=== PATIENT | female | born 2005 | race Caucasian/White ===

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

== ENCOUNTER 2023-07-14 15:33 | Outpatient (OUT) | payer OTHER, BC, SELFPAY ==
--- NOTE | 2023-07-14 15:35 | US_ITS ---
The [address] [address] Patient Name: BRADLEY MASSEY MRN: [id number] date: 2005 Sex: F Assigned Patient Location: US Current Patient Location: Accession/Order Number: [id number] Exam Date: 07/14/2023 16:00 Report Date: 07/15/2023 07:39 At the request of: RADHA YAN Procedure: US pelvis w/ transvaginal EXAMINATION: US pelvis w/ transvaginal HISTORY: pelvic pain in female R10.2 COMPARISON: Ultrasound pelvis 11/17/2022 TECHNIQUE: Transabdominal and/or transvaginal sonographic examination was performed as indicated by examination type. FINDINGS: UTERUS: Normal size and appearance. Uterus size: 8.1 x 3.5 x 4.7 cm ENDOMETRIUM: Normal homogeneous appearance. IUD within fundal endometrial cavity. Endometrial thickness: 2 mm RIGHT OVARY: Normal size and appearance. Duplex Doppler demonstrates normal waveform and flow; resistive index 0.7. Ovary size: 2.6 x 1.6 x 1.7 cm LEFT OVARY: Normal size and appearance. Duplex Doppler demonstrates normal waveform and flow; resistive index 0.6. Ovary size: 2.6 x 1.3 x 2.1 cm CUL-DE-SAC: Unremarkable. No significant free fluid. BLADDER: Unremarkable. OTHER: None. US/US pelvis w/ transvaginal IMPRESSION: 1. No abnormal or suspicious findings to account for patient's symptoms. Electronically authenticated by: ROBERT ZAVALA Date: 07/15/2023 07:39
== END 2023-07-14 15:34 | disposition home or self-care (01) ==
LOC: US 15:33
PROVIDERS: PCP Family Medicine; Visit Provider Obstetrics & Gynecology
DX: R10.2 Pelvic and perineal pain (principal)
CPT/HCPCS: 76830; 76856

== ENCOUNTER 2023-10-03 14:10 | Outpatient (OUT) | payer OTHER, BC, SELFPAY ==
--- OUTSIDE RECORDS SUMMARY | 2023-10-03 14:21 | XMS_ITS | CCD ---
Author Organization [facility] Care Team Providers Care [employer] Name Role Phone Stella Brar Unavailable Unavailable Juan CLe Unavailable Unavailable Yokasta Wiggins Unavailable Unavailable MD Fernando Wilson Primary Care Provider [phone] EMMANUELLE Ramos Emergency Provider [phone] Lisa Fernandez Unavailable Fernando Wilson Unavailable FARRAH ., DR GARCIA Admitting Unavailable FARRAH ., DR GARCIA Attending Unavailable WILSON, DR FERNANDO Emanuel Primary Care Unavailable FARRAH ., DR GARCIA Consulting Unavailable WILSON, DR FERNANDO Emanuel Admitting Unavailable WILSON, DR FERNANDO Emanuel Attending Unavailable WILSON, DR FERNANDO Emanuel Consulting Unavailable STEVE, DR FERNANDO Emanuel Primary Care Unavailable WILSON, DR FERNANDO Emanuel Primary Care Unavailable WILSON, DR FERNANDO Emanuel Admitting Unavailable WILSON, DR FERNANDO Emanuel Attending Unavailable WILSON, DR FERNANDO Emanuel Consulting Unavailable FARRAH ., DR GARCIA Admitting Unavailable FARRAH ., DR GARCIA Attending Unavailable WILSON, DR FERNANDO Emanuel Primary Care Unavailable FARRAH ., DR GARCIA Admitting Unavailable FARRAH ., DR GARCIA Attending Unavailable FARRAH ., DR GARCIA Consulting Unavailable STEVE, DR FERNANDO Emanuel Primary Care Unavailable STEVE, DR FERNANDO Emanuel Admitting Unavailable WILSON, DR FERNANDO Emanuel Attending Unavailable STEVE, DR FERNANDO Emanuel Consulting Unavailable STEVE, DR FERNANDO Emanuel Primary Care Unavailable MD Fernando Wilson Primary Care Provider MD Lisa Fernandez Attending Provider [phone] MD Fernando Wilson Primary Care Provider DO Cody Akhtar Attending Provider [phone] Fernando Wilson MD Primary Care Provider Bubba Cota DO R Unavailable ALBERT ZAPATA Attending Fernando Garza MD Primary Care Provider Fernando Wilson MD Primary Care Provider BUBBA COTA Attending Unavailable Asaad, Imad Admitting Unavailable Fernando Wilson Primary Care Unavailable Lisa Fernandez Attending Unavailable Cody Wise Attending Unavailable Cody Wise Admitting Unavailable Fernando Wilson Primary Care Unavailable Medications Current Medications Medication Drug Class(es) Dates Sig (Normalized) Sig (Original) ALPRAZolam 0.25 mg oral tablet (8 sources) Benzodiazepine Start: 09-02-2022 take 1 tablet by mouth twice daily as needed ALPRAZolam 0.25 MG 1 tablet Orally Twice a day prn for 30 days PRN Aug, Active dicyclomine hydrochloride 20 mg oral tablet (13 sources) Anticholinergic Start: 05-08-2022 take 20 mg by mouth twice daily Dicyclomine Active 20 MG PO 2 times daily May 08, 2022 1:00am Start: 05-08-2022 Dicyclomine Ac tive MG TABLET May 08, 2022 12:00am Start: 04-26-2022 take 1 tablet by fernandez th every six hours as needed dicyclomine (BENTYL) 20 mg tablet Take 20 mg by mouth every 6 hours as needed. 0 04/26/2022 Active Start: 05-28-2018 dicyclomine (B entyl) 10 mg capsule Take by mouth. 0 05/28/2018 Active Comment on above: Take 20 mg by mouth every 6 hours as needed. Drospirenone-Ethinyl Estradiol (3 sources) Progestin, Estrogen Start: 05-08-2022 Drospirenone-Ethinyl Estradiol Active 1 TAB PO As Directed May 08, 2022 1:00am Start: 05-08-2022 Drospirenone-E thinyl Estradiol Active TAB TABLET May 08, 2022 12:00am hyoscyamine sulfate 0.125 mg sublingual tablet (3 sources) Start: 12-01-2022 take 1 tablet under the tongue three times daily as needed Hyoscyamine Sulfate SL 0.125 MG 1 tablet under the tongue and allow to dissolve as needed Sublingual Three times a day as needed for 30 days Nov, Active 1 ml medroxyPROGESTERone acetate 150 mg/ml injection (14 sources) Progestin Start: 12-20-2022 End: 09-16-2023 medroxyPROGESTERone (DEPO-PROVERA) 150 mg/mL injection Inject 150 mg intramuscularly. 0 12/20/2022 09/16/2023 Active Start: 05-08-2022 Medroxyprogest erone Active 150 MG IM As Directed May 08, 2022 1:00am Start: 05-08-2022 Medroxyprogest erone Active MG IM May 08, 2022 12:00am Depo-Provera 150 MG/ML 1 mL Intramuscular Active Comment on above: Inject 150 mg intram uscularly. metoclopramide 10 mg oral tablet (1 source) Dopamine-2 Receptor Antagonist Start: take 1 tablet by mouth every six hours Metoclopramide Hcl (Reglan) 10 mg tablet Active 10 MG PO Q6H 28 7 May 08, 2022 12:00am ondansetron 4 mg disintegrating oral tablet (16 sources) Serotonin-3 Receptor Antagonist Start: End: take 1 tablet by mouth every eight hours for nausea ondansetron ODT (Zofran-ODT) 4 mg disintegrating tablet Indications: Irritable bowel syndrome with diarrhea , Bilious vomiting with nausea Take 1 tablet (4 mg) by mouth every 8 hours if needed for nausea or vomiting. 90 tablet 3 04/05/2023 03/30/2024 Active Start: 05-08-2022 take 4 mg by mouth once daily Ondansetron Active 4 MG PO Daily May 08, 2022 1:00am Start: 05-08-2022 Ondansetron Ac tive MG May 08, 2022 12:00am take 1 tablet by fernandez th once daily as needed Ondansetron HCl 4 MG 1 tablet Orally Once a day as needed for 30 days Active Comment on above: TAKE 1 TABLET (4 MG) BY MOUTH EVERY 8 HOURS IF NEEDED FOR NAUSEA OR VOMITING. polyethylene glycol 3350 [id number] mg / potassium chloride 2970 mg / sodium bicarbonate 6740 mg / sodium chloride 5860 mg / sodium sulfate 71476 mg powder for oral solution (1 source) Osmotic Laxative PEG-3350/Electr olyt es 236 GM as directed Orally ONCE DAILY for 1 days Active rifAXIMin 550 mg oral tablet (1 source) Rifamycin Antibacterial Start: 3 End: 3 take 1 tablet by mouth three times daily rifAXIMin (Xifaxan) 550 mg tablet Indications: diarrhea predominant irritable bowel syndrome Take 1 tablet (550 mg) by mouth 3 times a day for 14 days. 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 Take 2ml with every meal and snack up to 6 times daily 300 mL 11 04/21/2023 Active Completed/Discontinued Medications Medication Drug Class(es) Dates Sig (Normalized) Sig (Original) calcium chloride 0.0014 meq/ml / potassium chloride 0.004 meq/ml / sodium chloride 0.103 meq/ml / sodium lactate 0.028 meq/ml injectable solution (2 sources) Start: 05-26-2023 End: 05-27-2023 lactated Ringer's infusion cefdinir (7 sources) Cephalosporin Antibacterial take 1 [tsp_us] by mouth once daily Omnicef 250/5 1 tsp Orally qd for 10 day(s) Not-Taking ergocalciferol 1.25 mg oral capsule (6 sources) Provitamin D2 Compound Start: 05-22-2018 End: 05-26-2023 ergocalciferol (Vitamin D-2) 1.25 MG (92101 UT) capsule Take by mouth. 0 05/22/2018 05/26/2023 Discontinued (Therapy completed) Start: 05-22-2018 take 1 capsule by [facility] every week Vitamin D (Ergocalciferol) 1.25 MG (53014 UT) Oral Capsule TAKE 1 CAPSULE WEEKLY for 8 weeks Quantity: 8 Refills: 0 Stella Olivares Start : 22-May-2018 Active Multivitamin preparation (7 sources) take 1 tablet by fernandez once daily Multivitamin - 1 tablet Orally Once a day Not-Taking take 1 tablet by mouth once tor y Multivitamin - 1 tablet Orally Once a day Active sertraline 25 mg oral tablet (5 sources) Serotonin Reuptake Inhibitor Start: 10-19-2019 End: 05-26-2023 sertraline (Zoloft) 25 mg tablet Take by mouth once daily. 0 10/19/2019 05/26/2023 Discontinued (Therapy completed) Problems Active Problems Problem Classification Problem Date Documented Da te Episodic/Chronic Anxiety disorders (20 sources) Anxiety; Translations: [Generalized anxiety disorder] Onset: 07-31-2019 Chronic Headache; including migraine (6 sources) Headache; Translations: [Headache] Onset: 03-04-2023 03-04-2023 Episodic Menstrual disorders (1 source) Menorrhagia; Translations: [Excessive and frequent menstruation with regular cycle] 04-22-2023 Chronic Mood disorders (4 sources) Depressive disorder; Translations: [Depression] Onset: 07-31-2019 03-04-2023 Chronic Nausea and vomiting (14 sources) Nausea; Translations: [Nausea] Episodic Nutritional deficiencies (6 sources) Vitamin D deficiency; Translations: [Vitamin D deficiency, unspecified] Onset: 03-04-2023 03-04-2023 Chronic Other gastrointestinal disorders (19 sources) Irritable bowel syndrome; Translations: [Irritable bowel syndrome without diarrhea] Onset: 06-01-2016 03-04-2023 Chronic Other gastrointestinal disorders (5 sources) Mixed irritable bowel syndrome; Translations: [MIXED IRRITABLE BOWEL SYNDROME] Onset: 09-04-2022 Chronic Other gastrointestinal disorders (2 sources) Irritable bowel syndrome with diarrhea; Translations: [Irritable bowel syndrome with diarrhea] 04-05-2023 Chronic Other gastrointestinal disorders (2 sources) Diarrhea; Translations: [Diarrhea in pediatric patient] Episodic Other gastrointestinal disorders (1 source) Diarrhea, unspecified Episodic Other nervous system disorders (4 sources) Chiari malformation type I; Translations: [Compression of brain] Onset: 03-04-2023 03-04-2023 Chronic Other nutritional; endocrine; and metabolic disorders (4 sources) Methylene THF reductase deficiency AND homocystinuria; Translations: [Methylenetetrahydro folate reductase deficiency] Onset: 03-04-2023 03-04-2023 Chronic Other nutritional; endocrine; and metabolic disorders (6 sources) Sucrase-isomaltase deficiency; 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] Onset: 04-30-2023 04-30-2023 Chronic Other nutritional; endocrine; and metabolic disorders (12 sources) Weight loss; Translations: [Abnormal weight loss] 04-05-2023 Episodic Other nutritional; endocrine; and metabolic disorders (6 sources) Abnormal weight loss; Translations: [ABNORMAL WEIGHT LOSS] Onset: 03-23-2022 Episodic Residual codes; unclassified (2 sources) Insomnia; Translations: [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] Episodic Residual codes; unclassified (8 sources) Genetic susceptibility to other disease; 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] Episodic Residual codes; unclassified (4 sources) Insomnia disorder related to known organic factor; Translations: [Insomnia, unspecified] Onset: 03-04-2023 03-04-2023 Episodic Unclassified (1 source) Encounter for immunization; Translations: [Encounter for immunization] Onset: 02-21-2023 Past or Other Problems Problem Classification Problem Date Documented Date Episodic/Chronic Abdominal pain (20 sources) Generalized abdominal pain; Translations: [Abdominal pain] Onset: 05-01-2022 05-08-2022 Episodic Immunizations and screening for infectious disease (1 source) Encounter for screening for infections with a predominantly sexual mode of transmission; Translations: [ENC SCREEN INFECTIONS SEXL TRANSMS] Onset: 12-08-2021 Episodic Other endocrine disorders (4 sources) Endocrine disorder, unspecified; Translations: [ENDOCRINE DISORDER UNSPECIFIED] Onset: 04-28-2022 Episodic Other female genital disorders (4 sources) Other specified noninflammatory disorders of vagina; Translations: [OTH SPEC NONINFLAMMATORY D/O VAGINA] Onset: 12-07-2021 Episodic Unclassified (2 sources) History finding; Translations: [No pertinent past medical history] NEGATED: Highlighted row has not occurred!Residual codes; unclassified (6 sources) Disease Episodic Results Test Name Value Interpretation Reference Range Facility EGD Study observation Narrat lali 05-26-2023 Table formatting fro m the original result was not included. Impression The esophagus appeared normal. The stomach appeared normal. The duodenal bulb and 2nd part of the duodenum appeared normal. Performed 6 random biopsies. Findings The esophagus appeared normal. Regular Z-line 38 cm from the incisors The stomach appeared normal. The duodenal bulb and 2nd part of the duodenum appeared normal. Performed 6 random biopsies using biopsy forceps. Biopsies collected from 2nd part of the duodenum to evaluate for sucrase deficiency. Recommendation Await pathology results Indication Congenital sucrase-isomaltase deficiency Staff Staff Role Charlie Paredes MD Proceduralist Medications See Anesthesia Record. Preprocedure A history and physical has been performed, and patient medication allergies have been reviewed. The patient's tolerance of previous anesthesia has been reviewed. The risks and benefits of the procedure and the sedation options and risks were discussed with the patient. All questions were answered and informed consent obtained. Details of the Procedure The patient underwent monitored anesthesia care, which was administered by an anesthesia professional. The patient's blood pressure, ECG, ETCO2, heart rate, level of consciousness, oxygen and respirations were monitored throughout the procedure. The scope was introduced through the mouth and advanced to the second part of the duodenum. Retroflexion was performed in the cardia, fundus and incisura. The patient experienced no blood loss. The procedure was not difficult. The patient tolerated the procedure well. There were no apparent adverse events. Events Procedure Events Event Event Time ENDO SCOPE IN TIME 05/26/2023 3:32 PM ENDO SCOPE OUT TIME 05/26/2023 3:38 PM Specimens ID Type Source Tests Collected by Time 1 : Tissue Small Intestine, Duodenum DISACCHARIDASE ANALYSIS, TISSUE Lico Zeng MD 05/26/2023 1533 Procedure Location [facility] [address] [facility] [id number] Referring Provider Charlie Paredes Md [address] [address] Procedure Provider Charlie Paerdes MD [facility] Work Phone: [facility] Work Phone: Radiology Study observation (narrative) [facility] Work Phone: HCG ( test) Ql (U)O rdered By: Maria T Farley on 05-26-2023 Interpretation and review of laboratory results Normal [facility] Preg Test, Ur Negative Negative [facility] CNOVon 04-22-2023 CNOV Office Visit (ENDOLN ) MANPREET FRAIRE ([id number]) 1 F Date Time Provider Department 04/22/23 1:00 PM ALBERT ZAAPTA ENDOLN During your visit today, we recorded the following information about you: Pulse Blood pressure Weight Height 68/minute 118/72 61.7 kg 1.651 m Albert Zapata MD 04/25/2023 10:37 AM Addendum ENDOCRINOLOGY REASON FOR CONSULTATION: Menorrhagia HISTORY The patient is referred by Dr. Bubba Cota from [facility]. . My recommendations will be sent to the referring physician/provider either by letter or shared electronic medical record. HPI: Manpreet Fraire is a 18 year old female who comes in here for evaluation of menorrhagia. Menarche: 12-13 Cycles every 28 days x 6, changing pads about hourly for all those days. Pt was started on BCP and the bleeding became constant. On Provera since about 03/2022, and bleeding decreased in intensity, cramps and clots ceased but was still daily. In last 2 months Pt has used Provera + a pill with estrogens. With this, there were days w/o bleeding but endometrium became thicker (based on expelled vaginal tissue, w/o an US). No h/o anemia. Hematology tests have not revealed an explanation. No family h/o menorrhagia. MGM with stroke at age 54, attributed to carotid plaque detachment. REVIEW OF SYSTEMS: CONSTITUTIONAL: No fevers, chills. No unintended weight loss. HEENT: No frequent or severe headaches, nor current nasal congestion/sinus symptoms. EYES: No diplopia. No blurry vision. CARDIOVASCULAR: No chest pain, dyspnea, palpitations nor ankle edema. PULMONARY: No dyspnea nor unexplained cough. GASTROINTESTINAL: Loose and mucous bowel movements. . GENITOURINARY: Nocturia average: 0. No new urinary complaints. No incontinence. NEUROLOGIC: No tremor. No numbness of concern. MUSCULOSKELETAL: No significant joint or muscle pain. No swelling. MENTAL HEALTH: Anxiety. INTEGUMENTARY: No new skin changes (rash, new or changing mole, new growth). 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 Current Outpatient Medications Medication Sig dicyclomine (BENTYL) 20 mg tablet Take 20 mg by mouth every 6 hours as needed. medroxyPROGESTERone (DEPO-PROVERA) 150 mg/mL injection Inject 150 mg intramuscularly. ondansetron orally disintegrating (ZOFRAN ODT) 4 mg disintegrating tablet TAKE 1 TABLET (4 MG) BY MOUTH EVERY 8 HOURS IF NEEDED FOR NAUSEA OR VOMITING. No current facility-administered medications for this visit. ALLERGIES Not on File PHYSICAL EXAM: BP 118/72 (BP Site: Right Arm, BP Position: Sitting, BP Cuff Size: Large Adult) Pulse 68 Ht 165.1 cm (5' 5 ) Wt 61.7 kg (136 lb) BMI 22.63 kg/m? Body mass index is 22.63 kg/m?. Appearance: Well appearing, in no acute distress. HEENT: Anicteric sclerae. Non-injected conjunctivae. EOMI. Neck: No visible goiter. No thyromegaly. No lymphadenopathy Heart: RRR. No detectable murmur, gallop, or rub. Lungs: Clear to auscultation. No wheezing, rhonchi or rales. Abdomen: Soft. Tenderness about cm above umbilicus No tenderness to palpation. No apparent hepatomegaly. Extremities: No deformities, edema, or skin discoloration. Neuro: Alert, speaking coherently. No involuntary motions. Skin: Normal temperature. Normal moisture. No rash. LABS RESULTS: IMAGING: Transvaginal sonographic examination (08/21/18). FINDINGS: UTERUS: Normal size and appearance. Uterus: 7.4 x 1.9 x 3.8 cm (27.5 cc) ENDOMETRIUM: Normal homogeneous appearance. Endometrial thickness: 3 mm RIGHT OVARY: Normal size and appearance. Blood flow present within ovary on color Doppler. Right ovary: 3.6 x 1.2 x 1.6 cm (3.4 cc) LEFT OVARY: Normal size and appearance. Blood flow is present within ovary on Color Doppler. Left ovary: 3.7 x 2.3 x 1.8 cm (4.3 cc) CONCLUSION: Normal examination. There was another unremarkable US form 11/17/22. ASSESSMENT AND PLAN: Manpreet Fraire is a 18 year old female here for evaluation of menorrhagia. (N92.0) Menorrhagia with regular cycle (primary encounter diagnosis) Comment: No anatomical nor hematological cause identified, despite multiple studies. TSH was mildly low in last test on 2021. Will check it again along with prolactin. Plan: TSH BLD, PROLACTIN BLD I spent a total of 50 minutes on the date of the service which included preparing to see the patient, [id number] patient care, completing clinical documentation, obtaining and/or reviewing separately obtained history, performing a medically appropriate examination, counseling and educ (more content not included)... Normal [facility] HCG ( test) IA.rapi d Ql (U)Ordered By: Lisa Fernandez on 10-19-2022 HCG ( test) Ql (U) Negative [facility] HCG,Urineon 10-19-2022 Beta HCG ( test) Ql (U) Negative Normal [facility] Comment on above: Result Comment: PERF ORMED BY: [place] [address] PATHOLOGIST [employer] ALEXIA KENNEDY M.D. Performed By: #### U HCG #### [address] 10-19-2022 L - -------- Specimen: [id number] Received: 10/19/22 Status: CARLOS Rahman Num: [id number] Spec Type: Surgical Subm Dr: Lisa Fernandez MD Tissues: A Duodenum - Biopsy (DUODENUM BX) Procedures: HE/2, Gross/Micro L4 -------- Age/ Patient Sex Location Account Attending Physician -------- Manpreet Fraire / [id number] Lisa Fernandez MD -------- SPEC NUM: [id number] RECD: 10/19/22 STATUS: CARLOS RAHMAN NUM: [id number] JASON: 10/19/22 [facility] DR: iLsa Fernandez MD ENTERED: 10/19/[address] [facility] [address]: SPEC TYPE: Surgical DEPT: S ORDERED: HE/2, Gross/Micro L4 ORDERED: HE/2, Gross/Micro L4 Pathological Diagnosis Small bowel, duodenum, biopsy: - Small intestinal mucosa negative for significant histopathologic changes. - Negative for celiac disease. Clinical Information Blood in stool, weight loss, abdomen pain, nausea, rule out celiac Gross Description Received in formalin labeled with the patient's name, number and duodenum biopsy rule out celiac are two fragments of soft oliva tissue averaging 0.3 x 0.2 x 0.1 cm. Entirely submitted in one cassette labeled A1. Microscopic Description Two H E slides reviewed. The microscopic examination confirms the diagnosis. CPT Codes 39112 -------- -------- Specimen: [id number] Received: 10/19/22 Status: CARLOS Rahman Num: [id number] Spec Type: Surgical Subm Dr: Lisa Fernandez MD Tissues: A Duodenum - Biopsy (DUODENUM BX) Procedures: LUIS/Barby, Gross/Micro L4 -------- Patient: Manpreet Fraire [id number] (Continued) -------- Signed (signature on file) Isi Hsieh MD 10/20/22 0958 Normal [facility] AMYLASEon 09-04-2022 Amylase [Catalytic activity/Vol] 41 U/L Normal 25-115 [facility] Comment on above: Performed By: #### L IPA, DEVIKA #### [facility] [address] [place] [address] Dr. Nai Garcia LIPASEon 09-04-2022 Lipase [Catalytic activity/Vol] 83.0 U/L Normal 73.0-393.0 [facility] Comment on above: Performed By: #### L IPA, DEVIKA #### [facility] [address] [place] [address] Dr. Nai Garcia Automated erythrocytes count in urine sediment (number/area)Ordered By: Colby Ramos on 05-08-2022 RBC Auto (Urine sed) [#/Area] 0-1 [HPF] 0-4 [facility] Automated leukocytes count i n urine sediment (number/area)Ordered By: Colby Ramos on 05-08-2022 WBC Auto (Urine sed) [#/Area] 5-9 [HPF] 0-4 [facility] Automated urine hyaline cast s count (number/volume)Ordered By: Colby Ramos on 05-08-2022 Hyaline casts Auto (U) [#/Vol] None seen [LPF] 0-1 [facility] Basophils Auto (Bld) [#/Vol] Ordered By: Colby Ramos on 05-08-2022 Basophils (Bld) [#/Vol] 0.0 10*3/uL 0.0-0.2 [facility] Basophils/100 WBC Auto (Bld) Ordered By: Colby Ramos on 05-08-2022 Basophils/100 WBC (Bld) 0.9 % . [facility] Bilirubin Test strip Ql (U)O rdered By: Colby Ramos on 05-08-2022 Bilirubin Ql (U) Negative Negative [facility] Body fluid albumin measureme nt (mass/volume)Ordered By: Colby Ramos on 05-08-2022 Albumin (Body fld) [Mass/Vol] 4.1 g/dL 3.2-5.5 [facility] Casts typing in urine sedime nt by light microscopyOrdered By: Colby Ramos on 05-08-2022 Casts LM Nom (Urine sed) None seen [LPF] None S een [facility] Color Auto (U)Ordered By: Louis Ramos on 05-08-2022 Color (U) Yellow Yellow [facility] Creatinine and Glomerular fi ltration rate.predicted panel (S/P/Bld)Ordered By: Colby Ramos on 05-08-2022 Creatinine [Mass/Vol] 0.87 mg/dL 0.44-1.03 [facility] Direct bilirubin measurement Ordered By: Colby Ramos on 05-08-2022 Bilirubin.direct [Mass/Vol] mg/dL 0.0-0.4 [facility] Eosinophils Auto (Bld) [#/Vo l]Ordered By: Colby Ramos on 05-08-2022 Eosinophils (Bld) [#/Vol] 0.1 10*3/uL 0.0-0.45 [facility] Eosinophils/100 WBC Auto (Bl d)Ordered By: Colby Ramos on 05-08-2022 Eosinophils/100 WBC (Bld) 1.8 % . [facility] Erythrocyte distribution wid th Auto (RBC) [Ratio]Ordered By: Colby Ramos on 05-08-2022 Erythrocyte distribution width (RBC) [Ratio] 12.7 % 11.9-15.3 [facility] Estimated glomerular filtrat ion rate (GFR) non- AmericanOrdered By: Colby Ramos on 05-08-2022 GFR/1.73 sq M.predicted among non-blacks MDRD (S/P/Bld) [Vol rate/Area] > 60 mL/Min [facility] Globulin Calc (S) [Mass/Vol] Ordered By: Colby Ramos on 05-08-2022 Globulin (S) [Mass/Vol] 3.4 g/dL [facility] HCG ( test) IA.rapi d Ql (U)Ordered By: Colby Ramos on 05-08-2022 HCG ( test) Ql (U) Negative [facility] Hematocrit Auto (Bld) [Volum e fraction]Ordered By: Colby Raoms on 05-08-2022 Hematocrit (Bld) [Volume fraction] 39.7 % 34.0-46.4 [facility] Hemoglobin [Mass/volume] in BloodOrdered By: Colby Ramos on 05-08-2022 Hemoglobin (Bld) [Mass/Vol] 13.4 g/dL 11.8-15.4 [facility] Ketones Auto test strip (U) [Mass/Vol]Ordered By: Colby Ramos on 05-08-2022 Ketones (U) [Mass/Vol] 1+ Negative [facility] - Chemistry and C hemistry - challengeOrdered By: Colby Ramos on 05-08-2022 Lipase [Catalytic activity/Vol] 35.0 U/L 22-51 [facility] Leukocytes [#/volume] correc jean claude for nucleated erythrocytes in Blood by Automated counOrdered By: Colby Ramos on 05-08-2022 WBC corrected for nucl RBC Auto (Bld) [#/Vol] 5.5 10*3/uL 3.8-11.6 [facility] Lymphocytes Auto (Bld) [#/Vo l]Ordered By: Colby Ramos on 05-08-2022 Lymphocytes (Bld) [#/Vol] 1.4 10*3/uL 1.00-4.8 [facility] Lymphocytes/100 WBC Auto (Bl d)Ordered By: Colby Ramos on 05-08-2022 Lymphocytes/100 WBC (Bld) 26.3 % . [facility] MCH Auto (RBC) [Entitic mass ]Ordered By: Colby Ramos on 05-08-2022 MCH (RBC) [Entitic mass] 29.7 pg 24.7-34.3 [facility] MCHC Auto (RBC) [Mass/Vol]Or dered By: Colby Ramos on 05-08-2022 MCHC (RBC) [Mass/Vol] 33.7 g/dL 32.0-35.0 [facility] MCV Auto (RBC) [Entitic vol] Ordered By: Colby Ramos on 05-08-2022 MCV (RBC) [Entitic vol] 88.2 fL 80-100 [facility] Monocytes Auto (Bld) [#/Vol] Ordered By: Colby Ramos on 05-08-2022 Monocytes (Bld) [#/Vol] 0.3 10*3/uL 0.0-0.8 [facility] Monocytes/100 WBC Auto (Bld) Ordered By: Colby Ramos on 05-08-2022 Monocytes/100 WBC (Bld) 6.2 % . [facility] Mucus LM Ql (Urine sed)Order ed By: Colby Ramos on 05-08-2022 Mucus Ql (Urine sed) 2+ [LPF] [facility] Neutrophils Auto (Bld) [#/Vo l]Ordered By: Colby Ramos on 05-08-2022 Neutrophils (Bld) [#/Vol] 3.6 10*3/uL 1.8-7.7 [facility] Neutrophils/100 WBC Auto (Bl d)Ordered By: Colby Ramos on 05-08-2022 Neutrophils/100 WBC (Bld) 64.8 % . [facility] Nitrite Test strip Ql (U)Ord ered By: Colby Ramos on 05-08-2022 Nitrite Ql (U) Negative Negative [facility] No Panel InformationOrdered By: Colby Ramos on 05-08-2022 Estimated GFR () > 60 mL/Min [facility] Comment on above: GFR estimated refere nce range: According to KDOQI guidelines, <60 ml/min/1.73m2 is sufficient to diagnose a patient with chronic kidney disease. Pharmacy Creatinine Clearance (Chem 93.59 [facility] Nucleated erythrocytes [Pres ence] in Blood by Automated countOrdered By: Colby Ramos on 05-08-2022 Nucleated RBC Auto Ql (Bld) 0.4 /100{WBC} 0-0.5 [facility] Platelet mean volume Auto (B ld) [Entitic vol]Ordered By: Colby Ramos on 05-08-2022 Platelet mean volume (Bld) [Entitic vol] 10.9 fL 6.3-10.7 [facility] Platelets Auto (Bld) [#/Vol] Ordered By: Colby Ramos on 05-08-2022 Platelets (Bld) [#/Vol] 194 10*3/uL 150-450 [facility] Protein Auto test strip (U) [Mass/Vol]Ordered By: Colby Ramos on 05-08-2022 Protein (U) [Mass/Vol] 30 mg/dL Negative [facility] Protein [Mass/volume] in Ser um or PlasmaOrdered By: Colby Ramos on 05-08-2022 Protein [Mass/Vol] 7.5 g/dL 6.1-7.9 [facility] RBC Auto (Bld) [#/Vol]Ordere d By: Colby Ramos on 05-08-2022 RBC (Bld) [#/Vol] 4.50 10*6/uL 3.60-5.00 [facility] Serum or plasma alanine pope otransferase measurement without P-5'-P (enzymatic activiOrdered By: Colby Ramos on 05-08-2022 ALT No additional P-5'-P [Catalytic activity/Vol] 16 U/L 10-60 [facility] Serum or plasma albumin/glob ulin mass ratioOrdered By: Colby Ramos on 05-08-2022 Albumin/Globulin [Mass ratio] 1.2 {ratio} [facility] Serum or plasma alkaline chau sphatase measurement (enzymatic activity/volume)Ordered By: Colby Ramos on 05-08-2022 ALP [Catalytic activity/Vol] 47 U/L 32-92 [facility] Serum or plasma anion gap de terminationOrdered By: Colby Ramos on 05-08-2022 Anion gap [Moles/Vol] 15.9 mmol/L 6.0-15.0 [facility] Serum or plasma aspartate am inotransferase measurement (enzymatic activity/volume)Ordered By: Colby Ramos on 05-08-2022 AST [Catalytic activity/Vol] 17 U/L 10-42 [facility] Serum or plasma calcium linda urement (mass/volume)Ordered By: Colby Ramos on 05-08-2022 Calcium [Mass/Vol] 9.4 mg/dL 8.2-10.2 [facility] Serum or plasma chloride mamta surement (moles/volume)Ordered By: Colby Ramos on 05-08-2022 Chloride [Moles/Vol] 103 mmol/L 95-[address] [facility] Serum or plasma glucose linda urement (mass/volume)Ordered By: Colby Ramos on 05-08-2022 Glucose [Mass/Vol] 93 mg/dL 70-100 [facility] Comment on above: ADA recommended refe rence rangeRandom Glucose Reference Range is dependent on time and content of last meal. Glucose of more than 200 mg/dL in a nonstressed, ambulatory subject supports the diagnosis of Diabetes Mellitus. Serum or plasma non-glucuron idated bilirubin measurement (mass/volume)Ordered By: Colby Ramos on 05-08-2022 Bilirubin.indirect [Mass/Vol] TNP [facility] Comment on above: Test not performed Serum or plasma potassium me asurement (moles/volume)Ordered By: Colby Ramos on 05-08-2022 Potassium [Moles/Vol] 3.6 mmol/L 3.5-5.1 [facility] Serum or plasma sodium measu rement (moles/volume)Ordered By: Colby Ramos on 05-08-2022 Sodium [Moles/Vol] 136 mmol/L 136-146 [facility] Serum or plasma total biliru bin measurement (mass/volume)Ordered By: Colby Ramos on 05-08-2022 Bilirubin [Mass/Vol] 0.5 mg/dL 0.3-1.[address] [facility] Serum or plasma total carbon dioxide measurement (moles/volume)Ordered By: Colby Ramos on 05-08-2022 CO2 [Moles/Vol] 20.7 mmol/L 22.0-30.0 [facility] Serum or plasma urea nitroge n measurement (mass/volume)Ordered By: Colby Ramos on 05-08-2022 Urea nitrogen [Mass/Vol] 7 mg/dL 9-23 [facility] Specific gravity Auto test s trip (U) [Rel density]Ordered By: Colby Ramos on 05-08-2022 Specific gravity (U) [Rel density] 1.037 1.001-1.030 [facility] Squamous epithelial cells de tection in urine sediment by light microscopyOrdered By: Colby Ramos on 05-08-2022 Epithelial cells.squamous LM Ql (Urine sed) 5-9 [HPF] 0-2 [facility] Urine bacteria detection by automated methodOrdered By: Colby Ramos on 05-08-2022 Bacteria Auto Ql (U) None seen None Seen [facility] Urine clarity by refractomet ry automatedOrdered By: Colby Ramos on 05-08-2022 Clarity Refractometry automated (U) Cloudy Clear [facility] Urine glucose measurement by automated test strip (mass/volume)Ordered By: Colby Ramos on 05-08-2022 Glucose Auto test strip (U) [Mass/Vol] Normal mg/dL Normal [facility] Urine hemoglobin detection b y automated test stripOrdered By: Colby Ramos on 05-08-2022 Hemoglobin Auto test strip Ql (U) Negative Negative [facility] Urine leukocyte esterase det ection by automated test stripOrdered By: Colby Ramos on 05-08-2022 Leukocyte esterase Auto test strip Ql (U) Negative Negative [facility] Urobilinogen Auto test strip (U) [Mass/Vol]Ordered By: Colby Ramos on 05-08-2022 Urobilinogen (U) [Mass/Vol] Normal mg/dL Normal [facility] WBC Auto (Bld) [#/Vol]Ordere d By: Colby Ramos on 05-08-2022 WBC (Bld) [#/Vol] 5.5 10*3/uL 3.8-11.6 [facility] pH Auto test strip (U)Ordere d By: Colby Ramos on 05-08-2022 pH (U) 5.5 [pH] 5.0-9.0 [facility] CELIAC ANTIBODIES PROFILEon 04-29-2022 Deamidated Gliadin Abs, IgA 3 units Normal 0-19 [facility] Comment on above: Result Comment: Nega tive 0 - 19 Weak Positive 20 - 30 Moderate to Strong Positive >30 Performed By: #### L IPA, DEVIKA #### [facility] [address] [address] [address] Nai Garcia Deamidated Gliadin Abs, IgG 2 units Normal 0-19 [facility] Comment on above: Result Comment: Nega tive 0 - 19 Weak Positive 20 - 30 Moderate to Strong Positive >30 Performed By: #### L IPA, DEVIKA #### [facility] [address] [address] [address] Nai Garcia Endomysial Antibody IgA Negative Normal Negative [facility] Comment on above: Performed By: #### L IPA, DEVIKA #### [facility] [address] [place] [address] Dr. Nai Garcia Immunoglobulin A, Qn, Serum 123 mg/dL Normal 87-352 [facility] Comment on above: Performed By: #### L IPA, DEVIKA #### [facility] [address] [place] [address] Dr. Nai Garcia t-Transglutaminase (tTG) IgA <2 Normal 0-3 [facility] Comment on above: Result Comment: Nega tive 0 - 3 Weak Positive 4 - 10 Positive >10 . Tissue Transglutaminase (tTG) has been identified as the endomysial antigen. Studies have demonstr- ated that endomysial IgA antibodies have over 99% specificity for gluten sensitive enteropathy. Performed By: #### L IPA, DEVIKA #### [facility] [address] [place] [address] Dr. Nai Garcia H PYLORI ANTIBODY IGGon 120 H. PYLORI IGG ABS 0.33 Index Value Normal 0.00-0.79 [facility] Comment on above: Result Comment: Nega tive <0.80 Equivocal 0.80 - 0.89 Positive >0.89 Performed By: #### H PYLLC #### [facility] [address] [place] [address] Dr. Nai Garcia IMMUNOGLOBULIN IGA QUANTITIA VEon 04-29-2022 Immunoglobulin A, Qn, Serum 124 mg/dL Normal 87-352 [facility] Comment on above: Performed By: #### L IPA, DEVIKA #### [facility] [address] [place] [address] Dr. Nai Garcia TISSUE TRANSGLUTAMINASE IGGo n 04-29-2022 t-Transglutaminase (tTG) IgG <2 Normal 0-5 [facility] Comment on above: Result Comment: Nega tive 0 - 5 Weak Positive 6 - 9 Positive >9 Performed By: #### T RNSIGG #### [facility] [address] [place] [address] Dr. Nai Garcia Performed By: #### L IPA, DEVIKA #### [facility] [address] [place] [address] Dr. Nai Garcia FREE T4on 04-28-2022 Free T4 [Mass/Vol] 1.17 ng/dL Normal 0.78-1.34 [facility] Comment on above: Performed By: #### F T4 #### [facility] [address] [place] [address] Dr. Nai Garcia GLYCOHEMOGLOBIN A1Con 2021 ADA RECOMMENDATION SEE BELOW Normal [facility] Comment on above: Result Comment: ADA RECOMMENDED LIMIT 4.0 - 6.0 ADA THERAPEUTIC TARGET < 7.0 ACTION SUGGESTED > 7.0 Performed By: #### A 1C #### [facility] [address] [place] [address] Dr. Nai Garcia Glucose [Mass/Vol] 105 mg/dL Normal [facility] Comment on above: Performed By: #### A 1C #### [facility] [address] [place] [address] Dr. Nai Garcia HbA1c (Bld) [Mass fraction] 5.3 % Normal 4.5-6.2 [facility] Comment on above: Performed By: #### A 1C #### [facility] [address] [place] [address] Dr. Nai Garcia TSHon 04-28-2022 TSH 0.496 uIU/mL Critically low 0.516-4.130 [facility] Comment on above: Performed By: #### T SH #### [facility] [address] [place] [address] Dr. Nai Garcia CBC AUTO DIFFon 03-23-2022 BASO # 0.1 103/ul Normal 0.0-0.1 [facility] Comment on above: Performed By: #### C BC #### [facility] [address] [place] [address] Dr. Nai Garcia Basophils/100 WBC (Bld) 0.8 % Normal 0.2-2.0 [facility] Comment on above: Performed By: #### C BC #### [facility] [address] [place] [address] Dr. Nai Garcia EO # 0.1 103/ul Normal 0.0-0.7 [facility] Comment on above: Performed By: #### C BC #### [facility] [address] [place] [address] Dr. Nai Garcia Eosinophils/100 WBC (Bld) 1.3 % Normal 0.9-7.0 [facility] Comment on above: Performed By: #### C BC #### [facility] [address] [place] [address] Dr. Nai Garcia Erythrocyte distribution width (RBC) [Ratio] 12.9 % Normal 11.0-15.0 [facility] Comment on above: Performed By: #### C BC #### [facility] [address] [place] [address] Dr. Nai Garcia Hematocrit (Bld) [Volume fraction] 37.0 % Normal 36.0-48.0 [facility] Comment on above: Performed By: #### C BC #### [facility] [address] [place] [address] Dr. Nai Garcia Hemoglobin (Bld) [Mass/Vol] 12.5 g/dL Normal 12.0-16.0 [facility] Comment on above: Performed By: #### C BC #### [facility] [address] [place] [address] Dr. Nai Garcia IG # 0.01 10e3/ul Normal 0.00-0.03 [facility] Comment on above: Performed By: #### C BC #### [facility] [address] [place] [address] Dr. Nai Garcia IG % 0.2 % Normal 0.0-0.5 [facility] Comment on above: Performed By: #### C BC #### [facility] [address] [place] [address] Dr. Nai Garcia LYMPH # 1.6 103/ul Normal 1.2-3.8 [facility] Comment on above: Performed By: #### C BC #### [facility] [address] [place] [address] Dr. Nai Garcia Lymphocytes/100 WBC (Bld) 26.5 % Normal 20.5-60.0 [facility] Comment on above: Performed By: #### C BC #### [facility] [address] [place] [address] Dr. Nai Garcia MANUAL DIFF REQ NO Normal [facility] Comment on above: Performed By: #### C BC #### [facility] [address] [place] [address] Dr. aNi Garcia MCH (RBC) [Entitic mass] 29.8 pg Normal 26.7-34.0 [facility] Comment on above: Performed By: #### C BC #### [facility] [address] [place] [address] Dr. Nai Garcia MCHC (RBC) [Mass/Vol] 33.8 g/dL Normal 29.9-35.2 [facility] Comment on above: Performed By: #### C BC #### [facility] [address] [place] [address] Dr. Nai Garcia MCV (RBC) [Entitic vol] 88.3 fL Normal 81.0-99.0 [facility] Comment on above: Performed By: #### C BC #### [facility] [address] [place] [address] Dr. Nai Garcia MONO # 0.4 103/ul Normal 0.3-0.8 [facility] Comment on above: Performed By: #### C BC #### [facility] [address] [place] [address] Dr. Nai Garcia Monocytes/100 WBC (Bld) 7.1 % Normal 1.7-12.0 [facility] Comment on above: Performed By: #### C BC #### [facility] [address] [place] [address] Dr. Nai Garcia NEUT # 4.0 103/ul Normal 1.4-6.5 [facility] Comment on above: Performed By: #### C BC #### [facility] [address] [place] [address] Dr. Nai Garcia Neutrophils/100 WBC (Bld) 64.1 % Normal 43.0-75.0 [facility] Comment on above: Performed By: #### C BC #### [facility] [address] [place] [address] Dr. Nai Garcia Platelet mean volume (Bld) [Entitic vol] 11.3 fL Normal 9.5-13.5 [facility] Comment on above: Performed By: #### C BC #### [facility] [address] [place] [address] Dr. Nai Garcia PLT 213 103/ul Normal 150-450 [facility] Comment on above: Performed By: #### C BC #### [facility] [address] [place] [address] Dr. Nai Garcia RBC 4.19 106/ul Critically low 4.20-5.40 [facility] Comment on above: Performed By: #### C BC #### [facility] [address] [place] [address] Dr. Nai Garcia WBC 6.2 103/ul Normal 4.0-11.0 [facility] Comment on above: Performed By: #### C BC #### [facility] [address] [place] [address] Dr. Nai Garcia PROF CHEM 8 (BAS METB)on Anion gap [Moles/Vol] 12.1 mmol/L Normal [facility] Comment on above: Performed By: #### L IPA, DEVIKA #### [facility] [address] [place] [address] Dr. Nai Garcia Calcium [Mass/Vol] 9.2 mg/dL Normal 8.5-10.1 [facility] Comment on above: Performed By: #### L IPA DEVIKA #### [facility] [address] [place] [address] Dr. Nai Garcia Chloride [Moles/Vol] 105 mmol/L Normal 98-107 [facility] Comment on above: Performed By: #### L IPA, DEVIKA #### [facility] [address] [place] [address] Dr. Nai Garcia CO2 [Moles/Vol] 26.3 mmol/L Normal 21.0-32.0 [facility] Comment on above: Performed By: #### L IPA, DEVIKA #### [facility] [address] [place] [address] Dr. Nai Garcia Creatinine [Mass/Vol] 0.95 mg/dL Normal 0.55-1.02 [facility] Comment on above: Performed By: #### L IPA, DEVIKA #### [facility] [address] [place] [address] Dr. Nai Garcia EGFR-AF TURKMEN >60 Normal >=60 [facility] Comment on above: Performed By: #### L IPA, DEVIKA #### [facility] [address] [place] [address] Dr. Nai Garcia EGFR-NON AF TURKMEN >60 Normal >=60 [facility] Comment on above: Performed By: #### L IPA, DEVIKA #### [facility] [address] [address] [address] Nai Garcia Glucose [Mass/Vol] 98 mg/dL Normal 74-106 [facility] Comment on above: Performed By: #### L IPA, DEVIKA #### [facility] [address] [place] [address] Dr. Nai Garcia Potassium [Moles/Vol] 3.4 mmol/L Critically low 3.5-5.1 [facility] Comment on above: Performed By: #### L IPA, DEVIKA #### [facility] [address] [address] [address] Nai Garcia Sodium [Moles/Vol] 140 mmol/L Normal 136-145 [facility] Comment on above: Performed By: #### L IPA, DEVIKA #### [facility] [address] [place] [address] Dr. Nai Garcia Urea nitrogen [Mass/Vol] 11.0 mg/dL Normal 6.4-19.3 [facility] Comment on above: Performed By: #### L IPA, DEVIKA #### [facility] [address] [place] [address] Dr. Nai Garcia Urea nitrogen/Creatinine [Mass ratio] 11.6 mg/mg Normal [facility] Comment on above: Performed By: #### L IPA DEVIKA #### [facility] [address] [place] [address] Dr. Nai Garcia TSHon 03-23-2022 TSH 1.051 uIU/mL Normal 0.516-4.[address] [facility] Comment on above: Performed By: #### L IPA DEVIKA #### [facility] [address] [place] [address] Dr. Nai Garcia CHLAMYDIA/GONOCOCCUS LYDIA ( AB/URINE/PAPon 12-10-2021 Chlamydia trachomatis, LYDIA Negative Normal Negative [facility] Comment on above: Performed By: #### C T/NGNA #### [facility] [address] [place] [address] Dr. Nai Garcia Neisseria gonorrhoeae, LYDIA Negative Normal Negative [facility] Comment on above: Performed By: #### C T/NGNA #### [facility] [address] [place] [address] Dr. Nai Garcia VAGINITIS/VAGINOSIS DNA PROB Mikie 12-10-2021 Angelita species Negative Normal Negative [facility] Comment on above: Performed By: #### V AGINT #### [facility] [address] [place] [address] Dr. Nai Garcia Gardnerella vaginalis Positive Abnormal Negative [facility] Comment on above: Performed By: #### V AGINT #### [facility] [address] [place] [address] Dr. Nai Garcia Trichomonas vaginalis Negative Normal Negative [facility] Comment on above: Performed By: #### V AGINT #### [facility] [address] [place] [address] Dr. Nai Garcia Initial Visit (Pediatric Ari rosurgery)on 11-21-2019 Initial Visit (Pediatric Neurosurgery) *Chief Complaint NPV for headaches. History of Present Illness Manpreet is a 14 year old referred by Elvira Irizarry for a Chiari malformation and headaches. She started having headaches about 5 months ago but have been improving lately. She states that when they come, they are over her entire head and accompanied by nausea. She was previously having them daily, now only weekly. They do not last as long as they used to, now only a few hours. They get to a 4/10 in severity, improve with tylenol. She denies aggravating factors, she occasionally gets relief from an ice pack on her forehead. The only thing that changed when the headaches improved was being started on anxiety medications. Mom states that when she gets back headaches, she will get large bumps behind her ears. She denies emesis, only nausea. She gets vertigo with the headaches, but mom notes she will occasionally have vertigo without headaches. No dysphagia, no balance issues. She has occasional lightheadedness when she stands quickly. She notes good hydration. She notes tingling in the back of her neck with headaches, tingling of her forehead all the time. She notes arm weakness once when she was laying in her bed and had trouble picking up her arm. MANPREET is here today for routine health maintenance with her mother. Falls Screening: Patient as High Risk for Falls. Falls risk guidance reviewed. Review of Systems As per the HPI, scanned intake form, and below, otherwise negative. Constitutional: feeling tired Eyes: change in vision Gastrointestinal: vomiting and nausea Genitourinary: menses irregular Musculoskeletal: muscle weakness Neurological: headache ROS reported by the parent or guardian All other systems have been reviewed and are negative for complaint. 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 Chiari I malformation (348.4) (G93.5) 2. No pertinent past medical history Surgical History 1. History of Ear pressure equalization tube insertion Family History 1. Family history of Anxiety 2. Family history of depression (V17.0) (Z81.8) 3. Family history of gastroesophageal reflux disease (V18.59) (Z83.79) 4. Family history of kidney stones (V18.69) (Z84.1) 5. Family history of migraine headaches (V17.2) (Z82.0) 6. Family history of Anxiety 7. Family history of cerebrovascular accident (CVA) (V17.1) (Z82.3) 8. Family history of kidney stones (V18.69) (Z84.1) 9. Family history of migraine headaches (V17.2) (Z82.0) 10. Family history of Gallstones 11. Family history of antiphospholipid syndrome (V18.3) (Z83.2) 12. Family history of depression (V17.0) (Z81.8) 13. Family history of hypertension (V17.49) (Z82.49) 14. Family history of Graves' disease (V18.19) (Z83.49) Social History Never a smoker *Allergies 1. No Known Drug Allergies *Current Meds 1. Dicyclomine HCl - 10 MG Oral Capsule; Take 1-2 capsules up to 4 times a day as needed for abdominal pain; Therapy: 28May2018 to (Last Rx:30May2018) Requested for: 30May2018 Ordered 2. Sertraline HCl - 25 MG Oral Tablet; TAKE 1.5 TABLET Daily; Therapy: [id number] to (Evaluate:10Feb2020) Requested for: 12Nov2019 Recorded 3. Vitamin D (Ergocalciferol) 1.25 MG (68698 UT) Oral Capsule; TAKE 1 CAPSULE WEEKLY for 8 weeks; Therapy: [id number] to (Last Rx:[id number]) Requested for: 23May2018 Ordered *Vitals Vital Signs Recorded: 21Nov2019 11:11AM Temperature: 98.1 F Heart Rate: 66 Respiration: 18 Systolic: 114, LUE, Sitting Diastolic: 69, LUE, Sitting Height: 5 ft 4 in 2-20 Stature Percentile: 48 % Weight: 152 lb 8.96 oz 2-20 Weight Percentile: 88 % BMI Calculated: 26.19 BMI Percentile: 89 % BSA Calculated: 1.74 Physical Exam General: awake, alert HEENT: normocephalic, neck supple, sclera non-icteric, mucous membranes moist, tender to palpation over bilateral occipital protuberances, tightness of bilateral trapezius muscles Chest: symmetric rise Abdomen: soft, non-tender Neuro: Pupils equally round and reactive to light, extra-ocular movements are intact, facial sensation intact bilaterally, face is symmetric, hearing is intact to finger rub bilaterally, palate elevates symmetrically, tongue is midline Extremities are full strength in bilateral upper and lower extremities in all muscle groups with normal bulk and tone throughout. Gait is steady. Toe and heel walking are intact. Tandem gait is steady. Sensation is grossly intact and symmetric throughout. Reflexes are 2+ throughout. Coordination is intact. *Results/Data Her MRI was personally reviewed which demonstrates 3mm of cerebellar tonsillar ectopia without beaking of her tonsils. *Diagnoses/Problems 1. Chiari I malformation (348.4) (G93.5) *Orders 1. MRI Cervical without Contrast; Status:Hold For - Scheduling; Requested for:[id number]; Radiologist to Determine Optimal Study : Y What are the patient's signs and symptoms? : headaches, tonsillar ectopia and arm weakness, evaluate for syrinx or tethered cord, please do CINE flow study of C_spine 2. MRI L Spine without Contrast; Status:Hold For - Scheduling; Requested for:[id number]; Radiologist to Determine Optimal Study : Y What are the patient's signs and symptoms? : headaches, tonsillar ectopia and arm weakness, evaluate for syrinx or tethered cord, please do CINE flow study of C_spine 3. MRI T Spine without Contrast; Status:Hold For - Scheduling; Requested for:[id number]; Radiologist to Determine Optimal Study : Y What are the patient's signs and symptoms? : headaches, tonsillar ectopia and arm weakness, evaluate for syrinx or tethered cord, please do CINE flow study of C_spine Provider Impressions Manpreet has cerebellar tonsillar ectopia versus a Chiari I malformation and headaches that seem to be improving. She has also noted past history of arm weakness. I would like to obtain an MRI cervical, thoracic, and lumbar spine to evaluate for any evidence of syrinx or tethered cord. I will also get a CINE flow study of the C-spine to evaluate her flow given her mild ectopia. I will call with results and will plan to set up a virtual visit to review the scans when they are done. *Patient Discussion/Summary Manpreet's cerebellar tonsils sit a bit lower than average. This may be a Chiari malformation, or just cerebellar tonsillar ectopia. I ordered an MRI of her spine and a flow study of her cervical spine to evaluate this further. I will call you with those results and we can set up a virtual visit to review the scans. Signatures Electronically signed by : Daxa Zaman MD MPH; Nov 21 2019 2:56PM EST (Author) Reviewed by : Le Irizarry, MACHINE SET UP OPERATOR PAPER GOODS-RIG OPERATOR MACHINE SET UP OPERATOR PAPER GOODS-OCEAN EXPORT ACCOUNT MANAGER; Nov 21 2019 4:54PM EST Normal [facility] Telephone Note_on 10-05-19 Telephone Note_ Message Recorded as Task Date: 10/04/2019 10:41 AM, Created By: Jodi Goldstein Task Name: Callback Medical Advice Assigned To: Inge Briseno Regarding Patient: MANPREET FRAIRE, Status: Active Comment: Jodi Goldstein - 04 Oct 2019 10:41 AM TASK CREATED Caller: Devika, Mother; General Medical Question; (Mobile Phone) Mom stated Manpreet just had a virtual appointment with Le Irizarry. Mom stated Elvira was going to obtain Manpreet records and MRI results. Mom stated some other things are now going on with Manpreet Inge Briseno - 04 Oct 2019 11:14 AM TASK EDITED Left GIANLUCA Inge Briseno - 05 Oct 2019 12:22 PM TASK REPLIED TO: Previously Assigned To Le Irizarry Just spoke with mom, yesterday Manpreet woke up and called mom at work, had a heavy feeling in her upper body and torso was short lived according to mom, not lasting long, had a dull headache and dizziness, happened again about 45 minutes later and went to the ER and was evaluated Neuro evaluation, per mom was normal. I asked mom to please retrieve the disc from [facility], I know that you sent an email to Dr. Zaman. Anything that you would want to do? She is doing fine today. Le Irizarry - 05 Oct 2019 12:29 PM TASK REPLIED TO: Previously Assigned To Le Irizarry No I sent a task and an email. Am waiting to hear back from Dr. Zaman Signatures Electronically signed by : Inge Briseno R.N.; Oct 05 2019 1:00PM EST (Author) Normal [facility] ABDIFATAH - Automatic [employer] ABDIFATAH - Automatic [place] XP-Chrlnojuqm-Iaj hamlet g-Admin [address] [place], [place] MANPREET FRAIRE 2005 Date of Female Sex [id number] [place] [address] AddressEnglish (preferred) Language White Race Not or Ethnicity Summary of Care Clinical Content Allergies and Adverse Reactions <#[id number]> Encounters <#FR0ESKJI> Family History <#HB5TGZUM> Functional Status <#[id number]> Immunization <#LQ7SSYVL> Instructions <#[id number]> Interventions Provided <#FJ0WNANG> Medications <#ZL8LVHEL> Past Medical History <#FH1F8TVQ> Plan of Care <#[id number]> Problems <#GW8JQNRJ> Procedures <#MF2CVXOD> Results <#VI8GDGFP> Social History <#PE3WG3YG> Vital Signs <#OV1OFIKI> Other Document Details Health Care Providers Functional Statustop <#top> Functional Status Health Issues NameDatesDetails Functional status health issues are not documented Cognitive Status Health Issues NameDatesDetails Cognitive status health issues are not documented Problemstop <#top> NameDatesDetails Diarrhea in pediatric patient (787.91, R19.7) Vitamin D deficiency (268.9, E55.9) Abdominal pain, generalized (789.07, R10.84) Headache (784.0, R51) Anxiety (300.00, F41.9) 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, 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) Medicationstop <#top> NameDatesDetails Vitamin D (Ergocalciferol) 1.25 MG (17376 UT) Oral Capsule TAKE 1 CAPSULE WEEKLY for 8 weeks Quantity: 8 Refills: 0 Stella Olivares Start : 22-May-2018 Dicyclomine HCl - 10 MG Oral Capsule Take 1-2 capsules up to 4 times a day as needed for abdominal pain Quantity: 90 Refills: 3 Stella Olivares Start : 28-May-2018 Allergies and Adverse Reactionstop <#top> NameDatesDetails No Known Drug Allergies (Allergy) Past Medical Historytop <#top> NameDatesDetails No pertinent past medical history (V49.89, Z78.9) Status: Resolved Procedurestop <#top> ProcedureDatesDetails History of Ear pressure equalization tube insertionCompleted Immunizationtop <#top> NameDatesDetails Immunizations not documented Family Historytop <#top> Grandmother NameDMaria Del Carmens Family history of Gallstones (574.20, K80.20) Family history of kidney stones (V18.69, Z84.1) Family history of cerebrovascular accident (CVA) (V17.1, Z82.3) Family history of migraine headaches (V17.2, Z82.0) Family history of Anxiety (300.00, F41.9) aunt NameDatesDefrancess Family history of Graves' disease (V18.19, Z83.49) great grandmother NameDatesNidias Family history of antiphospholipid syndrome (V18.3, Z83.2) Mother NameDatesDefrancess Family history of gastroesophageal reflux disease (V18.59, Z83.79) Family history of kidney stones (V18.69, Z84.1) Family history of depression (V17.0, Z81.8) Family history of migraine headaches (V17.2, Z82.0) Family history of Anxiety (300.00, F41.9) Grandfather NameDatesDefrancess Family history of hypertension (V17.49, Z82.49) Family history of depression (V17.0, Z81.8) Social Historytop <#top> NameDatesDetails - Smoking Status NameDearnestDeheriberto Never smoked tobacco (finding) Vital Signstop <#top> DateTestResultDetails No Known Vitals to report Resultstop <#top> DateDescriptionValueD etails Results not documented Plan of Caretop <#top> NameDatesDetails Planned Observations Planned Goals not documented Interventions Providedtop <#top> Discussion/Summary Manpreet is a 14-year-old gentlewoman with a long-standing history of headaches associated with enlarged lymph nodes. More recently, she has had complaints on a frequent basis which have also included sensory changes. 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 I have talked with them about the followin. I would like to obtain a copy of her MRI films. 2. I will reach out to neurosurgery for evaluation and concerns for a Chiari malformation. 3. If the episodes of lymph node tenderness persist, it may be worth having her seen by immunology. 4. Anxiety and headache frequency will continue to be monitored. 5. Please call with an update on her progress. My nurse is Marimar Briseno at [phone]. 6. Follow up will be after her films are reviewed. 7. Eye exam should be completed. Instructionstop <#top> NameDatesDetails Instructions not documented Encounterstop <#top> Appointment; Stella Brar APRN-CNP Encounter Diagnosis: Problem not documentedOn: 08-May-2018 9:00 Appointment; [facility] Referral-Consult Letteron Referral-Consult Letter History of Prese nt Illness This visit was completed via phone or [email or web address] due to the restrictions of the COVID-19 pandemic. All issues as below were discussed and addressed but no physical exam was performed. If it was felt that the patient should be evaluated in clinic then they were directed there. The patient/guardian verbally consented to the visit. Manpreet is a 14-year-old young woman who is being seen today for increased headache complaints. By report, she has had episodes for the last few years which consist of painful posterior auricular lymph nodes and an associated headache. These episodes last for a few weeks and may happen 3?4 times per year. More recently, starting 2 months ago, she was having daily headache complaints. She described these as being all over her head. She had associated light intolerance and some nausea. She would complain of dizziness which she equated to a spinning sensation. This increased with position changes. She also complained of blurry vision and ringing in her ears. These headaches were there all day long and treatment with [id number] Tylenol or Motrin did not help. She also had a pins and needles feeling with these episodes either in her frontal location or the back of her neck. A head MRI was obtained. It noted a 4 mm tonsillar ectopia. With any of the above episodes, she did not have any other signs or symptoms of illness such as fever. She did have an increase in panic attacks again starting 2 months ago however, those are currently much improved. Her last headache was about 1 week ago. Manpreet was the 7 lbs. 3 oz. product of a 37 week gestation, complicated by labor, treated with Brethine. She went home from the hospital with her mother. Past medical history is positive for the placement of bilateral PE tubes at 12 months of age. She is positive for MTHFR. Developmentally, she started to walk and talk on time. Mom did not have any concerns about early development. Academically, she is a sophomore in high school. She is in both regular and accelerated classes. She has some elements of anxiety secondary to her academic performance. She sets the bar high for herself. She has had some difficulty since the change to social distancing as she is usually involved in both work and extracurricular activities. Manpreet has had some difficulty with sleep initiation secondary to her anxiety however, once she falls asleep she generally stays asleep. She generally looks well rested during the day. Her last eye exam was a few years ago. Review of Systems A review of systems finds no other pertinent positives. Active Problems Abdominal pain, generalized (789.07) (R10.84) Diarrhea in pediatric patient (787.91) (R19.7) Vitamin D deficiency (268.9) (E55.9) Past Medical History 1. No pertinent past medical history Surgical History 1. History of Ear pressure equalization tube insertion Allergies No Known Drug Allergies Current Meds Dicyclomine HCl - 10 MG Oral Capsule; Take 1-2 capsules up to 4 times a day as needed for abdominal pain; Therapy: 28May2018 to (Last Rx:30May2018) Requested for: 30May2018 Ordered Vitamin D (Ergocalciferol) 1.25 MG (83991 UT) Oral Capsule; TAKE 1 CAPSULE WEEKLY for 8 weeks; Therapy: [id number] to (Last Rx:[id number]) Requested for: 23May2018 Ordered Physical Exam Today's exam finds a cooperative young woman in no acute distress. Facial movements are full and equal. Speech is fluent without any grammatical errors. She is able to squat and balance on 1 foot without any difficulty. She demonstrates a rapid alternating finger tap. Strength is adequate. 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 More recently, she has had complaints on a frequent basis which have also included sensory changes. 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 I have talked with them about the followin. I would like to obtain a copy of her MRI films. 2. I will reach out to neurosurgery for evaluation and concerns for a Chiari malformation. 3. If the episodes of lymph node tenderness persist, it may be worth having her seen by immunology. 4. Anxiety and headache frequency will continue to be monitored. 5. Please call with an update on her progress. My nurse is Marimar Briseno at [phone]. 6. Follow up will be after her films are reviewed. 7. Eye exam should be completed. Thank you again for your re Normal [email or web address] Telephone Note_UHon 09-27-19 Telephone Note_ Message Recorded as Task Date: 09/26/2019 01:36 PM, Created By: Jodi Goldstein Task Name: Referral Order Follow Up Assigned To: Inge Briseno Regarding Patient: MANPREET FRAIRE, Status: Active Comment: Jodi Goldstein - 26 Sep 2019 1:36 PM TASK CREATED Caller: Kimberly, Primary Care Provider; Referral Request; Kimberly is calling from Dr. Kenya Garcia office. Dr. Garcia would like Manpreet to see a neurologist in regards of headaches. She prefer the [place] office if its face to face. Inge Briseno - 27 Sep 2019 11:23 AM TASK EDITED Mom confirmed a virtual appointment with Elvira on Saturday 09/30 at 3pm. Information sent to the secretaries to schedule this. Signatures Electronically signed by : Inge Briseno R.N.; Sep 27 2019 11:23AM EST (Author) Normal [email or web address] Clinic Note - [facility] - New Visiton 10-24-2018 Clinic Note - [facility] - New Visit Patient Visit Information: Onco-Fertility: Visit TypeHematology - New Visit History of Present Illness: Chief Complaint: history of platelet disorder Interval History: HPI: Manpreet is a 13 yo F with PMH of menorrhagia who presents for a second opinion for possible platelet dysfunction. She had menarche at 9 years of age and has had heavy periods with large clots ever since. Her periods generally last 7 days and she uses 5-6 tampons during the day and 1-2 pads at night with several accidents if she forgets to change her pad. She has seen a poultry grader and trialed several OCPs with no decrease in amount or length of bleeding. She notes an increase in bleeding on her periods with OCPs. She has not tried any other forms such as IUD or nexplanon. Her poultry grader bartolo basic labs and noted lower platelets and referred her to a tray drier operator Dr. Mcdowell. She was tested for vWF, anticardiolipin Ab which were both normal. Testing was positive for heterozygous MTHFR mutation. She also had platelet studies for electron microscopy which was low (2.79) but did not have platelet aggregation studies done as far as mother is aware. Manpreet does not complain of other symptoms besides menorrhagia. She does not have any easy bleeding with cuts, has had tooth extraction with no prolonged bleeding, no bleeding occurs during dental examinations. 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 Mother has concerns of Hardik Danlos due to possible platelet dysfunction and Manpreet's flexibility. Manpreet has no family history of Hardik Danlos or any other concerns. PMH: none PSH: teeth pulled with no excessive bleeding FH: has a brother and sister who never had any heavy cycles, older sister did have ITP when younger but has since resolved. mother no heavy bleeding, no heavy bleeding post childbirth maternal aunt has graves and has history of mennorhagia maternal grandmothers had stroke in 50s, was found to be MTHFR heterozygous Meds: none All: none Social History: Lives withmother father Number of Siblings2 Development History: Pediatric Development Historynormal demonstrates age appropriate learning demonstrates age appropriate communication demonstrates age appropriate activities school performance Social Substance History: Social History: denies smoking, alcohol and drug use Smoking Status: unknown if ever smoked Tobacco Use: unknown Alcohol Use: unknown Drug Use: unknown Problem List: Additional Dx: Platelet dysfunction: Menorrhagia: Family History: No Family History items are recorded in the problem list. Allergies and Intolerances: Allergies: No Known Allergies: Active Outpatient Medication Profile: * Incomplete Medication History as of 06-Jun-2018 08:32 documented in Structured Notes Bentyl 10 mg oral capsule: 1 cap(s) orally once a day Patient takes Oral Chemo & Onc Related TherapyNo Review of Systems: System ReviewAll other systems have been reviewed and are negative for complaint. ConstitutionalNEGATIV E: Fever, Chills EyesNEGATIVE: Drainage, Redness ENMTNEGATIVE: Nasal Discharge, Nasal Congestion, Ear Pain, Mouth Pain, Throat Pain RespiratoryNEGATIVE: Dry Cough, Productive Cough, Hemoptysis, Wheezing, Shortness of Breath CardiologyNEGATIVE: Chest Pain, Palpitations GastrointestinalNEGAT APRIL: Abdominal Pain, Nausea, Vomiting GenitourinaryNEGATIVE : Hematuria MusculoskeletalNEGATI VE: Decreased ROM, Pain, Swelling, Stiffness, Weakness NeurologicalNEGATIVE: Headache SkinNEGATIVE: Pain, Pruritus, Rash Hematologic/LymphPOSI TIVE: Bruising NEGATIVE: Anemia, Easy Bleeding, Night Sweats, Petechiae Allergic/ImmunologicN EGATIVE: Anaphylaxis, Itchy/ Teary Eyes, Itching, Sneezing, Swelling Performance Status: Vitals and Measurements: Vitals: Temp: 36.4 HR: 64 RR: 24 BP: 109/70 SPO2%: NA Measurements: HT(cm): 164.1 WT(kg): 67.7 BSA: 1.75 BMI: 25.1 Physical Exam: Constitutional: awake and alert, participatory on exam Eyes: no injected conjunctiva, EOMI, no drainage noted on exam ENMT: MMM, no lesions noted on oropharynx Head/Neck: NCAT, normal range of motion of neck Respiratory/Thorax: CTAB, no wheezes crackles or rhonchi heard on exam, no increased work of breathing present Cardiovascular: RRR, no murmurs,clickls or wheezes on exam, S1/S2 normal Gastrointestinal: soft, nontender, nondistended, regular BS Musculoskeletal: no erythema or joint swelling present, no hypermobile joints on exam Extremities: warm and well perfused, cap refill <2 sec Neurological: CN 2-10 grossly intact, strength normal in upper and lower extremities Psychological: normal affect and appropriate response to questions Skin: no rashes, erythema or bruises on exam Assessment, Plan, and Orders: Assessment: Manpreet is 13 yo F with PMH of menorrhagia who present for a second opinion on possible platelet dysfuction. Manpreet has tried several OCPs with no improvement in menorrhagia. We presented options such as lysteda, neplanon and mirena IUD which they will consider and discuss with their OBGYN. We also discussed with mother that menorrahagia could improve over time without any intervention as Manpreet grows but while she has symptoms we have several options. Labs performed at outside institution are as follows: WBC 6.7 h/h 12.9/38.5 mcv 87 plt 196 PT 10.7 INR 1.04 Fe 82 ferritin 13 TIBC 514 platelet microscopy 2.79 TSH normal vWF negative In terms of possible platelet dysfunction we recommend further testing be done including a platelet aggregation test in order to classify the extent of her platelet dysfunction. Platelet aggregation testing requires Manpreet to avoid chocolate, garlic and coffee for 24 hours before the test and testing must be done before 11am in a specialized lab which we will provide information to mother. Based on outside labs, no further testing is needed aside from platelet aggregation test. For the concern of Hardik-Danlos, no significant physical exam findings were noted today but will continue to monitor at this time and do further evaluation after platelet aggregation test is completed if necessary. Plan: 1. Menorrhagia -attempted several OCPs in the past without significant improvement -would suggest Neplanon, mirena IUD or Lysteda as options to help control menorrhagia. -would follow up with OBGYN to discuss which option is best for Manpreet 2. Platelet dysfunction -would recommend further testing with platelet aggregation test in order to characterize platelet dysfunction -will provide mother with further information on scheduling testing RTC: will see Manpreet again after platelet dysfunction test is completed or if any other concerns arise Patient seen and discussed with Dr. Felipe Puentes, DO PGY-1 Pediatrics Note Recipients: Yokasta Wiggins MD Select Yes when ready to send to Provider(s) Listed Above: Note sent to providers named above Attestation: Note Completion: I personally evaluated the patient [id number] Attending AttestationI saw and evaluated the patient. I personally obtained the roe and critical portions of the history and physical exam or was physically present for roe and critical portions performed by the resident/fellow. I reviewed the resident/fellows documentation and discussed the patient with the resident/fellow. I agree with the resident/fellows medical decision making as documented in the residents note Electronic Signatures: Santo Wang) (Signed 27-Oct-2018 13:30) Authored: Social History, Problem List and Immunizations, Review of Systems, To Send Document via Auto Fax, Attestation Co-Signer: Patient Visit Information, History of Present Illness, Social History, Problem List and Immunizations, Allergies and Outpatient Medication Profile, Oral Chemo/Oncology Related Therapy, Review of Systems, Performance Status, Physical Exam, Assessment, Plan, and Orders, To Send Document via Auto Fax, Attestation Clare Puentes (DO (Resident)) (Signed 24-Oct-2018 17:08) Authored: Patient Visit Information, History of Present Illness, Social History, Problem List and Immunizations, Allergies and Outpatient Medication Profile, Oral Chemo/Oncology Related Therapy, Review of Systems, Performance Status, Physical Exam, Assessment, Plan, and Orders, To Send Document via Auto Fax, Attestation Last Updated: 27-Oct-2018 13:30 by Santo Wang) Normal [facility] Measurementson 10-24-2018 Measurements Growth Chart: Growth Chart Measurements: Growth Chart Length/Height (cm)164.1 Growth Chart Weight (kg)67.7 Growth Chart BMI (kg/m2)25.14 Electronic Signatures: Regina Pedrue I) (Signed 24-Oct-2018 14:25) Authored: Growth Chart Last Updated: 24-Oct-2018 14:25 by Regina Perdue I) Normal [facility] Vital Signs Date Time Vital Sign Value Performing Clinician Facility 05-26-2023 16:15-0500 Diastolic blood pressure 75 mm[Hg] Charlie Paredes MD Work Phone: [facility] 05-26-2023 16:15-0500 Heart rate 54 /min Charlie Paredes MD Work Phone: [facility] 05-26-2023 16:15-0500 Respiratory rate 18 /min Charlie Paredes MD Work Phone: [facility] 05-26-2023 16:15-0500 SaO2% (BldA) [Mass fraction] 100 % Charlie Paredes MD Work Phone: [facility] 05-26-2023 16:15-0500 Systolic blood pressure 119 mm[Hg] Charlie Paredes MD Work Phone: [facility] 05-26-2023 15:41-0500 Body temperature 97.7 [degF] Charlie Paredes MD Work Phone: [facility] 05-26-2023 13:27-0500 Body mass index (BMI) [Ratio] 20.8 kg/m2 Charlie Paredes MD Work Phone: [facility] 05-26-2023 13:27-0500 Body weight 56.7 kg Charlie Paredes MD Work Phone: [facility] 04-22-2023 12:59-0500 Body height 165.1 cm Albert Zapata MD Work Phone: [facility] 04-22-2023 12:59-0500 Body weight 61.69 kg Albert Zapata MD Work Phone: [facility] 04-22-2023 12:59-0500 Diastolic blood pressure 72 mm[Hg] Albert Zapata MD Work Phone: [facility] 04-22-2023 12:59-0500 Heart rate 68 /min Albert Zapata MD Work Phone: [facility] 04-22-2023 12:59-0500 Systolic blood pressure 118 mm[Hg] Albert Zapata MD Work Phone: [facility] 02-25-2023 13:30-0400 Body weight 60.78 kg Fernando Wilson Other [employer] Other 02-25-2023 13:30-0400 Diastolic blood pressure 77 mm[Hg] Fernando Wilson Other [employer] Other 02-25-2023 13:30-0400 Systolic blood pressure 117 mm[Hg] Fernando Wilson Other [employer] Other 12-01-2022 13:00-0400 Body height 165.1 cm Imad Asaad Other [employer] Other 12-01-2022 13:00-0400 Body mass index (BMI) [Ratio] 20.13 kg/m2 Imad Asaad Other [employer] Other 12-01-2022 13:00-0400 Body weight 54.89 kg Imad Asaad Other [employer] Other 12-01-2022 13:00-0400 Diastolic blood pressure 93 mm[Hg] Imad Asaad Other [employer] Other 12-01-2022 13:00-0400 Systolic blood pressure 144 mm[Hg] Imad Asaad Other [employer] Other 10-19-2022 10:18-0400 Diastolic blood pressure 63 mm[Hg] MD Fernando Wilson Work Phone: [facility] 10-19-2022 10:18-0400 Heart rate 66 /min MD Fernando Wilson Work Phone: [facility] 10-19-2022 10:18-0400 Respiratory rate 16 /min MD Fernando Wilson Work Phone: [facility] 10-19-2022 10:18-0400 SaO2% (BldA) [Mass fraction] 99 % MD Fernando Wilson Work Phone: [facility] 10-19-2022 10:18-0400 Systolic blood pressure 108 mm[Hg] MD Fernando Wilson Work Phone: [facility] 10-19-2022 08:40-0400 Body height 165.1 cm MD Fernando Wilson Work Phone: [facility] 10-19-2022 08:40-0400 Body temperature 98.4 [degF] MD Fernando Wilson Work Phone: [facility] 10-19-2022 08:40-0400 Body weight 56.69 kg MD Fernando Wilson Work Phone: [facility] 09-02-2022 16:00-0400 Body height 162.56 cm Fernando Wilson Other [facility] [employer] Other 09-02-2022 16:00-0400 Body mass index (BMI) [Ratio] 21.11 kg/m2 Fernando Wilson Other [facility] [employer] Other 09-02-2022 16:00-0400 Body weight 55.79 kg Fernando Wilson Other [employer] [facility] [employer] Other 09-02-2022 16:00-0400 Diastolic blood pressure 64 mm[Hg] Fernando Wilson Other [employer] Other 09-02-2022 16:00-0400 SaO2% (BldA) [Mass fraction] 99 % Fernando Wilson Other [employer] Other 09-02-2022 16:00-0400 Systolic blood pressure 100 mm[Hg] Fernando Wilson Other [employer] Other 06-02-2022 15:30-0500 Body weight 57.15 kg Imad Asaad Other [employer] Other 06-02-2022 15:30-0500 Diastolic blood pressure 68 mm[Hg] Imad Asaad Other [employer] Other 06-02-2022 15:30-0500 Systolic blood pressure 116 mm[Hg] Imad Asaad Other [facility] [employer] Other 05-08-2022 17:18-0500 Body temperature 99 [degF] MD Fernando Wilson Work Phone: [facility] 05-08-2022 17:18-0500 Diastolic blood pressure 57 mm[Hg] MD Fernando Wilson Work Phone: [facility] 05-08-2022 17:18-0500 Heart rate 62 /min MD Fernando Wilson Work Phone: [facility] 05-08-2022 17:18-0500 Respiratory rate 16 /min MD Fernando Wislon Work Phone: [facility] 05-08-2022 17:18-0500 SaO2% (BldA) [Mass fraction] 100 % MD Fernando Wilson Work Phone: [facility] 05-08-2022 17:18-0500 Systolic blood pressure 99 mm[Hg] MD Fernando Wilson Work Phone: [facility] 05-08-2022 15:01-0500 Body height 165.1 cm MD Fernando Wilson Work Phone: [facility] 05-08-2022 15:01-0500 Body weight 58.45 kg MD Fernando Wilson Work Phone: [facility] Encounters Encounter Date Encounter Type Care Provider Facility Start: 06-13-2023 End: 06-13-2023 ambulatory BUBBA BROWNO Not Available Start: 05-26-2023 End: 05-26-2023 Subsequent hospital visit by physician Charlie Paredes MD Work Phone: [facility] Comment on above: Congenital sucrase-i somaltase deficiency Start: 04-26-2023 End: 04-26-2023 Office outpatient visit 15 minutes Charlie Paredes MD Work Phone: [facility] Comment on above: Congenital sucrase-i somaltase deficiency (Primary Dx); Irritable bowel syndrome with diarrhea; Generalized abdominal pain; Weight loss; Bilious vomiting with nausea Start: 04-22-2023 End: 04-22-2023 ambulatory ALBERT ZAPATA Facility:[facility] Start: 04-22-2023 End: 04-22-2023 Office consultation new/estab patient 60 min Albert Zapata MD Work Phone: Endocrinology Comment on above: Menorrhagia with reg ular cycle (Primary Dx) Start: 04-05-2023 End: 04-05-2023 Office outpatient visit 15 minutes Charlie Paredes MD Work Phone: [facility] [employer] [facility] 2 Comment on above: Irritable bowel synd vu with diarrhea (Primary Dx); Generalized abdominal pain; Weight loss; Bilious vomiting with nausea Start: 03-07-2023 End: 03-07-2023 ambulatory Fernando Wilson Other [employer] Other Start: 03-07-2023 Telephone encounter Fernando Wilson [facility] Start: 02-25-2023 End: 02-25-2023 ambulatory Fernando Wilson Other [employer] Other Start: 02-25-2023 Office outpatient vi sit 15 minutes Fernando Wilson [facility] Start: 02-21-2023 End: 02-21-2023 ambulatory Cody Akhtar - [facility] Facility:[facility] Start: 02-21-2023 End: 02-21-2023 ambulatory MD Fernando Wilson Work Phone: [facility] Work Phone: Start: 02-21-2023 End: 02-21-2023 Patient encounter procedure MD Fernando Wilson Work Phone: [facility]-Flu Vaccine Start: 12-01-2022 End: 12-01-2022 ambulatory Imad Asaad Other [employer] Other Start: 12-01-2022 Office outpatient vi sit 25 minutes Imad Asaad [facility] Start: 10-19-2022 End: 10-19-2022 ambulatory Imad Asaad Facility:[facility] Start: 10-19-2022 End: 10-19-2022 Admission to same day surgery center MD Fernando Wilson Work Phone: [facility]-Digestive [facility] Work Phone: Start: 10-19-2022 End: 10-19-2022 ambulatory MD Fernando Wilson Work Phone: [facility] Work Phone: Start: 09-09-2022 End: 09-09-2022 ambulatory Imad Asaad Other [employer] Other Start: 09-09-2022 Telephone encounter Imad Asaad [facility] Start: 09-06-2022 End: 09-06-2022 ambulatory Fernando Wilson Other [employer] Other Start: 09-06-2022 Telephone encounter Fernando Wilson [facility] Start: 09-04-2022 End: 09-05-[address] FERNANDO WILSON Facility: Start: 09-03-2022 End: 09-03-2022 ambulatory Fernando Wilson Other [employer] Other Start: 09-03-2022 Telephone encounter Fernando Wilson [facility] Start: 09-02-2022 End: 09-02-2022 ambulatory Fernando Wilson Other [employer] Other Start: 09-02-2022 Office outpatient vi sit 15 minutes Fernando Wilson [facility] Start: 09-02-2022 Telephone encounter Fernando Wilson [facility] Start: 07-21-2022 End: 07-21-2022 ambulatory Imad Asaad Other [employer] Other Start: 07-21-2022 Telephone encounter Imad Asaad [facility] Start: 06-02-2022 End: 06-02-2022 ambulatory Imad Asaad Other [facility] [employer] Other Start: 06-02-2022 Office consultation new/estab patient 40 min Imad Asaad [facility] Start: 05-08-2022 End: 05-08-2022 Emergency department patient visit MD Fernando Wilson Work Phone: [facility] Start: 04-28-2022 End: 04-29-[address] FERNANDO WILSON Facility:[facility] Start: 04-07-[address] BUBBA COTA . Facili ty:[facility] Start: 03-23-2022 End: 03-24-[address] FERNANDO WILSON Facility:[facility] Start: 12-07-2021 End: 12-07-[address] BUBBA COTA . Facility:[facility] Start: 10-01-2019 Patient encounter procedure Stella Maykel YH-Jzipxzdvdh-Qkxdyzsz-Adm in [facility] Work Phone: Start: 05-29-2018 Patient encounter procedure Stella Maykel JO-Bfickqcuff-Zmvboyay-Adm in [facility] Work Phone: Start: 05-08-2018 Patient encounter procedure Stella Maykel YF-Ceeaoezxnw-Cvtdonts-Adm in [facility] 585 Work Phone: Procedures Date Procedure Procedure Detail Performing Clinician Start: 05-26-2023 Egd transoral biopsy single/multiple Charlie Paredes MD Work Phone: Start: 05-26-2023 Urine test visual color cmprsn meths Charlie Paredes MD Work Phone: Start: 05-26-2023 PULSE OXIMETRY, SPOT Charlie Paredes MD Work Phone: Start: 10-19-2022 Esophagogastroduodenoscopy MD Fernando cleaning Work Phone: Start: 05-08-2022 Computed tomography of abdomen and pelvis with contrast MD Fernando Wilson Work Phone: Start: 10-01-2019 Follow-up visit Myringotomy and insertion of T tube Stella Brar Plan of Treatment Date Care Activity Detail Author Start: 2053 Zoster Vaccines (1 of 2) Zoste r Vaccines (1 of 2) [facility] Start: 01-05-2026 DTaP/Tdap/Td Vaccine s (7 - Td or Tdap) DTaP/Tdap/Td Vaccines (7 - Td or Tdap) [facility] Start: 01-05-2026 Urine microalbumin profile DTaP,Tdap,Td Vaccine (7 - Td or Tdap) [facility] Start: 05-24-2023 End: 05-24-2023 Telemedicine consultation with patient 05/24/2023 8:00 AM EST Telemedicine [facility] [address] [id number] Charlie Paredes MD [address] [facility] [address] [place], [place] [id number] [facility] 2 Start: 04-22-2023 End: 07-22-2023 Prolactin [Mass/volume] in Serum or Plasma PROLACTIN BLD Lab Routine Menorrhagia with regular cycle Expected: 04/22/2023, Expires: 07/22/2023 [facility] Work Phone: Comment on above: Expected: 04/22/2023 , Expires: 07/22/2023 Start: 04-22-2023 End: 07-22-2023 Thyrotropin [Units/volume] in Serum or Plasma TSH BLD Lab Routine Menorrhagia with regular cycle Expected: 04/22/2023, Expires: 07/22/2023 [facility] Work Phone: Comment on above: Expected: 04/22/2023 , Expires: 07/22/2023 Start: 01-21-2023 Covid-19 Vaccine ( season) Covid-19 Vaccine ( season) [facility] Start: 10-19-2022 [facility] Start: 05-23-2022 Depression Assessment Depression Ass essment [facility] Start: 07-12-2021 Hepatitis A Vaccines (2 of 2 - 2-dose series) Hepatitis A Vaccines (2 of 2 - 2-dose series) [facility] Start: 07-12-2021 HPV Vaccine (3 - 3-d ose series) HPV Vaccine (3 - 3-dose series) [facility] Start: 07-12-2021 HPV Vaccines (3 - 3- dose series) HPV Vaccines (3 - 3-dose series) [facility] Start: 2021 Chlamydia Screening (18-24) Chlamydia Screening (18-24) [facility] Start: 2021 GC (Gonorrhea) Scree lemuel (18-24) GC (Gonorrhea) Screening (18-24) [facility] Start: 2021 Hepatitis C screening Hepatitis C [facility] Start: 2021 Hepatitis C Screening Hepatitis C [facility] Start: 2021 HIV Screening HIV Screening [facility] Start: 08-20-2020 COVID-19 Vaccine (3 - Pfizer series) COVID-19 Vaccine (3 - Pfizer series) [facility] Start: 2017 Peds To Adult Transi tion Annual Assessment Peds To Adult Transition Annual Assessment [facility] Start: 2015 Peds To Adult Transi tion Initial Discussion Peds To Adult Transition Initial Discussion [facility] Start: 2006 Well Child Visit (WC V) - Annual Well Child Visit (WCV) - Annual [facility] Start: 2003 Hearing Screening (#1) Hearing Scree lemuel (#1) [facility] Start: 2003 HIV screening HIV Screening [facility] Start: 2003 Lipid panel Lipid Panel [facility] Disaccharidases pane l - Small intestine Tissue [facility] Work Phone: Comment on above: Release Upon Ludyin g for 1 Occurrences starting 05/26/2023 End: 05-26-2023 Moderate Sedation Moderate Sedation Procedures Routine Once for 1 Occurrences starting 05/26/2023 until 05/26/2023 [facility] Service Area Work Phone: Comment on above: Once for 1 Occurrenc es starting 05/26/2023 until 05/26/2023 Patient Education [facility] Work Phone: Patient referral [facility] Work Phone: Immunizations Immunization Date Immunization Notes Care Provider Fa cility 02-21-2023 influenza, injectabl e, quadrivalent, preservative free Charlie Paredes MD Work Phone: [facility] Work Phone: 03-11-2021 Human Papillomavirus 9-valent vaccine Charlie Paredes MD Work Phone: [facility] Work Phone: 03-11-2021 meningococcal B vacc ine, recombinant, OMV, adjuvanted Charlie Paredes MD Work Phone: [facility] Work Phone: 03-11-2021 HPV, unspecified formulation Charlie Paredes MD Work Phone: [facility] Work Phone: 01-09-2021 hepatitis A vaccine, pediatric/adolescent dosage, 2 dose schedule Charlie Paredes MD Work Phone: [facility] Work Phone: 01-09-2021 Human Papillomavirus 9-valent vaccine Charlie Paredes MD Work Phone: [facility] Work Phone: 01-09-2021 meningococcal B vacc ine, recombinant, OMV, adjuvanted Charlie Paredes MD Work Phone: [facility] Work Phone: 01-09-2021 meningococcal oligosaccharide (groups A, C, Y and W-135) diphtheria toxoid conjugate vaccine (MCV4O) Charlie Paredes MD Work Phone: [facility] Work Phone: 01-09-2021 hepatitis A and hepa titis B vaccine Charlie Paredes MD Work Phone: [facility] Work Phone: 06-25-2020 Pfizer Purple Cap SARS-CoV-2 Charlie Paredes MD Work Phone: [facility] 06-04-2020 Pfizer Purple Cap SARS-CoV-2 Charlie Paredes MD Work Phone: [facility] Work Phone: 01-06-2016 meningococcal polysaccharide (groups A, C, Y and W-135) diphtheria toxoid conjugate vaccine (MCV4P) Charlie Paredes MD Work Phone: [facility] Work Phone: 01-06-2016 tetanus toxoid, redu abdifatah diphtheria toxoid, and acellular pertussis vaccine, adsorbed Charlie Paredes MD Work Phone: [facility] Work Phone: 08-08-2008 diphtheria, tetanus toxoids and acellular pertussis vaccine, unspecified formulation Charlie Paredes MD Work Phone: [facility] Work Phone: 08-08-2008 measles, mumps and rubella virus vaccine Charlie Paredes MD Work Phone: [facility] Work Phone: 08-08-2008 poliovirus vaccine, inactivated Charlie Paredes MD Work Phone: [facility] Work Phone: 08-08-2008 varicella virus vaccine Charlie Paredes MD Work Phone: [facility] Work Phone: 04-30-2005 diphtheria, tetanus toxoids and acellular pertussis vaccine, unspecified formulation Charlie Paredes MD Work Phone: [facility] Work Phone: 04-30-2005 hepatitis B vaccine, pediatric or pediatric/adolescent dosage Charlie Paredes MD Work Phone: [facility] Work Phone: 04-30-2005 pneumococcal conjuga te vaccine, 7 valent Charlie Paredes MD Work Phone: [facility] Work Phone: 04-30-2005 poliovirus vaccine, inactivated Charlie Paredes MD Work Phone: [facility] Work Phone: 07-03-2004 haemophilus influenz ae type b vaccine, conjugate unspecified formulation Charlie Paredes MD Work Phone: [facility] Work Phone: 07-03-2004 measles, mumps and rubella virus vaccine Charlie Paredes MD Work Phone: [facility] Work Phone: 07-03-2004 pneumococcal conjuga te vaccine, 7 valent Charlie Paredes MD Work Phone: [facility] Work Phone: 07-03-2004 varicella virus vaccine Charlie Paredes MD Work Phone: [facility] Work Phone: 03-12-2004 pneumococcal conjuga te vaccine, 7 valent Charlie Paredes MD Work Phone: [facility] Work Phone: 2003 diphtheria, tetanus toxoids and acellular pertussis vaccine Charlie Paredes MD Work Phone: [facility] Work Phone: 2003 haemophilus influenz ae type b vaccine, PRP-T conjugate Charlie Paredes MD Work Phone: [facility] Work Phone: 2003 poliovirus vaccine, inactivated Charlie Paredes MD Work Phone: [facility] Work Phone: 2003 diphtheria, tetanus toxoids and acellular pertussis vaccine Charlie Paredes MD Work Phone: [facility] Work Phone: 2003 haemophilus influenz ae type b conjugate and Hepatitis B vaccine Charlie Paredes MD Work Phone: [facility] Work Phone: 2003 poliovirus vaccine, inactivated Charlie Paredes MD Work Phone: [facility] Work Phone: 2003 diphtheria, tetanus toxoids and acellular pertussis vaccine, unspecified formulation Charlie Paredes MD Work Phone: [facility] Work Phone: 2003 haemophilus influenz ae type b vaccine, conjugate unspecified formulation Charlie Paredes MD Work Phone: [facility] Work Phone: 2003 hepatitis B vaccine, pediatric or pediatric/adolescent dosage Charlie Paredes MD Work Phone: [facility] Work Phone: 2003 pneumococcal conjuga te vaccine, 7 valent Charlie Paredes MD Work Phone: [facility] Work Phone: 2003 poliovirus vaccine, unspecified formulation Charlie Paredes MD Work Phone: [facility] Work Phone: 2003 hepatitis B vaccine, pediatric or pediatric/adolescent dosage Charlie Paredes MD Work Phone: [facility] Work Phone: Payers Date Payer Category Payer Unknown [id number] 2003 Unknown [id number] 2003 Unknown [id number] [id number] 2003 Unknown [id number] 2.16.84 [id number] 2003 Unknown [id number] 2.16.84 [id number] 2003 Unknown [id number] 2.16.84 [id number] 2003 Unknown [id number] 2.16.84 [id number] 2003 Unknown [id number] 2.16.84 [id number] 1959 Self-pay [id number] 1959 Unknown [id number] 1959 Unknown [id number]. [id number] Unknown [facility] [id number] Unknown [id number] 2.1 [id number] Unknown [id number] [id number] Unknown [id number] Social History Date Type Detail Facility Start: 05-08-2022 End: 04-22-2023 Tobacco smoking status NHIS Never smoked tobacco (finding) [facility] Start: 2003 Sex Assigned At Female F [facility] Start: 04-22-2023 Sex Assigned At N [facility] [employer] Other Start: 03-04-2023 Tobacco smoking status NHIS Tobacco smoking consumption unknown [facility] Work Phone: Start: 04-05-2023 Gender identity Identifies as female gender (finding) [facility] Work Phone: Start: 04-05-2023 Sexual orientation Heterosexual (edward freitas) [facility] Work Phone: Start: 02-25-2023 End: 05-26-2023 Exposure to SARS-CoV-2 (event) Not sure [facility] Start: 04-22-2023 Tobacco use and exposure Smokeless tobacco non-user [facility] Start: 04-22-2023 Alcohol intake Lifetime non-d sukhdev (finding) [facility] Start: 04-22-2023 History of Social function [facility] National Score (1-100), lower number is lower risk 78 [facility] Start: 2003 Sex Assigned At Not on file [facility] NEGATED: Highlighted row - - EB-Pqeowsdkig-Esycac o g-Admin [facility] Work Phone: Goals Date Patient Goal Desired Activity /State Functional Status Date Assessment Result Facility NEGATED: Highlighted row Functional performance Functional status health issues are not documented Disease YJ-Dztzixsjkd-Ekxua log-Admin [facility] Work Phone: Mental Status Date Assessment Result Facility NEGATED: Highlighted row Cognitive function [Interpretation] Cognitive status health issues are not documented Disease MV-Dajxccwcwd-Zfixw log-Admin [facility] Work Phone: Clinical Notes 06-02-2022 to 05-26-2023 Perioperative Nursing Note - Le Dias RN - 05/26/2023 4:00 PM ESTPerioperative Nursing Note - Le Dias RN - 05/26/2023 4:00 PM ESTDischarge Instructions Note Date & Type Note Facility 05-26-2023 Miscellaneous Notes Home going instructions reviewed and discussed, pt and family verbalize understanding. Educated on anesthesia safety. Tolerated fluids well documented in this encounter [facility] Work Phone: 05-26-2023 Note Formatting of this n ote might be different from the original. Home going instructions reviewed and discussed, pt and family verbalize understanding. Educated on anesthesia safety. Tolerated fluids well [facility] 05-26-2023 Note Formatting of this n ote might be different from the original. Home going instructions reviewed and discussed, pt and family verbalize understanding. Educated on anesthesia safety. Tolerated fluids well [facility] 05-26-2023 Hospital Discharg e instructions Charlie Paredes MD - 05/26/2023 3:42 PM EST Patient Instructions after an Endoscopy Post-procedure recommendations: - The patient will be observed post-procedure, until all discharge criteria are met. - Discharge the patient to home with family member/escort. - Resume previous diet. - Continue present medications. - Observe patient's clinical course following today's procedure with therapeutic intervention. - Watch for bleeding, perforation, and infection. - Follow-up with referring physician. - Return to primary care physician. - The patient has a contact number available for emergencies. The signs and symptoms of potential delayed complications were discussed with the patient. Return to normal activities tomorrow. Written discharge instructions were provided to the patient. The anesthetics, sedatives or narcotics which were given to you today will be acting in your body for the next 24 hours, so you might feel a little sleepy or groggy. This feeling should slowly wear off. Carefully read and follow the instructions. You received sedation today: - Do not drive or operate any machinery or power tools of any kind. - No alcoholic beverages today, not even beer or wine. - Do not make any important decisions or sign any legal documents. - No over the counter medications that contain alcohol or that may cause drowsiness. - Do not make any important decisions or sign any legal documents. While it is common to experience mild to moderate abdominal distention, gas, or belching after your procedure, if any of these symptoms occur following discharge from the GI Lab or within one week of having your procedure, call the [facility] to be advised whether a visit to your nearest Urgent Care or Emergency Department is indicated. Take this paper with you if you go: - If you develop an allergic reaction to the medications that were given during your procedure such as difficulty breathing, rash, hives, severe nausea, vomiting or lightheadedness. - If you experience chest pain, shortness of breath, severe abdominal pain, fevers and chills. - If you develop signs and symptoms of bleeding such as blood in your spit, if your stools turn black, tarry, or bloody. - If you have not urinated within 8 hours following your procedure. - If your IV site becomes painful, red, inflamed, or looks infected. If you experience any problems or have any questions following discharge from the GI Lab, please call: [phone] documented in this encounter [facility] Work Phone: 05-26-2023 History and physical note Procedure H&P Patient Profile-Procedures Name Manpreet Fraire Date of 2005 [address] [place], [place] [id number] [place] [address] Primary Secondary Phone Number Fernando Hensley Procedure(s): Procedures: EGD Primary contact name and number Extended Emergency Contact Information Primary Emergency Contact: Devika Fraire Relation: Parent Secondary Emergency Contact: Jovan Alvarez Address: [address] [place] [address] of [employer] Relation: [facility] Weight Vitals: 05/26/23 1327 Weight: 56.7 kg (125 lb) BMI Body mass index is 20.8 kg/m . Allergies No Known Allergies Past Medical History Past Medical History: Diagnosis Date Compression of brain (CMS/HCC) 11/21/2019 Chiari I malformation Other specified health status No pertinent past medical history Provider assessment Diagnosis: CSID evaluation Medication Reviewed - yes Prior to Admission medications Medication Sig Start Date End Date Taking? Authorizing Provider ondansetron ODT (Zofran-ODT) 4 mg disintegrating tablet Take 1 tablet (4 mg) by mouth every 8 hours if needed for nausea or vomiting. 04/05/23 03/30/24 Yes Charlie Paredes MD dicyclomine (Bentyl) 10 mg capsule Take by mouth. 05/28/18 Historical Provider, sacrosidase 8,500 unit/mL solution Take 2ml with every meal and snack up to 6 times daily Patient not taking: Reported on 05/26/2023 04/21/23 Charlie Paredes MD ergocalciferol (Vitamin D-2) 1.25 MG (97115 UT) capsule Take by mouth. 05/22/18 05/26/23 Historical Provider, sertraline (Zoloft) 25 mg tablet Take by mouth once daily. 10/19/19 05/26/23 Historical Provider, Physical Exam Vitals: 05/26/23 1327 BP: 132/83 Pulse: 65 Resp: 18 Temp: 36.9 C (98.4 F) SpO2: 100% General: A&Ox3, NAD. HEENT: AT/NC. CV: RRR. No murmur. Resp: CTA bilaterally. No wheezing, rhonchi or rales. GI: Soft, NT/ND. BSx4. Extrem: No edema. Pulses intact. Skin: No Jaundice. Neuro: No focal deficits. Psych: Normal mood and affect. Procedure Plan - pre-procedural (re)assesment completed by physician: discharge/transfer patient when discharge criteria met Charlie Paredes MD 05/26/2023 2:25 PM [facility] Work Phone: 05-26-2023 History and physical note Procedure H&P Patient Profile-Procedures Name Manpreet Fraire Date of 2005 Address [address] [facility] [id number] [facility] [address] Primary Secondary Phone Number Fernando Hensley Procedure(s): Procedures: EGD Primary contact name and number Extended Emergency Contact Information Primary Emergency Contact: Devika Fraire Relation: Parent Secondary Emergency Contact: Jovan Alvarez Address: [address] [place] [address] of [employer] Relation: [facility] Weight Vitals: 05/26/23 1327 Weight: 56.7 kg (125 lb) BMI Body mass index is 20.8 kg/m . Allergies No Known Allergies Past Medical History Past Medical History: Diagnosis Date Compression of brain (CMS/HCC) 11/21/2019 Chiari I malformation Other specified health status No pertinent past medical history Provider assessment Diagnosis: CSID evaluation Medication Reviewed - yes Prior to Admission medications Medication Sig Start Date End Date Taking? Authorizing Provider ondansetron ODT (Zofran-ODT) 4 mg disintegrating tablet Take 1 tablet (4 mg) by mouth every 8 hours if needed for nausea or vomiting. 04/05/23 03/30/24 Yes Charlie Paredes MD dicyclomine (Bentyl) 10 mg capsule Take by mouth. 05/28/18 Historical Provider, sacrosidase 8,500 unit/mL solution Take 2ml with every meal and snack up to 6 times daily Patient not taking: Reported on 05/26/2023 04/21/23 Charlie Paredes MD ergocalciferol (Vitamin D-2) 1.25 MG (95090 UT) capsule Take by mouth. 05/22/18 05/26/23 Historical Provider, sertraline (Zoloft) 25 mg tablet Take by mouth once daily. 10/19/19 05/26/23 Historical Provider, Physical Exam Vitals: 05/26/23 1327 BP: 132/83 Pulse: 65 Resp: 18 Temp: 36.9 C (98.4 F) SpO2: 100% General: A&Ox3, NAD. HEENT: AT/NC. CV: RRR. No murmur. Resp: CTA bilaterally. No wheezing, rhonchi or rales. GI: Soft, NT/ND. BSx4. Extrem: No edema. Pulses intact. Skin: No Jaundice. Neuro: No focal deficits. Psych: Normal mood and affect. Procedure Plan - pre-procedural (re)assesment completed by physician: discharge/transfer patient when discharge criteria met Charlie Paredes MD 05/26/2023 2:25 PM documented in this encounter [facility] Work Phone: 04-26-2023 History of Presen t illness Narrative Subjective History of Present Illness: Manpreet Fraire is a 18 y.o. female who presents to GI clinic via virtual visit for follow-up after lab testing. Of note she was found to have symptoms concerning for simple malabsorptive disease considering her longstanding symptoms since childhood. She underwent testing for CSID which demonstrated a positive sucrose breath test. Small bowel biopsies were not performed. During the sucrose breath test she had significant onset of symptoms with consumption of the sucrose sugars, and was prescribed Sucraid. She is currently awaiting delivery of Sucraid and coordinating with the pharmacy. She continues to have ongoing symptoms, and struggles to adhere to a stringent CSID diet. Xifaxan did not significantly improve her symptoms. Past Medical History has a past medical history of Compression of brain (CMS/HCC) (11/21/2019) and Other specified health status. Social History Family History family history includes Anxiety disorder in her maternal grandmother and mother; Cholelithiasis in her maternal grandmother; Depression in her maternal grandfather and mother; ERICA disease in her mother; Graves' disease in her mother's sister; Hypertension in her maternal grandfather; Migraines in her maternal grandmother and mother; Nephrolithiasis in her maternal grandmother and mother; Stroke in her maternal grandmother; antiphospholipid syndrome in her maternal great-grandmother. Allergies No Known Allergies Medications Current Outpatient Medications Medication Instructions dicyclomine (Bentyl) 10 mg capsule oral ergocalciferol (Vitamin D-2) 1.25 MG (74347 UT) capsule oral ondansetron ODT (ZOFRAN-ODT) 4 mg, oral, Every 8 hours PRN sacrosidase 8,500 unit/mL solution Take 2ml with every meal and snack up to 6 times daily sertraline (Zoloft) 25 mg tablet oral, Daily RT Objective There were no vitals taken for this visit. Physical Exam Vitals reviewed. Constitutional: General: She is awake. Pulmonary: Effort: Pulmonary effort is normal. Breath sounds: Normal breath sounds. Neurological: Mental Status: She is alert and oriented to person, place, and time. Psychiatric: Attention and Perception: Attention and perception normal. Behavior: Behavior normal. Assessment/Plan Manpreet Fraire is a 18 y.o. female who presents to GI clinic for follow-up to discuss her recent lab work. She has findings consistent with CS ID and Sucraid has been prescribed. She is awaiting delivery of the drug. We had extensive conversations about the underlying etiology of the disease, the possibility that there was loss of enzyme activity which led to his onset of symptoms around age 11. We also discussed that as a child she may not been aware of the symptoms that she was experiencing. Overall she is in good spirits with this diagnosis, and is excited to try a medication that may work. A csid diet is very difficult to maintain, and patient acknowledges that. She will likely need to use Sucraid to maintain a healthy diet, which does not significantly affect her social life without having to experience significant symptoms. 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 Sucraid has been prescribed, awaiting delivery. Charlie Paredes MD documented in this encounter [facility] Work Phone: 04-22-2023 Note HNO ID: [id number] Author: Albert Zapata MD Service: ? Author Type: Physician Type: Progress Notes Filed: 04/25/2023 10:37 AM Note Text: ENDOCRINOLOGY REASON FOR CONSULTATION: Menorrhagia HISTORY The patient is referred by Dr. Bubba Cota from [facility]. . My recommendations will be sent to the referring physician/provider either by letter or shared electronic medical record. HPI: Manpreet Fraire is a 18 year old female who comes in here for evaluation of menorrhagia. Menarche: 12-11 Cycles every 28 days x 6, changing pads about hourly for all those days. Pt was started on BCP and the bleeding became constant. On Provera since about 03/2022, and bleeding decreased in intensity, cramps and clots ceased but was still daily. In last 2 months Pt has used Provera + a pill with estrogens. With this, there were days w/o bleeding but endometrium became thicker (based on expelled vaginal tissue, w/o an US). No h/o anemia. Hematology tests have not revealed an explanation. No family h/o menorrhagia. MGM with stroke at age 54, attributed to carotid plaque detachment. REVIEW OF SYSTEMS: CONSTITUTIONAL: No fevers, chills. No unintended weight loss. HEENT: No frequent or severe headaches, nor current nasal congestion/sinus symptoms. EYES: No diplopia. No blurry vision. CARDIOVASCULAR: No chest pain, dyspnea, palpitations nor ankle edema. PULMONARY: No dyspnea nor unexplained cough. GASTROINTESTINAL: Loose and mucous bowel movements. . GENITOURINARY: Nocturia average: 0. No new urinary complaints. No incontinence. NEUROLOGIC: No tremor. No numbness of concern. MUSCULOSKELETAL: No significant joint or muscle pain. No swelling. MENTAL HEALTH: Anxiety. INTEGUMENTARY: No new skin changes (rash, new or changing mole, new growth). 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 Current Outpatient Medications Medication Sig dicyclomine (BENTYL) 20 mg tablet Take 20 mg by mouth every 6 hours as needed. medroxyPROGESTERone (DEPO-PROVERA) 150 mg/mL injection Inject 150 mg intramuscularly. ondansetron orally disintegrating (ZOFRAN ODT) 4 mg disintegrating tablet TAKE 1 TABLET (4 MG) BY MOUTH EVERY 8 HOURS IF NEEDED FOR NAUSEA OR VOMITING. No current facility-administered medications for this visit. ALLERGIES Not on File PHYSICAL EXAM: BP 118/72 (BP Site: Right Arm, BP Position: Sitting, BP Cuff Size: Large Adult) Pulse 68 Ht 165.1 cm (5' 5 ) Wt 61.7 kg (136 lb) BMI 22.63 kg/m? Body mass index is 22.63 kg/m?. Appearance: Well appearing, in no acute distress. HEENT: Anicteric sclerae. Non-injected conjunctivae. EOMI. Neck: No visible goiter. No thyromegaly. No lymphadenopathy Heart: RRR. No detectable murmur, gallop, or rub. Lungs: Clear to auscultation. No wheezing, rhonchi or rales. Abdomen: Soft. Tenderness about cm above umbilicus No tenderness to palpation. No apparent hepatomegaly. Extremities: No deformities, edema, or skin discoloration. Neuro: Alert, speaking coherently. No involuntary motions. Skin: Normal temperature. Normal moisture. No rash. LABS RESULTS: IMAGING: Transvaginal sonographic examination (08/21/18). FINDINGS: UTERUS: Normal size and appearance. Uterus: 7.4 x 1.9 x 3.8 cm (27.5 cc) ENDOMETRIUM: Normal homogeneous appearance. Endometrial thickness: 3 mm RIGHT OVARY: Normal size and appearance. Blood flow present within ovary on color Doppler. Right ovary: 3.6 x 1.2 x 1.6 cm (3.4 cc) LEFT OVARY: Normal size and appearance. Blood flow is present within ovary on Color Doppler. Left ovary: 3.7 x 2.3 x 1.8 cm (4.3 cc) CONCLUSION: Normal examination. There was another unremarkable US form 11/17/22. ASSESSMENT AND PLAN: Manpreet Fraire is a 18 year old female here for evaluation of menorrhagia. (N92.0) Menorrhagia with regular cycle (primary encounter diagnosis) Comment: No anatomical nor hematological cause identified, despite multiple studies. TSH was mildly low in last test on 2021. Will check it again along with prolactin. Plan: TSH BLD, PROLACTIN BLD I spent a total of 50 minutes on the date of the service which included preparing to see the patient, [id number] patient care, completing clinical documentation, obtaining and/or reviewing separately obtained history, performing a medically appropriate examination, counseling and educating the patient/family/caregiver, and ordering medications, tests, or procedures. Return to office: GOLDIE Zapata MD c.c. Dr. Bubba Cota [facility] 04-22-2023 History of Presen t illness Narrative ENDOCRINOLOGY REASON FOR CONSULTATION: Menorrhagia HISTORY The patient is referred by Dr. Bubba Cota from [facility]. . My recommendations will be sent to the referring physician/provider either by letter or shared electronic medical record. HPI: Manpreet Fraire is a 18 year old female who comes in here for evaluation of menorrhagia. Menarche: 12-13 Cycles every 28 days x 6, changing pads about hourly for all those days. Pt was started on BCP and the bleeding became constant. On Provera since about 03/2022, and bleeding decreased in intensity, cramps and clots ceased but was still daily. In last 2 months Pt has used Provera + a pill with estrogens. With this, there were days w/o bleeding but endometrium became thicker (based on expelled vaginal tissue, w/o an US). No h/o anemia. Hematology tests have not revealed an explanation. No family h/o menorrhagia. MGM with stroke at age 54, attributed to carotid plaque detachment. REVIEW OF SYSTEMS: CONSTITUTIONAL: No fevers, chills. No unintended weight loss. HEENT: No frequent or severe headaches, nor current nasal congestion/sinus symptoms. EYES: No diplopia. No blurry vision. CARDIOVASCULAR: No chest pain, dyspnea, palpitations nor ankle edema. PULMONARY: No dyspnea nor unexplained cough. GASTROINTESTINAL: Loose and mucous bowel movements. . GENITOURINARY: Nocturia average: 0. No new urinary complaints. No incontinence. NEUROLOGIC: No tremor. No numbness of concern. MUSCULOSKELETAL: No significant joint or muscle pain. No swelling. MENTAL HEALTH: Anxiety. INTEGUMENTARY: No new skin changes (rash, new or changing mole, new growth). 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 Current Outpatient Medications Medication Sig dicyclomine (BENTYL) 20 mg tablet Take 20 mg by mouth every 6 hours as needed. medroxyPROGESTERone (DEPO-PROVERA) 150 mg/mL injection Inject 150 mg intramuscularly. ondansetron orally disintegrating (ZOFRAN ODT) 4 mg disintegrating tablet TAKE 1 TABLET (4 MG) BY MOUTH EVERY 8 HOURS IF NEEDED FOR NAUSEA OR VOMITING. No current facility-administered medications for this visit. ALLERGIES Not on File PHYSICAL EXAM: BP 118/72 (BP Site: Right Arm, BP Position: Sitting, BP Cuff Size: Large Adult) Pulse 68 Ht 165.1 cm (5' 5 ) Wt 61.7 kg (136 lb) BMI 22.63 kg/m Body mass index is 22.63 kg/m . Appearance: Well appearing, in no acute distress. HEENT: Anicteric sclerae. Non-injected conjunctivae. EOMI. Neck: No visible goiter. No thyromegaly. No lymphadenopathy Heart: RRR. No detectable murmur, gallop, or rub. Lungs: Clear to auscultation. No wheezing, rhonchi or rales. Abdomen: Soft. Tenderness about cm above umbilicus No tenderness to palpation. No apparent hepatomegaly. Extremities: No deformities, edema, or skin discoloration. Neuro: Alert, speaking coherently. No involuntary motions. Skin: Normal temperature. Normal moisture. No rash. LABS RESULTS: IMAGING: Transvaginal sonographic examination (08/21/18). FINDINGS: UTERUS: Normal size and appearance. Uterus: 7.4 x 1.9 x 3.8 cm (27.5 cc) ENDOMETRIUM: Normal homogeneous appearance. Endometrial thickness: 3 mm RIGHT OVARY: Normal size and appearance. Blood flow present within ovary on color Doppler. Right ovary: 3.6 x 1.2 x 1.6 cm (3.4 cc) LEFT OVARY: Normal size and appearance. Blood flow is present within ovary on Color Doppler. Left ovary: 3.7 x 2.3 x 1.8 cm (4.3 cc) CONCLUSION: Normal examination. There was another unremarkable US form 11/17/22. ASSESSMENT & PLAN: Manpreet Fraire is a 18 year old female here for evaluation of menorrhagia. (N92.0) Menorrhagia with regular cycle (primary encounter diagnosis) Comment: No anatomical nor hematological cause identified, despite multiple studies. TSH was mildly low I last test on 2021. Will check it again along with prolactin. Plan: TSH BLD, PROLACTIN BLD I spent a total of 50 minutes on the date of the service which included preparing to see the patient, [id number] patient care, completing clinical documentation, obtaining and/or reviewing separately obtained history, performing a medically appropriate examination, counseling and educating the patient/family/caregiver, and ordering medications, tests, or procedures. Return to office: GOLDIE Zapata MD c.c. Dr. Bubba Cota documented in this encounter [facility] 04-05-2023 History of Presen t illness Narrative Subjective History of Present Illness: Manpreet Fraire is a 18 y.o. female who presents to GI clinic for second opinion of a diagnosis of IBS-D. Patient has been having symptoms since roughly age of 13, however as a child she frequently had issues with diarrhea and had trouble tolerating traditional formula requiring alimentary formula. She is following up with her GI team in [place], and has undergone extensive GI work-up including EGD and colonoscopy which have not been fruitful in determining etiology of her symptoms. Since her last clinic evaluation, patient was given a sample of Zenpep to attempt, which was not beneficial in her symptoms. 1 week later she was in the ER secondary to severe abdominal pain and cramping which was different from her baseline symptoms. She states she has never had similar symptoms since or before. She continues to have on and off symptoms, but overall states that her symptom control is at baseline. She has obtained Xifaxan but has not started therapy yet. She recently completed her sucrose breath test as well. Results are pending. Past Medical History has a past medical history of Compression of brain (CMS/HCC) (11/21/2019) and Other specified health status. Social History Family History family history includes Anxiety disorder in her maternal grandmother and mother; Cholelithiasis in her maternal grandmother; Depression in her maternal grandfather and mother; ERICA disease in her mother; Graves' disease in her mother's sister; Hypertension in her maternal grandfather; Migraines in her maternal grandmother and mother; Nephrolithiasis in her maternal grandmother and mother; Stroke in her maternal grandmother; antiphospholipid syndrome in her maternal great-grandmother. Allergies No Known Allergies Medications Current Outpatient Medications Medication Instructions dicyclomine (Bentyl) 10 mg capsule oral ergocalciferol (Vitamin D-2) 1.25 MG (60223 UT) capsule oral ondansetron ODT (ZOFRAN-ODT) 4 mg, oral, Every 8 hours PRN rifAXIMin (XIFAXAN) 550 mg, oral, 3 times daily sertraline (Zoloft) 25 mg tablet oral, Daily RT Objective There were no vitals taken for this visit. Physical Exam Vitals reviewed. Constitutional: General: She is awake. Pulmonary: Effort: Pulmonary effort is normal. Breath sounds: Normal breath sounds. Neurological: Mental Status: She is alert and oriented to person, place, and time. Psychiatric: Attention and Perception: Attention and perception normal. Behavior: Behavior normal. Assessment/Plan Manpreet Fraire is a 18 y.o. female who is currently undergoing work-up for her nonspecific symptoms abdominal pain diarrhea, bloating. She is going to begin Xifaxan therapy today or tomorrow and currently her sucrose breath test is pending. She has failed Zenpep therapy, as well as traditional therapy such as Bentyl and IBS-D management. She continues to have ongoing symptoms, however I believe that she should attempt some therapy which may be beneficial to treat her symptoms. Failing that we can attempt treatment with Sucraid as well. Will refill zofran for ongoing symptoms of n/v which have been at baseline. Charlie Paredes MD documented in this encounter [facility] Work Phone: 03-07-2023 Evaluation note Encounter Date Diagnosis Assessment Notes Feb, RUQ abdominal pain (ICD-10 - R10.11) [facility] Other 10-06-2023 Evaluation note* Encounter Date Diagnosis Assessment Notes Treatment Notes Treatment Clinical Notes Feb, RUQ pain (ICD-10 - R10.11) Manpreet has had multiple labs, imaging and now GI tests. States she is seeing GI at for second opinion on 03/07. Offered GBUS, but she doesn't exactly fit the profile for gall stones. Will obtain HIDA at [facility] - discussed w pt and her mother. [facility] Other 07-12-2023 Evaluation note* Encounter Date Diagnosis Assessment Notes Treatment Notes Treatment Clinical Notes Nov, Nausea (ICD-10 - R11.0) Nov, Weight loss (ICD-10 - R63.4) Nov, Abdominal pain (ICD-10 - R10.9) 12 Nov, 2022 Diarrhea (ICD-10 - R19.7) Patient may use imodium as needed [facility] Encounter Date Diagnosis Assessment Notes Treatment Notes Treatment Clinical Notes Aug, Situational anxiety (ICD-10 - F41.8) [facility] Other 04-13-2023 Evaluation note* Encounter Date Diagnosis Assessment Notes Treatment Notes Treatment Clinical Notes Aug, Situational anxiety (ICD-10 - F41.8) Request insurance to refill and make medication that she uses very sparingly. Reviewed [facility] report. Aug, Irritable bowel syndrome with both constipation and diarrhea (ICD-10 - K58.2) I did spend the time looking up appropriate labs for this problem. We will start with amylase lipase and fecal elastase. Advised patient and mother that this is rather scope of care and he should keep follow-up appointment with Dr. Fernandez. [facility] Other 01-11-2023 Evaluation note* Encounter Date Diagnosis Assessment Notes Treatment Notes Treatment Clinical Notes May, Nausea (ICD-10 - R11.0) May, Abdominal pain (ICD-10 - R10.9) PATIENT TO CONTINUE ON BENTYL 20MG NEEDED May, Weight loss (ICD-10 - R63.4) PATIENT TO CALL IF SYMPTOMS WORSEN. [facility] Other Evaluation noteNo assessment information available [facility] Work Phone: Evaluation noteNo InformationNort food.de Other Evaluation note* Diagnosis Irritable bowel syndrome with diarrhea- Primary Irritable bowel syndrome Generalized abdominal pain Abdominal pain, generalized Weight loss Loss of weight Bilious vomiting with nausea documented in this encounter [facility] Work Phone: Evaluation note* Diagnosis Menorrhagia with regular cycle- Primary Excessive or frequent menstruation 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 Irritable bowel syndrome Generalized abdominal pain Abdominal pain, generalized Weight loss Loss of weight Bilious vomiting with nausea documented in this encounter [facility] [facility] Work Phone: Evaluation note* Diagnosis Congenital sucrase-isomaltase deficiency documented in this encounter [facility] Work Phone: Evaluation note* Diagnosis Congenital sucrase-isomaltase deficiency documented in this encounter [facility] Work Phone: History and physical note Author Lisa Fernandez [facility] October 19, 2022 9:28am Note Date/Time October 19, 2022 9:28a m [facility] [address] [place] [address] Gastroenterology H&P Signed Patient: Manpreet Fraire MR#: [id number] : 2005 Acct:[id number] Age/Sex: 17 / F Adm Date: 3 Loc: Room: Type: [facility] Attending Dr: Lisa Fernandez MD Copies to: MD Fernando Rosario MD~ Date of Service: 10/19/2022 HISTORY & PHYSICAL: Patient's history with special attention to the cardiovascular, pulmonary systems and the current problem was reviewed with the patient immediately prior to the procedure. Present medications and doses reviewed in the EMR. Allergies and pertinent laboratory tests were also reviewedat this time in the EMR. The physical examination, as below, was then performed. Indication, assessment and HPI: 17-year-old female who reports today for evaluation of abdominal pain nausea and weight loss and colonoscopy for evaluation of hematochezia Family history of GI malignancy? No PHYSICAL EXAMINATION Mouth and Pharynx : Moist mucus membranes, normal dentition Cardiac: Regular rate, regular rhythm Pulmonary: Clear to auscultation bilaterally, no wheezing Neurological: Alert and oriented x3, no focal deficits noted Abdomen: Abdomen soft, non-tender REVIEW OF SYSTEMS Constitutional: Denies malaise, fevers Cardiovascular: Denies chest pain, palpitations Respiratory: Denies shortness of breath, wheezing Gastrointestinal: Per HPI Genitourinary: Denies dysuria, polyuria Musculoskeletal: Denies joint swelling, joint stiffness Neurological: Denies numbness, tingling Integumentary: Denies rashes, skin lesions Endocrine: Denies fatigue, weight loss Written informed consent obtained from the patient. Risks (including but not limited to perforation, infection, bloating, bleeding, need for emergent surgeryand loss of life), benefits and alternatives explained and questions answered. The patient verbalized understanding. Based on history patient is an appropriate candidate for the procedure. Lisa Fernandez M.D. Documented By: Lisa Fernandez MD 10/19/22926 Signed By: <Electronically signed by Lisa Fernandez MD> 10/19/22927 [facility] Work Phone: History general Narrative - Reported* Type Description Date Medical History persistent coughing Medical History wheezing 2004 Surgical History tubes in ears Tencent Other History general Narrative - Reported* Type Description Date Medical History persistent coughing Medical History wheezing 2004 Medical History IBS (irritable bowel syndrome) Medical History MTHFR gene mutation Medical History ROZ (generalized anxiety disorde r) Surgical History tubes in ears Surgical History MYRINGOTOMY WITH TUBE PLACEMENT Hospitalization History SEE SURGICAL HX [employer] [facility] Other [facility] Discharge instructions Additional Instructions DISCHARGE INSTRUCTIONS FOR UPPER ENDOSCOPY WHAT TO EXPECT: - You may feel full, gassy or cramping after your procedure. In some cases, this may be from a few hours to a day. Walking may help relieve the discomfort. - Your throat may feel sore today from the scope that the doctor passed through your throat to visualize your stomach. Take a throat lozenge or suck on ice to ease the discomfort. - You may notice some streaks of blood in your sputum if the doctor has taken a biopsy. - You should begin to recover from anesthesia within 1 hour of the procedure, however may feel groggy for the next 24 hours. DO's AND DON'Ts: - Call your doctor right away if you have a hard abdomen, severe pain, vomiting or if you cough up large amounts of blood. - Call your doctor if you develop any rashes, hives or difficulty breathing. - If you take 81 mg aspirin for your heart it is safe to resume this medication. - If you take other blood thinner medications your doctor will instruct you when these can safely be resumed. - Do NOT drive for 24 hours. - Do NOT operate machinery such as power tools, lawn mowers, snow blowers, sewing machines, etc. for 24 hours. - Avoid alcoholic beverages and drugs for allergies, nerves, or sleep. - Do NOT stay alone. Do NOT leave your child unattended. - Do NOT make important personal or business decisions or sign any legal documents. - Eat solid foods and drink liquids in smaller amounts than usual until normal appetite returns. If you should experience an upset stomach, liquids high in sugar content (soda, Ilia-Aid, non-acid juices) are recommended. - Do NOT smoke. - Do take it easy today. You need not stay in bed, but avoid strenuous activities such as jogging or working out. DISCHARGE INSTRUCTIONS FOR COLONOSCOPY WHAT TO EXPECT: - You may feel full, gassy or cramping after your procedure. In some cases, this may be from a few hours to a day. Walking may help relieve the discomfort. - If you have polyp(s) removed you may note some minor bloody discharge after your first bowel movements. - You should begin to recover from anesthesia within 1 hour of the procedure, however may feel groggy for the next 24 hours. DO's AND DON'Ts: - Call your doctor right away if you have a hard abdomen, sever pain, are passing lots of bright red blood or clots. - Call your doctor if you develop any rashes, hives or difficulty breathing. - Let your doctor know if you have not had a bowel movement by 3 days after your procedure. - If you take 81 mg aspirin for your heart it is safe to resume this medication. - If you take other blood thinner medications your doctor will instruct you when these can safely be resumed. - Do NOT drive for 24 hours. - Do NOT operate machinery such as power tools, lawn mowers, snow blowers, sewing machines, etc. for 24 hours. - Avoid alcoholic beverages and drugs for allergies, nerves, or sleep. - Do NOT stay alone. Do NOT leave your child unattended. - Do NOT make important personal or business decisions or sign any legal documents. - Eat solid foods and drink liquids in smaller amounts than usual until normal appetite returns. If you should experience an upset stomach, liquids high in sugar content (soda, Ilia-Aid, non-acid juices) are recommended. - You can resume normal activities tomorrow. FOLLOW UP & RECOMMENDATIONS: -Notify the doctor if you have any problems. -Repeat colonoscopy at the age of 43 for colon cancer screening -Follow up with PCP. - Office number [phone]. [facility] Work Phone: Family History No Family History Records Found Grandmother Name Dates Details Family history of Gallstones (574.20, K80.20) Status:Active Family history of kidney sto irais(V18.69, Z84.1) Status:Active Family history of cerebrovas cular accident (CVA)(V17.1, Z82.3) Status:Active Family history of migraine h eadaches(V17.2, Z82.0) Status:Active Family history of Anxiety(30 0.00, F41.9) Status:Active aunt Name Dates Details Family history of Graves' di sease(V18.19, Z83.49) Status:Active great grandmother Name Dates Details Family history of antiphosph olipid syndrome(V18.3, Z83.2) Status:Active Mother Name Dates Details Family history of gastroesop hageal reflux disease(V18.59, Z83.79) Status:Active Family history of kidney sto irais(V18.69, Z84.1) Status:Active Family history of depression (V17.0, Z81.8) Status:Active Family history of migraine h eadaches(V17.2, Z82.0) Status:Active Family history of Anxiety(30 0.00, F41.9) Status:Active Grandfather Name Dates Details Family history of hypertensi on(V17.49, Z82.49) Status:Active Family history of depression (V17.0, Z81.8) Status:Active Grandmother Name Dates Details Family history of Gallstones (574.20, K80.20) Status:Active Family history of kidney sto irais(V18.69, Z84.1) Status:Active Family history of cerebrovas cular accident (CVA)(V17.1, Z82.3) Status:Active Family history of migraine h eadaches(V17.2, Z82.0) Status:Active Family history of Anxiety(30 0.00, F41.9) Status:Active aunt Name Dates Details Family history of Graves' di sease(V18.19, Z83.49) Status:Active great grandmother Name Dates Details Family history of antiphosph olipid syndrome(V18.3, Z83.2) Status:Active Mother Name Dates Details Family history of gastroesop hageal reflux disease(V18.59, Z83.79) Status:Active Family history of kidney sto irais(V18.69, Z84.1) Status:Active Family history of depression (V17.0, Z81.8) Status:Active Family history of migraine h eadaches(V17.2, Z82.0) Status:Active Family history of Anxiety(30 0.00, F41.9) Status:Active Grandfather Name Dates Details Family history of hypertensi on(V17.49, Z82.49) Status:Active Family history of depression (V17.0, Z81.8) Status:Active Summary Purpose Advance Directives No Advanced Directives Records Found Advance Directive Response Recorded Date/ Time Advance Directives No March 31, 2020 9:23am Advance Directive Response Recorded Date/ Time Advance Directives No March 31, 2020 10:23am Chief Complaint and Reason for Visit Chief Complaint abd pain Chief Complaint blood in stool, wt l oss, abd pain, nausea Chief Complaint flu vaccine Reason for Referral Specialty Diagnoses / Procedures Referred By Contact Referred To Contact 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 Procedures EGD NE ESOPHAGOGASTRODUODENOSCOPY TRANSORAL DIAGNOSTIC NE EGD TRANSORAL BIOPSY SINGLE/MULTIPLE Charlie Paredes MD [address] [address] Referral ID Status Reason Start Date Expiration Date V isits Requested Visits Authorized [id number] Authorized 05/02/2023 05/01/2024 1 1 Additional Source Comments INFORMATION SOURCE (unrecogn ized section and content) DATE CREATED AUTHOR 10/06/2019 [facility] DATE CREATED AUTHOR AUTHOR'S ORGANIZ ATION 12/13/2019 [email or web address] DATE CREATED AUTHOR AUTHOR'S ORGANIZ ATION 09/09/2022 [facility] DATE CREATED AUTHOR AUTHOR'S ORGANIZ ATION 04/25/2023 [facility] DATE CREATED AUTHOR AUTHOR'S ORGANIZ ATION 06/14/2023 [facility] Specialists [facility] DATE CREATED AUTHOR AUTHOR'S ORGANIZ ATION 09/08/2023 [facility] Care Teams (unrecognized sec tion and content) Team Status: Inactive Member Role Status Dates Fernando Wilson MD Primary Care Provider Active Colby Ramos PA-C Emergency Provider Active Team Status: Active Member Role Status Dates Fernando Wilson MD Primary Care Provider Active Team Status: Inactive Member Role Status Dates Fernando Wilson MD Primary Care Provider Active Lisa Fernandez MD Attending Provider Active Team Status: Inactive Member Role Status Dates Fernando Wilson MD Primary Care Provider Active Cody Akhtar DO [facility] Attending Provider Active [employer] Racker Relationship Specialty Start Date End Date Fernando Wilson MD [address] [place] [address] [place] [address] PCP - General 06/25/19 [employer] Relationship Specialty Start Date End Date Bubba Cota DO [address] [place] [address] [place] [address] Referring LINK ASSEMBLER 02/04/23 [employer] Relationship Specialty Start Date End Date Fernando Wilson MD PCP - General 06/25/19 [employer] Relationship Specialty Start Date End Date Fernando Wilson MD [address] [place] [address] PCP - General /08/09 [employer] Relationship Specialty Start Date End Date Fernando Wilson MD [address] [place] [address] PCP - General 06/25/19 Goals (unrecognized section and content) Goals may be documented in a n alternate sectionNo InformationNo InformationNo InformationNo InformationNo InformationNo InformationNo InformationNo InformationNo InformationNo InformationGoals may be documented in an alternate section REASON FOR VISIT (unrecogniz ed section and content) Reason Comments Consult Specialty Diagnoses / Procedures Referred By Contact Referred To Contact 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 Procedures EGD NE ESOPHAGOGASTRODUODENOSCOPY TRANSORAL DIAGNOSTIC NE EGD TRANSORAL BIOPSY SINGLE/MULTIPLE Charlie Paredes MD [address] [address] Referral ID Status Reason Start Date Expiration Date V isits Requested Visits Authorized [id number] Authorized 05/02/2023 05/01/2024 1 1 Source Comments (unrecognize d section and content) In the event this informatio n is protected by the Federal Confidentiality of Alcohol and Drug Abuse Patient Records regulations: The Federal rules restrict any use of the information to criminally investigate or prosecute any alcohol or drug abuse patient.[facility] FOR RECORDS PERTAINING TO PATIENTS WHO ARE OR HAVE BEEN ENROLLED IN A CHEMICAL DEPENDENCY/SUBSTANCEABUSE PROGRAM, SOME INFORMATION MAY BE OMITTED. This clinical summary was aggregated from multiple sources. Caution should be exercised in using it in the provision of clinical care. This summary normalizes information from multiple sources, and as a consequence, information in this document may materially change the coding, format and clinical context of patient data. In addition, data may be omitted in some cases. CLINICAL DECISIONS SHOULD BE BASED ON THE PRIMARY CLINICAL RECORDS. [employer] provides no warranty or guarantee of the accuracy or completeness of information in this document.
[2023-10-03 15:04] LABS: Basophils Absolute Auto 0.1 10^3/uL (0.0-0.1); Basophils Percent Auto 0.9 % (0.2-2.0); Eosinophils Absolute Auto 0.3 10^3/uL (0.0-0.7); Eosinophils Percent Auto 4.2 % (0.9-7.0); Hematocrit 38.8 % (36.0-48.0); Immature Granulocytes Abs Auto 0.02 10^3/uL (0.00-0.03); Immature Granulocytes Pct Auto 0.3 % (0.0-0.5); Lymphocytes Absolute Auto 1.3 10^3/uL (1.2-3.8); Lymphocytes Percent Auto 20.9 % (20.5-60.0); Mean Corpuscular HGB Conc 33.5 g/dL (29.9-35.2); Mean Corpuscular Hemoglobin 29.5 pg (26.7-34.0); Mean Corpuscular Volume 88.2 fL (81.0-99.0); Mean Platelet Volume 11.5 fL (9.5-13.5); Monocytes Absolute Auto 0.3 10^3/uL (0.3-0.8); Monocytes Percent Auto 5.2 % (1.7-12.0); Neutrophils Absolute Auto 4.4 10^3/uL (1.4-6.5); Neutrophils Percent Auto 68.5 % (43.0-75.0); Platelet Count 196 10^3/uL (150-450); Red Cell Distribution Width 12.4 % (11.0-15.0); White Blood Count 6.4 10^3/uL (4.0-11.0)
[2023-10-03 15:49] LABS: Estimated Average Glucose 100 mg/dL; Glycohemoglobin A1C 5.1 % (4.5-6.2)
[2023-10-03 16:17] LABS: Free T4 1.05 ng/dL (0.76-1.46)
[2023-10-03 16:22] LABS: HCG Quantitative <1 mIU/mL; Thyroid Stimulating Hormone 0.628 uIU/mL (0.358-3.740)
[2023-10-04 04:17] LABS: FSH 7.3 mIU/mL (.); Luteinizing Hormone(LH) 8.4 mIU/mL (.)
== END 2023-10-03 14:11 | disposition home or self-care (01) ==
LOC: LAB 14:11
PROVIDERS: PCP Family Medicine; Visit Provider Obstetrics & Gynecology
DX: E28.2 Polycystic ovarian syndrome (principal)
CPT/HCPCS: 36415; 82397; 82626; 82627; 83001; 83002; 83036; 84439; 84443; 84702; 85025

== ENCOUNTER 2024-11-30 11:44 | Outpatient (RCR) | payer OTHER, BC, SELFPAY ==
--- OUTSIDE RECORDS SUMMARY | 2024-11-30 11:50 | XMS_ITS | Encounter Summary ---
Author Organization [facility] Address [address] [place] [address] Care Team Providers Care Hybrid Powertrain Development Engineer Name Role Phone Madelyn Meraz MD Primary Care Provider [phone] Encounter Details Date Type Department Care Team (Late Contact Info) Description 01/26/2023 Abstract [facility] [address] [place] [address] Christina [place] LPN Social History Tobacco Use Types Packs/Day Years Used Date Smoking Tobacco: Never Alcohol Use Standard Drinks/Week Comments Never 0 (1 standard drink = 0.6 oz pur e alcohol) Comments Unknown Sex and Gender Information Value Date Recorded Sex Assigned at Not on file Legal Sex Female 7:17 PM EDT Gender Identity Not on file Sexual Orientation Not on file documented as of this encounter Plan of Treatment Upcoming Encounters Date Type Department Care Team (Late Contact Info) Description 12/28/2024 8:00 AM EDT Ancillary Procedure [place] [address] 12/28/2024 9:00 AM EDT Initial [facility] [address] [place] [address] documented as of this encounter Visit Diagnoses Not on filedocumented in this encounter Care Teams Hybrid Powertrain Development Engineer Relationship Specialty Start Date End Date Madelyn Meraz MD [address] [facility] [place] [address] PCP - General Family Medicine 11/04/22 documented as of this encounter
--- OUTSIDE RECORDS SUMMARY | 2024-11-30 11:50 | XMS_ITS | Encounter Summary ---
Author Organization [facility] Address [address] [place] [address] Care Team Providers Care Manager Strategic Name Role Phone Madelyn Meraz MD Primary Care Provider [phone] Encounter Details Date Type Department Care Team (Late st Contact Info) Description 11/30/2024 Telephone [facility] [address] [id number] Bubba Cota DO [address] [place] [place] [address] Social History Tobacco Use Types Packs/Day Years [...] on file documented as of this encounter Miscellaneous Notes * Telephone Encounter - Christina HatfieldBRUCE - 11/30/2024 9:19 AM EDT Verbal orders given from Dr. Bubba Cota DO to send order for HCG to be drawn and repeated in 2 days. Patient is to be notified that labs were sent to [facility]. 0921 Notified patient that lab was sent to [facility] to have drawn. PVU and will inquire at the hospital if she is able to come on Tuesday to have follow up lab drawn and if lab does not allow her too, thenpatient will go on Tuesday. Christina Iraheta LPN documented in this encounter Plan of Treatment Upcoming Encounters Date Type Department Care Team (Late st Contact Info) Description 12/28/2024 8:00 AM EDT Ancillary Procedure [facility] [address] [facility] [place] [address] 12/28/2024 9:00 AM EDT Initial [facility] [address] [facility] [place] [place] [id number] Scheduled Orders Name Type Priority Associated Diagnoses Orde r Schedule hCG, quantitative Lab Routine Positive urine test ([facility]) Expected: 11/30/2024 (Approximate), Expires: 11/30/2025 documented as of this encounter Visit Diagnoses Diagnosis Positive urine test ([facility]) documented in this encounter Care Teams Manager Strategic Relationship Specialty [place] [address] [place] [address] [place] [address] PCP - General Family Medicine 11/04/22 documented as of this encounter
--- OUTSIDE RECORDS SUMMARY | 2024-11-30 11:50 | XMS_ITS | Encounter Summary ---
Author Organization [employer] Address [id number] [address] [place] [address] Care Team Providers Care Solar Designer/Installer Name Role Phone Pcp, Not In System Primary Care Provider Unavail able Encounter Details Date Type Department Care Team (Late st Contact Info) Description 04/29/2022 Orders Only [facility] [address] [address] External, Scanning Provider Social History Tobacco Use Types Packs/Day Years Used Date Smoking Tobacco: Never Smokeless Tobacco: Never Alcohol Use Standard Drinks/Week Comments Never 0 (1 standard drink = 0.6 oz pur e alcohol) AUDIT-C Answer Date Recorded Frequency of Alcohol Consumption Never 09/19/2018 Average Number of Drinks Not on file 019 Frequency of Binge Drinking Not on file 08/23 Childcare Answer Date Recorded Childcare Unknown 10/27/2018 Employment Answer Date Recorded Employment Unknown 10/27/2018 Purpose - Life Answer Date Recorded Purpose and direction in life Unknown Education Answer Date Recorded What is the highest level of school you have completed or the highest degree you have received? High school graduate 10/28/2021 Comments No Sex and Gender Information Value Date Recorded Sex Assigned at Not on file Legal Sex Female 7:31 AM EDT Gender Identity Not on file Sexual Orientation Not on file Occupation Industry Job Start Date Job End Date student Not on file Not on file Not on file COVID-19 Exposure Response Date Recorded In the last month, have you been in contact with someone who was confirmed or suspected to have Coronavirus / COVID-19? No / Unsure 04/26/2022 6:56 AM EST documented as of this encounter Plan of Treatment Not on file documented as of this encounter Visit Diagnoses Not on filedocumented in this encounter Care Teams Solar Designer/Installer Relationship Specialty Start Date End Date Pcp, [place] [address] PCP - General Family Medicine 04/26/22 documented as of this encounter
--- OUTSIDE RECORDS SUMMARY | 2024-11-30 11:50 | XMS_ITS | Encounter Summary ---
Author Organization [facility] Address [address] [place] [address] Care Team Providers Care Nailhead Puncher Name Role Phone Madelyn Meraz MD Primary Care Provider [phone] Encounter Details Date Type Department Care Team (Late Contact Info) Description 01/26/2023 Abstract [facility] [address] [place] [address] Christina [place] LPN Social History Tobacco [...] Ancillary Procedure [place] [address] 12/28/2024 9:00 AM EDT Initial [facility] [address] [place] [address] documented as of this encounter Visit Diagnoses Not on filedocumented in this encounter Care Teams Nailhead Puncher Relationship Specialty Start Date End Date Madelyn Meraz MD [address] [place] [facility] [place] [address] PCP - General Family Medicine 11/04/22 documented as of this encounter
--- OUTSIDE RECORDS SUMMARY | 2024-11-30 11:50 | XMS_ITS | Encounter Summary ---
Author Organization [facility] Address [address] [place] [address] Care Team Providers Care Cleaner Industrial Name Role Phone Madelyn Meraz MD Primary Care Provider [phone] Encounter Details Date Type Department Care Team (Late Contact Info) Description 07/15/2023 Clinisync Result Encounter [facility] External Department Unsolicited Radha Cota, DO [address] [place], [place] [id number] Social History Tobacco Use Types Packs/Day Years [...] 12/28/2024 8:00 AM EDT Ancillary Procedure [facility] [address] [place] [address] 12/28/2024 9:00 AM EDT Initial [facility] [address] [place] [address] documented as of this encounter Procedures Procedure Name Priority Date/Time Associated Diagnosis Comments US PELVIS W/ TRANSVAGINAL 07/15/2023 7:39 AM EST documented in this encounter Results * US PELVIS W/ TRANSVAGINAL (07/15/2023 7:39 AM EST) Anatomical Region Laterality Modality Other 07/15/2023 7:39 AM EST Narrative 07/15/2023 7:41 [place] [address] Ultrasound Report Signed Patient: MANPREET MASSEY MR#: [id number] : 2005 Acct:[id number] Age/Sex: 18 / F ADM Date: 07/14/23 Loc: US Attending Dr: Radha Cota D.O. Ordering Physician: Radha Cota D.O. Date of Service: 07/14/23 Procedure(s): US pelvis w/ transvaginal Accession Number(s): [id number] cc: Madelyn Meraz M.D.; Radha Cota D.O. [place] [address] Patient Name: MANPREET MASSEY MRN: [id number] date: 2005 Sex: F Assigned Patient Location: US Current Patient Location: Accession/Order Number: [id number] Exam Date: 07/14/2023 16:00 Report Date: 07/15/2023 07:39 At the request of: RADHA COTA Procedure: US pelvis w/ transvaginal EXAMINATION: US pelvis w/ transvaginal HISTORY: pelvic pain in female R10.2 COMPARISON: Ultrasound pelvis 11/17/2022 TECHNIQUE: Transabdominal and/or transvaginal sonographic examination was performed as indicated by examination type. FINDINGS: UTERUS: Normal size and appearance. Uterus size: 8.1 x 3.5 x 4.7 cm ENDOMETRIUM: Normal homogeneous appearance. IUD within fundal endometrial cavity. Endometrial thickness: 2 mm RIGHT OVARY: Normal size and appearance. Duplex Doppler demonstrates normal waveform and flow; resistive index 0.7. Ovary size: 2.6 x 1.6 x 1.7 cm LEFT OVARY: Normal size and appearance. Duplex Doppler demonstrates normal waveform and flow; resistive index 0.6. Ovary size: 2.6 x 1.3 x 2.1 cm CUL-DE-SAC: Unremarkable. No significant free fluid. BLADDER: Unremarkable. OTHER: None. US/US pelvis w/ transvaginal IMPRESSION: 1. No abnormal or suspicious findings to account for patient's symptoms. Electronically authenticated by: COLIN MOSS Date: 07/15/2023 07:39 Dictated By: Colin Moss M.D. Signed By: 07/15/23 0741 DD/ 0739 TD/TT: Time Study Technician: Procedure Note Radiology, Radiologist, MD - 07/15/2023 [place] [address] Ultrasound Report Signed Patient: MANPREET MASSEY JMR#: [id number] : 2005Acct:[id number] Age/Sex: 18 / FADM Date: 07/14/23 Loc: US Attending Dr: Radha Cota D.O. Ordering Physician: Radha Cota D.O. Date of Service: 07/14/23 Procedure(s): US pelvis w/ transvaginal Accession Number(s): [id number] cc: Madelyn Meraz M.D.; Radha Cota D.O. The [place] [id number] Patient Name: MANPREET MASSEY MRN: [id number] date: 2005 Sex: F Assigned Patient Location: US Current Patient Location: Accession/Order Number: [id number] Exam Date: 07/14/2023 16:00 Report Date: 07/15/2023 07:39 At the request of: RADHA COTA Procedure: US pelvis w/ transvaginal EXAMINATION: US pelvis w/ transvaginal HISTORY: pelvic pain in female R10.2 COMPARISON: Ultrasound pelvis 11/17/2022 TECHNIQUE: Transabdominal and/or transvaginal sonographic examination was performed as indicated by examination type. FINDINGS: UTERUS: Normal size and appearance. Uterus size: 8.1 x 3.5 x 4.7 cm ENDOMETRIUM: Normal homogeneous appearance. IUD within fundal endometrial cavity. Endometrial thickness: 2 mm RIGHT OVARY: Normal size and appearance. Duplex Doppler demonstratesnormal waveform and flow; resistive index 0.7. Ovary size: 2.6 x 1.6 x 1.7 cm LEFT OVARY: Normal size and appearance. Duplex Doppler demonstrates normal waveform and flow; resistive index 0.6. Ovary size: 2.6 x 1.3 x 2.1 cm CUL-DE-SAC: Unremarkable. No significant free fluid. BLADDER: Unremarkable. OTHER: None. US/US pelvis w/ transvaginal IMPRESSION: 1. No abnormal or suspicious findings to account for patient's symptoms. Electronically authenticated by: COLIN MOSS Date: 07/15/2023 07:39 Dictated By: Colin Moss M.D. Signed By:07/15/23 0741 DD/ 0739 TD/TT: Time Study Technician: us Rdaha Cipriano DO [facility] Final Result documented in this encounter Visit Diagnoses Not on filedocumented in this encounter Care Teams Cleaner Industrial Relationship Specialty Start Date End Date Madelyn Meraz MD [address] [place] [id number] PCP - General Family Medicine 11/04/22 documented as of this encounter
--- OUTSIDE RECORDS SUMMARY | 2024-11-30 11:50 | XMS_ITS | Encounter Summary ---
Author Organization [facility] Address [address] [place] [address] Phone Care Team Providers Care Senior Safety Support Manager Name Role Phone Madelyn Meraz MD Primary Care Provider Encounter Details Date Type Department Care Team (Late st Contact Info) Description 06/03/2018 Orders Only [facility] [address] [place] [address] Conversion, Onbase Social History Tobacco Use Types Packs/Day Years Used Date Smoking Tobacco: Never Assessed Comments Unknown Sex and Gender Information Value Date Recorded Sex Assigned at Female 04/05/2023 9:59 AM EST Legal Sex Female 12:00 PM EST Gender Identity Female 04/05/2023 9:59 AM EST Sexual Orientation Straight 04/05/2023 10 :00 AM EST documented as of this encounter Plan of Treatment Scheduled Orders Name Type Priority Associated Diagnoses Orde r Schedule OUTSIDE LAB SCAN Lab Ordered: 06/03/2018 OUTSIDE LAB SCAN Lab Ordered: 06/03/2018 documented as of this encounter Visit Diagnoses Not on filedocumented in this encounter Care Teams Senior Safety Support Manager Relationship Specialty Start Date End Date Madelyn Meraz MD [address] [place] [address] PCP - General 06/25/19 documented as of this encounter
--- OUTSIDE RECORDS SUMMARY | 2024-11-30 11:50 | XMS_ITS | Clinical Summary ---
Author Organization [facility] Address [address] [place] [address] Care Team Providers Care Cloth Bleaching Range Back Tender Name Role Phone Bubba Cota DO Unavailable [phone] Medications dicyclomine (BENTYL) 20 mg tablet Take 20 mg by mouth every 6 hours as needed. 2 Active medroxyPROGESTERone (DEPO-PROVERA) 150 mg/mL injection Inject 150 mg intramuscul oleg. 3 Active ondansetron orally disintegrating (ZOFRAN ODT) 4 mg disintegrating tablet TAKE 1 TABLET (4 MG) BY MOUTH EVERY 8 HOURS IF NEEDED FOR NAUSEA OR VOMITING. 3 Active Family History Medical History Relation Comments Graves Disease Maternal Aunt Relation Status Comments Maternal Aunt Alive Social History Tobacco Use Types Packs/Day Years Used Date Smoking Tobacco: Never Smokeless Tobacco: Never Tobacco Cessation:Counseling Given: Not Answered Alcohol Use Standard Drinks/Week Comments Never 0 (1 standard drink = 0.6 oz pur e alcohol) Area Deprivation Index Answer Date Milad rded National Score (1-100), lower number is lower ri sk 78 04/22/2023 State Score (1-10), lower number is lower risk 6 04/22/2023 Data from: https://www.neighborhoodatlas.medicine.[facility].edu/. Last address used for calculation [address] [place] [address] 04/22/2023 Comments Unknown Sex and Gender Information Value Date Recorded Sex Assigned at Not on file Legal Sex Female 7:23 PM EDT Gender Identity Not on file Sexual Orientation Not on file Last Filed Vital Signs Vital Sign Reading Time Taken Comments Blood Pressure 118/72 04/22/2023 12:59 PM EST Pulse 68 04/22/2023 12:59 PM EST Temperature - - Respiratory Rate - - Oxygen Saturation - - Inhaled Oxygen Concentration - - Weight 61.7 kg (136 lb) 04/22/2023 12:59 PM EST Height 165.1 cm (5' 5 ) 04/22/2023 12:59 PM EST Body Mass Index 22.63 04/22/2023 12:59 PM EST Plan of Treatment Health Maintenance Due Date Last Done Comments Peds To Adult Transition Ini tial Discussion 2015 Peds To Adult Transition Jemma ual Assessment 2017 Anxiety Screening 2021 Chlamydia Screening (18-24) 2021 Depression Screening 2021 GC (Gonorrhea) Screening (18-24) 2021 HIV Screening 2021 Hepatitis C Screening 2021 HPV Vaccine (3 - 3-dose series) 07/12/2021 , 01/09/2021 Covid-19 Vaccine (3 - 2023-2 5 season) 2024 06/25/2020, 06/04/2020 Cervical Cancer Screening 2024 Influenza Vaccine (#1) 2025 02/21/2023 DTaP,Tdap,Td Vaccine (7 - Td or Tdap) 01/05/2026 01/06/2016, 08/08/2008, 04/30/2005, Additional history exists Hepatitis B Vaccine Completed 01/09/2021, 04/30/2005, 2003, Additional history exists Meningococcal B Vaccine Completed 03/11/2021, 01/09 Insurance [employer] PPO [facility] PPO Care Teams Cloth Bleaching Range Back Tender Relationship Specialty Start Date End Date Bubba Cota DO [address] [place], [place] [address]la[place] [address] Referring Hedis Registered Nurse Rn 02/04/23
--- OUTSIDE RECORDS SUMMARY | 2024-11-30 11:50 | XMS_ITS | Clinical Summary ---
Author Organization [facility] Address [address] [place] [address] Care Team Providers Care Metal Stud Framer Name Role Phone Madelyn Meraz MD Primary Care Provider [phone] Allergies No known active allergies Medications ondansetron ODT (Zofran-ODT) 4 MG disintegrating tablet Take 4 mg by mouth every 8 (eight) hours if needed. 2 Active Active Problems Problem Noted Date Diagnosed Date Positive urine test ([facility]) 12/01/19 25 Encounters Date Type Department Care Team Description 11/30/2024 Telephone [facility] [address] [facility] [place] [address] Bubba Cota DO 10/24/2024 1:30 PM EDT Procedure Visit [facility] OB [address] [place] [address] [place] [address] Bubba Cota DO Encounter for IUD removal 10/17/2024 Travel from Last 3 Months Family History Medical History Relation Name Comments No Known Problems Father Migraines Mother Melanoma Neg Hx Relation Name Status Comments Brother Alive Father Alive Mother Alive Sister Alive Social History Tobacco Use Types Packs/Day Years Used Date Smoking Tobacco: Never Tobacco Cessation:Counseling Given: Not Answered [...] Sign Reading Time Taken Comments Blood Pressure 118/78 10/24/2024 1:43 PM EDT Pulse - - Temperature - - Respiratory Rate - - Oxygen Saturation - - Inhaled Oxygen Concentration - - Weight 74.3 kg (163 lb 12.8 oz) 10/24/2024 1:43 PM EDT Height 165.1 cm (5' 5 ) 06/13/2023 12:5 7 PM EST Body Mass Index 27.26 06/13/2023 12:57 PM EST Plan of Treatment Upcoming Encounters Date Type Department Care Team (Late st Contact Info) Description 12/28/2024 8:00 AM EDT Ancillary Procedure [facility] [address] [place] [address] 12/28/2024 9:00 AM EDT Initial [facility] [address] [place] [address] Health Maintenance Due Date Last Done Comments Influenza Vaccine (#1) 2025 02/16/2024, 2022 Procedures Procedure Name Priority Date/Time Associated Diagnosis Comments IUD REMOVAL Routine 10/24/2024 2:09 PM EDT Encounter for IUD removal from Last 3 Months Results * IUD Removal (10/24/2024 2:09 PM EDT) Narrative Enid Angelo LPN - 10/24/2024 2:09 PM EDT Enid Angelo LPN 10/24/2024 3:14 PM IUD Removal Date/Time: 10/24/2024 2:09 PM Performed by: Bubba Cota DO Authorized by: Bubba Cota DO Consent: Consent obtained: Written Consent given by: Patient Procedure risks and benefits discussed: yes Patient questions answered: yes Patient agrees, verbalizes understanding, and wants to proceed: yes Educational handouts given: yes Instructions and paperwork completed: yes [place] protocol: Patient states understanding of procedure being performed: yes Relevant documents present and verified: yes Test results available and properly labeled: yes Imaging studies available: yes Required blood products, implants, devices, and special equipment available: yes Site marked: yes Procedure: Removed with no complications: yes Removal due to mechanical complications of IUD: no Removal due to infection and inflammatory reaction: no Comments: IUD Removal: Patient presents today for removal of IUD. Written consent was obtained and patient was placed in dorsal lithotomy position with feet in stirrups. A sterile speculum was inserted into the vagina and the cervix was visualized. The IUD strings were grasped gently with forceps and the IUD was removed in its entirety without difficulty. The IUD was shown to the patient then properly discarded. Follow Up: Patient is to return to the office for annual exam unless needed otherwise Bubba Cipriano DO IN CLINIC/BEDSIDE ORDERABLES Fin al Result from Last 3 Months Insurance [employer] Care Teams Metal Stud Framer Relationship Specialty [place] [address] [place] [phone] PCP - General Family Medicine 11/04/22
--- OUTSIDE RECORDS SUMMARY | 2024-11-30 11:50 | XMS_ITS | Encounter Summary ---
Author Organization [facility] Address [address] [place] [address] Care Team Providers Care Animal Trapper Name Role Phone Madelyn Meraz MD Primary Care Provider [phone] Encounter Details Date Type Department Care Team (Late Contact Info) Description 11/25/2022 Abstract [facility] [address] [facility] [place] [address] Bubba Cota, [address] [place], [facility] Social History Tobacco Use Types Packs/Day Years [...] 12/28/2024 8:00 AM EDT Ancillary Procedure [facility] [place] [address] 12/28/2024 9:00 AM EDT Initial [facility] [place] [address] documented as of this encounter Visit Diagnoses Not on filedocumented in this encounter Care Teams Animal Trapper Relationship Specialty [place] [address] [place] [phone] PCP - General Family Medicine 11/04/22 documented as of this encounter
--- OUTSIDE RECORDS SUMMARY | 2024-11-30 11:50 | XMS_ITS | Encounter Summary ---
Author Organization [facility] Address [id number] [address] [place] [address] Care Team Providers Care Earth Burner Name Role Phone Pcp, Not In System Primary Care Provider Unavail able Encounter Details Date Type Department Care Team (Late st Contact Info) Description 05/04/2022 Orders Only [facility] [address] [address] External, Scanning Provider Social History [...] on file documented as of this encounter Procedures Procedure Name Priority Date/Time Associated Diagnosis Comments MULTIPLE LABS Routine 04/28/2022 documented in this encounter Results * Multiple labs (04/28/2022) us Scanning Provider External [facility] Final Result Performing Organization Address City/State/[facility] Co de Phone Number MANUALLY TRANSCRIBED RESULTS documented in this encounter Visit Diagnoses Not on filedocumented in this encounter Care Teams Earth Burner Relationship Specialty Start Date End Date Pcp, [place] [address] PCP - General Family Medicine 04/26/22 documented as of this encounter
--- OUTSIDE RECORDS SUMMARY | 2024-11-30 11:50 | XMS_ITS | Clinical Summary ---
Author Organization [place] [facility] Address [id number] [address] [place] [address] Care Team Providers Care General Manager Land Department Name Role Phone Pcp, Not In System Primary Care Provider Unavail able Allergies No known active allergies Medications * This document contains information received from the source organization and may not represent a complete record from that organization. medroxyPROGESTERon e (DEPO-PROVERA) 400 mg/mL suspension Inject 1 mL (400 mg total) into the appropriate muscle every 28 days. Active dicyclomine (BENTYL) 20 mg tablet Take 1 tablet (20 mg total) by mouth every 6 (six) hours as needed (Abdominal pain/cramping). 40 tablet 04/26/20 22 Active ondansetron ODT (ZOFRAN ODT) 4 mg disintegrating tablet Dissolve 1 tablet (4 mg total) on tongue every 8 (eight) hours as needed for nausea or vomiting for up to 20 doses. 20 tablet 04/26/20 22 Active spsbet-uzhlfymn-zx ylase (ZENPEP) 10,000-32,000 -42,000 unit capsule,delayed release(DR/EC) Take 4 capsules (40,000 units of lipase total) by mouth in the morning and 4 capsules (40,000 units of lipase total) in the evening. Take with meals. 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 08/24/2018 Family History Medical History Relation Name Comments Anxiety disorder Maternal Grandfather Depression Maternal Grandfather Diabetes Maternal Grandfather Clotting disorder Maternal Grandmother MT HFR Stroke Maternal Grandmother at 50 Anxiety disorder Mother Menorrhagia Mother Other Sister neurocardiogeni c syncope Cancer Neg Hx Heart disease Neg Hx Kidney disease Neg Hx Relation Name Status Comments Maternal Grandfather Maternal Grandmother Mother Sister Social History Tobacco Use Types Packs/Day Years [...] Employment Answer Date Recorded Employment Unknown 10/27/2018 Hunger Screening Answer Date Recorded Within the past 12 months we worried whether our food would run out before we got money to buy more. Never True 03/12/2023 Within the past 12 months th e food we bought just didn't last and we didn't have money to get more. Never True 03/12/2023 Purpose - Life Answer Date Recorded Purpose [...] file Not on file Not on file Last Filed Vital Signs Vital Sign Reading Time Taken Comments Blood Pressure 130/90 03/12/2023 9:38 AM EDT Pulse 104 03/12/2023 9:38 AM EDT Temperature 36.9 C (98.4 F) 03/12/2023 9:38 AM EDT Respiratory Rate 18 03/12/2023 9:38 AM EDT Oxygen Saturation 99% 03/12/2023 9:38 AM EDT Inhaled Oxygen Concentration - - Weight 61.2 kg (135 lb) 03/12/2023 9:38 AM EDT Height 165.1 cm (5' 5 ) 03/12/2023 9:38 AM EDT Body Mass Index 22.47 03/12/2023 9:38 AM EDT Plan of Treatment Health Maintenance Due Date Last Done Comments Depression Screening 2015 COVID-19 Vaccine (3 2023-2 5 season) 2024 06/25/2020, 06/04/2020 Pap Smear 2024 Adult BMI Screening 03/12/2024 03/12/2023 Tobacco Screening 03/12/2024 03/12/2023 Influenza Vaccine 01/21/2025 02/15/2024, 02/21/2023 DTaP,Tdap and Td Vaccines (7 - Td or Tdap) 01/05/2026 01/06/2016, 08/08/2008, 04/30/2005, Additional history exists Medical Devices Not on file Insurance [employer] Care Teams General Manager Land Department Relationship Specialty Start Date End Date Pcp, [place] [address] PCP - General Family Medicine 04/26/22
--- OUTSIDE RECORDS SUMMARY | 2024-11-30 12:10 | XMS_ITS | CCD ---
Author Organization [facility] Care Team Providers Care Order Checker Name Role Phone Stella Brar Unavailable Unavailable Juan CLe Unavailable Unavailable Yokasta Wiggins Unavailable Unavailable MD Fernando Wilson Primary Care Provider EMMANUELLE Ramos Emergency Provider Lisa Fernandez Unavailable Fernando Wilson Unavailable CIPRIANO ., DR GARCIA Admitting Unavailable CIPRIANO ., DR GARCIA Attending Unavailable WILSON, DR FERNANDO Emanuel Primary Care Unavailable CIPRIANO ., DR GARCIA Consulting Unavailable WILSON, DR FERNANDO Emanuel Admitting Unavailable WILSON, DR FERNANDO Emanuel Attending Unavailable WILSON, DR FERNANDO Emanuel Consulting Unavailable WILSON, DR FERNANDO Emanuel Primary Care Unavailable STEVE, DR FERNANDO Emanuel Primary Care Unavailable STEVE, DR FERNANDO Emanuel Admitting Unavailable WILSON, DR FERNANDO Emanuel Attending Unavailable WILSON, DR FERNANDO Emanuel Consulting Unavailable CIPRIANO ., DR GARCIA Admitting Unavailable CIPRIANO ., DR GARCIA Attending Unavailable WILSON, DR FERNANDO Emanuel Primary Care Unavailable CIPRIANO ., DR GARCIA Admitting Unavailable CIPRIANO ., DR GARCIA Attending Unavailable CIPRIANO ., DR GARCIA Consulting Unavailable WILSON, DR FERNANDO Emanuel Primary Care Unavailable STEVE, DR FERNANDO Emanuel Admitting Unavailable WILSON, DR FERNANDO Emanuel Attending Unavailable STEVE, DR FERNANDO Emanuel Consulting Unavailable STEVE, DR FERNANDO Emanuel Primary Care Unavailable MD Fernando Wilson Primary Care Provider MD Lisa Fernandez Attending Provider [phone] MD Fernando Wilson Primary Care Provider [phone] DO Cody Akhtar Attending Provider Fernando Wislon MD Primary Care Provider Bubba Cota DO R Unavailable ALBERT ZAPATA Attending Fernando Garza MD Primary Care Provider Fernando Wilson MD Primary Care Provider Asaad, Imad Admitting Unavailable Fernando Wilson Primary Care Unavailable Asaad, Imad Attending Unavailable Giovana Cody LAUGHLIN Attending Unavailable Giovana Cody LAUGHLIN Admitting Unavailable Fernando Wilson Primary Care Unavailable Fernando Wilson MD Primary Care Provider BUBBA COTA Attending Unavailable Fernando Wilson MD Primary Care Provider [phone] Medications Current Medications Medication Drug Class(es) Dates Sig (Normalized) Sig (Original) ALPRAZolam 0.25 mg oral tablet (8 sources) Benzodiazepine Start: 09-02-2022 take 1 tablet by mouth twice daily as needed ALPRAZolam 0.25 MG 1 tablet Orally Twice a day prn for 30 days PRN Aug, Active amoxicillin 500 mg oral capsule (1 source) Penicillin-class Antibacterial Start: 03-08-2024 take 500 mg by mouth twice daily Amoxicillin Active 500 MG PO Twice daily March 08, 2024 12:00am dicyclomine hydrochloride 10 mg oral capsule (15 sources) Anticholinergic Start: 05-17-2024 take 1 capsule by mouth four times daily dicyclomine (Bentyl) 10 mg capsule Indications: Generalized abdominal pain Take 1 capsule (10 mg) by mouth 4 times a day. 360 capsule 4 05/17/2024 Active Start: 05-08-2022 take 20 mg by mouth twice tor y Dicyclomine Active 20 MG PO 2 times [...] by mouth every 6 hours as needed. hyoscyamine sulfate 0.125 mg sublingual tablet (3 sources) Start: 12-02-19 take 1 tablet under the tongue three times daily as needed Hyoscyamine Sulfate SL 0.125 MG 1 tablet under the tongue and allow to dissolve as needed Sublingual Three times a day as needed for 30 days Nov, Active levonorgestrel 0.371346 mg/hr intrauterine system (2 sources) Progestin, Progestin-containing Intrauterine Device Start: 03-08-20 Levonorgestrel (Mirena) 21 mcg/24hr (up to 8 yrs) 52 mg intrauterine device Active INTRAUTERI March 08, 2024 12:00am Start: 06-13-2023 End: 10-24-2024 Levonorgestrel intrauterine device 52 mg 1 ml medroxyPROGESTERone acetate 150 mg/ml injection (15 sources) Progestin Start: 12-20-2022 End: 09-16-2023 medroxyPROGESTERone (DEPO-PROVERA) 150 mg/mL injection Inject 150 mg intramuscularly. 0 12/20/2022 09/16/2023 Active Start: 05-08-2022 End: 03-08-2024 Medroxyprogesterone Disconti nued 150 MG IM As Directed May 08, 2022 1:00am March 08, 2024 10:30am Start: 05-08-2022 Medroxyprogest erone Active MG IM May 08, 2022 12:00am Depo-Provera 150 MG/ML 1 mL Intramuscular Active Comment on above: Inject 150 mg intram uscularly. metoclopramide 10 mg oral tablet (1 source) Dopamine-2 Receptor Antagonist Start: take 1 tablet by mouth every six hours Metoclopramide Hcl (Reglan) 10 mg tablet Active 10 MG PO Q6H 28 May 08, 2022 12:00am ondansetron 4 mg disintegrating oral tablet (19 sources) Serotonin-3 Receptor Antagonist Start: End: 025 take 1 tablet by mouth every eight hours for nausea ondansetron ODT (Zofran-ODT) 4 mg disintegrating tablet Indications: Irritable bowel syndrome with diarrhea , Bilious vomiting with nausea TAKE 1 TABLET (4 MG) BY MOUTH EVERY 8 HOURS IF NEEDED FOR NAUSEA OR VOMITING. 9 tablet 39 05/17/2024 05/12/2025 Active Start: 05-08-2022 take 4 mg by mouth once daily Ondansetron Active 4 MG PO Daily May 08, 2022 1:00am Start: 05-08-2022 Ondansetron Ac tive MG May 08, 2022 12:00am Start: 04-26-2022 End: 03-30-2024 take 1 tablet by mouth every eight hours for nausea ondansetron ODT (Zofran-ODT) 4 mg disintegrating tablet Indications: Irritable bowel syndrome with diarrhea , Bilious vomiting with nausea Take 1 tablet (4 mg) by mouth every 8 hours if needed for nausea or vomiting. 90 tablet 3 04/05/2023 03/30/2024 Active take 1 tablet by fernandez once daily as needed Ondansetron HCl 4 MG 1 tablet Orally Once a day as needed for 30 days Active Comment on above: TAKE 1 TABLET (4 MG) BY MOUTH EVERY 8 HOURS IF NEEDED FOR NAUSEA OR VOMITING. polyethylene glycol 3350 [id number] mg / potassium chloride 2970 mg / sodium bicarbonate 6740 mg / sodium chloride 5860 mg / sodium sulfate 61421 mg powder for oral solution (1 source) [...] tsp Orally qd for 10 day(s) Not-Taking Drospirenone-Ethi nyl Estradiol (4 sources) Progestin, Estrogen Start: 05-08-2022 End: 03-08-2024 Drospirenone-Ethin yl Estradiol Discontinued 1 TAB PO As Directed May 08, 2022 1:00am March 08, 2024 10:30am Start: 05-08-2022 Drospirenone-E thinyl Estradiol Active 1 TAB PO As Directed May 08, 2022 1:00am Start: 05-08-2022 Drospirenone-E thinyl Estradiol Active TAB TABLET May 08, 2022 12:00am ergocalciferol 1.25 mg oral capsule (6 sources) Provitamin D2 Compound Start: 05-22-2018 End: 05-26-2023 ergocalciferol (Vitamin D-2) 1.25 MG (51524 UT) capsule Take by mouth. 0 05/22/2018 05/26/2023 Discontinued (Therapy completed) Start: 05-22-2018 take 1 capsule by mo [facility] every week Vitamin D (Ergocalciferol) 1.25 MG (54250 UT) Oral Capsule TAKE 1 CAPSULE WEEKLY for 8 weeks Quantity: 8 Refills: 0 Stella Olivares Start : 22-May-2018 Active Multivitamin preparation (7 sources) take 1 tablet by fernandez th once daily Multivitamin - 1 tablet Orally [...] Classification Problem Date Documented Da te Episodic/Chronic Abdominal pain (20 sources) Generalized abdominal pain; Translations: [Abdominal pain] Onset: 2 05-08-2022 Episodic Anxiety disorders (20 sources) Anxiety; Translations: [Generalized anxiety disorder] Onset: 0 Chronic Contraceptive and procreative management (1 source) Patient encounter status; Translations: [Encounter for removal of intrauterine contraceptive device] 10-24-2024 Episodic Intestinal infection (1 source) Viral gastroenteritis due to Mulberry-like agent; Translations: [Acute gastroenteropathy due to Mulberry agent] 07-12-2024 Episodic Menstrual disorders (1 source) Menorrhagia; Translations: [Excessive and frequent menstruation with regular cycle] 04-22-2023 Chronic Mood disorders (5 sources) Depressive disorder; Translations: [Depression] Onset: 0 03-04-2023 Chronic Nausea and vomiting (14 sources) Nausea; Translations: [Nausea] Episodic Nutritional deficiencies (7 sources) Vitamin D deficiency; Translations: [Vitamin D deficiency, unspecified] Onset: 3 03-04-2023 Chronic Other gastrointestinal disorders (20 sources) Irritable bowel syndrome; Translations: [Irritable bowel syndrome without diarrhea] Onset: 7 03-04-2023 Chronic Other gastrointestinal disorders (5 sources) Mixed irritable bowel syndrome; Translations: [MIXED IRRITABLE BOWEL SYNDROME] Onset: 3 Chronic Other gastrointestinal disorders (3 sources) Irritable bowel syndrome with diarrhea; Translations: [Irritable bowel syndrome with diarrhea] 04-05-2023 Chronic Other gastrointestinal disorders (2 sources) Diarrhea; Translations: [Diarrhea in pediatric patient] Episodic Other gastrointestinal disorders (1 source) Diarrhea, unspecified Episodic Other nervous system disorders (5 sources) Chiari malformation type I; Translations: [Compression of brain] Onset: 3 03-04-2023 Chronic Other nutritional; endocrine; and metabolic disorders (12 sources) Weight loss; Translations: [Abnormal weight loss] 04-05-2023 Episodic Other nutritional; endocrine; and metabolic disorders (6 sources) Abnormal weight loss; Translations: [ABNORMAL WEIGHT LOSS] Onset: 2 Episodic Residual codes; unclassified (2 sources) Insomnia; Translations: [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] Episodic Residual codes; unclassified (8 sources) Genetic susceptibility to other disease; 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] Episodic Unclassified (1 source) Encounter for immunization; Translations: [Encounter for immunization] Onset: Past or Other Problems Problem Classification Problem Date Documented Date Episodic/Chronic Headache; including migraine (7 sources) Headache; Translations: [Headache] Onset: 03-04-2023 03-04-2023 Episodic Immunizations and screening for infectious disease [...] SPEC NONINFLAMMATORY D/O VAGINA] Onset: 12-07-2021 Episodic Other nutritional; endocrine; and metabolic disorders (5 sources) Methylene THF reductase deficiency AND homocystinuria; Translations: [Methylenetetrahydrof olate reductase deficiency] Onset: 03-04-2023 Resolved: 06-03-2023 03-04-2023 Chronic Other nutritional; endocrine; and metabolic disorders (7 sources) Sucrase-isomaltase deficiency; 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] Onset: 04-30-2023 Resolved: 06-03-2023 04-30-2023 Chronic Residual codes; unclassified (5 sources) Insomnia disorder related to known organic factor; Translations: [Insomnia, unspecified] Onset: 03-04-2023 03-04-2023 Episodic Unclassified (2 sources) History finding; Translations: [No pertinent past medical history] NEGATED: Highlighted row has not occurred!Residual codes; unclassified (6 sources) Disease Episodic Results Test Name Value Interpretation Reference Range Facility IUD Removalon 10-24-2024 Enid Angelo LPN 10/24/2024 3:14 PM IUD Removal Date/Time: 10/24/2024 2:09 PM Performed by: Bubba Cota DO Authorized by: Bubba Cota DO Consent: Consent obtained: Written Consent given by: Patient Procedure risks and benefits discussed: yes Patient questions answered: yes Patient agrees, verbalizes understanding, and wants to proceed: yes Educational handouts given: yes Instructions and paperwork completed: yes [place] protocol: Patient states understanding of procedure being [...] office for annual exam unless needed otherwise [facility] No Panel InformationOrdered By: Cristina Lara on 03-08-2024 Quick Strep (POC) [facility] EGD Study observation Narrat aprilon 05-26-2023 Table formatting fro m the original [...] Lico Zeng MD 05/26/2023 1533 Procedure Location [facility] [address] [facility] [address] Referring Provider Charlie Paredes Md [address] [facility] [address] [place] [address] Procedure Provider Charlie Paredes MD [facility] Work Phone: [facility] Work Phone: Radiology Study observation (narrative) [facility] Work Phone: HCG ( test) Ql (U)O rdered By: Maria T Farley on 05-26-2023 Interpretation and review of laboratory results Normal [facility] Preg Test, Ur Negative Negative [facility] CNOVon 04-22-2023 CNOV Office Visit (ENDOLN ) MANPREET FRAIRE ([id number]) 1 F Date Time Provider Department 04/22/23 1:00 PM ALBERT ZAPATA ENDOLN During your visit today, we recorded the following information about you: Pulse Blood pressure Weight Height 68/minute 118/72 61.7 kg 1.651 m Albert Zapata MD 04/25/2023 10:37 AM Addendum ENDOCRINOLOGY REASON FOR CONSULTATION: Menorrhagia HISTORY The patient is referred by Dr. Bubba Cota from [facility]. . My recommendations will be sent to [...] which included preparing to see the patient, [id number] patient care, completing clinical documentation, obtaining and/or reviewing separately obtained history, performing a medically appropriate examination, counseling and educ (more content not included)... Normal [facility] HCG ( test) Kev tavera Ql (U)Ordered By: Lisa Fernandez on 10-19-2022 HCG ( test) Ql (U) Negative [facility] HCG,Urineon 10-19-2022 Beta HCG ( test) Ql (U) Negative Normal [facility] Comment on above: Result Comment: PERF ORMED BY: [place] [address] PATHOLOGIST DRYING ROOM OPERATOR ALEXIA KENNEDY M.D. Performed By: #### U HCG #### [address] Min 10-19-2022 L - -------- Specimen: [id number] Received: 10/19/22 Status: CARLOS Josiah Num: [id number] Spec Type: Surgical Subm Dr: Lisa Fernandez MD Tissues: A Duodenum - Biopsy (DUODENUM BX) Procedures: HE/2, Gross/Micro L4 -------- Age/ Patient Sex Location Account Attending Physician -------- Manpreet Fraire /F [id number] Lisa Fernandez MD -------- SPEC NUM: [id number] RECD: 10/19/22 STATUS: CARLOS RAHMAN NUM: [id number] JASON: 10/19/[address] [facility] [address]: Lisa Fernandez MD ENTERED: 10/19/[address] [facility] [address]: JAMES TYPE: Surgical DEPT: S ORDERED: HE/2, Gross/Micro [...] microscopic examination confirms the diagnosis. CPT Codes 30478 -------- -------- Specimen: [id number] Received: 10/19/22 Status: CARLOS Rahman Num: [id number] Spec Type: Surgical Subm Dr: Lisa Fernandez MD Tissues: A Duodenum - Biopsy (DUODENUM BX) Procedures: HE/2, Gross/Micro L4 -------- Patient: Manpreet Fraire [id number] (Continued) -------- Signed (signature on file) Isi Hsieh MD 10/20/22 0958 Normal [facility] AMYLASEon 09-04-2022 Amylase [Catalytic activity/Vol] 41 U/L Normal 25-115 [facility] Comment on above: Performed By: #### L DEVIKA RICKETTS #### [facility] [address] [place] [address] Dr. Nai Garcia LIPASEon 09-04-2022 Lipase [Catalytic activity/Vol] 83.0 U/L Normal 73.0-393.0 [facility] Comment on above: Performed By: #### L DEVIKA RICKETTS #### [facility] [address] [place] [address] Dr. Nai Garcia Automated erythrocytes count in urine sediment (number/area)Ordered By: Colby Ramos on 05-08-2022 RBC Auto (Urine sed) [#/Area] 0-1 [HPF] 0-4 [facility] Automated leukocytes count i n urine sediment (number/area)Ordered By: Colby Ramos on 05-08-2022 WBC Auto (Urine sed) [#/Area] 5-9 [HPF] 0-4 [facility] Automated urine hyaline cast s count (number/volume)Ordered By: Colby Ramos on 05-08-2022 Hyaline casts Auto (U) [#/Vol] None seen [LPF] 0-1 [facility] Basophils Auto (Bld) [#/Vol] Ordered By: Colby Ramos on 05-08-2022 Basophils (Bld) [#/Vol] 0.0 10*3/uL 0.0-0.2 [facility] Basophils/100 WBC Auto (Bld) Ordered By: Colby Ramos on 05-08-2022 Basophils/100 WBC (Bld) 0.9 % . [facility] Bilirubin Test strip Ql (U)O rdered By: Colby Ramos on 05-08-2022 Bilirubin Ql (U) Negative Negative [facility] Body fluid albumin measureme nt (mass/volume)Ordered By: Colby Ramos on 05-08-2022 Albumin (Body fld) [Mass/Vol] 4.1 g/dL 3.2-5.5 [facility] Casts typing in urine sedime nt by light microscopyOrdered By: Colby Ramos on 05-08-2022 Casts LM Nom (Urine sed) None seen [LPF] None S een [facility] Color Auto (U)Ordered By: Louis Ramos on 05-08-2022 Color (U) Yellow Yellow [facility] Creatinine and Glomerular fi ltration rate.predicted panel (S/P/Bld)Ordered By: Colby Ramos on 05-08-2022 Creatinine [Mass/Vol] 0.87 mg/dL 0.44-1.03 [facility] Direct bilirubin measurement Ordered By: Colby Ramos on 05-08-2022 Bilirubin.direct [Mass/Vol] mg/dL 0.0-0.4 [facility] Eosinophils Auto (Bld) [#/Vo l]Ordered By: Colby Ramos on 05-08-2022 Eosinophils (Bld) [#/Vol] 0.1 10*3/uL 0.0-0.45 [facility] Eosinophils/100 WBC Auto (Bl d)Ordered By: Colby Ramos on 05-08-2022 Eosinophils/100 WBC (Bld) 1.8 % . [facility] Erythrocyte distribution wid th Auto (RBC) [Ratio]Ordered By: Colby Ramos on 05-08-2022 Erythrocyte distribution width (RBC) [Ratio] 12.7 % 11.9-15.3 [facility] Estimated glomerular filtrat ion rate (GFR) non- AmericanOrdered By: Colby Ramos on 05-08-2022 GFR/1.73 sq M.predicted among non-blacks MDRD (S/P/Bld) [Vol rate/Area] > 60 mL/Min [facility] Globulin Calc (S) [Mass/Vol] Ordered By: Colby Ramos on 05-08-2022 Globulin (S) [Mass/Vol] 3.4 g/dL [facility] HCG ( test) IA.rapi d Ql (U)Ordered By: Colby Ramos on 05-08-2022 HCG ( test) Ql (U) Negative [facility] Hematocrit Auto (Bld) [Volum e fraction]Ordered By: Colby Ramos on 05-08-2022 Hematocrit (Bld) [Volume fraction] 39.7 % 34.0-46.4 [facility] Hemoglobin [Mass/volume] in BloodOrdered By: Colby Ramos on 05-08-2022 Hemoglobin (Bld) [Mass/Vol] 13.4 g/dL 11.8-15.4 [facility] Ketones Auto test strip (U) [Mass/Vol]Ordered By: Colby Ramos on 05-08-2022 Ketones (U) [Mass/Vol] 1+ [facility] and C hemistry - challengeOrdered By: Colby Ramos on 05-08-2022 Lipase [Catalytic activity/Vol] 35.0 U/L 22-51 [facility] Leukocytes [#/volume] correc jean claude for nucleated erythrocytes in Blood by Automated counOrdered By: Colby Ramos on 05-08-2022 WBC corrected for nucl RBC Auto (Bld) [#/Vol] 5.5 10*3/uL 3.8-11.6 [facility] Lymphocytes Auto (Bld) [#/Vo l]Ordered By: Colby Ramos on 05-08-2022 Lymphocytes (Bld) [#/Vol] 1.4 10*3/uL 1.00-4.8 [facility] Lymphocytes/100 WBC Auto (Bl d)Ordered By: Colby Ramos on 05-08-2022 Lymphocytes/100 WBC (Bld) 26.3 % . [facility] MCH Auto (RBC) [Entitic mass ]Ordered By: Colby Ramos on 05-08-2022 MCH (RBC) [Entitic mass] 29.7 pg 24.7-34.3 [facility] MCHC Auto (RBC) [Mass/Vol]Or dered By: Colby Ramos on 05-08-2022 MCHC (RBC) [Mass/Vol] 33.7 g/dL 32.0-35.0 [facility] MCV Auto (RBC) [Entitic vol] Ordered By: Colby Ramos on 05-08-2022 MCV (RBC) [Entitic vol] 88.2 fL 80-100 [facility] Monocytes Auto (Bld) [#/Vol] Ordered By: Colby Ramos on 05-08-2022 Monocytes (Bld) [#/Vol] 0.3 10*3/uL 0.0-0.8 [facility] Monocytes/100 WBC Auto (Bld) Ordered By: Colby Ramos on 05-08-2022 Monocytes/100 WBC (Bld) 6.2 % . [facility] Mucus LM Ql (Urine sed)Order ed By: Colby Ramos on 05-08-2022 Mucus Ql (Urine sed) 2+ [LPF] [facility] Neutrophils Auto (Bld) [#/Vo l]Ordered By: Colby Ramos on 05-08-2022 Neutrophils (Bld) [#/Vol] 3.6 10*3/uL 1.8-7.7 [facility] Neutrophils/100 WBC Auto (Bl d)Ordered By: Colby Ramos on 05-08-2022 Neutrophils/100 WBC (Bld) 64.8 % . [facility] Nitrite Test strip Ql (U)Ord ered By: Colby Ramos on 05-08-2022 Nitrite Ql (U) Negative Negative [facility] No Panel InformationOrdered By: Colby Ramos on 05-08-2022 Estimated GFR () > 60 mL/Min [facility] Comment on above: GFR estimated refere nce range: According to KDOQI guidelines, <60 ml/min/1.73m2 is sufficient to diagnose a patient with chronic kidney disease. Pharmacy Creatinine Clearance (Chem 93.59 [facility] Nucleated erythrocytes [Pres ence] in Blood by Automated countOrdered By: Colby Ramos on 05-08-2022 Nucleated RBC Auto Ql (Bld) 0.4 /100{WBC} 0-0.5 [facility] Platelet mean volume Auto (B ld) [Entitic vol]Ordered By: Colby Ramos on 05-08-2022 Platelet mean volume (Bld) [Entitic vol] 10.9 fL 6.3-10.7 [facility] Platelets Auto (Bld) [#/Vol] Ordered By: Colby Ramos on 05-08-2022 Platelets (Bld) [#/Vol] 194 10*3/uL 150-450 [facility] Protein Auto test strip (U) [Mass/Vol]Ordered By: Colby Ramos on 05-08-2022 Protein (U) [Mass/Vol] 30 mg/dL Negative [facility] Protein [Mass/volume] in Ser um or PlasmaOrdered By: Colby Ramos on 05-08-2022 Protein [Mass/Vol] 7.5 g/dL 6.1-7.9 [facility] RBC Auto (Bld) [#/Vol]Ordere d By: Colby Ramos on 05-08-2022 RBC (Bld) [#/Vol] 4.50 10*6/uL 3.60-5.00 [facility] Serum or plasma alanine pope otransferase measurement without P-5'-P (enzymatic activiOrdered By: Colby Ramos on 05-08-2022 ALT No additional P-5'-P [Catalytic activity/Vol] 16 U/L 10-60 [facility] Serum or plasma albumin/glob ulin mass ratioOrdered By: Colby Ramos on 05-08-2022 Albumin/Globulin [Mass ratio] 1.2 {ratio} [facility] Serum or plasma alkaline chau sphatase measurement (enzymatic activity/volume)Ordered By: Colby Ramos on 05-08-2022 ALP [Catalytic activity/Vol] 47 U/L 32-92 [facility] Serum or plasma anion gap de terminationOrdered By: Colby Ramos on 05-08-2022 Anion gap [Moles/Vol] 15.9 mmol/L 6.0-15.0 [facility] Serum or plasma aspartate am inotransferase measurement (enzymatic activity/volume)Ordered By: Colby Ramos on 05-08-2022 AST [Catalytic activity/Vol] 17 U/L 10-42 [facility] Serum or plasma calcium linda urement (mass/volume)Ordered By: Colby Ramos on 05-08-2022 Calcium [Mass/Vol] 9.4 mg/dL 8.2-10.2 [facility] Serum or plasma chloride mamta surement (moles/volume)Ordered By: Colby Ramos on 05-08-2022 Chloride [Moles/Vol] 103 mmol/L 95-114 [facility] Serum or plasma glucose linda urement (mass/volume)Ordered By: Colby Ramos on 05-08-2022 Glucose [Mass/Vol] 93 mg/dL 70-100 [facility] Comment on above: ADA recommended refe rence rangeRandom Glucose Reference Range is dependent on time and content of last meal. Glucose of more than 200 mg/dL in a nonstressed, ambulatory subject supports the diagnosis of Diabetes Mellitus. Serum or plasma non-glucuron idated bilirubin measurement (mass/volume)Ordered By: Colby Ramos on 05-08-2022 Bilirubin.indirect [Mass/Vol] TNP [facility] Comment on above: Test not performed Serum or plasma potassium me asurement (moles/volume)Ordered By: Colby Ramos on 05-08-2022 Potassium [Moles/Vol] 3.6 mmol/L 3.5-5.1 [facility] Serum or plasma sodium measu rement (moles/volume)Ordered By: Colby Ramos on 05-08-2022 Sodium [Moles/Vol] 136 mmol/L 136-146 [facility] Serum or plasma total biliru bin measurement (mass/volume)Ordered By: Colby Ramos on 05-08-2022 Bilirubin [Mass/Vol] 0.5 mg/dL 0.3-1.2 [facility] Serum or plasma total carbon dioxide measurement (moles/volume)Ordered By: Colby Ramos on 05-08-2022 CO2 [Moles/Vol] 20.7 mmol/L 22.0-30.0 [facility] Serum or plasma urea nitroge n measurement (mass/volume)Ordered By: Colby Ramos on 05-08-2022 Urea nitrogen [Mass/Vol] 7 mg/dL 9-23 [facility] Specific gravity Auto test s trip (U) [Rel density]Ordered By: Colby Ramos on 05-08-2022 Specific gravity (U) [Rel density] 1.037 1.001-1.030 [facility] Squamous epithelial cells de tection in urine sediment by light microscopyOrdered By: Colby Ramos on 05-08-2022 Epithelial cells.squamous LM Ql (Urine sed) 5-9 [HPF] 0-2 [facility] Urine bacteria detection by automated methodOrdered By: Colby Ramos on 05-08-2022 Bacteria Auto Ql (U) None seen None Seen [facility] Urine clarity by refractomet ry automatedOrdered By: Colby Ramos on 05-08-2022 Clarity Refractometry automated (U) Cloudy Clear [facility] Urine glucose measurement by automated test strip (mass/volume)Ordered By: Colby Ramos on 05-08-2022 Glucose Auto test strip (U) [Mass/Vol] Normal mg/dL Normal [facility] Urine hemoglobin detection b y automated test stripOrdered By: Colby Ramos on 05-08-2022 Hemoglobin Auto test strip Ql (U) Negative Negative [facility] Urine leukocyte esterase det ection by automated test stripOrdered By: Colby Ramos on 05-08-2022 Leukocyte esterase Auto test strip Ql (U) Negative Negative [facility] Urobilinogen Auto test strip (U) [Mass/Vol]Ordered By: Colby Ramos on 05-08-2022 Urobilinogen (U) [Mass/Vol] Normal mg/dL Normal [facility] WBC Auto (Bld) [#/Vol]Ordere d By: Colby Ramos on 05-08-2022 WBC (Bld) [#/Vol] 5.5 10*3/uL 3.8-11.6 [facility] pH Auto test strip (U)Ordere d By: Colby Ramos on 05-08-2022 pH (U) 5.5 [pH] 5.0-9.0 [facility] CELIAC ANTIBODIES PROFILEon 04-29-2022 Deamidated Gliadin Abs, IgA 3 units Normal 0-19 [facility] Comment on above: Result Comment: Nega tive 0 - 19 Weak Positive 20 - 30 Moderate to Strong Positive >30 Performed By: #### L IPA DEVIKA #### [facility] [address] [place] [address] Dr. Nai Garcia Deamidated Gliadin Abs, IgG 2 units Normal 0-19 [facility] Comment on above: Result Comment: Nega tive 0 - 19 Weak Positive 20 - 30 Moderate to Strong Positive >30 Performed By: #### L IPA, DEVIKA #### [facility] [address] [place] [address] Dr. Nai Garcia Endomysial Antibody IgA Negative Normal Negative [facility] Comment on above: Performed By: #### L IPA, DEVIKA #### [facility] [address] [place] [address] Dr. Nai Garcia Immunoglobulin A, Qn, Serum 123 mg/dL Normal 87-352 [facility] Comment on above: Performed By: #### L IPA, DEVIKA #### [facility] [address] [place] [address] Dr. Nai Garcia t-Transglutaminase (tTG) IgA <2 Normal 0-3 [facility] Comment on above: Result Comment: Nega tive 0 - 3 Weak Positive 4 - 10 Positive >10 . Tissue Transglutaminase (tTG) has been identified as the endomysial antigen. Studies have demonstr- ated that endomysial IgA antibodies have over 99% specificity for gluten sensitive enteropathy. Performed By: #### L IPA, DEVIKA #### [facility] [address] [place] [address] Dr. Nai Garcia H PYLORI ANTIBODY IGGon H. PYLORI IGG ABS 0.33 Index Value Normal 0.00-0.79 [facility] Comment on above: Result Comment: Nega tive <0.80 Equivocal 0.80 - 0.89 Positive >0.89 Performed By: #### H PYLLC #### [facility] [address] [place] [address] Dr. Nai Garcia IMMUNOGLOBULIN IGA QUANTITIA VEon 04-29-2022 Immunoglobulin A, Qn, Serum 124 mg/dL Normal 87-352 [facility] Comment on above: Performed By: #### L IPA, DEVIKA #### [facility] [address] [place] [address] Dr. Nai Garcia TISSUE TRANSGLUTAMINASE IGGo n 04-29-2022 t-Transglutaminase (tTG) IgG <2 Normal 0-5 [facility] Comment on above: Result Comment: Nega tive 0 - 5 Weak Positive 6 - 9 Positive >9 Performed By: #### T RNSIGG #### [facility] [address] [place] [address] Dr. Nai Garcia Performed By: #### L IPA, DEVIKA #### [facility] [address] [place] [address] Dr. Nai Garcia FREE T4on 04-28-2022 Free T4 [Mass/Vol] 1.17 ng/dL Normal 0.78-1.34 [facility] Comment on above: Performed By: #### F T4 #### [facility] [address] [place] [address] Dr. Nai Garcia GLYCOHEMOGLOBIN A1Con 2021 ADA RECOMMENDATION SEE BELOW Normal [facility] Comment on above: Result Comment: ADA RECOMMENDED LIMIT 4.0 - 6.0 ADA THERAPEUTIC TARGET < 7.0 ACTION SUGGESTED > 7.0 Performed By: #### A 1C #### [facility] [address] [place] [address] Dr. Nai Garcia Glucose [Mass/Vol] 105 mg/dL Normal [facility] Comment on above: Performed By: #### A 1C #### [facility] [address] [place] [address] Dr. Nai Garcia HbA1c (Bld) [Mass fraction] 5.3 % Normal 4.5-6.2 [facility] Comment on above: Performed By: #### A 1C #### [facility] [address] [place] [address] Dr. Nai Garcia TSHon 04-28-2022 TSH 0.496 uIU/mL Critically low 0.516-4.130 [facility] Comment on above: Performed By: #### T SH #### [facility] [address] [place] [address] Dr. Nai Garcia CBC AUTO DIFFon 03-23-2022 BASO # 0.1 103/ul Normal 0.0-0.1 [facility] Comment on above: Performed By: #### C BC #### [facility] [address] [place] [address] Dr. Nai Garcia Basophils/100 WBC (Bld) 0.8 % Normal 0.2-2.0 [facility] Comment on above: Performed By: #### C BC #### [facility] [address] [place] [address] Dr. Nai Garcia EO # 0.1 103/ul Normal 0.0-0.7 [facility] Comment on above: Performed By: #### C BC #### [facility] [address] [place] [address] Dr. Nai Garcia Eosinophils/100 WBC (Bld) 1.3 % Normal 0.9-7.0 [facility] Comment on above: Performed By: #### C BC #### [facility] [address] [place] [address] Dr. Nai Garcai Erythrocyte distribution width (RBC) [Ratio] 12.9 % Normal 11.0-15.0 [facility] Comment on above: Performed By: #### C BC #### [facility] [address] [place] [address] Dr. Nai Garcia Hematocrit (Bld) [Volume fraction] 37.0 % Normal 36.0-48.0 [facility] Comment on above: Performed By: #### C BC #### [facility] [address] [place] [address] Dr. Nai Garcia Hemoglobin (Bld) [Mass/Vol] 12.5 g/dL Normal 12.0-16.0 [facility] Comment on above: Performed By: #### C BC #### [facility] [address] [place] [address] Dr. Nai Garcia IG # 0.01 10e3/ul Normal 0.00-0.03 [facility] Comment on above: Performed By: #### C BC #### [facility] [address] [place] [address] Dr. Nai Garcia IG % 0.2 % Normal 0.0-0.5 [facility] Comment on above: Performed By: #### C BC #### [facility] [address] [place] [address] Dr. Nai Garcia LYMPH # 1.6 103/ul Normal 1.2-3.8 [facility] Comment on above: Performed By: #### C BC #### [facility] [address] [place] [address] Dr. Nai Garcia Lymphocytes/100 WBC (Bld) 26.5 % Normal 20.5-60.0 [facility] Comment on above: Performed By: #### C BC #### [facility] [address] [place] [address] Dr. Nai Garcia MANUAL DIFF REQ NO Normal [facility] Comment on above: Performed By: #### C BC #### [facility] [address] [place] [address] Dr. Nai Garcia MCH (RBC) [Entitic mass] 29.8 pg Normal 26.7-34.0 [facility] Comment on above: Performed By: #### C BC #### [facility] [address] [place] [address] Dr. Nai Garcia MCHC (RBC) [Mass/Vol] 33.8 g/dL Normal 29.9-35.2 [facility] Comment on above: Performed By: #### C BC #### [facility] [address] [place] [address] Dr. Nai Garcia MCV (RBC) [Entitic vol] 88.3 fL Normal 81.0-99.0 [facility] Comment on above: Performed By: #### C BC #### [facility] [address] [place] [address] Dr. Nai Garcia MONO # 0.4 103/ul Normal 0.3-0.8 [facility] Comment on above: Performed By: #### C BC #### [facility] [address] [place] [address] Dr. Nai Garcia Monocytes/100 WBC (Bld) 7.1 % Normal 1.7-12.0 [facility] Comment on above: Performed By: #### C BC #### [facility] [address] [place] [address] Dr. Nai Garcia NEUT # 4.0 103/ul Normal 1.4-6.5 [facility] Comment on above: Performed By: #### C BC #### [facility] [address] [place] [address] Dr. Nai Garcia Neutrophils/100 WBC (Bld) 64.1 % Normal 43.0-75.0 [facility] Comment on above: Performed By: #### C BC #### [facility] [address] [place] [address] Dr. Nai Garcia Platelet mean volume (Bld) [Entitic vol] 11.3 fL Normal 9.5-13.5 [facility] Comment on above: Performed By: #### C BC #### [facility] [address] [place] [address] Dr. Nai Garcia PLT 213 103/ul Normal 150-450 [facility] Comment on above: Performed By: #### C BC #### [facility] [address] [place] [address] Dr. Nai Garcia RBC 4.19 106/ul Critically low 4.20-5.40 [facility] Comment on above: Performed By: #### C BC #### [facility] [address] [place] [address] Dr. Nai Garcia WBC 6.2 103/ul Normal 4.0-11.0 [facility] Comment on above: Performed By: #### C BC #### [facility] [address] [place] [address] Dr. Nai Garcia PROF CHEM 8 (BAS METB)on Anion gap [Moles/Vol] 12.1 mmol/L Normal [facility] Comment on above: Performed By: #### L IPA, DEVIKA #### [facility] [address] [place] [address] Dr. Nai Garcia Calcium [Mass/Vol] 9.2 mg/dL Normal 8.5-10.1 [facility] Comment on above: Performed By: #### L IPA, DEVIKA #### [facility] [address] [place] [address] Dr. Nai Garcia Chloride [Moles/Vol] 105 mmol/L Normal 98-107 [facility] Comment on above: Performed By: #### L IPA, DEVIKA #### [facility] [address] [place] [address] Dr. Nai Garcia CO2 [Moles/Vol] 26.3 mmol/L Normal 21.0-32.0 [facility] Comment on above: Performed By: #### L IPA, DEVIKA #### [facility] [address] [place] [address] Dr. Nai Garcia Creatinine [Mass/Vol] 0.95 mg/dL Normal 0.55-1.02 [facility] Comment on above: Performed By: #### L IPA, DEVIKA #### [facility] [address] [place] [address] Dr. Nai Garcia EGFR-AF CHINESE >60 Normal >=60 [facility] Comment on above: Performed By: #### L IPA, DEVIKA #### [facility] [address] [place] [address] Dr. Nai Garcia EGFR-NON AF CHINESE >60 Normal >=60 [facility] Comment on above: Performed By: #### L IPA, DEVIKA #### [facility] [address] [address] [address] Nai Garcia Glucose [Mass/Vol] 98 mg/dL Normal 74-106 [facility] Comment on above: Performed By: #### L IPA, DEVIKA #### [facility] [address] [place] [address] Dr. Nai Garcia Potassium [Moles/Vol] 3.4 mmol/L Critically low 3.5-5.1 [facility] Comment on above: Performed By: #### L IPA, DEVIKA #### [facility] [address] [address] [address] Nai Garcia Sodium [Moles/Vol] 140 mmol/L Normal 136-145 [facility] Comment on above: Performed By: #### L IPA, DEVIKA #### [facility] [address] [place] [address] Dr. Nai Garcia Urea nitrogen [Mass/Vol] 11.0 mg/dL Normal 6.4-19.3 [facility] Comment on above: Performed By: #### L IPA, DEVIKA #### [facility] [address] [place] [address] Dr. Nai Garcia Urea nitrogen/Creatinine [Mass ratio] 11.6 mg/mg Normal [facility] Comment on above: Performed By: #### L IPA, DEVIKA #### [facility] [address] [place] [address] Dr. Nai Garcia TSHon 03-23-2022 TSH 1.051 uIU/mL Normal 0.516-4.130 [facility] Comment on above: Performed By: #### L IPA, DEVIKA #### [facility] [address] [place] [address] Dr. Nai Garcia CHLAMYDIA/GONOCOCCUS LYDIA (SW AB/URINE/PAPon 12-10-2021 Chlamydia trachomatis, LYDIA Negative Normal Negative [facility] Comment on above: Performed By: #### C T/NGNA #### [facility] [address] [address] [address] Nai Garcia Neisseria gonorrhoeae, LYDIA Negative Normal Negative [facility] Comment on above: Performed By: #### C T/NGNA #### [facility] [address] [address] [address] Nai Garcia VAGINITIS/VAGINOSIS DNA PROB Mikie 12-10-2021 Angelita species Negative Normal Negative [facility] Comment on above: Performed By: #### V AGINT #### [facility] [address] [address] [address] Nai Garcia Gardnerella vaginalis Positive Abnormal Negative [facility] Comment on above: Performed By: #### V AGINT #### [facility] [address] [address] [address] Nai Garcia Trichomonas vaginalis Negative Normal Negative [facility] Comment on above: Performed By: #### V AGINT #### [facility] [address] [address] [address] Nai Garcia Initial Visit (Pediatric Ari [...] Oral Tablet; TAKE 1.5 TABLET Daily; Therapy: [id number] to (Evaluate:[id number]) Requested for: 12Nov2019 Recorded 3. Vitamin D (Ergocalciferol) 1.25 MG (74053 UT) Oral Capsule; TAKE 1 CAPSULE WEEKLY for 8 weeks; Therapy: [id number] to (Last Rx:[id number]) Requested for: 23May2018 Ordered *Vitals Vital Signs Recorded: 21Nov2019 11:11AM Temperature: 98.1 F Heart Rate: 66 Respiration: 18 Systolic: 114, LUE, Sitting Diastolic: 69, LUE, Sitting Height: 5 ft 4 in 2-20 Stature Percentile: 48 % Weight: 152 lb 8.96 oz 2- Weight Percentile: 88 % BMI Calculated: 26.19 [...] without Contrast; Status:Hold For - Scheduling; Requested for:21Nov2019; Radiologist to Determine Optimal Study : Y What are the patient's signs and symptoms? : headaches, tonsillar ectopia and arm weakness, evaluate for syrinx or tethered cord, please do CINE flow study of C_spine 2. MRI L Spine without Contrast; Status:Hold For - Scheduling; Requested for:[id number]; Radiologist to Determine Optimal Study : Y What are the patient's signs and symptoms? : headaches, tonsillar ectopia and arm weakness, evaluate for syrinx or tethered cord, please do CINE flow study of C_spine 3. MRI T Spine without Contrast; Status:Hold For - Scheduling; Requested for:[id number]; Radiologist to Determine Optimal Study : Y [...] EST (Author) Reviewed by : Le Irizarry, BRIGITTE-CARPET LAYER HELPER HEEL WASHER STRINGING MACHINE OPERATOR-VICE PRESIDENT OF CUSTOMER SERVICE; Nov 21 2019 4:54PM EST Normal [facility] Telephone Note_UHon 10-05-19 Telephone Note_ Message Recorded as Task [...] PM TASK REPLIED TO: Previously Assigned To eL Irizarry Just spoke with mom, yesterday [place] woke up and called mom at work, had a heavy feeling in her upper body and torso was short lived according to mom, not lasting long, had a dull headache and dizziness, happened again about 45 minutes later and went to the ER and was evaluated Neuro evaluation, per mom was normal. I asked mom to please retrieve the disc from [place], I know that you sent an email [...] Oct 05 2019 1:00PM EST (Author) Normal [employer] ABDIFATAH - Automatic [employer] ABDIFATAH - Automatic [place] [facility] [place] g-Admin RBC [address] [place], [place] MANPREET FRAIRE 2005 Date of Female Sex [id number] Patient Id [id number] [facility] [address] AddressEnglish (preferred) Language White Race Not or Ethnicity Summary of Care Clinical Content Allergies and Adverse Reactions <#[id number]> Encounters <#BT1DHHLF> Family History <#[id number]> Functional Status <#JT3XKREY> Immunization <#EZ2HMXFA> Instructions <#TZ1ZMORY> Interventions Provided <#YF2TPFSS> Medications <#[id number]> Past Medical History <#FX3N5ZGH> Plan of Care <#CL5W0AZL> Problems <#JR3KXPAE> Procedures <#IB5GARAV> Results <#UE2VAYDW> Social History <#IE0RD7KG> Vital Signs <#NP8DYKAA> Other Document Details Health Care Providers Functional Statustop <#top> Functional Status Health Issues NameDatesDetails Functional status health issues are not documented Cognitive Status Health Issues NameDatesDetails Cognitive status health issues are not documented Problemstop <#top> NameDMaria Del Carmens Diarrhea in pediatric patient (787.91, R19.7) Vitamin D deficiency (268.9, E55.9) Abdominal pain, generalized (789.07, R10.84) Headache (784.0, R51) Anxiety (300.00, F41.9) 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, 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) Medicationstop <#top> Jessica Vitamin D (Ergocalciferol) 1.25 MG (30013 UT) Oral Capsule TAKE 1 CAPSULE WEEKLY for 8 weeks Quantity: 8 Refills: 0 Stella Olivares Start : 22-May-2018 Dicyclomine HCl - 10 MG Oral Capsule Take 1-2 capsules up to 4 times a day as needed for abdominal pain Quantity: 90 Refills: 3 Stella Olivares Start : 28-May-2018 Allergies and Adverse Reactionstop <#top> Jessica No Known Drug Allergies (Allergy) Past Medical Historytop <#top> Jessica No pertinent past medical history (V49.89, Z78.9) Status: Resolved Procedurestop <#top> ProcedureDatesDetails History of Ear pressure equalization tube insertionCompleted Immunizationtop <#top> Jessica Immunizations not documented Family Historytop <#top> Grandmother NameDatesMark Family history of Gallstones (574.20, K80.20) Family history of kidney stones (V18.69, Z84.1) Family history of cerebrovascular accident (CVA) (V17.1, Z82.3) Family history of migraine headaches (V17.2, Z82.0) Family history of Anxiety (300.00, F41.9) aunt NameDatesMark Family history of Graves' disease (V18.19, Z83.49) great grandmother NameDEleni Family history of antiphospholipid syndrome (V18.3, Z83.2) Mother NameDEleni Family history of gastroesophageal reflux disease (V18.59, Z83.79) Family history of kidney stones (V18.69, Z84.1) Family history of depression (V17.0, Z81.8) Family history of migraine headaches (V17.2, Z82.0) Family history of Anxiety (300.00, F41.9) Grandfather NameDEleni Family history of hypertension (V17.49, Z82.49) Family history of depression (V17.0, Z81.8) Social Historytop <#top> NameDatesDetails - Smoking Status NameDMaria Del Carmens Never smoked tobacco (finding) Vital Signstop <#top> [...] progress. My nurse is Marimar Briseno at [phone]. 6. Follow up will be after her films are reviewed. 7. Eye exam should be completed. Instructionstop <#top> Jessica Instructions not documented Encounterstop <#top> Appointment; Stella Brar APRN-CNP Encounter Diagnosis: Problem not documentedOn: 08-May-2018 9:00 Appointment; Normal [facility] Referral-Consult Letteron Referral-Consult Letter History of Prese [...] there all day long and treatment with iuci-jak-evhzwmh Tylenol or Motrin did not help. She [...] 30May2018 Ordered Vitamin D (Ergocalciferol) 1.25 MG (09361 UT) Oral Capsule; TAKE 1 CAPSULE WEEKLY for 8 weeks; Therapy: 22May2018 to (Last Rx:[id number]) Requested for: 23May2018 Ordered Physical Exam Today's [...] progress. My nurse is Marimar Briseno at [phone]. 6. Follow up will be after her films are reviewed. 7. Eye exam should be completed. Thank you again for your re Normal [facility] Telephone Note_on 09-27-19 Telephone Note_ Message Recorded as Task [...] in regards of headaches. She prefer the [facility] office if its face to face. Inge Briseno - 27 Sep 2019 11:23 AM TASK EDITED Mom confirmed a virtual appointment with Elvira on Saturday 09/30 at 3pm. Information sent to the secretaries to schedule this. Signatures Electronically signed by : Inge Briseno R.N.; Sep 27 2019 11:23AM EST (Author) Normal [facility] Note - [facility]-Hematology - New Visiton [...] change her pad. She has seen a industrial methods consultant and trialed several OCPs with no decrease in amount or length of bleeding. She notes an increase in bleeding on her periods with OCPs. She has not tried any other forms such as IUD or nexplanon. Her industrial methods consultant bartolo basic labs and noted lower platelets and referred her to a bobbin doffer Dr. Mcdowell. She was tested for vWF, [...] seen and discussed with Dr. Felipe Puentes, PGY-1 Pediatrics Note Recipients: Yokasta Wiggins MD Select Yes when ready to send to Provider(s) Listed Above: Note sent to providers named above Attestation: Note Completion: I personally evaluated the patient [id number] Attending AttestationI saw and evaluated the patient. [...] Document via Auto Fax, Attestation Clare Puentes (Resident)) (Signed 24-Oct-2018 17:08) Authored: Patient Visit Information, History of Present Illness, Social History, Problem List and Immunizations, Allergies and Outpatient Medication Profile, Oral Chemo/Oncology Related Therapy, Review of Systems, Performance Status, Physical Exam, Assessment, Plan, and Orders, To Send Document via Auto Fax, Attestation Last Updated: 27-Oct-2018 13:30 by Santo Wang) Normal [facility] Measurementson 10-24-2018 Measurements Growth Chart: Growth Chart Measurements: Growth Chart Length/Height (cm)164.1 Growth Chart Weight (kg)67.7 Growth Chart BMI (kg/m2)25.14 Electronic Signatures: Regina Perdue (LISETTE Aden) (Signed 24-Oct-2018 14:25) Authored: Growth Chart Last Updated: 24-Oct-2018 14:25 by Regina Predue (LISETTE Aden) Normal [facility] Vital Signs Date Time Vital Sign Value Performing Clinician Facility 10-24-2024 13:43-0400 Body mass index (BMI) [Ratio] 27.26 kg/m2 Bubba Cipriano DO Work Phone: [facility] 10-24-2024 13:43-0400 Body weight 74.3 kg Bubba Cipriano DO Work Phone: [facility] 10-24-2024 13:43-0400 Diastolic blood pressure 78 mm[Hg] Bubba Cipriano DO Work Phone: [facility] 10-24-2024 13:43-0400 Systolic blood pressure 118 mm[Hg] Bubba Cipriano DO Work Phone: [facility] 03-08-2024 10:27-0400 Body temperature 98.7 [degF] [facility] 03-08-2024 10:27-0400 Body weight 68.49 kg [facility] 03-08-2024 10:27-0400 Diastolic blood pressure 88 mm[Hg] [facility] 03-08-2024 10:27-0400 Heart rate 88 /min [facility] 03-08-2024 10:27-0400 SaO2% (BldA) [Mass fraction] 98 % [facility] 03-08-2024 10:27-0400 Systolic blood pressure 130 mm[Hg] [facility] 05-26-2023 16:15-0500 Diastolic blood pressure 75 mm[Hg] Charlie Paredes MD Work Phone: [facility] 05-26-2023 16:15-0500 Heart rate 54 /min Charlie Paredes MD Work Phone: [facility] 05-26-2023 16:15-0500 Respiratory rate 18 /min Charlie Paredes MD Work Phone: [facility] 05-26-2023 16:15-0500 SaO2% (BldA) [Mass fraction] 100 % Charlie Paredes MD Work Phone: [facility] 05-26-2023 16:15-0500 Systolic blood pressure 119 mm[Hg] Charlie Paredes MD Work Phone: [facility] 05-26-2023 15:41-0500 Body temperature 97.7 [degF] Charlie Paredes MD Work Phone: [facility] 05-26-2023 13:27-0500 Body mass index (BMI) [Ratio] 20.8 kg/m2 Charlie Paredes MD Work Phone: [facility] 05-26-2023 13:27-0500 Body weight 56.7 kg Charlie Paredes MD Work Phone: [facility] 04-22-2023 12:59-0500 Body height 165.1 cm Albert Zapata MD Work Phone: [facility] 04-22-2023 12:59-0500 Body weight 61.69 kg Albert Zapata MD Work Phone: [facility] 04-22-2023 12:59-0500 Diastolic blood pressure 72 mm[Hg] Albert Zapata MD Work Phone: [facility] 04-22-2023 12:59-0500 Heart rate 68 /min Albert Zapata MD Work Phone: [facility] 04-22-2023 12:59-0500 Systolic blood pressure 118 mm[Hg] Albert Zapata MD Work Phone: [facility] 02-25-2023 13:30-0400 Body weight 60.78 kg Fernando Wilson Other [employer] Other 02-25-2023 13:30-0400 Diastolic blood pressure 77 mm[Hg] Fernando Wilson Other [employer] Other 02-25-2023 13:30-0400 Systolic blood pressure 117 mm[Hg] Fernando Wilson Other [employer] Other 12-01-2022 13:00-0400 Body height 165.1 cm Imad Asaad Other [employer] Other 12-01-2022 13:00-0400 Body mass index (BMI) [Ratio] 20.13 kg/m2 Imad Asaad Other [employer] Other 12-01-2022 13:00-0400 Body weight 54.89 kg Imad Asaad Other [employer] Other 12-01-2022 13:00-0400 Diastolic blood pressure 93 mm[Hg] Imad Asaad Other [employer] Other 12-01-2022 13:00-0400 Systolic blood pressure 144 mm[Hg] Imad Asaad Other [employer] Other 10-19-2022 10:18-0400 Diastolic blood pressure 63 mm[Hg] MD Fernando Wilson Work Phone: [facility] 10-19-2022 10:18-0400 Heart rate 66 /min MD Fernando Wilson Work Phone: [facility] 10-19-2022 10:18-0400 Respiratory rate 16 /min MD Fernando Wilson Work Phone: [facility] 10-19-2022 10:18-0400 SaO2% (BldA) [Mass fraction] 99 % MD Fernando Wilson Work Phone: [facility] 10-19-2022 10:18-0400 Systolic blood pressure 108 mm[Hg] MD Fernando Wilson Work Phone: [facility] 10-19-2022 08:40-0400 Body height 165.1 cm MD Fernando Wilson Work Phone: [facility] 10-19-2022 08:40-0400 Body temperature 98.4 [degF] MD Fernando Wilson Work Phone: [facility] 10-19-2022 08:40-0400 Body weight 56.69 kg MD Fernando Wilson Work Phone: [facility] 09-02-2022 16:00-0400 Body height 162.56 cm Fernando Wilson Other [facility] [employer] Other 09-02-2022 16:00-0400 Body mass index (BMI) [Ratio] 21.11 kg/m2 Fernando Wilson Other [facility] [employer] Other 09-02-2022 16:00-0400 Body weight 55.79 kg Fernando Wilson Other [employer] Other 09-02-2022 16:00-0400 Diastolic blood pressure 64 mm[Hg] Fernando Wilson Other [employer] Other 09-02-2022 16:00-0400 SaO2% (BldA) [Mass fraction] 99 % Fernando Wilson Other [employer] Other 09-02-2022 16:00-0400 Systolic blood pressure 100 mm[Hg] Fernando Wilson Other [facility] [employer] Other 06-02-2022 15:30-0500 Body weight 57.15 kg Imad Asaad Other [facility] [employer] Other 06-02-2022 15:30-0500 Diastolic blood pressure 68 mm[Hg] Imad Asaad Other [facility] [employer] Other 06-02-2022 15:30-0500 Systolic blood pressure 116 mm[Hg] Imad Asaad Other [facility] [employer] Other 05-08-2022 17:18-0500 Body temperature 99 [degF] MD Fernando Wilson Work Phone: [facility] 05-08-2022 17:18-0500 Diastolic blood pressure 57 mm[Hg] MD Fernando Wilson Work Phone: [facility] 05-08-2022 17:18-0500 Heart rate 62 /min MD Fernando Wilson Work Phone: [facility] 05-08-2022 17:18-0500 Respiratory rate 16 /min MD Fernando Wilson Work Phone: [facility] 05-08-2022 17:18-0500 SaO2% (BldA) [Mass fraction] 100 % MD Fernando Wilson Work Phone: [facility] 05-08-2022 17:18-0500 Systolic blood pressure 99 mm[Hg] MD Fernando Wilson Work Phone: [facility] 05-08-2022 15:01-0500 Body height 165.1 cm MD Fernando Wilson Work Phone: [facility] 05-08-2022 15:01-0500 Body weight 58.45 kg MD Fernando Wilson Work Phone: [facility] Encounters Encounter Date Encounter Type Care Provider Facility Start: 10-24-2024 End: 10-24-2024 Postop follow up visit related to original px Bubba Cota DO Work Phone: [facility] Comment on above: Encounter for IUD re moval Start: 10-24-2024 End: 10-24-2024 ambulatory BUBBA COTA Not Available Start: 07-12-2024 End: 07-12-2024 Office outpatient visit 15 minutes Charlie Paredes MD Work Phone: [facility] 2 Comment on above: Norovirus (Primary D x); Irritable bowel syndrome with diarrhea Start: 03-08-2024 End: 03-08-2024 ambulatory [facility] Work Phone: Start: 03-08-2024 End: 03-08-2024 Patient encounter procedure [facility] Work Phone: Start: 05-26-2023 End: 05-26-2023 Subsequent hospital visit by physician Charlie Paredes MD Work Phone: [facility] Comment on above: Congenital sucrase-i somaltase deficiency Start: 04-26-2023 End: 04-26-2023 Office outpatient visit 15 minutes Charlie Paredes MD Work Phone: [facility] 2 Comment on above: Congenital sucrase-i somaltase deficiency (Primary Dx); Irritable bowel syndrome with diarrhea; Generalized abdominal pain; Weight loss; Bilious vomiting with nausea Start: 04-22-2023 End: 04-22-2023 ambulatory ALBERT ZAPATA Facility:[facility] Start: 04-22-2023 End: 04-22-2023 Office consultation new/estab patient 60 min Albert Zapata MD Work Phone: Endocrinology Comment on above: Menorrhagia with reg ular cycle (Primary Dx) Start: 04-05-2023 End: 04-05-2023 Office outpatient visit 15 minutes Charlie Paredes MD Work Phone: [facility] 2 Comment on above: Irritable bowel synd vu with diarrhea (Primary Dx); Generalized abdominal pain; Weight loss; Bilious vomiting with nausea Start: 03-07-2023 End: 03-07-2023 ambulatory Fernando Wilson Other [employer] Other Start: 03-07-2023 Telephone encounter Fernando Wilson [facility] Start: 02-25-2023 End: 02-25-2023 ambulatory Fernando Wilson Other [employer] Other Start: 02-25-2023 Office outpatient vi sit 15 minutes Fernando Wilson [facility] Start: 02-21-2023 End: 02-21-2023 ambulatory [facility] Facility:[facility] Start: 02-21-2023 End: 02-21-2023 ambulatory MD Fernando Wilson Work Phone: [facility] Work Phone: Start: 02-21-2023 End: 02-21-2023 Patient encounter procedure MD Fernando Wilson Work Phone: [facility]-Flu Vaccine Start: 12-01-2022 End: 12-01-2022 ambulatory Imad Asaad Other [place] [employer] Other Start: 12-01-2022 Office outpatient vi sit 25 minutes Imad Asaad [facility] Start: 10-19-2022 End: 10-19-2022 ambulatory Imad Asaad Facility:[facility] Start: 10-19-2022 End: 10-19-2022 Admission to same day surgery center MD Fernando Wilson Work Phone: [facility] Work Phone: Start: 10-19-2022 End: 10-19-2022 ambulatory MD Fernando Wilson Work Phone: [facility] Work Phone: Start: 09-09-2022 End: 09-09-2022 ambulatory Imad Asaad Other [employer] Other Start: 09-09-2022 Telephone encounter Imad Dharmeshad [facility] Start: 09-06-2022 End: 09-06-2022 ambulatory Fernando Wilson Other [employer] Other Start: 09-06-2022 Telephone encounter Fernando Wilson [facility] Start: 09-04-2022 End: 09-05-[address] FERNANDO WILSON Facility:[facility] Start: 09-03-2022 End: 09-03-2022 ambulatory Fernando Wilson Other [employer] Other Start: 09-03-2022 Telephone encounter Fernando Wilson [facility] Start: 09-02-2022 End: 09-02-2022 ambulatory Fernando Wilson Other [employer] Other Start: 09-02-2022 Office outpatient vi sit 15 minutes Fernando Wilson [facility] Start: 09-02-2022 Telephone encounter Fernando Wilson [facility] Start: 07-21-2022 End: 07-21-2022 ambulatory Imad Asaad Other [employer] Other Start: 07-21-2022 Telephone encounter Imad Asaad [facility] Start: 06-02-2022 End: 06-02-2022 ambulatory Imad Asaad Other [employer] Other Start: 06-02-2022 Office consultation new/estab patient 40 min Imad Asaad [facility] Start: 05-08-2022 End: 05-08-2022 Emergency department patient visit MD Fernando Wilson Work Phone: [facility] Start: 04-28-2022 End: 04-29-[address] FERNANDO WILSON Facility:[facility] Start: 04-07-[address] BUBBA COTA . Facili ty:[facility] Start: 03-23-2022 End: 03-24-[address] FERNANDO WILSON Facility:[facility] Start: 12-07-2021 End: 12-07-[address] BUBBA COTA . Facility:[facility] Start: 10-01-2019 Patient encounter procedure Stella Brar SO-Dhnvotdtik-Cheorcwm-Adm in [facility] Work Phone: Start: 05-29-2018 Patient encounter procedure Stellamitra Brar HN-Ijkybpsrgm-Sqvstdxy-Adm in [facility] Work Phone: Start: 05-08-2018 Patient encounter procedure Stellamitra Brar TN-Qenhwkbqjf-Bmapjrvf-Adm in [facility] Work Phone: Procedures Date Procedure Procedure Detail Performing Clinician Start: 10-24-2024 IUD REMOVAL Bubba Ciprianonina MASCORRO Work Phone: Start: 03-08-2024 Quick Strep (POC) Start: 05-26-2023 Egd transoral biopsy single/multiple Charlie [...] 2) Zoste r Vaccines (1 of 2) [facility] Start: 07-24-2033 DTaP/Tdap/Td Vaccine s (8 - Td or Tdap) DTaP/Tdap/Td Vaccines (8 - Td or Tdap) [facility] Start: 01-05-2026 DTaP/Tdap/Td Vaccine s (7 - Td or Tdap) DTaP/Tdap/Td Vaccines (7 - Td or Tdap) [facility] Start: 01-05-2026 Urine microalbumin profile DTaP,Tdap,Td Vaccine (7 - Td or Tdap) [facility] Start: 2024 Screening for malign ant neoplasm of cervix [facility] Start: 01-22-2024 COVID-19 Vaccine ( season) COVID-19 Vaccine () [facility] Start: 05-24-2023 End: 05-24-2023 Telemedicine consultation with patient 05/24/2023 8:00 AM EST Telemedicine [facility] 2 [address] [facility] [address] [place] [id number] Charlie Paredes MD [address] [facility] [address] [place], [place] [id number] [facility] 2 Start: 04-22-2023 End: 07-22-2023 Prolactin [Mass/volume] in Serum or Plasma PROLACTIN BLD Lab Routine Menorrhagia with regular cycle Expected: 04/22/2023, Expires: 07/22/2023 [facility] Work Phone: Comment on above: Expected: 04/22/2023 , Expires: 07/22/2023 Start: 04-22-2023 End: 07-22-2023 Thyrotropin [Units/volume] in Serum or Plasma TSH BLD Lab Routine Menorrhagia with regular cycle Expected: 04/22/2023, Expires: 07/22/2023 [facility] Work Phone: Comment on above: Expected: 04/22/2023 , Expires: 07/22/2023 Start: 01-21-2023 Covid-19 Vaccine () Covid-19 Vaccine () [facility] Start: 10-19-2022 [facility] Start: 05-23-2022 Depression Assessment Depression Ass essment [facility] Start: 07-12-2021 Hepatitis A Vaccines (2 of 2 - 2-dose series) Hepatitis A Vaccines (2 of 2 - 2-dose series) [facility] Start: 07-12-2021 HPV Vaccine (3 - 3-d ose series) HPV Vaccine (3 - 3-dose series) [facility] Start: 07-12-2021 HPV Vaccines (3 - 3- dose series) HPV Vaccines (3 - 3-dose series) [facility] Start: 2021 Chlamydia Screening (18-24) Chlamydia Screening (18-24) [facility] Start: 2021 GC (Gonorrhea) Scree lemuel (18-24) GC (Gonorrhea) Screening (18-24) [facility] Start: 2021 Hepatitis C screening Hepatitis C [facility] Start: 2021 Hepatitis C Screening Hepatitis C [facility] Start: 2021 HIV Screening HIV Screening [facility] Start: 08-20-2020 COVID-19 Vaccine (3 - Pfizer series) COVID-19 Vaccine (3 - Pfizer series) [facility] Start: 2017 Peds To Adult Transi tion Annual Assessment Peds To Adult Transition Annual Assessment [facility] Start: 2015 Peds To Adult Transi tion Initial Discussion Peds To Adult Transition Initial Discussion [facility] Start: 2007 Hearing Screening (#1) Hearing Michael jamesg (#1) [facility] Start: 2006 Well Child Visit (WC V) - Annual Well Child Visit (WCV) - Annual [facility] Start: 2003 Hearing Screening (#1) Hearing Nirmale lemuel (#1) [facility] Start: 2003 HIV screening HIV Screening [facility] Start: 2003 Lipid panel Lipid Panel [facility] Start: 2003 Yearly Adult Physical Yearly Adult P hysical [facility] Disaccharidases pane l - Small intestine Tissue [facility] Work Phone: Comment on above: Release Upon Orderin g for 1 Occurrences starting 05/26/2023 End: 05-26-2023 Moderate Sedation Moderate Sedation Procedures Routine Once for 1 Occurrences starting 05/26/2023 until 05/26/2023 [facility] Service Area Work Phone: Comment on above: Once for 1 Occurrenc es starting 05/26/2023 until 05/26/2023 Patient Education [facility] Work Phone: Patient referral [facility] Work Phone: Immunizations Immunization Date Immunization Notes Care Provider Fa cility 02-21-2023 influenza, injectabl e, quadrivalent, preservative free Charlie Paredes MD Work Phone: [facility] Work Phone: 03-11-2021 Human Papillomavirus 9-valent vaccine Charlie Paredes MD Work Phone: [facility] Work Phone: 03-11-2021 meningococcal B vacc ine, recombinant, OMV, adjuvanted Charlie Paredes MD Work Phone: [facility] Work Phone: 03-11-2021 HPV, unspecified formulation Charlie Paredes MD Work Phone: [facility] Work Phone: 01-09-2021 hepatitis A vaccine, pediatric/adolescent dosage, 2 dose schedule Charlie Paredes MD Work Phone: [facility] Work Phone: 01-09-2021 Human Papillomavirus 9-valent vaccine Charlie Paredes MD Work Phone: [facility] Work Phone: 01-09-2021 meningococcal B vacc ine, recombinant, OMV, adjuvanted Charlie Paredes MD Work Phone: [facility] Work Phone: 01-09-2021 meningococcal oligosaccharide (groups A, C, Y and W-135) diphtheria toxoid conjugate vaccine (MCV4O) Charlie Paredes MD Work Phone: [facility] Work Phone: 01-09-2021 hepatitis A and hepa titis B vaccine Charlie Paredes MD Work Phone: [facility] Work Phone: 06-25-2020 Pfizer Purple Cap SARS-CoV-2 Charlie Paredes MD Work Phone: [facility] 06-04-2020 Pfizer Purple Cap SARS-CoV-2 Charlie Paredes MD Work Phone: [facility] Work Phone: 01-06-2016 meningococcal polysaccharide (groups A, C, Y and W-135) diphtheria toxoid conjugate vaccine (MCV4P) Charlie Paredes MD Work Phone: [facility] Work Phone: 01-06-2016 tetanus toxoid, redu abdifatah diphtheria toxoid, and acellular pertussis vaccine, adsorbed Charlie Paredes MD Work Phone: [facility] Work Phone: 08-08-2008 diphtheria, tetanus toxoids and acellular pertussis vaccine, unspecified formulation Charlie Paredes MD Work Phone: [facility] Work Phone: 08-08-2008 measles, mumps and rubella virus vaccine Charlie Paredes MD Work Phone: [facility] Work Phone: 08-08-2008 poliovirus vaccine, inactivated Charlie Paredes MD Work Phone: [facility] Work Phone: 08-08-2008 varicella virus vaccine Charlie Paredes MD Work Phone: [facility] Work Phone: 04-30-2005 diphtheria, tetanus toxoids and acellular pertussis vaccine, unspecified formulation Charlie Paredes MD Work Phone: [facility] Work Phone: 04-30-2005 hepatitis B vaccine, pediatric or pediatric/adolescent dosage Charlie Paredes MD Work Phone: [facility] Work Phone: 04-30-2005 pneumococcal conjuga te vaccine, 7 valent Charlie Paredes MD Work Phone: [facility] Work Phone: 04-30-2005 poliovirus vaccine, inactivated Charlie Paredes MD Work Phone: [facility] Work Phone: 07-03-2004 haemophilus influenz ae type b vaccine, conjugate unspecified formulation Charlie Paredes MD Work Phone: [facility] Work Phone: 07-03-2004 measles, mumps and rubella virus vaccine Charlie Paredes MD Work Phone: [facility] Work Phone: 07-03-2004 pneumococcal conjuga te vaccine, 7 valent Charlie Paredes MD Work Phone: [facility] Work Phone: 07-03-2004 varicella virus vaccine Charlie Paredes MD Work Phone: [facility] Work Phone: 03-12-2004 pneumococcal conjuga te vaccine, 7 valent Charlie Paredes MD Work Phone: [facility] Work Phone: 2003 diphtheria, tetanus toxoids and acellular pertussis vaccine Charlie Paredes MD Work Phone: [facility] Work Phone: 2003 haemophilus influenz ae type b vaccine, PRP-T conjugate Charlie Paredes MD Work Phone: [facility] Work Phone: 2003 poliovirus vaccine, inactivated Charlie Paredes MD Work Phone: [facility] Work Phone: 2003 diphtheria, tetanus toxoids and acellular pertussis vaccine Charlie Paredes MD Work Phone: [facility] Work Phone: 2003 haemophilus influenz ae type b conjugate and Hepatitis B vaccine Charlie Paredes MD Work Phone: [facility] Work Phone: 2003 poliovirus vaccine, inactivated Charlie Paredes MD Work Phone: [facility] Work Phone: 2003 diphtheria, tetanus toxoids and acellular pertussis vaccine, unspecified formulation Charlie Paredes MD Work Phone: [facility] Work Phone: 2003 haemophilus influenz ae type b vaccine, conjugate unspecified formulation Charlie Paredes MD Work Phone: [facility] Work Phone: 2003 hepatitis B vaccine, pediatric or pediatric/adolescent dosage Charlie Paredes MD Work Phone: [facility] Work Phone: 2003 pneumococcal conjuga te vaccine, 7 valent Charlie Paredes MD Work Phone: [facility] Work Phone: 2003 poliovirus vaccine, unspecified formulation Charlie Paredes MD Work Phone: [facility] Work Phone: 2003 hepatitis B vaccine, pediatric or pediatric/adolescent dosage Charlie Paredes MD Work Phone: [facility] Work Phone: Payers Date Payer Category Payer Private Health Insurance [employer] [id number] 2021 Managed Care (Private) [facility] [id number] 2020 Blue Cross Blue Shield [facility] er [id number] 2020 Blue Cross Blue [employer] Managed Care [facility] [id number] 2020 Unknown [id number] 2003 Unknown [id number] 2003 Unknown [id number] 2003 Unknown [id number] 2003 Unknown [id number] 2003 Unknown [id number] 2003 Unknown [id number] 593 2003 Unknown [id number] 1959 Self-pay [id number] 1959 Unknown [id number] 1959 Unknown [id number] Unknown [facility] [id number] Unknown [id number] Unknown [id number] Unknown [id number] Social History Date Type Detail Facility Start: 05-08-2022 End: 11-03-2022 Tobacco smoking status NHIS Never smoked tobacco (finding) [facility] Start: 2003 Sex Assigned At Female F [facility] Start: 04-22-2023 End: 10-24-2024 Sex Assigned At [employer] Other Start: 03-04-2023 Tobacco smoking status NHIS Tobacco smoking consumption unknown [facility] Work Phone: Start: 04-05-2023 Gender identity Identifies as female gender (finding) [facility] Work Phone: Start: 04-05-2023 Sexual orientation Heterosexual (fin ding) [facility] Work Phone: Start: 02-25-2023 End: 05-26-2023 Exposure to SARS-CoV-2 (event) Not sure [facility] Start: 04-22-2023 Tobacco use and exposure Smokeless tobacco non-user [facility] Start: 04-22-2023 End: 10-24-2024 Alcohol intake Lifetime non-drinker (finding) [facility] Start: 04-22-2023 End: 10-24-2024 History of Social function [facility] National Score (1-100), lower number is lower risk 78 [facility] Start: 2003 Sex Assigned At Not on file [facility] NEGATED: Highlighted row - - GS-Jaafsqpkpb-Nzgtdi o g-Admin [facility] Work Phone: Goals Date Patient Goal Desired Activity /State Functional Status Date Assessment Result Facility NEGATED: Highlighted row Functional performance Functional status health issues are not documented Disease VC-Tfieekuetn-Wstgq log-Admin [facility] Work Phone: Mental Status Date Assessment Result Facility NEGATED: Highlighted row Cognitive function [Interpretation] Cognitive status health issues are not documented Disease AN-Uixnbvyifw-Fzzmc log-Admin [facility] Work Phone: Clinical Notes 06-02-2022 to 10-24-2024 Enid Angelo LPN - 10/24/2024 1:30 PM Virgil Paredes MD - 07/12/2024 3:00 PM ESTPerioperative Nursing Note - Le Dias RN - 05/26/2023 4:00 PM ESTDischarge Instructions Note Date & Type Note Facility 10-24-2024 History of Present illness Narrative Associated Order(s): IUD Removal Post-Procedure Diagnose(s): Encounter for IUD removal Reason for Appointment: Patient ID: Manpreet Fraire is a 19 y.o. female who presents for mirena removal Patient presents today for a IUD Removal appointment. MEDICATIONS Current Outpatient Medications Medication Instructions ondansetron ODT (ZOFRAN-ODT) 4 mg, Oral, Every 8 hours PRN ALLERGIES No Known Allergies PROBLEMS Active Ambulatory Problems Diagnosis Date Noted No Active Ambulatory Problems Resolved Ambulatory Problems Diagnosis Date Noted No Resolved Ambulatory Problems Past Medical History: Diagnosis Date IBS (irritable bowel syndrome) Menorrhagia MTHFR (methylene THF reductase) deficiency and homocystinuria (CMS/HCC) HISTORY PAST MEDICAL HISTORY SOCIAL HISTORY Past Medical History: Diagnosis Date IBS (irritable bowel syndrome) Menorrhagia MTHFR (methylene THF reductase) deficiency and homocystinuria (CMS/HCC) Social History Tobacco Use Smoking status: Never Smokeless tobacco: Not on file Substance Use Topics Alcohol use: Never Drug use: Never FAMILY HISTORY Family History Problem Relation Name Age of Onset Migraines Mother No Known Problems Father Melanoma Neg Hx SURGICAL HISTORY History reviewed. No pertinent surgical history. REVIEW OF SYSTEMS Review of Systems: Review of Systems Constitutional: Negative. HENT: Negative. Eyes: Negative. Respiratory: Negative. Cardiovascular: Negative. Gastrointestinal: Negative. Genitourinary: Negative. Musculoskeletal: Negative. Skin: Negative. Neurological: Negative. All other systems reviewed and are negative. Hematological: Negative. Endocrine: Negative. Allergic/Immunologic: Negative. OBJECTIVE Objective: Physical Exam Constitutional: Appearance: Normal appearance. She is well-developed. Genitourinary: Vulva normal. Cardiovascular: Rate and Rhythm: Normal rate and regular rhythm. Pulmonary: Effort: Pulmonary effort is normal. Breath sounds: Normal breath sounds. Abdominal: General: Bowel sounds are normal. There is no distension. Palpations: Abdomen is soft. Tenderness: There is no abdominal tenderness. There is no guarding or rebound. Musculoskeletal: General: No swelling. Normal range of motion. Right lower leg: No edema. Left lower leg: No edema. Neurological: Mental Status: She is alert and oriented to person, place, and time. Skin: General: Skin is warm and dry. Psychiatric: Mood and Affect: Mood normal. Behavior: Behavior normal. Vitals and nursing note reviewed. Exam conducted with a cooker pie filling present. Vitals: Estimated body mass index is 27.26 kg/m as calculated from the following: Height as of 06/13/23: 5' 5 . Weight as of this encounter: 163 lb 12.8 oz. BP: 118/78 No LMP recorded. ASSESSMENT & PLAN Assessment/Plan Encounter Diagnosis: ICD-10-CM 1. Encounter for IUD removal Z30.432 IUD Removal Date/Time: 10/24/2024 2:09 PM Performed by: Bubba Cota DO Authorized by: Bubba Cota DO Consent: Consent obtained: Written Consent given by: Patient Procedure risks and benefits discussed: yes Patient questions answered: yes Patient agrees, verbalizes understanding, and wants to proceed: yes Educational handouts given: yes Instructions and paperwork completed: yes [place] protocol: Patient states understanding of procedure being [...] office for annual exam unless needed otherwise Documented by Enid Angelo LPN on behalf of: Bubba Cota DO documented in this encounter [facility] 07-12-2024 History of Present illness Narrative Subjective Virtual or Telephone Consent An interactive audio and video telecommunication system which permits real time communications between the patient (at the originating site) and provider (at the distant site) was utilized to provide this telehealth service. Verbal consent was requested and obtained from Manpreet Fraire on this date, 07/12/24 for a telehealth visit. History of Present Illness: Manpreet Fraire is a 19 y.o. female who presents to GI clinic for follow-up of chronic IBS-D symptoms. 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 Since then she has symptomatically managing her significant ongoing GI symptoms, which are primarily diarrhea and bloating. 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 Since then she has had roughly 10 days of worsening IBS-like symptoms with associated diarrhea. Her symptoms peaked on Tuesday when she became so dehydrated that she was tachycardic. She has been attempting to maintain her hydration status with fluid intake. Today she feels significantly better and believes that she has turned a corner. She suspects that her symptoms are secondary to a viral illness last exposure however was concerned that none of her close contacts also became sick. She has not been tested for norovirus. She is otherwise doing well, and has been doing well today. She is no longer tachycardic or hemodynamically unstable. Past Medical History has a past medical history of Compression of brain (Multi) (11/21/2019) and Other specified health status. Social [...] Medications Current Outpatient Medications Medication Instructions dicyclomine (BENTYL) 10 mg, oral, 4 times daily ondansetron ODT (ZOFRAN-ODT) 4 mg, oral, Every 8 hours PRN Objective There were no vitals taken for this visit. Physical Exam Vitals reviewed. Constitutional: General: She is awake. Pulmonary: Effort: Pulmonary effort is normal. Breath sounds: Normal breath sounds. Neurological: Mental Status: She is alert and oriented to person, place, and time. Psychiatric: Attention and Perception: Attention and perception normal. Behavior: Behavior normal. Assessment/Plan Manpreet Fraire is a 19 y.o. female who presents to GI clinic for acute flareup of her chronic GI symptoms. Considering her exposure to norovirus and symptom flareup for roughly 7 to 10 days, I suspect that she may have associated norovirus or another viral gastroenteritis causing her symptoms. She is doing well at this time, and as such I do not anticipate the need for any further medical intervention. Recommend ongoing supportive care, and to return to clinic if her symptoms do not remain resolved. Discussed the importance of maintaining strong hygiene, and follow-up should her symptoms not improve. Charlie Paredes MD documented in this encounter [facility] Work Phone: 05-26-2023 Miscellaneous Notes Home going instructions reviewed and discussed, pt and family verbalize understanding. Educated on anesthesia safety. Tolerated fluids well documented in this encounter [facility] Work Phone: 05-26-2023 Note Formatting of this n ote might be different from the original. Home going instructions reviewed and discussed, pt and family verbalize understanding. Educated on anesthesia safety. Tolerated fluids well [facility] 05-26-2023 Note Formatting of this n ote might be different from the original. Home going instructions reviewed and discussed, pt and family verbalize understanding. Educated on anesthesia safety. Tolerated fluids well [facility] 05-26-2023 Hospital Discharge instructions Charlie Paredes MD - 05/26/2023 3:42 [...] having your procedure, call the [facility] to be advised whether a visit to [...] discharge from the GI Lab, please call: [phone] documented in this encounter [facility] Work Phone: 05-26-2023 History and physical note Procedure H&P Patient Profile-Procedures Name Manpreet Fraire Date of 2005 [address] [place], [place] [id number] [place] [address] Primary Secondary Phone Number Fernando Hensley Procedure(s): Procedures: EGD Primary contact name and number Extended Emergency Contact Information Primary Emergency Contact: Devika Fraire [place] Relation: Parent Secondary Emergency Contact: Jovan Alvarez Address: [address] [place] [address] of [employer] Relation: [facility] [...] Paredes MD ergocalciferol (Vitamin D-2) 1.25 MG (95271 UT) capsule Take by mouth. 05/22/18 05/26/23 [...] met Charlie Paredes MD 05/26/2023 2:25 PM [facility] Work Phone: 05-26-2023 History and physical note Procedure H&P Patient Profile-Procedures Name Manpreet Fraire Date of 2005 Address [address] [facility] [id number] [facility] [address] Primary Secondary Phone Number Fernando Hensley Procedure(s): Procedures: EGD Primary contact name and number Extended Emergency Contact Information Primary Emergency Contact: Devika Fraire Relation: Parent Secondary Emergency Contact: Jovan Alvarez Address: [address] [place] [address] of [facility] Relation: [facility] Weight Vitals: 05/26/23 1327 Weight: 56.7 kg (125 lb) BMI Body mass index is 20.8 kg/m . Allergies No Known Allergies Past Medical History Past Medical History: Diagnosis Date Compression of brain ([facility]/HCC) 11/21/2019 Chiari I malformation Other specified health [...] Paredes MD ergocalciferol (Vitamin D-2) 1.25 MG (62556 UT) capsule Take by mouth. 05/22/18 05/26/23 [...] 05/26/2023 2:25 PM documented in this encounter [facility] Work Phone: 04-26-2023 History of Present illness Narrative Subjective History of Present Illness: [...] capsule oral ergocalciferol (Vitamin D-2) 1.25 MG (18839 UT) capsule oral ondansetron ODT (ZOFRAN-ODT) 4 [...] Charlie Paredes MD documented in this encounter [facility] Work Phone: 04-22-2023 Note HNO ID: [id number] Author: Albert Zapata MD Service: ? Author Type: Physician Type: Progress Notes Filed: 04/25/2023 10:37 AM Note Text: ENDOCRINOLOGY REASON FOR CONSULTATION: Menorrhagia HISTORY The patient is referred by Dr. Bubba Cota from [facility]. . My recommendations will be sent to [...] which included preparing to see the patient, [id number] patient care, completing clinical documentation, obtaining and/or reviewing separately obtained history, performing a medically appropriate examination, counseling and educating the patient/family/caregiver, and ordering medications, tests, or procedures. Return to office: GOLDIE Zapata MD c.c. Dr. Bubba Cota [facility] 04-22-2023 History of Present illness Narrative ENDOCRINOLOGY REASON FOR CONSULTATION: Menorrhagia HISTORY The patient is referred by Dr. Bubba Cota from [facility]. . My recommendations will be sent to [...] which included preparing to see the patient, [id number] patient care, completing clinical documentation, obtaining and/or reviewing separately obtained history, performing a medically appropriate examination, counseling and educating the patient/family/caregiver, and ordering medications, tests, or procedures. Return to office: GOLDIE Zapata MD c.c. Dr. Bubba Cota documented in this encounter [facility] 04-05-2023 History of Present illness Narrative Subjective History of Present Illness: [...] following up with her GI team in [place], and has undergone extensive GI work-up including [...] past medical history of Compression of brain ([facility]) (11/21/2019) and Other specified health status. Social [...] capsule oral ergocalciferol (Vitamin D-2) 1.25 MG (68268 UT) capsule oral ondansetron ODT (ZOFRAN-ODT) 4 [...] Charlie Paredes MD documented in this encounter [facility] Work Phone: 03-07-2023 Evaluation note Encounter Date Diagnosis Assessment Notes Feb, RUQ abdominal pain (ICD-10 - R10.11) [facility] Other 10-06-2023 Evaluation note* Encounter Date Diagnosis Assessment Notes Treatment Notes Treatment Clinical Notes Feb, RUQ pain (ICD-10 - R10.11) Manpreet has had multiple labs, imaging and now GI tests. States she is seeing GI at for second opinion on 03/07. Offered GBUS, but she doesn't exactly fit the profile for gall stones. Will obtain HIDA at [facility] - discussed w pt and her mother. [facility] Other 07-12-2023 Evaluation note* Encounter Date Diagnosis Assessment Notes Treatment Notes Treatment Clinical Notes Nov, Nausea (ICD-10 - R11.0) Nov, Weight loss (ICD-10 - R63.4) Nov, Abdominal pain (ICD-10 - R10.9) Nov, Diarrhea (ICD-10 - R19.7) Patient may use imodium as needed [facility] Encounter Date Diagnosis Assessment Notes Treatment Notes Treatment Clinical Notes Aug, Situational anxiety (ICD-10 - F41.8) [facility] Other 04-13-2023 Evaluation note* Encounter Date Diagnosis [...] should keep follow-up appointment with Dr. Fernandez. [facility] Other 01-11-2023 Evaluation note* Encounter Date Diagnosis Assessment Notes Treatment Notes Treatment Clinical Notes May, Nausea (ICD-10 - R11.0) May, Abdominal pain (ICD-10 - R10.9) PATIENT TO CONTINUE ON BENTYL 20MG NEEDED May, Weight loss (ICD-10 - R63.4) PATIENT TO CALL IF SYMPTOMS WORSEN. [facility] Other Evaluation noteNo assessment information [facility] Work Phone: Evaluation noteNo InformationNort link bird Other Evaluation note* Diagnosis Irritable bowel syndrome with diarrhea- Primary Irritable bowel syndrome Generalized abdominal pain Abdominal pain, generalized Weight loss Loss of weight Bilious vomiting with nausea documented in this encounter [facility] Work Phone: Evaluation note* Diagnosis Menorrhagia with regular cycle- Primary Excessive or frequent menstruation [facility] 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 Irritable bowel syndrome Generalized abdominal pain Abdominal pain, generalized Weight loss Loss of weight Bilious vomiting with nausea documented in this encounter [facility] Work Phone: Evaluation note* Diagnosis Congenital sucrase-isomaltase deficiency documented in this encounter [facility] Work Phone: Evaluation note* Diagnosis Congenital sucrase-isomaltase deficiency documented in this encounter [facility] Work Phone: Evaluation note* Diagnosis Norovirus- Primary Intestinal infection, enteritis due to Mul[place] virus Irritable bowel syndrome with diarrhea Irritable bowel syndrome documented in this encounter [facility] Work Phone: Evaluation note* Diagnosis Encounter for IUD removal [facility] Author Lisa Fernandez [facility] October 19, 2022 9:28am Note Date/Time October 19, 2022 9:28a m [facility] [address] [place] [address] Gastroenterology H&P Signed Patient: Manpreet Fraire MR#: [id number] : 2005 Acct:[id number] Age/Sex: 17 / F Adm Date: 3 Loc: Room: Type: [facility] Attending Dr: Lisa Fernandez MD Copies to: [...] <Electronically signed by Lisa Fernandez MD> 10/19/22927 [facility] Work Phone: Histtlj general Narrative - Reported* Type Description Date Medical History persistent coughing Medical History wheezing 2004 Surgical History tubes in ears [facility] Other History general Narrative - Reported* Type Description Date Medical History persistent coughing Medical History wheezing 2004 Medical History IBS (irritable bowel syndrome) Medical History MTHFR gene mutation Medical History ROZ (generalized anxiety disorde r) Surgical History tubes in ears Surgical History MYRINGOTOMY WITH TUBE PLACEMENT Hospitalization History SEE SURGICAL HX [facility] Other Hospital Discharge instructions Additional Instructions DISCHARGE [...] NOT operate machinery such as power tools, [employer] mowers, snow blowers, sewing machines, etc. for [...] NOT operate machinery such as power tools, [employer] mowers, snow blowers, sewing machines, etc. for [...] -Follow up with PCP. - Office number [phone]. [facility] Work Phone: Family History Grandmother Name Dates Details Family history of [...] Family history of depression (V17.0, Z81.8) Status:Active Relationship Condition Age at Onset Recorded Date/T nicole sister Allergy Unknown Summary Purpose Advance Directives Advance Directive Response Recorded Date/ Time Advance Directives No March 31, 2020 9:23am Advance Directive Response Recorded Date/ Time Advance Directives No March 31, 2020 10:23am Chief Complaint and Reason for Visit Chief Complaint abd pain Chief Complaint blood in stool, wt l oss, abd pain, nausea Chief Complaint flu vaccine Chief Complaint Sore throat, cough, congestion, laryngitis Reason for Referral Specialty Diagnoses / Procedures Referred By Contact Referred To Contact 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 Procedures EGD AZ ESOPHAGOGASTRODUODENOSCOPY TRANSORAL DIAGNOSTIC [place] EGD TRANSORAL BIOPSY SINGLE/MULTIPLE Charlie Paredes MD [address] [id number] Referral ID Status Reason Start Date Expiration Date V isits Requested Visits Authorized [id number] Authorized 05/02/2023 05/01/2024 1 1 Additional Source Comments INFORMATION SOURCE (unrecogn ized section and content) DATE CREATED AUTHOR 10/06/2019 [facility] DATE CREATED AUTHOR AUTHOR'S ORGANIZ ATION 12/13/2019 [employer] DATE CREATED AUTHOR AUTHOR'S ORGANIZ ATION 09/09/2022 [facility] DATE CREATED AUTHOR AUTHOR'S ORGANIZ ATION 04/25/2023 [facility] DATE CREATED AUTHOR AUTHOR'S ORGANIZ ATION 09/08/2023 [facility] DATE CREATED AUTHOR AUTHOR'S ORGANIZ ATION 10/25/2024 [facility] EPIC Care Teams (unrecognized sec tion and content) [...] Primary Care Provider Active Cody Akhtar DO [facility] Attending Provider Active Order Checker Relationship Specialty Start Date End Date Fernando Wilson MD [address] [place] [address] [place] [address] PCP - General 06/25/19 Order Checker Relationship Specialty Start Date End Date Bubba Cota DO [address] [place] [address] [place] [address] Referring TREE [employer]PER 02/04/23 Order Checker Relationship Specialty Start Date End Date Fernando Wilson MD PCP - General 20 Order Checker Relationship Specialty Start Date End Date Fernando Wilson MD [address] [place] [address] PCP - General 06/25/19 Order Checker Relationship Specialty Start Date End Date Fernando Wilson MD [address] [place] [address] PCP - General 06/25/19 Team Status: Inactive Member Role Status Dates Fernando Wilson MD Primary Care Provider Active Start: March 08, 2024 End: March 08, 2024 Cristina Lara APRN Attending Provider Active Start: March 08, 2024 End: March 08, 2024 Order Checker Relationship Specialty Start Date End Date Fernando Wilson MD [address] [place] [address] PCP - General 06/25/19 Order Checker Relationship Specialty Start Date End Date Fernando Wilson MD [address] [place] [id number] PCP - General Family Medicine 11/04/22 Goals (unrecognized section and content) Goals may be documented in a n alternate sectionNo InformationNo InformationNo InformationNo InformationNo InformationNo InformationNo InformationNo InformationNo InformationNo InformationGoals may be documented in an alternate sectionGoals may be documented in an alternate section REASON FOR VISIT (unrecogniz ed section and content) Reason Comments Consult Specialty Diagnoses / Procedures Referred By Contact Referred To Contact 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 Procedures EGD AZ ESOPHAGOGASTRODUODENOSCOPY TRANSORAL DIAGNOSTIC [place] EGD TRANSORAL BIOPSY SINGLE/MULTIPLE Charlie Paredes MD [address] [address] Referral ID Status Reason Start Date Expiration Date V isits Requested Visits Authorized [id number] Authorized 05/02/2023 05/01/2024 1 1 Reason Comments mirena removal Source Comments (unrecognize d section and content) In the event this informatio n is protected by the Federal Confidentiality of Alcohol and Drug Abuse Patient Records regulations: The Federal rules restrict any use of the information to criminally investigate or prosecute any alcohol or drug abuse patient.[facility] FOR RECORDS PERTAINING TO PATIENTS WHO ARE [...] BE BASED ON THE PRIMARY CLINICAL RECORDS. [facility] provides no warranty or guarantee of the accuracy or completeness of information in this document.
== END 2024-12-20 17:05 | disposition home or self-care (01) ==
LOC: LAB 11:44
PROVIDERS: PCP Family Medicine; Visit Provider Obstetrics & Gynecology
DX: Z51.81 Encounter for therapeutic drug level monitoring (principal); Z32.01 Encounter for pregnancy test, result positive
CPT/HCPCS: 36415; 84702

== ENCOUNTER 2025-01-09 08:29 | Outpatient (OUT) | payer OTHER, BC, SELFPAY ==
--- OUTSIDE RECORDS SUMMARY | 2024-12-28 08:30 | XMS_ITS | Encounter Summary ---
Author Organization [facility] Address [address] [place] [address] Care Team Providers Care Production Gear Cutter Name Role Phone Madelyn Meraz MD Primary Care Provider [phone] Encounter Details Date Type Department Care Team (Latest Contact Info) Description 12/28/2024 8:30 AM EDT Ancillary Procedure [facility] [address] [place] [address] Missed menses; Positive urine test ([facility]) Social History Tobacco Use Types Packs/Day Years Used Date Smoking Tobacco: Never Alcohol Use Standard Drinks/Week Comments Never 0 (1 standard drink = 0.6 oz pur e alcohol) Estimated Date of Delivery Comme nts Yes 08/11/2025 Based on Ultraso und Sex and Gender Information Value Date Recorded Sex Assigned at Not on file Legal Sex Female 7:17 PM EDT Gender Identity Not on file Sexual Orientation Not on file documented as of this encounter Plan of Treatment Upcoming Encounters Date Type Department Care Team (Late st Contact Info) Description 01/28/2025 9:40 AM EDT Routine [facility] [address] [facility] [address] Bubba Cota DO [address] [place] [address] documented as of this encounter Procedures Procedure Name Priority Date/Time Associated Diagnosis Comments US OB TRANSVAGINAL Routine 12/28/2024 8: 43 AM EDT Missed menses Positive urine test ([facility]) documented in this encounter Results * US OB transvaginal (12/28/2024 8:43 AM EDT) Anatomical Region Laterality Modality Body Ultrasound 12/30/2024 3:58 PM EDT Impressions 12/31/2024 7:54 AM EDT Findings consistent with a live intrauterine gestation, current sonographic age of 7 weeks and 5 days resulting in an estimated date of delivery of August 11, 2025. TRANSCRIBED BY: ELECTRONICALLY SIGNED BY: Nikita Rowe MD Narrative 12/31/2024 7:54 AM EDT FINDINGS: A single intrauterine gestational sac is present. No subchorionic hemorrhage. A single pole is present. Normal heart rate at 161 beats per minute. Yolk sac also is seen. Current sonographic age is 7 weeks and 5 days based on the crown-rump length measurement of 1.2cm. Based on this age, current estimated date of delivery is August 11, 2025. No pelvic fluid or adnexal mass present. Cervical length is 3.7cm. Procedure Note Nikita Rowe MD - 12/31/2024 FINDINGS: A single intrauterine gestational sac is present. No subchorionichemorrhage. A single pole is present. Normal heart rate at161 beats per minute. Yolk sac also is seen. Current sonographic age is7 weeks and 5 days based on the crown-rump length measurement of 1.2cm.Based on this age, current estimated date of delivery is August 11, 2025.No pelvic fluid or adnexal mass present. Cervical length is 3.7cm. IMPRESSION: Findings consistent with a live intrauterine gestation, currentsonographic age of 7 weeks and 5 days resulting in an estimated date ofdelivery of August 11, 2025. TRANSCRIBED BY: ELECTRONICALLY SIGNED BY: Nikita Rowe MD us Bubba Cipriano DO IMG OB US PROCEDURES Final Resul t documented in this encounter Visit Diagnoses Diagnosis Missed menses Positive urine test ([facility]) documented in this encounter Care Teams Production Gear Cutter Relationship Specialty Start Date End Date Madelyn Meraz MD [address] [place] [id number] PCP - General Family Medicine 11/04/22 documented as of this encounter
--- OUTSIDE RECORDS SUMMARY | 2024-12-28 09:00 | XMS_ITS | Encounter Summary ---
Author Organization [facility] Address [address] [place] [address] Care Team Providers Care Tip Fixer Name Role Phone Madelyn Meraz MD Primary Care Provider [phone] Reason for Visit * Reason Comments Amenorrhea Encounter Details Date Type Department Care Team (Late Contact Info) Description 12/28/2024 9:00 AM EDT Initial [facility] [address] [place] [address] [place] [address] GA: 7w5d Social History Tobacco Use Types Packs/Day Years [...] on file documented as of this encounter Last Filed Vital Signs Vital Sign Reading Time Taken Comments Blood Pressure 120/72 12/28/2024 9:13 AM EDT Pulse - - Temperature - - Respiratory Rate - - Oxygen Saturation - - Inhaled Oxygen Concentration - - Weight 73.5 kg (162 lb) 12/28/2024 9:13 AM EDT Height - - Body Mass Index 26.96 06/13/2023 12:57 PM EST documented in this encounter Progress Notes * Chantell Pillai MA - 12/28/2024 9:00 AM EDT Reason for Appointment: Patient ID: Manpreet Fraire is a 19 y.o. female who presents for Amenorrhea Patient presents today for a Nurse OB Intake appointment. Patient is 7w5d with a Estimated Date of Delivery: 08/11/25 OB History Para Term AB Living 1 SAB IAB Ectopic Multiple Live Births # Outcome Date GA Lbr Kris/2nd Weight Sex Type Anes PTL Lv 1 Current Current Medications: has a current medication list which includes the following prescription(s): dicyclomine, ssjgwdtz-mle-sw-fa, and ondansetron odt. Medical History: Active Ambulatory Problems Diagnosis Date Noted Positive urine test ([facility]) 11/30/2024 MTHFR gene mutation 08/24/2018 IBS (irritable bowel syndrome) 06/01/2016 MTHFR (methylene THF reductase) deficiency and homocystinuria 12/20/2024 Moderate episode of recurrent major depressive disorder (HCC) 08/11/2021 Encounter for supervision of normal first in first trimester ([facility]) 12/28/2024 Resolved Ambulatory Problems Diagnosis Date Noted No Resolved Ambulatory Problems Past Medical History: Diagnosis Date Menorrhagia Family History Problem Relation Name Age of Onset Migraines Mother No Known Problems Father Melanoma Neg Hx Social History Tobacco Use Smoking status: Never Smokeless tobacco: Not on file Substance Use Topics Alcohol use: Never Drug use: Never History reviewed. No pertinent surgical history. No Known Allergies Vitals: Estimated body mass index is 26.96 kg/m?? as calculated from the following: Height as of 06/13/23: 5' 5 . Weight as of this encounter: 162 lb. BP: 120/72 No LMP recorded. Patient is . Assessment/Plan Diagnoses and all orders for this visit: First trimester ([facility]) 7 weeks gestation of ([facility]) Missed menses - US OB transvaginal; Future - Type and screen; Future - ABO/Rh; Future - CBC and differential - Hemoglobin A1c - RPR - Rubella antibody, IgG - Hepatitis B surface antigen - Hepatitis C antibody - HIV-1 and HIV-2 antibodies - Urine culture - POCT , urine manually resulted - POCT urinalysis dipstick manually resulted Positive urine test ([facility]) - US OB transvaginal; Future Amenorrhea , unspecified gestational age ([facility]) - Type and screen; Future - ABO/Rh; Future - CBC and differential - Hemoglobin A1c - RPR - Rubella antibody, IgG - Hepatitis B surface antigen - Hepatitis C antibody - HIV-1 and HIV-2 antibodies - Rapid drug screen, urine; Future Encounter for supervision of normal first in first trimester ([facility]) - Rapid drug screen, urine; Future MTHFR gene mutation Irritable bowel syndrome, unspecified type Nurse Note: Pt unsure about doing [place] [facility] to one. Pt was advised if she desires [place] to make sure labs are done at the same time, and not until 9 weeks gestation. PVU. Pt stated she has MTHFR gene mutation and IBS. Both dx's have been charted and on flowsheet. OB Intake: Patient presents today for first OB visit. Patients history has been reviewed in great detail including any potential risks. Patient signed consent forms and patient desires testing in both trimesters. Patient currently has no complaints and has been advised to drink 6-8 glasses of water a day, eatno raw or undercooked meat, and stay away from [facility]. Patient has also been advised to not change litter boxes and eat 6 small meals a day. Patient has been consulted regarding the do's and don'ts ofpregnancy. Patient was given labs and all questions and concerns were answered. Follow Up: Patient is to return in 4 weeks for routine OB appointment. Follow Up: Patient is to have labs drawn at directed and return to office for initial OB appointment with provider. Patient may call office as needed with any concerns or questions. Nurse Visit Completed by: Chantell Pillai MA documented in this encounter Plan of Treatment Upcoming Encounters Date Type Department Care Team (Late st Contact Info) Description 01/28/2025 9:40 AM EDT Routine [facility] [address] [place] [address] Bubba Cota, [address] [place] [address] Scheduled Orders Name Type Priority Associated Diagnoses Orde r Schedule Type and screen Lab Routine Missed menses , unspecified gestational age ([facility]) Expected: 12/28/2024 (Approximate), Expires: 12/28/2025 ABO/Rh Lab Routine Missed menses , unspecified gestational age ([facility]) Expected: 12/28/2024 (Approximate), Expires: 12/28/2025 CBC and differential Lab Routine Missed menses , unspecified gestational age ([facility]) Ordered: 12/28/2024 Hemoglobin A1c Lab Routine Missed menses , unspecified gestational age ([facility]) Ordered: 12/28/2024 RPR Lab Routine Missed menses , unspecified gestational age ([facility]) Ordered: 12/28/2024 Rubella antibody, IgG Lab Routine Missed menses , unspecified gestational age ([facility]) Ordered: 12/28/2024 Hepatitis B surface antigen Lab Routine Missed menses , unspecified gestational age ([facility]) Ordered: 12/28/2024 Hepatitis C antibody Lab Routine Missed menses , unspecified gestational age ([facility]) Ordered: 12/28/2024 HIV-1 and HIV-2 antibodies Lab Routine Missed menses , unspecified gestational age ([facility]) Ordered: 12/28/2024 Urine culture Microbiology Routine Missed menses Ordered: 12/28/2024 Rapid drug screen, urine Lab Routine , unspecified gestational age ([facility]) Encounter for supervision of normal first in first trimester ([facility]) Expected: 12/28/2024 (Approximate), Expires: 12/28/2025 documented as of this encounter Procedures Procedure Name Priority Date/Time Associated Diagnosis Comments POCT , URINE Routine 12/28/2024 9:02 AM EDT Missed menses POCT URINALYSIS DIPSTICK Routine 12/28/2024 9:01 AM EDT Missed menses documented in this encounter Results * (ABNORMAL) POCT , urine manually resulted (12/28/2024 9:02 AM EDT) Preg Test, Ur Positive Negative Urine 12/28/2024 9:02 AM EDT [facility] POINT OF CARE TEST ENTER/EDIT OR DERABLES Final Result * POCT urinalysis dipstick manually resulted (12/28/2024 9:01 AM EDT) Color, UA Yellow Clarity, UA Clear Glucose, UA Negative Negative - 2000(110) ++++ mg/dL Bilirubin, UA Negative Negative - 4(70) +++ mg/dL Ketones, UA Negative Negative - 160(16) ++++ mg/dL Spec Grav, UA 1.020 1 - 1.03 Blood, UA Negative Negative - 50 Adrián/mcL pH, UA 6.0 5 - 9 Protein, UA Negative Negative - 2000(20) ++++ mg/dL Urobilinogen, UA 1.0 0.2 - 12 mg/dL Leukocytes, UA Negative Negative - 500+++ Ally/mcL Nitrite, UA Negative Negative - Positive Urine 12/28/2024 9:01 AM EDT [facility] POINT OF CARE TEST ENTER/EDIT OR DERABLES Final Result * US OB transvaginal (12/28/2024 8:43 AM [...] SIGNED BY: Nikita Rowe MD us Bubba Cota DO IMG OB US PROCEDURES Final Resul t documented in this encounter Visit Diagnoses Diagnosis Missed menses Positive urine test ([facility]) First trimester ([facility]) state, incidental 7 weeks gestation of ([facility]) Missed menses Positive urine test ([facility]) Amenorrhea Absence of menstruation , unspecified gestational age ([facility]) Encounter for supervision of normal first in first trimester ([facility]) MTHFR gene mutation Irritable bowel syndrome, unspecified type documented in this encounter Care Teams Tip Fixer Relationship Specialty Start Date End Date Madelyn Meraz MD [address] [place] [address] PCP - General Family Medicine 11/04/22 documented as of this encounter
--- OUTSIDE RECORDS SUMMARY | 2025-01-09 08:32 | XMS_ITS | Encounter Summary ---
Author Organization [facility] Address [address] [place] [address] Phone Care Team Providers Care Bee Robber Name Role Phone Madelyn Meraz MD Primary Care Provider [phone] Encounter Details Date Type Department Care Team (Late st Contact Info) Description 06/03/2018 Orders Only [facility] [address] [place] [address] Conversion, Onbase Social History Tobacco Use Types [...] on filedocumented in this encounter Care Teams Bee Robber Relationship Specialty Start Date End Date Madelyn Meraz MD [address] [place] [address] PCP - General 06/25/19 documented as of this encounter
--- OUTSIDE RECORDS SUMMARY | 2025-01-09 08:32 | XMS_ITS | Clinical Summary ---
Author Organization [facility] Address [address] [place] [address] Phone Care Team Providers Care Home Health Rn Name Role Phone Madelyn Meraz MD Primary Care Provider [phone] Allergies No known active allergies Medications ondansetron ODT (Zofran-ODT) 4 mg disintegrating tabletIndications:I rritable bowel syndrome with diarrhea,Bilious vomiting with nausea TAKE 1 TABLET (4 MG) BY MOUTH EVERY 8 HOURS IF NEEDED FOR NAUSEA OR VOMITING. 9 tablet 39 4 05/12/20 25 Active dicyclomine (Bentyl) 10 mg capsuleIndications: Generalized abdominal pain Take 1 capsule (10 mg) by mouth 4 times a day. 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) 03/04/2023 06/03/2023 Immunizations Immunization Administration Dates Next Due DTaP vaccine, pediatric (INFANRIX) 2003, DTaP, Unspecified 08/08/2008,04/30/2005,05/06/20 Flu vaccine (IIV4), preserva tive free *Check age/dose* 02/21/2023 HPV 9-valent vaccine (GARDASIL 9) 03/11/2021, Hepatitis A vaccine, pediatric/adolescent (HAVRIX, VAQTA) 01/09/2021 Hepatitis B vaccine, 19 yrs and under (RECOMBIVAX, ENGERIX) 04/30/2005,2003,2003 HiB PRP-T conjugate vaccine (HIBERIX, ACTHIB) 2003 HiB, unspecified 07/03/2004,2003 Hib / Hep B 2003 MMR vaccine, subcutaneous (MMR II) 08/08/2008, Meningococcal ACWY vaccine (MENVEO) 01/09/2021 Meningococcal ACWY-D (Menact ra) 4-valent conjugate vaccine 01/06/2016 Meningococcal B vaccine (BEXSERO) 03/11/2021, Pfizer Purple Cap SARS-CoV-2 06/25/2020,06/04/19 Pneumococcal Conjugate PCV 7 04/30/2005, 07/03/2004,03/12/2004,05/06 Polio, Unspecified 2003 Poliovirus vaccine, subcutan eous (IPOL) 08/08/2008,04/30/2005,2003,07/28 Tdap vaccine, age 7 year and older (BOOSTRIX, ADACEL) 01/06/2016 Varicella vaccine, subcutane ous (VARIVAX) 08/08/2008,07/03/2004 Family History Medical History Relation Name Comments Depression Maternal Grandfather Hypertension Maternal Grandfather Anxiety disorder Maternal Grandmother Cholelithiasis Maternal Grandmother Migraines Maternal Grandmother Nephrolithiasis Maternal Grandmother Stroke Maternal Grandmother antiphospholipid syndrome Maternal Great-Grandmother Anxiety disorder Mother Depression Mother ERICA disease Mother Migraines Mother Nephrolithiasis Mother Graves' disease Mother's Sister Relation Name Status Comments Maternal Grandfather Maternal Grandmother Maternal Great-Grandmother Mother Mother's Sister Social History Tobacco Use Types Packs/Day Years Used Date Smoking Tobacco: Never Assessed Tobacco Cessation:Counseling Given: Not Answered Comments Unknown Sex and Gender Information Value Date Recorded Sex Assigned at Female 04/05/2023 9:59 AM EST Legal Sex Female 12:00 PM EST Gender Identity Female 04/05/2023 9:59 AM EST Sexual Orientation Straight 04/05/2023 10 :00 AM EST Last Filed Vital Signs Vital Sign Reading Time Taken Comments Blood Pressure 119/75 05/26/2023 4:15 PM EST Pulse 54 05/26/2023 4:15 PM EST Temperature 36.5 C (97.7 F) 05/26/2023 3:41 PM EST Respiratory Rate 18 05/26/2023 4:15 PM EST Oxygen Saturation 100% 05/26/2023 4:15 PM EST Inhaled Oxygen Concentration - - Weight 56.7 kg (125 lb) 05/26/2023 1:27 PM EST Height 165.1 cm (5' 5 ) 03/07/2023 3:00 PM EDT Body Mass Index 20.8 03/07/2023 3:00 PM EDT Plan of Treatment Health Maintenance Due Date Last Done Comments HIV Screening 2003 Lipid Panel 2003 Yearly Adult Physical 2003 Hearing Screening (#1) 2007 Hepatitis C Screening 2021 HPV Vaccines (3 - 3-dose series) 07/12/2021 03/11/2021, 01/09/2021 Hepatitis A Vaccines (2 of 2 - 2-dose series) 07/12/2021 01/09/2021 COVID-19 Vaccine ( season) 2024 06/25/2020, 06/04/2020 Cervical Cancer Screening 2024 HPV/Cotest 2024 Pap Smear 2024 Influenza Vaccine (#1) 2025 , 02/15/2024, 02/21/2023 DTaP/Tdap/Td Vaccines (8 - Td or Tdap) 07/24/2033 07/25/2023, 01/06/2016, 08/08/2008, Additional history exists Zoster Vaccines (1 of 2) 2053 08/08/2008, 06/23 HIB Vaccines Completed 07/03/2004, 08/21, 2003, Additional history exists Hepatitis B Vaccines Completed 04/30/2005, 2003, 2003, Additional history exists Pneumococcal Vaccine: Pediatrics and At-Risk Adult Patients Aged Out 04/30/2005, 07/03/2004, 03/12/2004, Additional history exists No longer eligible based on patient's age to complete this topic IPV Vaccines Completed 08/08/2008, 01/2005, 2003, Additional history exists MMR Vaccines Completed 08/08/2008, 07/03/2004 Meningococcal Vaccine Completed 01/09/2021, 016 Meningococcal B Vaccine Completed 03/11/2021, 01/09 Irritable Bowel Syndrome Discontinued 024, 04/11/2023, 06/06/2018, Additional history exists Rotavirus Vaccines Aged Out No longer eligible based on patient's age to complete this topic Procedures Procedure Name Priority Date/Time Associated Diagnosis Comments EGD Routine 05/26/2023 3:40 PM EST Congenital sucrase-isomaltase deficiency from Last 3 Months or Most Recently Relevant to Health Maintenance Results * EGD (05/26/2023 3:40 PM EST) Anatomical Region Laterality Modality Endoscopy Narrative 05/26/2023 3:42 PM EST Table formatting from the original result was not included. Impression [...] Lico Zeng MD 05/26/2023 1533 Procedure Location [facility] [address] [facility] [address] Referring Provider Charlie Paredes Md [address] [address] Procedure Provider Charlie Paredes MD Charlie Paredes MD ENDOSCOPY PROCEDURE ORDERABLES F inal Result from Last 3 Months or Most Recently Relevant to Health Maintenance Insurance [facility] [employer] Member Subscriber Plan / Payer (Ef fective 2021-Present) Name:Manpreet Massey Relation to Subscriber:Child Name:CARYN ESTRADA Date of :1967 Address: [address] [place], [place] [id number] Payer ID:Not on file Type:Not on file Address: [address] [place] [phone] [facility] MED Member Subscriber Plan / Payer (Ef fective 2021-Present) Name:Manpreet Massey Relation to Subscriber:Child Name:CARYN ESTRADA Date of :1967 Address: [address] [place] [address] Payer ID:Not on file Type:Not on file Address: [address] [place] [phone] Care Teams Home Health Rn Relationship Specialty Start Date End Date Madelyn Meraz MD [address] [place], [place] [address] [address] PCP - General 06/25/19
--- OUTSIDE RECORDS SUMMARY | 2025-01-09 08:32 | XMS_ITS | Clinical Summary ---
Author Organization [facility] Address [address] [place] [address] Care Team Providers Care Safety Equipment Tester Name Role Phone Madelyn Meraz MD Primary Care Provider [phone] Allergies No known active allergies Medications ondansetron ODT (Zofran-ODT) 4 MG disintegrating tablet Take 4 mg by mouth every 8 (eight) hours if needed. 2 Active dicyclomine (Bentyl) 10 MG capsule Take 10 mg by mouth in the morning and 10 mg at noon and 10 mg in the evening and 10 mg before bedtime. 4 Active Nhjhrcbf-Uwo-Bm-FA ( 1 + IRON PO) 5 Active sucralfate (Carafate) 1 g tabletIndications:G astroesophageal reflux disease, unspecified whether esophagitis present Take 1 tablet (1 g) by mouth in the morning and 1 tablet (1 g) at noon and 1 tablet (1 g) in the evening and 1 tablet (1 g) before bedtime. Take before meals. Do all this for 40 doses. 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 12/20/2024 Positive urine test ([facility]) 07/11/20 25 Moderate episode of recurrent major depressive d isorder 08/11/2021 MTHFR gene mutation 08/24/2018 IBS (irritable bowel syndrome) 06/01/2016 Estimated Date of Delivery Comme nts Yes 08/11/2025 Based on Ultraso und Encounters Date Type Department Care Team Description 01/04/2025 [place] [address] Kathleen Arcos LPN 12/28/2024 9:00 AM EDT [place] [phone] GA: 7w5d 12/28/2024 8:30 AM EDT [place] [phone] Missed menses; Positive urine test ([facility]) 12/21/2024 Travel 12/03/2024 Results [place] [address] [phone] Kathleen Arcos LPN [facility] PREG QUANT HCG 12/02/2024 Clinisync Result Encounter NOMS External Department Unsolicited Bubba Cota, 11/30/2024 Clinisync Result Encounter NOMS External Department Unsolicited Bubba Cota, 11/30/2024 [place] [address] Bubba Cota DO 10/24/2024 1:30 PM EDT [place] [address] Bubba Cota DO Encounter for IUD removal [...] (162 lb) 12/28/2024 9:13 AM EDT Height 165.1 cm (5' 5 ) 06/13/2023 12:57 PM EST Body Mass Index 26.96 06/13/2023 12:57 PM EST Plan of Treatment Upcoming Encounters Date Type Department Care Team (Late st Contact Info) Description 01/28/2025 9:40 AM EDT Routine [facility] [address] [facility] [place] [address] uBbba Cota DO [address] [facility] [place] [address] Health Maintenance Due Date Last Done Comments Influenza Vaccine (#1) 2025 02/16/2024, 2022 Procedures Procedure Name Priority Date/Time Associated Diagnosis Comments POCT , URINE Routine 12/28/2024 9:02 AM EDT Missed menses POCT URINALYSIS DIPSTICK Routine 12/28/2024 9:01 AM EDT Missed menses OB TRANSVAGINAL Routine 12/28/2024 8: 43 AM EDT Missed menses Positive urine test ([facility]) [facility] PREG QUANT HCG Routine 12/02/2024 9: 50 AM EDT [facility] PREG QUANT HCG Routine 11/30/2024 12 :05 PM EDT IUD REMOVAL Routine 10/24/2024 2:09 PM EDT Encounter for IUD removal from Last 3 Months Results * (ABNORMAL) POCT , urine manually resulted (12/28/2024 9:02 AM EDT) Preg Test, Ur Positive Negative Urine 12/28/2024 9:02 AM EDT [facility] DO POINT OF CARE TEST ENTER/EDIT OR DERABLES [...] - Positive Urine 12/28/2024 9:01 AM EDT [facility] DO POINT OF CARE TEST ENTER/EDIT OR DERABLES [...] Nikita Rowe MD us Bubba Cipriano DO IM OB US PROCEDURES Final Resul t * [facility] PREG QUANT HCG (12/02/2024 9:50 AM EDT) Only the most recent of2 resultswithin the time period is included. HCG QUANTITATIVE 171 mIU/mL [facility] Comment: 5-50 0.2-1 WEEK 50-500 1-2 WEEKS 100-5,000 2-3 WEEKS 500-10,000 3-4 WEEKS 1,000-50,000 4-5 WEEKS 10,000-100,000 5-6 WEEKS 15,000-200,000 6-8 WEEKS 10,000-100,000 2-3 MONTHS 12/02/2024 9:50 AM EDT 12/02/2024 9:52 AM EDT Narrative [facility] - 12/02/2024 10:15 AM EDT Bubba Cota DO CLINISYNC Final Result [facility] * IUD Removal (10/24/2024 2:09 PM EDT) Enid Brito LPN - 10/24/2024 2:09 PM EDT Enid Angelo BRUCE 10/24/2024 3:14 PM IUD Removal Date/Time: 10/24/2024 2:09 PM Performed by: Bubba Cota DO Authorized by: Bubba Cota DO Consent: Consent obtained: Written Consent given by: Patient Procedure risks and benefits discussed: yes Patient questions answered: yes Patient agrees, verbalizes understanding, and wants to proceed: yes Educational handouts given: yes Instructions and paperwork completed: yes [place] protocol: Patient states understanding of procedure being [...] for annual exam unless needed otherwise Bubba Cota DO IN CLINIC/BEDSIDE ORDERABLES Fin al Result from Last 3 Months Insurance [facility] [employer] Care Teams Safety Equipment Tester Relationship Specialty Start Date End Date Madelyn Meraz MD [address] [place] [phone] PCP - General Family Medicine 11/04/22
--- OUTSIDE RECORDS SUMMARY | 2025-01-09 08:32 | XMS_ITS | Encounter Summary ---
Author Organization [facility] Address [address] [place] [address] Care Team Providers Care Cryptographic Machine Operator Name Role Phone Madelyn Meraz MD Primary Care Provider [phone] Encounter Details Date Type Department Care Team (Late Contact Info) Description 01/04/2025 Telephone [facility] [address] [place] [phone] Kathleen Arcos LPN [address] [place] [address] Social History Tobacco Use Types Packs/Day [...] encounter Miscellaneous Notes * Telephone Encounter - Kathleen Arcos LPN - 01/04/2025 9:[address] Cota, medication was called in documented in this encounter Plan of Treatment Upcoming Encounters Date Type Department Care Team (Late Contact Info) Description 01/28/2025 9:40 AM EDT Routine [facility] [address] [place] [phone] Bubba Cota DO [address] [facility] [address] [place] [place], [place] [id number] documented as of this encounter Visit Diagnoses Diagnosis Gastroesophageal reflux disease, unspecified whether esophagitis present documented in this encounter Care Teams Cryptographic Machine Operator Relationship Specialty Start Date End Date Madelyn Meraz MD [address] [facility] [place] [address] PCP - General Family Medicine 11/04/22 documented as of this encounter
--- OUTSIDE RECORDS SUMMARY | 2025-01-09 08:32 | XMS_ITS | Clinical Summary ---
Author Organization [facility] Address [address] [place] [address] Care Team Providers Care Hadoop Application Developer Name Role Phone Bubba Cota DO Unavailable [phone] Medications dicyclomine (BENTYL) 20 mg tablet [...] is lower risk 6 04/22/2023 Data from: https://www.neighborhoodatlas.medicine.[facility].edu/. Last address used for calculation [address] [place] [address] 04/22/2023 Comments Unknown Sex and Gender Information [...] (3 - 3-dose series) 07/12/2021 , 01/09/2021 Cervical Cancer Screening 2024 Influenza Vaccine (#1) 2025 02/21/2023 DTaP,Tdap,Td Vaccine (7 - Td or Tdap) 01/05/2026 01/06/2016, 08/08/2008, 04/30/2005, Additional history exists Hepatitis B Vaccine Completed 01/09/2021, 04/30/2005, 2003, Additional history exists Meningococcal B Vaccine Completed 03/11/2021, 01/09 Insurance [employer] PPO MMO [employer] PPO Care Teams Hadoop Application Developer Relationship Specialty Start Date End Date Bubba Cota DO [address] [place] [address] Referring Dental Scheduling Coordinator 02/04/23
--- OUTSIDE RECORDS SUMMARY | 2025-01-09 08:33 | XMS_ITS | Encounter Summary ---
Author Organization [facility] Address [address] [place] [address] Care Team Providers Care Property Assistant Name Role Phone Madelyn Meraz MD Primary Care Provider [phone] Encounter Details Date Type Department Care Team (Late Contact Info) Description 01/26/2023 Abstract [facility]ice [facility]ER [address] [place] [phone] Christina Hatfield LPN Social History Tobacco Use [...] 9:40 AM EDT Routine [facility] [address] [facility] [place] [phone] Bubba Cota DO [address], [place] [id number] documented as of this encounter Visit Diagnoses Not on filedocumented in this encounter Care Teams Property Assistant Relationship Specialty Start Date End Date Madelyn Meraz MD [address] [place] [address] PCP - General Family Medicine 11/04/22 documented as of this encounter
--- OUTSIDE RECORDS SUMMARY | 2025-01-09 08:33 | XMS_ITS | Encounter Summary ---
Author Organization [facility] Address [address] [place] [address] Care Team Providers Care Bit Tripoler Name Role Phone Madelyn Meraz MD Primary Care Provider [phone] Encounter Details Date Type Department Care Team (Late Contact Info) Description 11/25/2022 Abstract [facility] [place] [phone] Bubba Cota DO [address], [place] [address] Social History Tobacco Use Types Packs/Day Years [...] Info) Description 01/28/2025 9:40 AM EDT Routine [facility] [place] [phone] Bubba Cota, DO [address], [place] [id number] documented as of this encounter Visit Diagnoses Not on filedocumented in this encounter Care Teams Bit Tripoler Relationship Specialty Start Date End Date Madelyn Meraz MD [address] [place] [phone] PCP - General Family Medicine 11/04/22 documented as of this encounter
--- OUTSIDE RECORDS SUMMARY | 2025-01-09 08:33 | XMS_ITS | Encounter Summary ---
Author Organization [employer] s tem Address [id number] [address] [place] [address] Care Team Providers Care Stock Checkerer Name Role Phone Pcp, Not In System Primary Care Provider Unavail able Encounter Details Date Type Department Care Team (Late st Contact Info) Description 05/04/2022 Orders Only [facility] [address] [address] External, Scanning Provider Social History [...] Multiple labs (04/28/2022) us Scanning Provider External [facility] Final Result Performing Organization Address City/State/[facility] Co de Phone Number MANUALLY TRANSCRIBED RESULTS documented in this encounter Visit Diagnoses Not on filedocumented in this encounter Care Teams Stock Checkerer Relationship Specialty Start Date End Date Pcp, [place] [address] PCP - General Family Medicine 04/26/22 documented as of this encounter
--- OUTSIDE RECORDS SUMMARY | 2025-01-09 08:33 | XMS_ITS | Encounter Summary ---
Author Organization [facility] Address [address] [place] [address] Care Team Providers Care City Weighmaster Name Role Phone Madelyn Meraz MD Primary Care Provider [phone] Encounter Details Date Type Department Care Team (Late Contact Info) Description 07/15/2023 Clinisync Result Encounter [facility] External Department Unsolicited Radha Cota DO [address], [place] [address] Social History Tobacco Use Types Packs/Day Years [...] 01/28/2025 9:40 AM EDT Routine [facility] Shanice [facility] [address] [place] [phone] Radha Cota DO [address] [place] [address] documented as of this encounter Procedures Procedure Name Priority Date/Time Associated Diagnosis Comments US PELVIS W/ TRANSVAGINAL 07/15/2023 7:39 AM EST documented in this encounter Results * US PELVIS W/ TRANSVAGINAL (07/15/2023 7:39 AM EST) Anatomical Region Laterality Modality Other 07/15/2023 7:39 AM EST Narrative 07/15/2023 7:41 [place] [address] Ultrasound Report Signed Patient: MANPREET MASSEY MR#: [id number] : 2005 Acct:[id number] Age/Sex: 18 / F ADM Date: 07/14/23 Loc: US Attending Dr: Radha Cota D.O. Ordering Physician: Radha Cota D.O. Date of Service: 07/14/23 Procedure(s): US pelvis w/ transvaginal Accession Number(s): [id number] cc: Madelyn Meraz M.D.; Radha Cota D.O. [place] [id number] Patient Name: MANPREET MASSEY MRN: [id number] date: 2005 Sex: F Assigned Patient Location: US Current Patient Location: Accession/Order Number: [id number] Exam Date: 07/14/2023 16:00 Report Date: 07/15/2023 [...] Signed By: 07/15/23 0741 DD/ 0739 TD/TT: Mass Spec: Procedure Note Radiology, Radiologist, MD - 07/15/2023 [place] [address] Ultrasound Report Signed Patient: MANPREET MASSEY R#: [id number] : 2005Acct:[id number] Age/Sex: 18 / FADM Date: 07/14/23 Loc: US Attending Dr: Radha Cota D.O. Ordering Physician: Radha Cota D.O. Date of Service: 07/14/23 Procedure(s): US pelvis w/ transvaginal Accession Number(s): [id number] cc: Madelyn Meraz M.D.; Radha Cota D.O. The [place] [id number] Patient Name: MANPREET MASSEY MRN: [facility]:[id number] date: 2005 Sex: F Assigned Patient Location: Current Patient Location: Accession/Order Number: [id number] Exam Date: 07/14/2023 16:00 Report Date: 07/15/2023 [...] M.D. Signed By:07/15/23 0741 DD/ 0739 TD/TT: Mass Spec: us Radha Cipriano DO [facility] Final Result documented in this encounter Visit Diagnoses Not on filedocumented in this encounter Care Teams City Weighmaster Relationship Specialty Start Date End Date Madelyn Meraz MD [address] [place] [address] PCP - General Family Medicine 11/04/22 documented as of this encounter
--- OUTSIDE RECORDS SUMMARY | 2025-01-09 08:33 | XMS_ITS | Clinical Summary ---
Author Organization [employer] Address [id number] [address] [place] [address] Care Team Providers Care Medical Record Consultant Name Role Phone Pcp, Not In System [...] 20 doses. 20 tablet 04/26/20 22 Active bnrmxg-tieunqqu-ef ylase (ZENPEP) 10,000-32,000 -42,000 unit capsule,delayed release(DR/EC) [...] MEDICAL MUTUAL MEDICAL MUTUAL ANTHEM Care Teams Medical Record Consultant Relationship Specialty Start Date End Date Pcp, [place] [address] PCP - General Family Medicine 04/26/22
--- OUTSIDE RECORDS SUMMARY | 2025-01-09 08:33 | XMS_ITS | Encounter Summary ---
Author Organization [employer] s tem Address [id number] [address] [place] [address] Care Team Providers Care Plate Driller Name Role Phone Pcp, Not In System Primary Care Provider Unavail able Encounter Details Date Type Department Care Team (Late st Contact Info) Description 04/29/2022 Orders Only [facility] [address] [address] External, Scanning Provider Social History [...] on filedocumented in this encounter Care Teams Plate Driller Relationship Specialty Start Date End Date Pcp, [place] [address] PCP - General Family Medicine 04/26/22 documented as of this encounter
--- OUTSIDE RECORDS SUMMARY | 2025-01-09 08:33 | XMS_ITS | Encounter Summary ---
Author Organization [facility] Address [address] [place] [address] Care Team Providers Care Academic Tutor Name Role Phone Madelyn Meraz MD Primary Care Provider [phone] Encounter Details Date Type Department Care Team (Late Contact Info) Description 01/26/2023 Abstract [facility] Shanice GREER [address] [place] [phone] Christina Hatfield LPN Social History Tobacco Use [...] Description 01/28/2025 9:40 AM EDT Routine [facility] [address] [facility] [place] [phone] Bubba Cota DO [address], [place] [phone] documented as of this encounter Visit Diagnoses Not on filedocumented in this encounter Care Teams Academic Tutor Relationship Specialty Start Date End Date Madelyn Meraz MD [address] [place] [address] PCP - General Family Medicine 11/04/22 documented as of this encounter
--- OUTSIDE RECORDS SUMMARY | 2025-01-09 08:36 | XMS_ITS | CCD ---
Author Organization [facility] Care Team Providers Care Information Assurance Engineer Name Role Phone Stella Brar Unavailable Unavailable Juan CLe Unavailable Unavailable Yokasta Wiggins Unavailable Unavailable MD Fernando Wilson Primary Care Provider [phone] EMMANUELLE Ramos Emergency Provider Lisa Fernandez Unavailable [...] Unavailable MD Fernando Wilson Primary Care Provider [phone] MD Lisa Fernandez Attending Provider MD Fernando Wilson Primary Care Provider [phone] DO Cody Akhtar Attending Provider Fernando Wilson MD Primary Care Provider Bubba Cota DO Unavailable ALBERT ZAPATA Attending Carlos Wilson MD, Fernando Wheeler Primary Care Provider Fernando Wilson MD Primary Care Provider Asaad, Imad Admitting Unavailable Fernando Wilson Primary Care Unavailable Asaad, Imad Attending Unavailable [facility] Un[facility] Ad[facility] Unavailable Fernando Wilson Primary Care Unavailable Fernando Wilson MD Primary Care Provider [phone] Fernando Wilson MD Primary Care Provider [phone] BUBBA COTA Attending Unavailable Medications Current Medications Medication Drug Class(es) [...] 12:00am dicyclomine hydrochloride 10 mg oral capsule (16 sources) Anticholinergic Start: 05-17-2024 dicyclomine (Bentyl) 10 MG capsule Take 10 mg by mouth in the morning and 10 mg at noon and 10 mg in the evening and 10 mg before bedtime. 05/17/2024 Active Start: 05-08-2022 take 20 mg [...] needed for 30 days Nov, Active levonorgestrel 0.355609 mg/hr intrauterine system (2 sources) Progestin, Progestin-containing Intrauterine Device Start: 03-08-20 24 Levonorgestrel (Mirena) 21 mcg/24hr (up to 8 [...] tablet (1 source) Dopamine-2 Receptor Antagonist Start: 022 take 1 tablet by mouth every six hours Metoclopramide Hcl (Reglan) 10 mg tablet Active 10 MG PO Q6H 28 7 May 08, 2022 12:00am ondansetron 4 mg disintegrating oral tablet (20 sources) Serotonin-3 Receptor Antagonist Start: 022 take 4 mg by mouth once daily Ondansetron Active 4 MG PO Daily May 08, 2022 1:00am Start: 05-08-2022 Ondansetron Ac tive MG May 08, 2022 12:00am Start: 04-26-2022 End: 05-12-2025 take 1 tablet by mouth every eight hours as needed ondansetron ODT (Zofran-ODT) 4 MG disintegrating tablet Take 4 mg by mouth every 8 (eight) hours if needed. 04/26/2022 Active take 1 tablet by fernandez th once daily as needed Ondansetron HCl 4 MG 1 tablet Orally Once a day as needed for 30 days Active Comment on above: TAKE 1 TABLET (4 MG) BY MOUTH EVERY 8 HOURS IF NEEDED FOR NAUSEA OR VOMITING. polyethylene glycol 3350 [id number] mg / potassium chloride 2970 mg / sodium bicarbonate 6740 mg / sodium chloride 5860 mg / sodium sulfate 83915 mg powder for oral solution (1 source) Osmotic Laxative PEG-3350/Electr olyt es 236 GM as directed Orally ONCE DAILY for 1 days Active Lfsujyxr-Edz-Kz-FA ( 1 + IRON PO) (1 source) Start: 5 Mwazsakb-Tpy-Vk-FA ( 1 + IRON PO) 09/20/2024 Active rifAXIMin 550 mg oral tablet (1 [...] injectable solution (2 sources) Start: 05-26-2023 End: 01-05-2024 lactated Ringer's infusion cefdinir (7 sources) Cephalosporin [...] End: 05-26-2023 ergocalciferol (Vitamin D-2) 1.25 MG (29372 UT) capsule Take by mouth. 0 05/22/2018 05/26/2023 Discontinued (Therapy completed) Start: 05-22-2018 take 1 capsule by mo ut every week Vitamin D (Ergocalciferol) 1.25 MG (00618 UT) Oral Capsule TAKE 1 CAPSULE WEEKLY for 8 weeks Quantity: 8 Refills: 0 Maykel ESQUIVEL Stella Start : 22-May-2018 Active Multivitamin preparation (7 [...] infection (1 source) Viral gastroenteritis due to Brandeis-like agent; Translations: [Acute gastroenteropathy due to Brandeis agent] 07-12-2024 Episodic Menstrual disorders (3 sources) Menorrhagia; Translations: [Excessive and frequent menstruation with regular cycle] 04-22-2023 Chronic Mood disorders (6 sources) Depressive disorder; Translations: [Depression] Onset: 0 [...] nutritional; endocrine; and metabolic disorders (6 sources) Methylene THF reductase deficiency AND homocystinuria; 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] Onset: 3 Resolved: 4 03-04-2023 Chronic Other nutritional; endocrine; and metabolic disorders (12 sources) Weight loss; Translations: [Abnormal weight loss] 04-05-2023 Episodic Other nutritional; endocrine; and metabolic disorders (6 sources) Abnormal weight loss; Translations: [ABNORMAL WEIGHT LOSS] Onset: 2 Episodic Other and delivery including normal (8 sources) Urine test positive; Translations: [Encounter for test, result positive] Onset: 5 11-30-2024 Episodic Residual codes; unclassified (2 sources) Insomnia; Translations: [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] Episodic Residual codes; unclassified (8 sources) Genetic susceptibility to other disease; 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] Episodic Residual codes; unclassified (1 source) Gestation period, 7 weeks; Translations: [Less than 8 weeks gestation of ] 12-28-2024 Episodic Residual codes; unclassified (2 sources) Hereditary disorder of endocrine system; Translations: [Genetic susceptibility to other disease] Onset: 9 12-28-2024 Episodic Unclassified (1 source) Encounter for immunization; [...] Episodic Other nutritional; endocrine; and metabolic disorders (7 [...] Test Name Value Interpretation Reference Range Facility HCG ( test) Ql (U)o n 12-28-2024 Interpretation and review of laboratory results Abnormal [facility] Preg Test, Ur Positive Negative [facility] US OB TRANSVAGINALon 025 US OB TRANSVAGINAL FINDINGS: A single intrauterine gestational sac is [...] BY: ELECTRONICALLY SIGNED BY: Nikita Rowe MD Normal Not Available Comment on above: Order Comment: US OB TRANSVAGINAL No LMP recorded. Urinalysis macro (dipstick) panel (U)on 12-28-2024 Bilirubin, UA Negative Negative - 4(70) +++ mg/dL [facility] Blood, UA Negative Negative - 50 Adrián/mcL [facility] Clarity, UA Clear [facility] Color, UA Yellow [facility] Glucose, UA Negative Negative - 1999(110) ++++ mg/dL [facility] Interpretation and review of laboratory results Normal [facility] Ketones, UA Negative Negative - 160(16) ++++ mg/dL [facility] Leukocytes, UA Negative Negative - 500+++ Ally/mcL [facility] Nitrite, UA Negative Negative - Positive [facility] pH, UA 6 5 - 9 [facility] Protein, UA Negative Negative - 1999(20) ++++ mg/dL [facility] Spec Grav, UA 1.02 1 - 1.03 [facility] Urobilinogen, UA 1.0 0.2 - 12 mg/dL [facility] PREG QUANT HCGon 025 HCG QUANTITATIVE 171 mIU/mL [facility] Comment on above: 5-50 0.2-1 WEEK 50-500 1-2 WEEKS 100-5,000 2-3 WEEKS 500-10,000 3-4 WEEKS 1,000-50,000 4-5 WEEKS 10,000-100,000 5-6 WEEKS 15,000-200,000 6-8 WEEKS 10,000-100,000 2-3 MONTHS [facility] PREG QUANT HCGon 025 HCG QUANTITATIVE 73 mIU/mL [facility] Comment on above: 5-50 0.2-1 WEEK 50-500 1-2 WEEKS 100-5,000 2-3 WEEKS 500-10,000 3-4 WEEKS 1,000-50,000 4-5 WEEKS 10,000-100,000 5-6 WEEKS 15,000-200,000 6-8 WEEKS 10,000-100,000 2-3 MONTHS [facility] IUD Removalon 10-24-2024 Enid Angelo LPN 10/24/2024 3:14 PM IUD Removal Date/Time: 10/24/2024 2:09 PM Performed by: Bubba Cota DO Authorized by: Bubba Cota DO Consent: Consent obtained: Written Consent given by: Patient Procedure risks and benefits discussed: yes Patient questions answered: yes Patient agrees, verbalizes understanding, and wants to proceed: yes Educational handouts given: yes Instructions and paperwork completed: yes [place] protocol: Patient states understanding of procedure being [...] office for annual exam unless needed otherwise [facility] No Panel InformationOrdered By: Cristina Lara on 03-08-2024 Quick Strep (POC) [facility] EGD Study observation Narrat iveon 05-26-2023 Table formatting fro m the original [...] Lico Zeng MD 05/26/2023 1533 Procedure Location [facility] [address] [facility] [id number] Referring Provider Charlie Paredes Md [address] [address] Procedure Provider Charlie Paredes MD [facility] Work Phone: [facility] Work Phone: Radiology Study observation (narrative) [facility] Work Phone: HCG ( test) Ql (U)O rdered By: Maria T Farley on 05-26-2023 Interpretation and review of laboratory results Normal [facility] Preg Test, Ur Negative Negative [facility] CNOVon 04-22-2023 CNOV Office Visit (ENDOLN ) MANPREET FRAIRE ([id number]) 1 F Date Time Provider Department 04/22/23 1:00 PM ALBERT ZAPATA ENDOLN During your visit today, we recorded the following information about you: Pulse Blood pressure Weight Height 68/minute 118/72 61.7 kg 1.651 m Albert Zapata MD 04/25/2023 10:37 AM Addendum ENDOCRINOLOGY REASON FOR CONSULTATION: Menorrhagia HISTORY The patient is referred by Dr. Bubba Cota from [facility]. . My recommendations will be sent to [...] which included preparing to see the patient, [id number] patient care, completing clinical documentation, obtaining and/or reviewing separately obtained history, performing a medically appropriate examination, counseling and educ (more content not included)... Normal [facility] HCG ( test) IA.rapi d Ql (U)Ordered By: Lisa Fernandez on 10-19-2022 HCG ( test) Ql (U) Negative [facility] HCG,Urineon 10-19-2022 Beta HCG ( test) Ql (U) Negative Normal [facility] Comment on above: Result Comment: PERF ORMED BY: [place] [address] PATHOLOGIST [employer] ATTORNEY ALEXIA KENNEDY M.D. Performed By: #### U HCG #### [place] [id number] [place] Min 10-19-2022 L - -------- Specimen: [id number] Received: 10/19/22 Status: CARLOS Rahman Num: [id number] Spec Type: Surgical Subm Dr: Lisa Fernandez MD Tissues: A Duodenum - Biopsy (DUODENUM BX) Procedures: HE/2, Gross/Micro L4 -------- Age/ Patient Sex Location Account Attending Physician -------- Manpreet Fraire 17/ [id number] Lisa Fernandez MD -------- SPEC NUM: [id number] RECD: 10/19/22 STATUS: CARLOS RAHMAN NUM: [id number] JASON: 10/19/22 [facility] [place] DR: Lisa Fernandez MD ENTERED: 10/19/22 [facility] DR: SPEC TYPE: Surgical DEPT: S ORDERED: [...] microscopic examination confirms the diagnosis. CPT Codes 09335 -------- -------- Specimen: [id number] Received: 10/19/22 Status: CARLOS Josiah Num: [id number] Spec Type: Surgical Subm Dr: Lisa Fernandez MD Tissues: A Duodenum - Biopsy (DUODENUM BX) Procedures: HE/2, Gross/Micro L4 -------- Patient: Manpreet Fraire [id number] (Continued) -------- Signed (signature on file) Isi Hsieh MD 10/20/22 0958 Normal [facility] AMYLASEon 09-04-2022 Amylase [Catalytic activity/Vol] 41 U/L Normal 25-[address] [facility] Comment on above: Performed By: #### L IPA, DEVIKA #### [facility] [address] [address] [address] Nai Garcia LIPASEon 09-04-2022 Lipase [Catalytic activity/Vol] 83.0 U/L Normal 73.0-393.0 [facility] Comment on above: Performed By: #### L IPA, DEVIKA #### [facility] [address] [address] [address] Nai Garcia Automated erythrocytes count in urine sediment (number/area)Ordered By: Colby Ramos on 05-08-2022 RBC Auto (Urine sed) [#/Area] 0-1 [HPF] 0-4 [facility] Automated leukocytes count i n urine sediment (number/area)Ordered By: Colby Ramos on 05-08-2022 WBC Auto (Urine sed) [#/Area] 5-9 [HPF] 0-4 [facility] Automated urine hyaline cast s count (number/volume)Ordered By: Colby Ramos on 05-08-2022 Hyaline casts Auto (U) [#/Vol] None seen [LPF] 0-1 [facility] Basophils Auto (Bld) [#/Vol] Ordered By: Colby Ramos on 05-08-2022 Basophils (Bld) [#/Vol] 0.0 10*3/uL 0.0-0.2 [facility] Basophils/100 WBC Auto (Bld) Ordered By: Colby Ramos on 05-08-2022 Basophils/100 WBC (Bld) 0.9 % . [facility] Bilirubin Test strip Ql (U)O rdered By: Colby Ramos on 05-08-2022 Bilirubin Ql (U) Negative Negative [facility] Body fluid albumin measureme nt (mass/volume)Ordered By: Colby Ramos on 05-08-2022 Albumin (Body fld) [Mass/Vol] 4.1 g/dL 3.2-5.5 [facility] Casts typing in urine sedime nt by light microscopyOrdered By: Colby Ramos on 05-08-2022 Casts LM Nom (Urine sed) None seen [LPF] None S een [facility] Color Auto (U)Ordered By: Louis Ramos on 05-08-2022 Color (U) Yellow Yellow [facility] Creatinine and Glomerular fi ltration rate.predicted panel (S/P/Bld)Ordered By: Colby Ramos on 05-08-2022 Creatinine [Mass/Vol] 0.87 mg/dL 0.44-1.03 [facility] Direct bilirubin measurement Ordered By: Colby Ramos on 05-08-2022 Bilirubin.direct [Mass/Vol] mg/dL 0.0-0.4 [facility] Eosinophils Auto (Bld) [#/Vo l]Ordered By: Colby Ramos on 05-08-2022 Eosinophils (Bld) [#/Vol] 0.1 10*3/uL 0.0-0.45 [facility] Eosinophils/100 WBC Auto (Bl d)Ordered By: Colby Ramos on 05-08-2022 Eosinophils/100 WBC (Bld) 1.8 % . [facility] Erythrocyte distribution wid th Auto (RBC) [Ratio]Ordered By: Colby Ramos on 05-08-2022 Erythrocyte distribution width (RBC) [Ratio] 12.7 % 11.9-15.3 [facility] Estimated glomerular filtrat ion rate (GFR) non- AmericanOrdered By: Colby Ramos on 05-08-2022 GFR/1.73 sq M.predicted among non-blacks MDRD (S/P/Bld) [Vol rate/Area] > 60 mL/Min [facility] Globulin Calc (S) [Mass/Vol] Ordered By: Colby Ramos on 05-08-2022 Globulin (S) [Mass/Vol] 3.4 g/dL [facility] HCG ( test) IA.rapi d Ql (U)Ordered By: Colby Ramos on 05-08-2022 HCG ( test) Ql (U) Negative [facility] Hematocrit Auto (Bld) [Volum e fraction]Ordered By: Colby Ramos on 05-08-2022 Hematocrit (Bld) [Volume fraction] 39.7 % 34.0-46.4 [facility] Hemoglobin [Mass/volume] in BloodOrdered By: Colby Ramos on 05-08-2022 Hemoglobin (Bld) [Mass/Vol] 13.4 g/dL 11.8-15.4 [facility] Ketones Auto test strip (U) [Mass/Vol]Ordered By: Colby Ramos on 05-08-2022 Ketones (U) [Mass/Vol] 1+ Negative [facility] - Chemistry and C hemistry - challengeOrdered By: Colby Ramos on 05-08-2022 Lipase [Catalytic activity/Vol] 35.0 U/L 22-51 [facility] Leukocytes [#/volume] correc jean claude for nucleated erythrocytes in Blood by Automated counOrdered By: Colby Ramos on 05-08-2022 WBC corrected for nucl RBC Auto (Bld) [#/Vol] 5.5 10*3/uL 3.8-11.6 [facility] Lymphocytes Auto (Bld) [#/Vo l]Ordered By: Colby Ramos on 05-08-2022 Lymphocytes (Bld) [#/Vol] 1.4 10*3/uL 1.00-4.8 [facility] Lymphocytes/100 WBC Auto (Bl d)Ordered By: Colby Ramos on 05-08-2022 Lymphocytes/100 WBC (Bld) 26.3 % . [facility] MCH Auto (RBC) [Entitic mass ]Ordered By: Colby Ramos on 05-08-2022 MCH (RBC) [Entitic mass] 29.7 pg 24.7-34.3 [facility] MCHC Auto (RBC) [Mass/Vol]Or dered By: Colby Ramos on 05-08-2022 MCHC (RBC) [Mass/Vol] 33.7 g/dL 32.0-35.0 [facility] MCV Auto (RBC) [Entitic vol] Ordered By: Colby Ramos on 05-08-2022 MCV (RBC) [Entitic vol] 88.2 fL 80-100 [facility] Monocytes Auto (Bld) [#/Vol] Ordered By: Colby Ramos on 05-08-2022 Monocytes (Bld) [#/Vol] 0.3 10*3/uL 0.0-0.8 [facility] Monocytes/100 WBC Auto (Bld) Ordered By: Colby Ramos on 05-08-2022 Monocytes/100 WBC (Bld) 6.2 % . [facility] Mucus LM Ql (Urine sed)Order ed By: Colby Ramos on 05-08-2022 Mucus Ql (Urine sed) 2+ [LPF] [facility] Neutrophils Auto (Bld) [#/Vo l]Ordered By: Colby Ramos on 05-08-2022 Neutrophils (Bld) [#/Vol] 3.6 10*3/uL 1.8-7.7 [facility] Neutrophils/100 WBC Auto (Bl d)Ordered By: Colby Ramos on 05-08-2022 Neutrophils/100 WBC (Bld) 64.8 % . [facility] Nitrite Test strip Ql (U)Ord ered By: Colby Ramos on 05-08-2022 Nitrite Ql (U) Negative Negative [facility] No Panel InformationOrdered By: Colby Ramos on 05-08-2022 Estimated GFR () > 60 mL/Min [facility] Comment on above: GFR estimated refere nce range: According to KDOQI guidelines, <60 ml/min/1.73m2 is sufficient to diagnose a patient with chronic kidney disease. Pharmacy Creatinine Clearance (Chem 93.59 [facility] Nucleated erythrocytes [Pres ence] in Blood by Automated countOrdered By: Colby Ramos on 05-08-2022 Nucleated RBC Auto Ql (Bld) 0.4 /100{WBC} 0-0.5 [facility] Platelet mean volume Auto (B ld) [Entitic vol]Ordered By: Colby Ramos on 05-08-2022 Platelet mean volume (Bld) [Entitic vol] 10.9 fL 6.3-10.7 [facility] Platelets Auto (Bld) [#/Vol] Ordered By: Colby Ramos on 05-08-2022 Platelets (Bld) [#/Vol] 194 10*3/uL 150-450 [facility] Protein Auto test strip (U) [Mass/Vol]Ordered By: Colby Ramos on 05-08-2022 Protein (U) [Mass/Vol] 30 mg/dL Negative [facility] Protein [Mass/volume] in Ser um or PlasmaOrdered By: Colby Ramos on 05-08-2022 Protein [Mass/Vol] 7.5 g/dL 6.1-7.[address] [facility] RBC Auto (Bld) [#/Vol]Ordere d By: Colby Ramos on 05-08-2022 RBC (Bld) [#/Vol] 4.50 10*6/uL 3.60-5.00 [facility] Serum or plasma alanine pope otransferase measurement without P-5'-P (enzymatic activiOrdered By: Colby Ramos on 05-08-2022 ALT No additional P-5'-P [Catalytic activity/Vol] 16 U/L 10-60 [facility] Serum or plasma albumin/glob ulin mass ratioOrdered By: Colby Ramos on 05-08-2022 Albumin/Globulin [Mass ratio] 1.2 {ratio} [facility] Serum or plasma alkaline chau sphatase measurement (enzymatic activity/volume)Ordered By: Colby Ramos on 05-08-2022 ALP [Catalytic activity/Vol] 47 U/L 32-92 [facility] Serum or plasma anion gap de terminationOrdered By: Colby Ramos on 05-08-2022 Anion gap [Moles/Vol] 15.9 mmol/L 6.0-15.0 [facility] Serum or plasma aspartate am inotransferase measurement (enzymatic activity/volume)Ordered By: Colby Ramos on 05-08-2022 AST [Catalytic activity/Vol] 17 U/L 10-42 [facility] Serum or plasma calcium linda urement (mass/volume)Ordered By: Colby Ramos on 05-08-2022 Calcium [Mass/Vol] 9.4 mg/dL 8.2-10.[address] [facility] Serum or plasma chloride mamta surement (moles/volume)Ordered By: Colby Ramos on 05-08-2022 Chloride [Moles/Vol] 103 mmol/L 95-114 [facility] Serum or plasma glucose linda urement (mass/volume)Ordered By: Colby Ramos on 05-08-2022 Glucose [Mass/Vol] 93 mg/dL 70-[address] [facility] Comment on above: ADA recommended refe rence rangeRandom Glucose Reference Range is dependent on time and content of last meal. Glucose of more than 200 mg/dL in a nonstressed, ambulatory subject supports the diagnosis of Diabetes Mellitus. Serum or plasma non-glucuron idated bilirubin measurement (mass/volume)Ordered By: Colby Ramos on 05-08-2022 Bilirubin.indirect [Mass/Vol] TNP [facility] Comment on above: Test not performed Serum or plasma potassium me asurement (moles/volume)Ordered By: Colby Ramos on 05-08-2022 Potassium [Moles/Vol] 3.6 mmol/L 3.5-5.1 [facility] Serum or plasma sodium measu rement (moles/volume)Ordered By: Colby Ramos on 05-08-2022 Sodium [Moles/Vol] 136 mmol/L 136-[address] [facility] Serum or plasma total biliru bin measurement (mass/volume)Ordered By: Colby Ramos on 05-08-2022 Bilirubin [Mass/Vol] 0.5 mg/dL 0.3-1.2 [facility] Serum or plasma total carbon dioxide measurement (moles/volume)Ordered By: Colby Ramos on 05-08-2022 CO2 [Moles/Vol] 20.7 mmol/L 22.0-30.0 [facility] Serum or plasma urea nitroge n measurement (mass/volume)Ordered By: Colby Ramos on 05-08-2022 Urea nitrogen [Mass/Vol] 7 mg/dL 9-23 [facility] Specific gravity Auto test s trip (U) [Rel density]Ordered By: Colby Ramos on 05-08-2022 Specific gravity (U) [Rel density] 1.037 1.001-1.030 [facility] Squamous epithelial cells de tection in urine sediment by light microscopyOrdered By: Colby Ramos on 05-08-2022 Epithelial cells.squamous LM Ql (Urine sed) 5-9 [HPF] 0-2 [facility] Urine bacteria detection by automated methodOrdered By: Colby Ramos on 05-08-2022 Bacteria Auto Ql (U) None seen None Seen [facility] Urine clarity by refractomet ry automatedOrdered By: Colby Ramos on 05-08-2022 Clarity Refractometry automated (U) Cloudy Clear [facility] Urine glucose measurement by automated test strip (mass/volume)Ordered By: Colby Ramos on 05-08-2022 Glucose Auto test strip (U) [Mass/Vol] Normal mg/dL Normal [facility] Urine hemoglobin detection b y automated test stripOrdered By: Colby Ramos on 05-08-2022 Hemoglobin Auto test strip Ql (U) Negative Negative [facility] Urine leukocyte esterase det ection by automated test stripOrdered By: Colby Ramos on 05-08-2022 Leukocyte esterase Auto test strip Ql (U) Negative Negative [facility] Urobilinogen Auto test strip (U) [Mass/Vol]Ordered By: Colby Ramos on 05-08-2022 Urobilinogen (U) [Mass/Vol] Normal mg/dL Normal [facility] WBC Auto (Bld) [#/Vol]Ordere d By: Colby Ramos on 05-08-2022 WBC (Bld) [#/Vol] 5.5 10*3/uL 3.8-11.[address] [facility] pH Auto test strip (U)Ordere d By: Colby Ramos on 05-08-2022 pH (U) 5.5 [pH] 5.0-9.0 [facility] CELIAC ANTIBODIES PROFILEon 04-29-2022 Deamidated Gliadin Abs, IgA 3 units Normal 0-19 [facility] Comment on above: Result Comment: Nega tive 0 - 19 Weak Positive 20 - 30 Moderate to Strong Positive >30 Performed By: #### L IPA, DEVIKA #### [facility] [address] [place] [address] Dr. Nai Garcia Deamidated Gliadin Abs, IgG 2 units Normal 0-19 [facility] Comment on above: Result Comment: Nega tive 0 - 19 Weak Positive 20 - 30 Moderate to Strong Positive >30 Performed By: #### L IPA, DEVIKA #### [facility] [address] [address] [address] Nai Garcia Endomysial Antibody IgA Negative Normal Negative [facility] Comment on above: Performed By: #### L IPA, DEVIKA #### [facility] [address] [address] [address] Nai Garcia Immunoglobulin A, Qn, Serum 123 mg/dL Normal 87-352 [facility] Comment on above: Performed By: #### L IPA, DEVIKA #### [facility] [address] [address] [address] Nai Garcia t-Transglutaminase (tTG) IgA <2 Normal 0-3 [facility] Comment on above: Result Comment: Nega tive 0 - 3 Weak Positive 4 - 10 Positive >10 . Tissue Transglutaminase (tTG) has been identified as the endomysial antigen. Studies have demonstr- ated that endomysial IgA antibodies have over 99% specificity for gluten sensitive enteropathy. Performed By: #### L IPA DEVIKA #### [facility] [address] [place] [address] Dr. Nai Garcia H PYLORI ANTIBODY IGGon 12-0 H. PYLORI IGG ABS 0.33 Index Value Normal 0.00-0.79 [facility] Comment on above: Result Comment: Nega tive <0.80 Equivocal 0.80 - 0.89 Positive >0.89 Performed By: #### H PYLLC #### [facility] [address] [place] [address] Dr. Nai Garcia IMMUNOGLOBULIN IGA QUANTITIA VEon 04-29-2022 Immunoglobulin A, Qn, Serum 124 mg/dL Normal 87-352 [facility] Comment on above: Performed By: #### L IPA, DEVIKA #### [facility] [address] [place] [address] Dr. Nai Garcia TISSUE TRANSGLUTAMINASE IGGo n 04-29-2022 t-Transglutaminase (tTG) IgG <2 Normal 0-5 [facility] Comment on above: Result Comment: Nega tive 0 - 5 Weak Positive 6 - 9 Positive >9 Performed By: #### T RNSIGG #### [facility] [address] [place] [address] Dr. Nai Garcia Performed By: #### L IPA, DEVIKA #### [facility] [address] [place] [address] Dr. Nai Garcia FREE T4on 04-28-2022 Free T4 [Mass/Vol] 1.17 ng/dL Normal 0.78-1.34 [facility] Comment on above: Performed By: #### F T4 #### [facility] [address] [place] [address] Dr. Nai Garcia GLYCOHEMOGLOBIN A1Con 2021 ADA RECOMMENDATION SEE BELOW Normal [facility] Comment on above: Result Comment: ADA RECOMMENDED LIMIT 4.0 - 6.0 ADA THERAPEUTIC TARGET < 7.0 ACTION SUGGESTED > 7.0 Performed By: #### A 1C #### [facility] [address] [place] [address] Dr. Nai Garcia Glucose [Mass/Vol] 105 mg/dL Normal [facility] Comment on above: Performed By: #### A 1C #### [facility] [address] [place] [address] Dr. Nai Garcia HbA1c (Bld) [Mass fraction] 5.3 % Normal 4.5-6.2 [facility] Comment on above: Performed By: #### A 1C #### [facility] [address] [place] [address] Dr. Nai Garcia TSHon 04-28-2022 TSH 0.496 uIU/mL Critically low 0.516-4.130 [facility] Comment on above: Performed By: #### T SH #### [facility] [address] [place] [address] Dr. Nai Garcia CBC AUTO DIFFon 03-23-2022 BASO # 0.1 103/ul Normal 0.0-0.1 [facility] Comment on above: Performed By: #### C BC #### [facility] [address] [place] [address] Dr. Nai Garcia Basophils/100 WBC (Bld) 0.8 % Normal 0.2-2.0 [facility] Comment on above: Performed By: #### C BC #### [facility] [address] [place] [address] Dr. Nai Garcia EO # 0.1 103/ul Normal 0.0-0.7 [facility] Comment on above: Performed By: #### C BC #### [facility] [address] [place] [address] Dr. Nai Garcia Eosinophils/100 WBC (Bld) 1.3 % Normal 0.9-7.0 [facility] Comment on above: Performed By: #### C BC #### [facility] [address] [place] [address] Dr. Nai Garcia Erythrocyte distribution width (RBC) [Ratio] 12.9 % Normal 11.0-15.0 [facility] Comment on above: Performed By: #### C BC #### [facility] [address] [place] [address] Dr. Nai Garcia Hematocrit (Bld) [Volume fraction] 37.0 % Normal 36.0-48.0 [facility] Comment on above: Performed By: #### C BC #### [facility] [address] [place] [address] Dr. Nai Garcia Hemoglobin (Bld) [Mass/Vol] 12.5 g/dL Normal 12.0-16.0 [facility] Comment on above: Performed By: #### C BC #### [facility] [address] [place] [address] Dr. Nai Garcia IG # 0.01 10e3/ul Normal 0.00-0.[address] [facility] Comment on above: Performed By: #### C BC #### [facility] [address] [place] [address] Dr. Nai Garcia IG % 0.2 % Normal 0.0-0.[address] [facility] Comment on above: Performed By: #### C BC #### [facility] [address] [place] [address] Dr. Nai Garcia LYMPH # 1.6 103/ul Normal 1.2-3.[address] [facility] Comment on above: Performed By: #### C BC #### [facility] [address] [place] [address] Dr. Nai Garcia Lymphocytes/100 WBC (Bld) 26.5 % Normal 20.5-60.0 [facility] Comment on above: Performed By: #### C BC #### [facility] [address] [place] [address] Dr. Nai Garcia MANUAL DIFF REQ NO Normal [facility] Comment on above: Performed By: #### C BC #### [facility] [address] [place] [address] Dr. Nai Garcia MCH (RBC) [Entitic mass] 29.8 pg Normal 26.7-34.0 [facility] Comment on above: Performed By: #### C BC #### [facility] [address] [place] [address] Dr. Nai Garcia MCHC (RBC) [Mass/Vol] 33.8 g/dL Normal 29.9-35.2 [facility] Comment on above: Performed By: #### C BC #### [facility] [address] [place] [address] Dr. Nai Garcia MCV (RBC) [Entitic vol] 88.3 fL Normal 81.0-99.0 [facility] Comment on above: Performed By: #### C BC #### [facility] [address] [place] [address] Dr. Nai Garcia MONO # 0.4 103/ul Normal 0.3-0.8 [facility] Comment on above: Performed By: #### C BC #### [facility] [address] [place] [address] Dr. Nai Garcia Monocytes/100 WBC (Bld) 7.1 % Normal 1.7-12.0 [facility] Comment on above: Performed By: #### C BC #### [facility] [address] [place] [address] Dr. Nai Garcia NEUT # 4.0 103/ul Normal 1.4-6.5 [facility] Comment on above: Performed By: #### C BC #### [facility] [address] [address] [address] Nai Garcia Neutrophils/100 WBC (Bld) 64.1 % Normal 43.0-75.0 [facility] Comment on above: Performed By: #### C BC #### [facility] [address] [address] [address] Nai Garcia Platelet mean volume (Bld) [Entitic vol] 11.3 fL Normal 9.5-13.5 [facility] Comment on above: Performed By: #### C BC #### [facility] [address] [address] [address] Nai Garcia PLT 213 103/ul Normal 150-450 [facility] Comment on above: Performed By: #### C BC #### [facility] [address] [place] [address] Dr. Nai Garcia RBC 4.19 106/ul Critically low 4.20-5.40 [facility] Comment on above: Performed By: #### C BC #### [facility] [address] [address] [address] Nai Garcia WBC 6.2 103/ul Normal 4.0-11.0 [facility] Comment on above: Performed By: #### C BC #### [facility] [address] [place] [address] Dr. Nai Garcia PROF CHEM 8 (BAS METB)on Anion gap [Moles/Vol] 12.1 mmol/L Normal [facility] Comment on above: Performed By: #### L IPA, DEVIKA #### [facility] [address] [place] [address] Dr. Nai Garcia Calcium [Mass/Vol] 9.2 mg/dL Normal 8.5-10.1 [facility] Comment on above: Performed By: #### L IPA, DEVIKA #### [facility] [address] [place] [address] Dr. Nai Garcia Chloride [Moles/Vol] 105 mmol/L Normal 98-107 [facility] Comment on above: Performed By: #### L IPA, DEVIKA #### [facility] [address] [address] [address] Nai Garcia CO2 [Moles/Vol] 26.3 mmol/L Normal 21.0-32.0 [facility] Comment on above: Performed By: #### L IPA, DEVIKA #### [facility] [address] [address] [address] Nai Garcia Creatinine [Mass/Vol] 0.95 mg/dL Normal 0.55-1.[address] [facility] Comment on above: Performed By: #### L IPA, DEVIKA #### [facility] [address] [address] [address] Nai Garcia EGFR-AF SLOVAK >60 Normal >=60 [facility] Comment on above: Performed By: #### L IPA, EDVIKA #### [facility] [address] [place] [address] Dr. Nai Garcia EGFR-NON AF SLOVAK >60 Normal >=[address] [facility] Comment on above: Performed By: #### L IPA, DEVIKA #### [facility] [address] [place] [address] Dr. Nai Garcia Glucose [Mass/Vol] 98 mg/dL Normal 74-106 [facility] Comment on above: Performed By: #### L IPA, DEVIKA #### [facility] [address] [place] [address] Dr. Nai Garcia Potassium [Moles/Vol] 3.4 mmol/L Critically low 3.5-5.[address] [facility] Comment on above: Performed By: #### L IPA, DEVIKA #### [facility] [address] [address] [address] Nai Garcia Sodium [Moles/Vol] 140 mmol/L Normal 136-145 [facility] Comment on above: Performed By: #### L IPA, DEVIKA #### [facility] [address] [address] [address] Nai Garcia Urea nitrogen [Mass/Vol] 11.0 mg/dL Normal 6.4-19.[address] [facility] Comment on above: Performed By: #### L IPA, DEVIKA #### [facility] [address] [place] [address] Dr. Nai Garcia Urea nitrogen/Creatinine [Mass ratio] 11.6 mg/mg Normal [facility] Comment on above: Performed By: #### L IPA, DEVIKA #### [facility] [address] [place] [address] Dr. Nai Garcia TSHon 03-23-2022 TSH 1.051 uIU/mL Normal 0.516-4.130 [facility] Comment on above: Performed By: #### L IPA, DEVIKA #### [facility] [address] [place] [address] Dr. Nai Garcia CHLAMYDIA/GONOCOCCUS LYDIA ( AB/URINE/PAPon 12-10-2021 Chlamydia trachomatis, LYDIA Negative Normal Negative [facility] Comment on above: Performed By: #### C T/NGNA #### [facility] [address] [place] [address] Dr. Nai Garcia Neisseria gonorrhoeae, LYDIA Negative Normal Negative [facility] Comment on above: Performed By: #### C T/NGNA #### [facility] [address] [place] [address] Dr. Nai Garcia VAGINITIS/VAGINOSIS DNA PROB Mikie 12-10-2021 Angelita species Negative Normal Negative [facility] Comment on above: Performed By: #### V AGINT #### [facility] [address] [place] [address] Dr. Nai Garcia Gardnerella vaginalis Positive Abnormal Negative [facility] Comment on above: Performed By: #### V AGINT #### [facility] [address] [place] [address] Dr. Nai Garcia Trichomonas vaginalis Negative Normal Negative [facility] Comment on above: Performed By: #### V AGINT #### [facility] [address] [place] [address] Dr. Nai Garcia Initial Visit (Pediatric Ari [...] Oral Tablet; TAKE 1.5 TABLET Daily; Therapy: [id number] to (Evaluate:10Feb2020) Requested for: 12Nov2019 Recorded 3. Vitamin D (Ergocalciferol) 1.25 MG (63548 UT) Oral Capsule; TAKE 1 CAPSULE WEEKLY for 8 weeks; Therapy: [id number] to (Last Rx:[id number]) Requested for: 23May2018 Ordered *Vitals Vital Signs [...] without Contrast; Status:Hold For - Scheduling; Requested for:[id number]; Radiologist to Determine Optimal Study : Y What are the patient's signs and symptoms? : headaches, tonsillar ectopia and arm weakness, evaluate for syrinx or tethered cord, please do CINE flow study of C_spine 2. MRI L Spine without Contrast; Status:Hold For - Scheduling; Requested for:[id number]; Radiologist to Determine Optimal Study : Y What are the patient's signs and symptoms? : headaches, tonsillar ectopia and arm weakness, evaluate for syrinx or tethered cord, please do CINE flow study of C_spine 3. MRI T Spine without Contrast; Status:Hold For - Scheduling; Requested for:[id number]; Radiologist to Determine Optimal Study : Y [...] EST (Author) Reviewed by : Le Irizarry, COMPLAINT INSPECTOR-CHARGE AIDE COMPLAINT INSPECTOR-SHELL REPRINT OPERATOR; Nov 21 2019 4:54PM EST Normal [facility] Telephone Note_UHon 10-05-19 Telephone Note_ Message Recorded [...] other things are now going on with Nashrocio Inge Briseno - 04 Oct 2019 11:14 [...] mom to please retrieve the disc from [facility], I know that you sent an email [...] ABDIFATAH - Automatic Exporton ABDIFATAH - Automatic Menan OJ-Zbagnceahd-Ioc hamlet g-Admin RBC [address] [place], [place] MANPREET FRAIRE 2005 Date of Female Sex [id number] Patient Id [id number] [place] [address] AddressEnglish (preferred) Language White Race Not or Ethnicity Summary of Care Clinical Content Allergies and Adverse Reactions <#[id number]> Encounters <#[id number]> Family History <#[id number]> Functional Status <#IN0AQJUW> Immunization <#[id number]> Instructions <#[id number]> Interventions Provided <#GV0IKOMY> Medications <#VE3SFQPE> Past Medical History <#[id number]> Plan of Care <#[id number]> Problems <#MJ9ZRKSM> Procedures <#[id number]> Results <#[id number]> Social History <#[id number]> Vital Signs <#CK8WYSBH> Other Document Details Health Care Providers Functional [...] <#top> NameDatesDetails Vitamin D (Ergocalciferol) 1.25 MG (68499 UT) Oral Capsule TAKE 1 CAPSULE WEEKLY [...] Drug Allergies (Allergy) Past Medical Historytop <#top> NameDatesDefranceste No pertinent past medical history (V49.89, Z78.9) Status: Resolved Procedurestop <#top> ProcedureDatesDetails History of Ear pressure equalization tube insertionCompleted Immunizationtop <#top> NameDatesDetails Immunizations not documented Family Historytop <#top> Grandmother NameDEleni Family history of Gallstones (574.20, K80.20) Family history of kidney stones (V18.69, Z84.1) Family history of cerebrovascular accident (CVA) (V17.1, Z82.3) Family history of migraine headaches (V17.2, Z82.0) Family history of Anxiety (300.00, F41.9) aunt NameDEleni Family history of Graves' disease (V18.19, Z83.49) great grandmother NameDDuanefranceste Family history of antiphospholipid syndrome (V18.3, Z83.2) Mother NameDatesNidiate Family history of gastroesophageal reflux disease (V18.59, Z83.79) Family history of kidney stones (V18.69, Z84.1) Family history of depression (V17.0, Z81.8) Family history of migraine headaches (V17.2, Z82.0) Family history of Anxiety (300.00, F41.9) Grandfather NameDEleni Family history of hypertension (V17.49, Z82.49) Family history of depression (V17.0, Z81.8) Social Historytop <#top> KelyDuanefrancess - Smoking Status NameDDuanefranceste Never smoked tobacco (finding) Vital Signstop <#top> DateTestResultDetails No Known Vitals to report Resultstop <#top> DateDescriptionValueD etails Results not documented Plan of Caretop <#top> NameDatesDefrancess Planned Observations Planned Goals not documented Interventions [...] progress. My nurse is Marimar Briseno at [phone]. 6. Follow up will be after her films are reviewed. 7. Eye exam should be completed. Instructionstop <#top> NameDatesDetails Instructions not documented Encounterstop <#top> Appointment; Stella Brar APRN-CNP Encounter Diagnosis: Problem not documentedOn: 08-May-2018 9:00 Appointment; [facility] Referral-Consult Letteron Referral-Consult Letter History of Prese [...] there all day long and treatment with [id number] Tylenol or Motrin did not help. She [...] 30May2018 Ordered Vitamin D (Ergocalciferol) 1.25 MG (56019 UT) Oral Capsule; TAKE 1 CAPSULE WEEKLY for 8 weeks; Therapy: [id number] to (Last Rx:[id number]) Requested for: 23May2018 Ordered Physical Exam Today's [...] progress. My nurse is Marimar Briseno at [phone]. 6. Follow up will be after her films are reviewed. 7. Eye exam should be completed. Thank you again for your re Normal [facility] Telephone Note_UHon 09-27-19 Telephone Note_ Message Recorded [...] in regards of headaches. She prefer the [place] office if its face to face. Inge Briseno - 27 Sep 2019 11:23 AM TASK EDITED Mom confirmed a virtual appointment with Elvira on Saturday 09/30 at 3pm. Information sent to the secretaries to schedule this. Signatures Electronically signed by : Inge Briseno R.N.; Sep 27 2019 11:23AM EST (Author) Normal [facility] Note - [facility]-Hematology - New Visiton [...] change her pad. She has seen a bus boy and trialed several OCPs with no decrease in amount or length of bleeding. She notes an increase in bleeding on her periods with OCPs. She has not tried any other forms such as IUD or nexplanon. Her bus boy bartolo basic labs and noted lower platelets and referred her to a campaign director Dr. Mcdowell. She was tested for vWF, [...] Note Completion: I personally evaluated the patient [id number] Attending AttestationI saw and evaluated the patient. [...] Updated: 27-Oct-2018 13:30 by Santo Wang) Normal [facility] Measurementson 10-24-2018 Measurements Growth Chart: Growth Chart Measurements: Growth Chart Length/Height (cm)164.1 Growth Chart Weight (kg)67.7 Growth Chart BMI (kg/m2)25.14 Electronic Signatures: Regina Perdue I) (Signed 24-Oct-2018 14:25) Authored: Growth Chart Last Updated: 24-Oct-2018 14:25 by Regina Perdue I) Normal [facility] Vital Signs Date Time Vital Sign Value Performing Clinician Facility 12-28-2024 09:130400 Body mass index (BMI) [Ratio] 26.96 kg/m2 [facility] 12-28-2024 09:130400 Body weight 73.48 kg [facility] 12-28-2024 09:13-0400 Diastolic blood pressure 72 mm[Hg] [facility] 12-28-2024 09:130400 Systolic blood pressure 120 mm[Hg] [facility] 10-24-2024 13:43-0400 Body mass index (BMI) [Ratio] 27.26 kg/m2 Bubba Cipriano DO Work Phone: [facility] 10-24-2024 13:43-0400 Body weight 74.3 kg Bubba Cipriano DO Work Phone: [facility] 10-24-2024 13:43-0400 Diastolic blood pressure 78 mm[Hg] Bubba Cipriano DO Work Phone: [facility] 10-24-2024 13:43-0400 Systolic blood pressure 118 mm[Hg] Bubba Cipriano DO Work Phone: [facility] 03-08-2024 10:27-0400 Body temperature 98.7 [degF] [facility] 03-08-2024 10:27-0400 Body weight 68.49 kg [facility] 03-08-2024 10:27-0400 Diastolic blood pressure 88 mm[Hg] [facility] 03-08-2024 10:27-0400 Heart rate 88 /min [facility] 03-08-2024 10:27-0400 SaO2% (BldA) [Mass fraction] 98 % [facility] 03-08-2024 10:27-0400 Systolic blood pressure 130 mm[Hg] [facility] 05-26-2023 16:15-0500 Diastolic blood pressure 75 mm[Hg] Charlie Paredes MD Work Phone: [facility] 05-26-2023 16:15-0500 Heart rate 54 /min Charlie Paredes MD Work Phone: [facility] 05-26-2023 16:15-0500 Respiratory rate 18 /min Charlie Paredes MD Work Phone: [facility] 05-26-2023 16:15-0500 SaO2% (BldA) [Mass fraction] 100 % Charlie Paredes MD Work Phone: [facility] 05-26-2023 16:15-0500 Systolic blood pressure 119 mm[Hg] Charlie Paredes MD Work Phone: [facility] 05-26-2023 15:41-0500 Body temperature 97.7 [degF] Charlie Paredes MD Work Phone: [facility] 05-26-2023 13:27-0500 Body mass index (BMI) [Ratio] 20.8 kg/m2 Charlie Paredes MD Work Phone: [facility] 05-26-2023 13:27-0500 Body weight 56.7 kg Charlie Paredes MD Work Phone: [facility] 04-22-2023 12:59-0500 Body height 165.1 cm Albert Zapata MD Work Phone: [facility] 04-22-2023 12:59-0500 Body weight 61.69 kg Albert Zapata MD Work Phone: [facility] 04-22-2023 12:59-0500 Diastolic blood pressure 72 mm[Hg] Albert Zapata MD Work Phone: [facility] 04-22-2023 12:59-0500 Heart rate 68 /min Albert Zapata MD Work Phone: [facility] 04-22-2023 12:59-0500 Systolic blood pressure 118 mm[Hg] Albert Zapata MD Work Phone: [facility] 02-25-2023 13:30-0400 Body weight 60.78 kg Fernando Wilson Other [facility] Other 02-25-2023 13:30-0400 Diastolic blood pressure 77 mm[Hg] Fernando Wilson Other [facility] Other 02-25-2023 13:30-0400 Systolic blood pressure 117 mm[Hg] Fernando Wilson Other [facility] Other 12-01-2022 13:00-0400 Body height 165.1 cm Imad Asaad Other [facility] Other 12-01-2022 13:00-0400 Body mass index (BMI) [Ratio] 20.13 kg/m2 Imad Asaad Other [facility] Other 12-01-2022 13:00-0400 Body weight 54.89 kg Imad Asaad Other [facility] [employer] Other 12-01-2022 13:00-0400 Diastolic blood pressure 93 mm[Hg] Imad Asaad Other [facility] Other 12-01-2022 13:00-0400 Systolic blood pressure 144 mm[Hg] Imad Asaad Other [facility] Other 10-19-2022 10:18-0400 Diastolic blood pressure 63 mm[Hg] MD Fernando Wilson Work Phone: [facility] 10-19-2022 10:18-0400 Heart rate 66 /min MD Fernando Wilson Work Phone: [facility] 10-19-2022 10:18-0400 Respiratory rate 16 /min MD Fernando Wilson Work Phone: [facility] 10-19-2022 10:18-0400 SaO2% (BldA) [Mass fraction] 99 % MD Fernando Wilson Work Phone: [facility] 10-19-2022 10:18-0400 Systolic blood pressure 108 mm[Hg] MD Fernando Wilson Work Phone: [facility] 10-19-2022 08:40-0400 Body height 165.1 cm MD Fernando Wilson Work Phone: [facility] 10-19-2022 08:40-0400 Body temperature 98.4 [degF] MD Fernando Wilson Work Phone: [facility] 10-19-2022 08:40-0400 Body weight 56.69 kg MD Fernando Wilson Work Phone: [facility] 09-02-2022 16:00-0400 Body height 162.56 cm Fernando Wilson Other [facility] Other 09-02-2022 16:00-0400 Body mass index (BMI) [Ratio] 21.11 kg/m2 Fernando Wilson Other [facility] Other 09-02-2022 16:00-0400 Body weight 55.79 kg Fernando Wilson Other [facility] Other 09-02-2022 16:00-0400 Diastolic blood pressure 64 mm[Hg] Fernando Wilson Other [facility] Other 09-02-2022 16:00-0400 SaO2% (BldA) [Mass fraction] 99 % Fernando Wilson Other [facility] Other 09-02-2022 16:00-0400 Systolic blood pressure 100 mm[Hg] Fernando Wilson Other [facility] Other 06-02-2022 15:30-0500 Body weight 57.15 kg Imad Asaad Other [facility] Other 06-02-2022 15:30-0500 Diastolic blood pressure 68 mm[Hg] Imad Asaad Other [facility] Other 06-02-2022 15:30-0500 Systolic blood pressure 116 mm[Hg] Imad Asaad Other [facility] Other 05-08-2022 17:18-0500 Body temperature 99 [degF] MD Fernando Wilson Work Phone: [facility] 05-08-2022 17:18-0500 Diastolic blood pressure 57 mm[Hg] MD Fernando Wilson Work Phone: [facility] 05-08-2022 17:18-0500 Heart rate 62 /min MD Fernando Wilson Work Phone: [facility] 05-08-2022 17:18-0500 Respiratory rate 16 /min MD Fernando Wilson Work Phone: [facility] 05-08-2022 17:18-0500 SaO2% (BldA) [Mass fraction] 100 % MD Fernando Wilson Work Phone: [facility] 05-08-2022 17:18-0500 Systolic blood pressure 99 mm[Hg] MD Fernando Wilson Work Phone: [facility] 05-08-2022 15:01-0500 Body height 165.1 cm MD Fernando Wilson Work Phone: [facility] 05-08-2022 15:01-0500 Body weight 58.45 kg MD Fernando Wilson Work Phone: [facility] Encounters Encounter Date Encounter Type Care Provider Facility Start: 12-28-2024 End: 12-28-2024 Office outpatient visit 5 minutes Cipriano Nurse [facility] Comment on above: GA: 7w5d Start: 12-28-2024 End: 12-28-2024 ambulatory BUBBA CIPRIANO Not Available Start: 12-02-2024 End: 12-02-2024 [facility] Result Encounter Bubba Cipriano DO Work Phone: [facility] External Department Unsolicited Start: 12-02-2024 End: 12-02-2024 [facility] Result Encounter Bubba Cipriano DO Work Phone: [facility] Unsolicited Start: 11-30-2024 End: 11-30-2024 [facility] Result Encounter Bubba Cipriano DO Work Phone: [facility] Unsolicited Start: 11-30-2024 End: 11-30-2024 [facility] Result Encounter Bubba Browno DO Work Phone: [facility] Unsolicited Start: 10-24-2024 End: 10-24-2024 Postop follow up visit related to original px Bubba Browno DO Work Phone: [facility] Comment on above: Encounter for IUD re moval Start: 10-24-2024 End: 10-24-2024 ambulatory BUBBA BROWNO Not Available Start: 07-12-2024 End: 07-12-2024 Office outpatient visit 15 minutes Charlie Paredes MD Work Phone: [facility] Comment on above: Norovirus (Primary D x); Irritable bowel syndrome with diarrhea Start: 03-08-2024 End: 03-08-2024 ambulatory [facility] Work Phone: Start: 03-08-2024 End: 03-08-2024 Patient encounter procedure [facility] Work Phone: Start: 05-26-2023 End: 05-26-2023 Subsequent hospital visit by physician Charlie Paredes MD Work Phone: [facility] Comment on above: Congenital sucrase-i somaltase deficiency Start: 04-26-2023 End: 04-26-2023 Office outpatient visit 15 minutes Charlie Paredes MD Work Phone: [facility] Comment on above: Congenital sucrase-i somaltase deficiency (Primary Dx); Irritable bowel syndrome with diarrhea; Generalized abdominal pain; Weight loss; Bilious vomiting with nausea Start: 04-22-2023 End: 04-22-2023 ambulatory ALBERT ZAPATA Facility:[facility] Start: 04-22-2023 End: 04-22-2023 Office consultation new/estab patient 60 min Albert Zapata MD Work Phone: Endocrinology Comment on above: Menorrhagia with reg ular cycle (Primary Dx) Start: 04-05-2023 End: 04-05-2023 Office outpatient visit 15 minutes Charlie Paredes MD Work Phone: [facility] [employer] Comment on above: Irritable bowel synd vu with diarrhea (Primary Dx); Generalized abdominal pain; Weight loss; Bilious vomiting with nausea Start: 03-07-2023 End: 03-07-2023 ambulatory Fernando Wilson Other [employer] Other Start: 03-07-2023 Telephone encounter Fernando Wilson [facility] Start: 02-25-2023 End: 02-25-2023 ambulatory Fernando Wilson Other [employer] Other Start: 02-25-2023 Office outpatient vi sit 15 minutes Fernando Wilson [facility] Start: 02-21-2023 End: 02-21-2023 ambulatory Cody Akhtar - [facility] Facility:[facility] Start: 02-21-2023 End: 02-21-2023 ambulatory MD Fernando Wlison Work Phone: [facility] Work Phone: Start: 02-21-2023 End: 02-21-2023 Patient encounter procedure MD Fernando Wilson Work Phone: [facility]Flu Vaccine Start: 12-01-2022 End: 12-01-2022 ambulatory Imad Asaad Other [employer] Other Start: 12-01-2022 Office outpatient vi sit 25 minutes Imad Asaad [facility] Start: 10-19-2022 End: 10-19-2022 ambulatory Imad Asaad Facility:[facility] Start: 10-19-2022 End: 10-19-2022 Admission to same day surgery center MD Fernando Wilson Work Phone: [facility] Work Phone: Start: 10-19-2022 End: 10-19-2022 ambulatory MD Fernando Wilson Work Phone: [facility] Work Phone: Start: 09-09-2022 End: 09-09-2022 ambulatory Imad Asaad Other [employer] Other Start: 09-09-2022 Telephone encounter Imad Asaad [facility] Start: 09-06-2022 End: 09-06-2022 ambulatory Fernando Wilson Other [employer] Other Start: 09-06-2022 Telephone encounter Fernando Wilson [facility] Start: 09-04-2022 End: 09-05-[address] FERNANDO WILSON Facility: Start: 09-03-2022 End: 09-03-2022 ambulatory Fernando Wilson Other [employer] Other Start: 09-03-2022 Telephone encounter Fernando Wilson [facility] Start: 09-02-2022 End: 09-02-2022 ambulatory Fernando Wilson Other [employer] Other Start: 09-02-2022 Office outpatient vi sit 15 minutes Fernando Wilson [facility] Start: 09-02-2022 Telephone encounter Fernando Wilson [facility] Start: 07-21-2022 End: 07-21-2022 ambulatory Imad Asaad Other [employer] Other Start: 07-21-2022 Telephone encounter Imad Asaad [facility] Start: 06-02-2022 End: 06-02-2022 ambulatory Imad Asaad Other [employer] Other Start: 06-02-2022 Office consultation new/estab patient 40 min Imad Asaad [facility] Start: 05-08-2022 End: 05-08-2022 Emergency department patient visit MD Fernando Wilson Work Phone: [facility]Emergency [facility] Start: 04-28-2022 End: 04-29-[address] FERNANDO WILSON Facility:[facility] Start: 04-07-[address] BUBBA COTA . Facili ty:[facility] Start: 03-23-2022 End: 03-24-[address] FERNANDO WILSON Facility:[facility] Start: 12-07-2021 End: 12-07-[address] BUBBA COTA . Facility:[facility] Start: 10-01-2019 Patient encounter procedure Stella Maykel WO-Iqspcuhttz-Vicnvatc-Adm in [facility] 585 Work Phone: Start: 05-29-2018 Patient encounter procedure Stella Maykel TR-Rrjyeohyue-Nxigeabj-Adm in [facility] 585 Work Phone: Start: 05-08-2018 Patient encounter procedure Stella Maykel VI-Hgftispwsl-Wpifjipw-Adm in [facility] 585 Work Phone: Procedures Date Procedure Procedure Detail Performing Clinician Start: 12-28-2024 End: 12-28-2024 Urnls dip stick/tablet rgnt non-auto w/o micrscp Bubba Cipriano DO Work Phone: Start: 12-02-2024 [facility] PREG QUANT HCG Bubba Cipriano DO Work Phone: Start: 11-30-2024 [facility] PREG QUANT HCG Bubba Cipriano DO Work Phone: Start: 10-24-2024 IUD REMOVAL Bubba Cipriano DO Work Phone: Start: 03-08-2024 Quick Strep (POC) [...] 2) Zoste r Vaccines (1 of 2) [facility] Start: 07-24-2033 DTaP/Tdap/Td Vaccine s (8 - Td or Tdap) DTaP/Tdap/Td Vaccines (8 - Td or Tdap) [facility] Start: 01-05-2026 DTaP/Tdap/Td Vaccine s (7 - Td or Tdap) DTaP/Tdap/Td Vaccines (7 - Td or Tdap) [facility] Start: 01-05-2026 Urine microalbumin profile DTaP,Tdap,Td Vaccine (7 - Td or Tdap) [facility] Start: 01-28-2025 End: 01-28-2025 Patient encounter procedure 01/28/2025 9:40 AM EDT Routine [facility] [address] [place] [address] Bubba Cota DO [address] [place], [place] [id number] [facility] Start: 01-21-2025 Influenza vaccination Influenza Vacc ine (#1) [facility] Start: 12-28-2024 End: 12-28-2025 ABO/Rh ABO/Rh Lab Routine Missed menses , unspecified gestational age [facility] Expected: 12/28/2024 (Approximate), Expires: 12/28/2025 [facility] Comment on above: Expected: 12/28/2024 (Approximate), Expires: 12/28/2025 Start: 12-28-2024 End: 12-28-2025 Blood type and Indirect antibody screen panel - Blood Type and screen Lab Routine Missed menses , unspecified gestational age ([facility]) Expected: 12/28/2024 (Approximate), Expires: 12/28/2025 [facility] Comment on above: Expected: 12/28/2024 (Approximate), Expires: 12/28/2025 Start: 12-28-2024 End: 12-28-2025 Drugs of abuse panel - Urine by Screen method Rapid drug screen, urine Lab Routine , unspecified gestational age ([facility]) Encounter for supervision of normal first in first trimester ([facility]) Expected: 12/28/2024 (Approximate), Expires: 12/28/2025 [facility] Comment on above: Expected: 12/28/2024 (Approximate), Expires: 12/28/2025 Start: 12-28-2024 End: 12-28-2024 ambulatory 12/28/2024 9:00 AM EDT Initial [facility] [address] [place] [id number] [facility] Start: 12-28-2024 End: 12-28-2024 Professional / ancillary services management 12/28/2024 8:00 AM EDT Ancillary Procedure [facility] [address] [place] [address] [facility] OB Start: 12-20-2024 End: 03-22-2025 US Pelvis transvaginal US OB transvaginal Imaging Routine Missed menses Positive urine test ([facility]) Expected: 12/20/2024, Expires: 03/22/2025 [facility] Work Phone: Comment on above: Expected: 12/20/2024 , Expires: 03/22/2025 Start: 2024 Screening for malign ant neoplasm of cervix [facility] Start: 01-22-2024 COVID-19 Vaccine () COVID-19 Vaccine () [facility] Start: 05-24-2023 End: 05-24-2023 Telemedicine consultation with patient 05/24/2023 8:00 AM EST Telemedicine [facility] [employer] [facility] [address] [facility] [address] [place] [address] Charlie Paredes MD [address] [address] [facility] 2 Start: 04-22-2023 End: 07-22-2023 Prolactin [Mass/volume] in Serum or Plasma PROLACTIN BLD Lab Routine Menorrhagia with regular cycle Expected: 04/22/2023, Expires: 07/22/2023 [facility] Work Phone: Comment on above: Expected: 04/22/2023 , Expires: 07/22/2023 Start: 04-22-2023 End: 07-22-2023 Thyrotropin [Units/volume] in Serum or Plasma TSH BLD Lab Routine Menorrhagia with regular cycle Expected: 04/22/2023, Expires: 07/22/2023 [facility] Work Phone: Comment on above: Expected: 04/22/2023 , Expires: 07/22/2023 Start: 01-21-2023 Covid-19 Vaccine (2022-24 season) Covid-19 Vaccine (2022-24 season) [facility] Start: 10-19-2022 [facility] Start: 05-23-2022 Depression Assessment Depression Ass essment [facility] Start: 07-12-2021 Hepatitis A Vaccines (2 of 2 - 2-dose series) Hepatitis A Vaccines (2 of 2 - 2-dose series) [facility] Start: 07-12-2021 HPV Vaccine (3 - 3-d ose series) HPV Vaccine (3 - 3-dose series) [facility] Start: 07-12-2021 HPV Vaccines (3 - 3- dose series) HPV Vaccines (3 - 3-dose series) [facility] Start: 2021 Chlamydia Screening (18-24) Chlamydia Screening (18-24) [facility] Start: 2021 GC (Gonorrhea) Scree lemuel (18-24) GC (Gonorrhea) Screening (18-24) [facility] Start: 2021 Hepatitis C screening Hepatitis C [facility] Start: 2021 Hepatitis C Screening Hepatitis C [facility] Start: 2021 HIV Screening HIV Screening [facility] Start: 08-20-2020 COVID-19 Vaccine (3 - Pfizer series) COVID-19 Vaccine (3 - Pfizer series) [facility] Start: 2017 Peds To Adult Transi tion Annual Assessment Peds To Adult Transition Annual Assessment [facility] Start: 2015 Peds To Adult Transi tion Initial Discussion Peds To Adult Transition Initial Discussion [facility] Start: 2007 Hearing Screening (#1) Hearing Scree lemuel (#1) [facility] Start: 2006 Well Child Visit (WC V) - Annual Well Child Visit (WCV) - Annual [facility] Start: 2003 Hearing Screening (#1) Hearing Scree lemuel (#1) [facility] Start: 2003 HIV screening HIV Screening [facility] Start: 2003 Lipid panel Lipid Panel [facility] Start: 2003 Yearly Adult Physical Yearly Adult P hysical [facility] Bacteria identified in Urine by Culture Urine culture Microbiology Routine Missed menses Ordered: 12/28/2024 [facility] Comment on above: Ordered: 12/28/2024 CBC W Auto Different ial panel - Blood CBC and differential Lab Routine Missed menses , unspecified gestational age ([facility]) Ordered: 12/28/2024 [facility] Comment on above: Ordered: 12/28/2024 Disaccharidases pane l - Small intestine Tissue [facility] Work Phone: Comment on above: Release Upon Ludyin g for 1 Occurrences starting 05/26/2023 Hemoglobin A1c/Hemoglobin.total in Blood Hemoglobin A1c Lab Routine Missed menses , unspecified gestational age ([facility]) Ordered: 12/28/2024 [facility] Comment on above: Ordered: 12/28/2024 Hepatitis B virus ramírez rface Ag [Presence] in Serum or Plasma by Immunoassay Hepatitis B surface antigen Lab Routine Missed menses , unspecified gestational age ([facility]) Ordered: 12/28/2024 [facility] Comment on above: Ordered: 12/28/2024 Hepatitis C virus Ab [Presence] in Serum or Plasma by Immunoassay Hepatitis C antibody Lab Routine Missed menses , unspecified gestational age ([facility]) Ordered: 12/28/2024 [facility] Comment on above: Ordered: 12/28/2024 HIV-1/HIV-2 antigen/antibody combination immunoassay HIV-1 and HIV-2 antibodies Lab Routine Missed menses , unspecified gestational age ([facility]) Ordered: 12/28/2024 [facility] Comment on above: Ordered: 12/28/2024 End: 05-26-2023 Moderate Sedation Moderate Sedation Procedures Routine Once for 1 Occurrences starting 05/26/2023 until 05/26/2023 [facility] Service Area Work Phone: Comment on above: Once for 1 Occurrenc es starting 05/26/2023 until 05/26/2023 Patient Education [facility] Work Phone: Patient referral [facility] Work Phone: Reagin Ab [Presence] in Serum by RPR RPR Lab Routine Missed menses , unspecified gestational age ([facility]) Ordered: 12/28/2024 [facility] Comment on above: Ordered: 12/28/2024 Rubella antibody, IgG Rubella an tibody, IgG Lab Routine Missed menses , unspecified gestational age ([facility]) Ordered: 12/28/2024 [facility] Comment on above: Ordered: 12/28/2024 US Pelvis transvaginal US OB tra nsvaginal Imaging Routine Missed menses Positive urine test ([facility]) 12/28/2024 8:43 AM EDT [facility] Immunizations Immunization Date Immunization Notes Care Provider Marce waters 02-16-2024 influenza virus vacc ine, unspecified formulation Bubba Cota DO Work Phone: [facility] 02-21-2023 influenza, injectabl e, quadrivalent, preservative free Charlie Paredes MD Work Phone: [facility] Work Phone: 03-11-2021 Human Papillomavirus 9-valent vaccine Charlie Paredes MD Work Phone: [facility] Work Phone: 03-11-2021 meningococcal B vacc ine, recombinant, OMV, adjuvanted Charlie Paredes MD Work Phone: [facility] Work Phone: 03-11-2021 HPV, unspecified formulation Charlie Paredes MD Work Phone: [facility] Work Phone: 01-09-2021 hepatitis A vaccine, pediatric/adolescent dosage, 2 dose schedule Charlie Paredes MD Work Phone: [facility] Work Phone: 01-09-2021 Human Papillomavirus 9-valent vaccine Charlie Paredes MD Work Phone: [facility] Work Phone: 01-09-2021 meningococcal B vacc ine, recombinant, OMV, adjuvanted Charlie Paredes MD Work Phone: [facility] Work Phone: 01-09-2021 meningococcal oligosaccharide (groups A, C, Y and W-135) diphtheria toxoid conjugate vaccine (MCV4O) Charlie Paredes MD Work Phone: [facility] Work Phone: 01-09-2021 hepatitis A and hepa titis B vaccine Charlie Paredes MD Work Phone: [facility] Work Phone: 06-25-2020 Pfizer Purple Cap SARS-CoV-2 Charlie Paredes MD Work Phone: [facility] 06-04-2020 Pfizer Purple Cap SARS-CoV-2 Charlie Paredes MD Work Phone: [facility] Work Phone: 01-06-2016 meningococcal polysaccharide (groups A, C, Y and W-135) diphtheria toxoid conjugate vaccine (MCV4P) Charlie Paredes MD Work Phone: [facility] Work Phone: 01-06-2016 tetanus toxoid, redu abdifatah diphtheria toxoid, and acellular pertussis vaccine, adsorbed Charlie Paredes MD Work Phone: [facility] Work Phone: 08-08-2008 diphtheria, tetanus toxoids and acellular pertussis vaccine, unspecified formulation Charlie Paredes MD Work Phone: [facility] Work Phone: 08-08-2008 measles, mumps and rubella virus vaccine Charlie Paredes MD Work Phone: [facility] Work Phone: 08-08-2008 poliovirus vaccine, inactivated Charlie Paredes MD Work Phone: [facility] Work Phone: 08-08-2008 varicella virus vaccine Charlie Paredes MD Work Phone: [facility] Work Phone: 04-30-2005 diphtheria, tetanus toxoids and acellular pertussis vaccine, unspecified formulation Charlie Paredes MD Work Phone: [facility] Work Phone: 04-30-2005 hepatitis B vaccine, pediatric or pediatric/adolescent dosage Charlie Paredes MD Work Phone: [facility] Work Phone: 04-30-2005 pneumococcal conjuga te vaccine, 7 valent Charlie Paredes MD Work Phone: [facility] Work Phone: 04-30-2005 poliovirus vaccine, inactivated Charlie Paredes MD Work Phone: [facility] Work Phone: 07-03-2004 haemophilus influenz ae type b vaccine, conjugate unspecified formulation Charlie Paredes MD Work Phone: [facility] Work Phone: 07-03-2004 measles, mumps and rubella virus vaccine Charlie Paredes MD Work Phone: [facility] Work Phone: 07-03-2004 pneumococcal conjuga te vaccine, 7 valent Charlie Paredes MD Work Phone: [facility] Work Phone: 07-03-2004 varicella virus vaccine Charlie Paredes MD Work Phone: [facility] Work Phone: 03-12-2004 pneumococcal conjuga te vaccine, 7 valent Charlie Paredes MD Work Phone: [facility] Work Phone: 2003 diphtheria, tetanus toxoids and acellular pertussis vaccine Charlie Paredes MD Work Phone: [facility] Work Phone: 2003 haemophilus influenz ae type b vaccine, PRP-T conjugate Charlie Paredes MD Work Phone: [facility] Work Phone: 2003 poliovirus vaccine, inactivated Charlie Paredes MD Work Phone: [facility] Work Phone: 2003 diphtheria, tetanus toxoids and acellular pertussis vaccine Charlie Paredes MD Work Phone: [facility] Work Phone: 2003 haemophilus influenz ae type b conjugate and Hepatitis B vaccine Charlie Paredes MD Work Phone: [facility] Work Phone: 2003 poliovirus vaccine, inactivated Charlie Paredes MD Work Phone: [facility] Work Phone: 2003 diphtheria, tetanus toxoids and acellular pertussis vaccine, unspecified formulation Charlie Paredes MD Work Phone: [facility] Work Phone: 2003 haemophilus influenz ae type b vaccine, conjugate unspecified formulation Charlie Paredes MD Work Phone: [facility] Work Phone: 2003 hepatitis B vaccine, pediatric or pediatric/adolescent dosage Charlie Paredes MD Work Phone: [facility] Work Phone: 2003 pneumococcal conjuga te vaccine, 7 valent Charlie Paredes MD Work Phone: [facility] Work Phone: 2003 poliovirus vaccine, unspecified formulation Charlie Paredes MD Work Phone: [facility] Work Phone: 2003 hepatitis B vaccine, pediatric or pediatric/adolescent dosage Charlie Paredes MD Work Phone: [facility] Work Phone: Payers Date Payer Category Payer Private Health Insurance [employer] [id number] 2021 Managed Care (Private) [facility] [id number] 2020 [facility] [id number] 2020 [facility] Managed Care [facility] [id number] 2020 Unknown [id number] 2003 Unknown [id number] [id number] 2003 Unknown [id number] 593 2003 Unknown [id number] 593 2003 Unknown [id number] 593 2003 Unknown [id number] 593 2003 Unknown [id number] 593 2003 Unknown [id number]. 1259 2003 Unknown [id number]. 1259 2003 Unknown [id number] 1259 1959 Self-pay [id number] 1959 Unknown [id number] 1959 Unknown [id number] Unknown [facility] [id number] Unknown [id number] Unknown [id number] Unknown [id number] Social History Date Type Detail Facility Start: 05-08-2022 End: 11-03-2022 Tobacco smoking status NHIS Never smoked tobacco (finding) [facility] Start: 2003 Sex Assigned At Female F [facility] Start: 04-22-2023 End: 10-24-2024 Sex Assigned At [facility] Other Start: 03-04-2023 Tobacco smoking status NHIS Tobacco smoking consumption unknown [facility] Work Phone: Start: 04-05-2023 Gender identity Identifies as female gender (finding) [facility] Work Phone: Start: 04-05-2023 Sexual orientation Heterosexual (fin ding) [facility] Work Phone: Start: 02-25-2023 End: 05-26-2023 Exposure to SARS-CoV-2 (event) Not sure [facility] Start: 04-22-2023 Tobacco use and exposure Smokeless tobacco non-user [facility] Start: 04-22-2023 End: 12-28-2024 Alcohol intake Lifetime non-drinker (finding) [facility] Start: 04-22-2023 End: 10-24-2024 History of Social function [facility] National Score (1-100), lower number is lower risk 78 [facility] Start: 2003 Sex Assigned At Not on file [facility] Start: 11-18-2024 [facility] NEGATED: Highlighted row - - DA-Irdndpknnh-Flyzto o g-Admin [facility] Work Phone: Goals Date Patient Goal Desired Activity /State Functional Status Date Assessment Result Facility NEGATED: Highlighted row Functional performance Functional status health issues are not documented Disease CO-Acohpzgrpi-Izqou log-Admin [facility] Work Phone: Mental Status Date Assessment Result Facility NEGATED: Highlighted row Cognitive function [Interpretation] Cognitive status health issues are not documented Disease XT-Xnzyzmebof-Debnk log-Admin [facility] Work Phone: Clinical Notes 06-02-2022 to 12-28-2024 Chantell Pillai MA - 12/28/2024 9:00 AM Jamir Angelo LPN - 10/24/2024 1:30 PM Virgil Paredes MD - 07/12/2024 3:00 PM ESTPerioperative Nursing Note - Le Dias RN - 05/26/2023 4:00 PM EST Note Date & Type Note Facility 12-28-2024 History of Present illness Narrative Reason for Appointment: Patient ID: Manpreet Fraire [...] list which includes the following prescription(s): dicyclomine, emdtzilh-wfd-fg-fa, and ondansetron odt. Medical History: Active Ambulatory Problems Diagnosis Date Noted Positive urine test ([facility]) 11/30/2024 MTHFR gene mutation 08/24/2018 IBS (irritable bowel syndrome) 06/01/2016 MTHFR (methylene THF reductase) deficiency and homocystinuria 12/20/2024 Moderate episode of recurrent major depressive disorder (HCC) 08/11/2021 Encounter for supervision of normal first in first trimester ([facility]) 12/28/2024 Resolved Ambulatory Problems Diagnosis Date Noted [...] Vitals: Estimated body mass index is 26.96 kg/m as calculated from the following: Height as of 06/13/23: 5' 5 . Weight as of this encounter: 162 lb. BP: 120/72 No LMP recorded. Patient is . Assessment/Plan Diagnoses and all orders for this visit: First trimester ([facility]) 7 weeks gestation of ([facility]) Missed menses - US OB transvaginal; Future - Type and screen; Future - ABO/Rh; Future - CBC and differential - Hemoglobin A1c - RPR - Rubella antibody, IgG - Hepatitis B surface antigen - Hepatitis C antibody - HIV-1 and HIV-2 antibodies - Urine culture - POCT , urine manually resulted - POCT urinalysis dipstick manually resulted Positive urine test ([facility]) - OB transvaginal; Future Amenorrhea , unspecified gestational age ([facility]) - Type and screen; Future - ABO/Rh; Future - CBC and differential - Hemoglobin A1c - RPR - Rubella antibody, IgG - Hepatitis B surface antigen - Hepatitis C antibody - HIV-1 and HIV-2 antibodies - Rapid drug screen, urine; Future Encounter for supervision of normal first in first trimester ([facility]) - Rapid drug screen, urine; Future MTHFR gene mutation Irritable bowel syndrome, unspecified type Nurse Note: Pt unsure about doing [facility] [employer] to one. Pt was advised if she desires [facility] to make sure labs are done at [...] drink 6-8 glasses of water a day, eat no raw or undercooked meat, and stay away from [facility]. Patient has also been advised to not change litter boxes and eat 6 small meals a day. Patient has been consulted regarding the do's and don'ts of . Patient was given labs and all questions [...] Chantell Pillai MA documented in this encounter [facility] 10-24-2024 History of Present illness Narrative Associated [...] nursing note reviewed. Exam conducted with a service center manager present. Vitals: Estimated body mass index is [...] given: yes Instructions and paperwork completed: yes [place] protocol: Patient states understanding of procedure being [...] Bubba Cota DO documented in this encounter [facility] 07-12-2024 History of Present illness Narrative Subjective [...] perception normal. Behavior: Behavior normal. Assessment/Plan Manpreet Frarie is a 19 y.o. female who presents [...] Charlie Paredes MD documented in this encounter [facility] Work Phone: 05-26-2023 Miscellaneous Notes Home going instructions reviewed and discussed, pt and family verbalize understanding. Educated on anesthesia safety. Tolerated fluids well documented in this encounter [facility] Work Phone: 05-26-2023 Note Formatting of this n ote might be different from the original. Home going instructions reviewed and discussed, pt and family verbalize understanding. Educated on anesthesia safety. Tolerated fluids well [facility] 05-26-2023 Note Formatting of this n ote might be different from the original. Home going instructions reviewed and discussed, pt and family verbalize understanding. Educated on anesthesia safety. Tolerated fluids well [facility] 05-26-2023 Hospital Discharge instructions Charlie Paredes [...] having your procedure, call the [facility] to be advised whether a visit to [...] discharge from the GI Lab, please call: [phone] documented in this encounter [facility] Work Phone: 05-26-2023 History and physical note Procedure H&P Patient Profile-Procedures Name Manpreet Fraire Date of 2005 [address] [place], [place] [id number] [facility] [address] Primary Secondary Phone Number Fernando Hensley Procedure(s): Procedures: EGD Primary contact name and number Extended Emergency Contact Information Primary Emergency Contact: Devika Fraire Relation: Parent Secondary Emergency Contact: Jovan Alvarez Address: [address] [place] [address] Mobile Relation: [facility] Weight Vitals: [...] Paredes MD ergocalciferol (Vitamin D-2) 1.25 MG (89311 UT) capsule Take by mouth. 05/22/18 05/26/23 [...] met Charlie Paredes MD 05/26/2023 2:25 PM [facility] Work Phone: 05-26-2023 History and physical note Procedure H&P Patient Profile-Procedures Name Manpreet Fraire Date of 2005 [address] [place] [id number] [place] [id number] Primary Secondary Phone Number Fernando Hensley Procedure(s): Procedures: EGD Primary contact name and number Extended Emergency Contact Information Primary Emergency Contact: Devika Fraire Relation: Parent Secondary Emergency Contact: Jovan Alvarez Address: [address] [place] [address] Mobile Relation: [facility] Weight Vitals: [...] Paredes MD ergocalciferol (Vitamin D-2) 1.25 MG (20262 UT) capsule Take by mouth. 05/22/18 05/26/23 [...] 05/26/2023 2:25 PM documented in this encounter [facility] Work Phone: 04-26-2023 History of Present [...] capsule oral ergocalciferol (Vitamin D-2) 1.25 MG (16371 UT) capsule oral ondansetron ODT (ZOFRAN-ODT) 4 [...] Charlie Paredes MD documented in this encounter [facility] Work Phone: 04-22-2023 Note HNO ID: [id number] Author: Albert Zapata MD Service: ? Author Type: Physician Type: Progress Notes Filed: 04/25/2023 10:37 AM Note Text: ENDOCRINOLOGY REASON FOR CONSULTATION: Menorrhagia HISTORY The patient is referred by Dr. Bubba Cota from [facility]. . My recommendations will be sent to [...] which included preparing to see the patient, seeo-un-btwe patient care, completing clinical documentation, obtaining and/or reviewing separately obtained history, performing a medically appropriate examination, counseling and educating the patient/family/caregiver, and ordering medications, tests, or procedures. Return to office: GOLDIE Zapata MD c.c. Dr. Bubba Cota [facility] 04-22-2023 History of Present illness Narrative ENDOCRINOLOGY REASON FOR CONSULTATION: Menorrhagia HISTORY The patient is referred by Dr. Bubba Cota from [facility]. . My recommendations will be sent to [...] which included preparing to see the patient, ioxc-be-duel patient care, completing clinical documentation, obtaining and/or reviewing separately obtained history, performing a medically appropriate examination, counseling and educating the patient/family/caregiver, and ordering medications, tests, or procedures. Return to office: GOLDIE Zpaata MD c.c. Dr. Bubba Cota documented in this encounter [facility] 04-05-2023 History of Present illness Narrative Subjective [...] following up with her GI team in [place], and has undergone extensive GI work-up including [...] capsule oral ergocalciferol (Vitamin D-2) 1.25 MG (61135 UT) capsule oral ondansetron ODT (ZOFRAN-ODT) 4 [...] Charlie Paredes MD documented in this encounter [facility] Work Phone: 03-07-2023 Evaluation note Encounter Date Diagnosis Assessment Notes Feb, RUQ abdominal pain (ICD-10 - R10.11) [facility] Other 10-06-2023 Evaluation note* Encounter Date Diagnosis Assessment Notes Treatment Notes Treatment Clinical Notes Feb, RUQ pain (ICD-10 - R10.11) Manpreet has had multiple labs, imaging and now GI tests. States she is seeing GI at for second opinion on 03/07. Offered GBUS, but she doesn't exactly fit the profile for gall stones. Will obtain HIDA at [facility] - discussed w pt and her mother. [facility] Other 07-12-2023 Evaluation note* Encounter Date Diagnosis Assessment Notes Treatment Notes Treatment Clinical Notes Nov, Nausea (ICD-10 - R11.0) Nov, Weight loss (ICD-10 - R63.4) Nov, Abdominal pain (ICD-10 - R10.9) Nov, Diarrhea (ICD-10 - R19.7) Patient may use imodium as needed [facility] Encounter Date Diagnosis Assessment Notes Treatment Notes Treatment Clinical Notes Aug, Situational anxiety (ICD-10 - F41.8) [facility] Other 04-13-2023 Evaluation note* Encounter Date Diagnosis [...] should keep follow-up appointment with Dr. Fernandez. [facility] Other 01-11-2023 Evaluation note* Encounter Date Diagnosis Assessment Notes Treatment Notes Treatment Clinical Notes May, Nausea (ICD-10 - R11.0) May, Abdominal pain (ICD-10 - R10.9) PATIENT TO CONTINUE ON BENTYL 20MG NEEDED May, Weight loss (ICD-10 - R63.4) PATIENT TO CALL IF SYMPTOMS WORSEN. [facility] Other Evaluation noteNo assessment information [facility] Work Phone: Evaluation noteNo InformationN[facility]UP[facility] [employer] Other Evalukdmna note* Diagnosis Irritable bowel syndrome with diarrhea- Primary Irritable bowel syndrome Generalized abdominal pain Abdominal pain, generalized Weight loss Loss of weight Bilious vomiting with nausea documented in this encounter [facility] Work Phone: Evaluation note* Diagnosis Menorrhagia with regular cycle- Primary Excessive or frequent menstruation 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 Irritable bowel syndrome Generalized abdominal pain Abdominal pain, generalized Weight loss Loss of weight Bilious vomiting with nausea documented in this encounter [facility] Work Phone: Evaluation note* Diagnosis Congenital sucrase-isomaltase deficiency documented in this encounter [facility] Work Phone: Evaluation note* Diagnosis Congenital sucrase-isomaltase deficiency documented in this encounter [facility] Work Phone: Evaluation note* Diagnosis Norovirus- Primary Intestinal infection, enteritis due to Brandeis virus Irritable bowel syndrome with diarrhea Irritable bowel syndrome documented in this encounter [facility] Work Phone: Evaluation note* Diagnosis Encounter for IUD removal [facility] Diagnosis First trimester ([facility]-H[facility]) state, incidental 7 weeks gestation of ([facility]HS-HCC) Missed menses Positive urine test ([facility]) Amenorrhea Absence of menstruation , unspecified gestational age ([facility]) Encounter for supervision of normal first in first trimester ([facility]) MTHFR gene mutation Irritable bowel syndrome, unspecified type documented [facility] this [facility] Author Lisa Fernandez [facility] October 19, 2022 9:28am Note Date/Time October 19, 2022 9:28a m [facility] [address] [place] [address] Gastroenterology H&P Signed Patient: Manpreet Fraire MR#: [id number] : 2005 Acct:[id number] Age/Sex: 17 / F Adm Date: 3 Loc: Room: Type: [facility] Attending Dr: Lisa Fernandez MD Copies [...] Fernandez M.D. Documented By: Lisa Fernandez MD 10/19/22 0927 Signed By: <Electronically signed by Lisa Fernandez MD> 10/19/22 0928 [facility] Work Phone: History general Narrative - Reported* Type Description Date Medical History persistent coughing Medical History wheezing 2005 Surgical History tubes in ears [facility] Other History general Narrative - Reported* Type Description Date Medical History persistent coughing Medical History wheezing 2004 Medical History IBS (irritable bowel syndrome) Medical History MTHFR gene mutation Medical History ROZ (generalized anxiety disorde r) Surgical History tubes in ears Surgical History MYRINGOTOMY WITH TUBE PLACEMENT Hospitalization History SEE SURGICAL HX [facility] Other Hospital Discharge instructions Additional Instructions DISCHARGE [...] -Follow up with PCP. - Office number [phone]. [facility] Work Phone: Family History No [...] sister Allergy Unknown Summary Purpose Advance Directives No Advanced Directives [...] TRANSORAL BIOPSY SINGLE/MULTIPLE Charlie Paredes MD [address] [place] [address] Referral ID Status Reason Start Date Expiration Date V isits Requested Visits Authorized [id number] Authorized 05/02/2023 05/01/2024 1 1 Additional Source Comments INFORMATION SOURCE (unrecogn ized section and content) DATE CREATED AUTHOR 10/06/2019 [facility] DATE CREATED AUTHOR AUTHOR'S ORGANIZ ATION 12/13/2019 [facility] DATE CREATED AUTHOR AUTHOR'S ORGANIZ ATION 09/09/2022 [facility] DATE CREATED AUTHOR AUTHOR'S ORGANIZ ATION 04/25/2023 [facility] DATE CREATED AUTHOR AUTHOR'S ORGANIZ ATION 09/08/2023 [facility] DATE CREATED AUTHOR AUTHOR'S ORGANIZ ATION 12/31/2024 [facility] EPIC Care Teams (unrecognized sec [...] Primary Care Provider Active Cody Akhtar DO [facility] Attending Provider Active Information Assurance Engineer Relationship Specialty [place] [address] [place] [address] [place] [address] PCP - General 06/25/19 Information Assurance Engineer Relationship Specialty Start Date End Date Bubba Cota DO [address] [place] [address] [address] [place], [place] [id number] Referring DIRECTOR SURGICAL 02/04/23 Information Assurance Engineer Relationship Specialty Start Date End Date Fernando Wilson MD PCP - General 06/25/19 Information Assurance Engineer Relationship Specialty Start Date End Date Fernando Wilson MD [address] [place] [address] PCP - General 06/25/19 Information Assurance Engineer Relationship Specialty Start Date End Date Fernando Wilson MD [address] [place] [address] PCP - General 06/25/19 Team Status: Inactive Member Role Status Dates Fernando Wilson MD Primary Care Provider Active Start: March 08, 2024 End: March 08, 2024 Cristina Lara APRN Attending Provider Active Start: March 08, 2024 End: March 08, 2024 Information Assurance Engineer Relationship Specialty Start Date End Date Fernando Wilson MD [address] [place] [address] PCP - General 06/25/19 Information Assurance Engineer Relationship Specialty Start Date End Date Fernando Wilson MD [address] [place] [address] PCP - General Family Medicine 11/04/22 Information Assurance Engineer Relationship Specialty Start Date End Date Fernando Wilson MD [address] [place] [address] PCP - General Family Medicine 11/04/22 Information Assurance Engineer Relationship Specialty Start Date End Date Fernando Wilson MD [address] [place] [address] PCP - General Family Medicine 11/04/22 Goals [...] TRANSORAL BIOPSY SINGLE/MULTIPLE Charlie Paredes MD [address] [address] Referral ID Status Reason Start Date Expiration Date V isits Requested Visits Authorized [id number] Authorized 05/02/2023 05/01/2024 1 1 Reason Comments mirena removal Reason Comments Amenorrhea Source Comments (unrecognize d section and content) In the event this informatio n is protected by the Federal Confidentiality of Alcohol and Drug Abuse Patient Records regulations: The Federal rules restrict any use of the information to criminally investigate or prosecute any alcohol or drug abuse patient.[facility] FOR RECORDS PERTAINING TO PATIENTS WHO ARE [...] BE BASED ON THE PRIMARY CLINICAL RECORDS. [facility]. provides no warranty or guarantee of the accuracy or completeness of information in this document.
[2025-01-09 10:12] LABS: Hematocrit 39.9 % (36.0-48.0); Hemoglobin 13.6 g/dL (12.0-16.0); Immature Granulocytes Abs Auto 0.01 10^3/uL (0.00-0.03); Immature Granulocytes Pct Auto 0.2 % (0.0-0.5); Lymphocytes Absolute Auto 1.1 10^3/uL (1.2-3.8); Mean Corpuscular HGB Conc 34.1 g/dL (29.9-35.2); Mean Corpuscular Hemoglobin 30.5 pg (26.7-34.0); Mean Corpuscular Volume 89.5 fL (81.0-99.0); Platelet Count 200 10^3/uL (150-450); Red Blood Count 4.46 10^6/uL (4.20-5.40); White Blood Count 6.4 10^3/uL (4.0-11.0)
[2025-01-09 11:47] LABS: Cannabinoid Screen Urine NEGATIVE (NEGATIVE); Methamphetamines Screen Urine NEGATIVE (NEGATIVE); Tricyclic Antidepressant Urine NEGATIVE (NEGATIVE)
[2025-01-10 08:09] LABS: Rubella Antibodies, IgG 2.92 index (Immune >0.99)
[2025-01-10 12:09] LABS: Rapid Plasma Reagin, Quant Non Reactive titer (NonRea<1:1)
== END 2025-01-09 08:30 | disposition home or self-care (01) ==
LOC: LAB 08:30
PROVIDERS: PCP Family Medicine; Visit Provider Obstetrics & Gynecology
DX: Z34.01 Encounter for supervision of normal first pregnancy, first trimester (principal); N92.6 Irregular menstruation, unspecified
CPT/HCPCS: 36415; 80307; 83036; 85025; 86592; 86762; 86803; 86850; 86900; 86901; 87086; 87340; 87389

== ENCOUNTER 2025-01-14 11:10 | Outpatient (OUT) | payer OTHER, BC, SELFPAY ==
--- NOTE | 2025-01-14 11:17 | US_ITS ---
The [address] [address] Patient Name: BRADLEY MASSEY MRN: [id number] date: 2005 Sex: F Assigned Patient Location: [facility] Current Patient Location: [facility] Accession/Order Number: [id number] Exam Date: 01/14/2025 11:27 Report Date: 01/14/2025 12:26 At the request of: RADHA YAN DO Procedure: US OB transvaginal ULTRASOUND OB TRANSVAGINAL CLINICAL DATA: Positive test COMPARISON: None Transvaginal imaging of the pelvis was performed. A gestational sac is present within the uterus. A pole is present. The crown-rump length measurement of 2.0 cm correlates with an ultrasound age of 8 weeks 4 days. The estimated date of delivery is 08/20/2025. cardiac activity was not documented. No yolk sac was seen. The cervix is closed and measures approximately 3.8 cm in length. Both ovaries are seen. The right measures 2.3 x 1.8 x 1.5 cm. The left ovary measures 3.8 x 1.7 x 2.3 cm. There is documentation of ovarian blood flow. Small follicles are present. No dominant adnexal cysts are seen. There is no free fluid. US/US OB transvaginal IMPRESSION: INTRAUTERINE AT 8 WEEKS 4 DAYS. NO DOCUMENTATION OF CARDIAC ACTIVITY. DEMISE IS POSSIBLE. CORRELATION WITH BETA-HCG AND FOLLOW-UP WILL BE NEEDED. Impression dictated by: Enid Tripp M.D. 01/14/2025 12:26 PM Dictation [facility] Electronically authenticated by: [id number] Y Date: 01/14/2025 12:26
--- OUTSIDE RECORDS SUMMARY | 2025-01-14 11:23 | XMS_ITS | CCD ---
Author Organization [facility] Care Team Providers Care Equipment Service Lead Name Role Phone Stella Barr Unavailable Unavailable Juan CLe Unavailable Unavailable Yokasta Wiggins Unavailable Unavailable MD Fernando Wilson Primary Care Provider EMMANUELLE Ramos Emergency Provider [phone] Lisa Fernandez Unavailable Fernando Wilson Unavailable CIPRIANO [...] Unavailable MD Fernando Wilson Primary Care Provider [phone] MD Lisa Fernandez Attending Provider [phone] MD Fernando Wilson Primary Care Provider DO Cody Akhtar Attending Provider [phone] Fernando Wilson MD Primary Care Provider Bubba Cota DO Unavailable ALBERT ZAPATA Attending Carlos Wilson MD, Fernando Wheeler Primary Care Provider Fernando Wilson MD Primary Care Provider Asaad, Imad Admitting Unavailable Fernando Wilson Primary Care Unavailable Asaad, Imad Attending Unavailable [facility] Attending Unavailable Giovana [facility] Admitting Unavailable Fernando Wilson Primary Care Unavailable Fernando Wilson MD Primary Care Provider Fernando Wilson MD Primary Care Provider [phone] BUBBA COTA Attending Unavailable Medications Current Medications [...] 12:00am dicyclomine hydrochloride 10 mg oral capsule (18 sources) Anticholinergic Start: 05-17-2024 dicyclomine (Bentyl) 10 [...] needed for 30 days Nov, Active levonorgestrel 0.902769 mg/hr intrauterine system (2 sources) Progestin, Progestin-containing [...] 04/26/2022 Active take 1 tablet by fernandez once daily as needed Ondansetron HCl 4 MG 1 tablet Orally Once a day as needed for 30 days Active Comment on above: TAKE 1 TABLET (4 MG) BY MOUTH EVERY 8 HOURS IF NEEDED FOR NAUSEA OR VOMITING. polyethylene glycol 3350 663240 mg / potassium chloride 2970 mg / sodium bicarbonate 6740 mg / sodium chloride 5860 mg / sodium sulfate 11754 mg powder for oral solution (1 source) Osmotic Laxative PEG-3350/Electr olytes 236 GM as directed Orally ONCE DAILY for 1 days Active Witmxshw-Icv-Fk-FA ( 1 + IRON PO) (3 sources) Start: Mornpgwz-Xpc-Jh-FA ( 1 + IRON PO) 09/20/2024 Active rifAXIMin 550 mg oral tablet (1 source) Rifamycin Antibacterial Start: End: take 1 tablet by mouth three times daily rifAXIMin (Xifaxan) 550 mg tablet Indications: diarrhea predominant irritable bowel syndrome Take 1 tablet (550 mg) by mouth 3 times a day for 14 days. 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 Take before meals. Do all this for 40 doses. 40 tablet 01/04/2025 01/14/2025 Active Completed/Discontinued Medications Medication Drug Class(es) Dates [...] End: 05-26-2023 ergocalciferol (Vitamin D-2) 1.25 MG (71970 UT) capsule Take by mouth. 0 05/22/2018 05/26/2023 Discontinued (Therapy completed) Start: 05-22-2018 take 1 capsule by mo [facility] every week Vitamin D (Ergocalciferol) 1.25 MG (99236 UT) Oral Capsule TAKE 1 CAPSULE WEEKLY [...] infection (1 source) Viral gastroenteritis due to Dupont-like agent; Translations: [Acute gastroenteropathy due to Dupont agent] 07-12-2024 Episodic Menstrual disorders (3 sources) Menorrhagia; Translations: [Excessive and frequent menstruation with regular cycle] 04-22-2023 Chronic Mood disorders (8 sources) Depressive disorder; Translations: [Depression] Onset: 0 [...] Chronic Other nutritional; endocrine; and metabolic disorders (8 sources) Methylene THF reductase deficiency AND homocystinuria; 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] Onset: 3 Resolved: 4 03-04-2023 Chronic Other nutritional; endocrine; and metabolic disorders (12 sources) Weight loss; Translations: [Abnormal weight loss] 04-05-2023 Episodic Other nutritional; endocrine; and metabolic disorders (6 sources) Abnormal weight loss; Translations: [ABNORMAL WEIGHT LOSS] Onset: 2 Episodic Other and delivery including normal (12 sources) Urine test positive; Translations: [Encounter for test, result positive] Onset: 5 11-30-2024 Episodic Residual codes; unclassified (2 sources) Insomnia; Translations: [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] Episodic Residual codes; unclassified (8 sources) Genetic susceptibility to other disease; 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] Episodic Residual codes; unclassified (1 source) Gestation period, 7 weeks; Translations: [Less than 8 weeks gestation of ] 12-28-2024 Episodic Unclassified (1 source) Encounter for immunization; Translations: [Encounter for immunization] Onset: 3 Past or Other Problems Problem Classification Problem [...] Translations: [Insomnia, unspecified] Onset: 03-04-2023 03-04-2023 Episodic Residual codes; unclassified (4 sources) Hereditary disorder of endocrine system; Translations: [Genetic susceptibility to other disease] Onset: 08-24-2018 12-28-2024 Episodic Unclassified (2 sources) History finding; Translations: [No pertinent past medical history] NEGATED: Highlighted row has not occurred!Residual codes; unclassified (6 sources) Disease Episodic Results Test Name Value Interpretation Reference Range Facility BOX TESTon 01-09-2025 BOX TEST SENT OUT [facility] BOX1 [facility] BOX2 01/09/25 [facility] HCG ( test) Ql (U)o n 12-28-2024 Interpretation and review of laboratory results Abnormal [facility] Preg Test, Ur Positive Negative [facility] US OB TRANSVAGINALon 025 OB TRANSVAGINAL FINDINGS: A single intrauterine gestational [...] UA Negative Negative - 4(70) +++ mg/dL [facility] Blood, UA Negative Negative - 50 Adrián/mcL [facility] Clarity, UA Clear [facility] Color, UA Yellow [facility] Glucose, UA Negative Negative - 2000(110) ++++ mg/dL [facility] Interpretation and review of laboratory results Normal [facility] Ketones, UA Negative Negative - 160(16) ++++ mg/dL [facility] Leukocytes, UA Negative Negative - 500+++ Ally/mcL [facility] Nitrite, UA Negative Negative - Positive [facility] pH, UA 6 5 - 9 [facility] Protein, UA Negative Negative - 2000(20) ++++ mg/dL [facility] Spec Grav, UA 1.02 1 - 1.03 [facility] Urobilinogen, UA 1.0 0.2 - 12 mg/dL [facility] 025 HCG QUANTITATIVE 171 mIU/mL [facility] Comment on above: 5-50 0.2-1 WEEK 50-500 1-2 WEEKS 100-5,000 2-3 WEEKS 500-10,000 3-4 WEEKS 1,000-50,000 4-5 WEEKS 10,000-100,000 5-6 WEEKS 15,000-200,000 6-8 WEEKS 10,000-100,000 2-[facility] 025 HCG QUANTITATIVE 73 mIU/mL [facility] Comment on above: 5-50 0.2-1 WEEK 50-500 1-2 WEEKS 100-5,000 2-3 WEEKS 500-10,000 3-4 WEEKS 1,000-50,000 4-5 WEEKS 10,000-100,000 5-6 WEEKS 15,000-200,000 6-8 WEEKS 10,000-100,000 2-3 MONTHS [facility] IUD Removalon 10-24-2024 Enid Angelo LPN 10/24/2024 3:14 PM IUD Removal Date/Time: 10/24/2024 2:09 PM Performed by: Bubba Cota DO Authorized by: Bubba Cota DO Consent: Consent obtained: Written Consent given by: Patient Procedure risks and benefits discussed: yes Patient questions answered: yes Patient agrees, verbalizes understanding, and wants to proceed: yes Educational handouts given: yes Instructions and paperwork completed: yes [place] protocol: Patient states understanding of procedure being [...] annual exam unless needed otherwise [facility] No Panel InformationOrdered By: Cristina Lara on 03-08-2024 Quick Strep (POC) [facility] EGD Study observation Narrat lali 05-26-2023 Table [...] Lico Zeng MD 05/26/2023 1533 Procedure Location [facility] [address] [facility] [address] Referring Provider Charlie Paredes Md [address] [facility] [address] [place] [address] Procedure Provider Charlie Paredes MD [facility] Work Phone: [facility] Work Phone: Radiology Study observation (narrative) [facility] Work Phone: HCG ( test) Ql (U)O rdered By: Maria T Farley on 05-26-2023 Interpretation and review of laboratory results Normal [facility] Preg Test, Ur Negative Negative [facility] CNOVon 04-22-2023 CNOV Office Visit (ENDOLN ) MANPREET FRAIRE ([id number]) 1 F Date Time Provider Department 04/22/23 1:00 PM ALBERT ZAPATA ENDOLN During your visit today, we recorded the following information about you: Pulse Blood pressure Weight Height 68/minute 118/72 61.7 kg 1.651 m Albert Zapata MD 04/25/2023 10:37 AM Addendum ENDOCRINOLOGY REASON FOR CONSULTATION: Menorrhagia HISTORY The patient is referred by Dr. Bubba Cota from [facility]. . My recommendations will be sent [...] which included preparing to see the patient, [id number] patient care, completing clinical documentation, obtaining and/or reviewing separately obtained history, performing a medically appropriate examination, counseling and educ (more content not included)... Normal [facility] HCG ( test) IA.rapi d Ql (U)Ordered By: Lisa Fernandez on 10-19-2022 HCG ( test) Ql (U) Negative [facility] HCG,Urineon 10-19-2022 Beta HCG ( test) Ql (U) Negative Normal [facility] Comment on above: Result Comment: PERF ORMED BY: [facility] [place] [id number] PATHOLOGIST NURSE ANESTHETIST ALEXIA KENNEDY M.D. Performed By: #### U [facility] #### [place] [id number] [facility] 10-19-2022 L - -------- Specimen: [id number] Received: 10/19/22 Status: CARLOS Aquinokiran Num: [id number] Spec Type: Surgical Subm Dr: Lisa Fernandez MD Tissues: A Duodenum - Biopsy (DUODENUM BX) Procedures: Macey GILL/Keri L4 -------- Age/ Patient Sex Location Account Attending Physician -------- Manpreet Fraire 17/ [id number] Lisa Fernandez MD -------- SPEC NUM: [id number] RECD: 10/19/22 STATUS: CARLOS RAHMAN NUM: [id number] JASON: 10/19/22 [facility] DR: Lisa Fernandez MD ENTERED: 10/19/[address] [facility] [address]: SPEC TYPE: Surgical DEPT: S [...] microscopic examination confirms the diagnosis. CPT Codes 96866 -------- -------- Specimen: [id number] Received: 10/19/22 Status: CARLOS Rahman Num: [id number] Spec Type: Surgical Subm Dr: Lisa Fernandez MD Tissues: A Duodenum - Biopsy (DUODENUM BX) Procedures: HE/2, Gross/Micro L4 -------- Patient: Manpreet Fraire [id number] (Continued) -------- Signed (signature on file) Isi Hsieh MD 10/20/22 0958 Normal [facility] AMYLASEon 09-04-2022 Amylase [Catalytic activity/Vol] 41 U/L Normal 25-115 [facility] Comment on above: Performed By: #### L DEVIKA RICKETTS #### [facility] [address] [place] [address] Dr. Nai Garcia LIPASEon 09-04-2022 Lipase [Catalytic activity/Vol] 83.0 U/L Normal 73.0-393.[address] [facility] Comment on above: Performed By: #### L DEVIKA RICKETTS #### [facility] [address] [place] [address] Dr. Nai Garcia Automated erythrocytes count in urine sediment (number/area)Ordered By: Colby Ramos on 05-08-2022 RBC Auto (Urine sed) [#/Area] 0-1 [HPF] 0-4 [facility] Automated leukocytes count i n urine sediment (number/area)Ordered By: Colby Ramos on 05-08-2022 WBC Auto (Urine sed) [#/Area] 5-9 [HPF] 0-4 [facility] Automated urine hyaline cast s count (number/volume)Ordered By: Colby Ramos on 05-08-2022 Hyaline casts Auto (U) [#/Vol] None seen [LPF] 0-1 [facility] Basophils Auto (Bld) [#/Vol] Ordered By: Colby Ramos on 05-08-2022 Basophils (Bld) [#/Vol] 0.0 10*3/uL 0.0-0.2 [facility] Basophils/100 WBC Auto (Bld) Ordered By: Colby Ramos on 05-08-2022 Basophils/100 WBC (Bld) 0.9 % . [facility] Bilirubin Test strip Ql (U)O rdered By: Colby Ramos on 05-08-2022 Bilirubin Ql (U) Negative Negative [facility] Body fluid albumin measureme nt (mass/volume)Ordered By: Colby Ramos on 05-08-2022 Albumin (Body fld) [Mass/Vol] 4.1 g/dL 3.2-5.5 [facility] Casts typing in urine sedime nt by light microscopyOrdered By: Colby Ramos on 05-08-2022 Casts LM Nom (Urine sed) None seen [LPF] None S een [facility] Color Auto (U)Ordered By: Louis Ramos on 05-08-2022 Color (U) Yellow Yellow [facility] Creatinine and Glomerular fi ltration rate.predicted panel (S/P/Bld)Ordered By: Colby Ramos on 05-08-2022 Creatinine [Mass/Vol] 0.87 mg/dL 0.44-1.03 [facility] Direct bilirubin measurement Ordered By: Colby Ramos on 05-08-2022 Bilirubin.direct [Mass/Vol] mg/dL 0.0-0.4 [facility] Eosinophils Auto (Bld) [#/Vo l]Ordered By: Colby Ramos on 05-08-2022 Eosinophils (Bld) [#/Vol] 0.1 10*3/uL 0.0-0.45 [facility] Eosinophils/100 WBC Auto (Bl d)Ordered By: Colby Ramos on 05-08-2022 Eosinophils/100 WBC (Bld) 1.8 % . [facility] Erythrocyte distribution wid th Auto (RBC) [Ratio]Ordered By: Colby Ramos on 05-08-2022 Erythrocyte distribution width (RBC) [Ratio] 12.7 % 11.9-15.3 [facility] Estimated glomerular filtrat ion rate (GFR) non- AmericanOrdered By: Colby Ramos on 05-08-2022 GFR/1.73 sq M.predicted among non-blacks MDRD (S/P/Bld) [Vol rate/Area] > 60 mL/Min [facility] Globulin Calc (S) [Mass/Vol] Ordered By: Colby Ramos on 05-08-2022 Globulin (S) [Mass/Vol] 3.4 g/dL [facility] HCG ( test) IA.rapi d Ql (U)Ordered By: Colby Ramos on 05-08-2022 HCG ( test) Ql (U) Negative [facility] Hematocrit Auto (Bld) [Volum e fraction]Ordered By: Colby Ramos on 05-08-2022 Hematocrit (Bld) [Volume fraction] 39.7 % 34.0-46.4 [facility] Hemoglobin [Mass/volume] in BloodOrdered By: Colby Ramos on 05-08-2022 Hemoglobin (Bld) [Mass/Vol] 13.4 g/dL 11.8-15.4 [facility] Ketones Auto test strip (U) [Mass/Vol]Ordered By: Colby Ramos on 05-08-2022 Ketones (U) [Mass/Vol] 1+ Negative Fi [facility] - Chemistry and C hemistry - challengeOrdered By: Colby Ramos on 05-08-2022 Lipase [Catalytic activity/Vol] 35.0 U/L 22-51 [facility] Leukocytes [#/volume] correc jean claude for nucleated erythrocytes in Blood by Automated counOrdered By: Colby Ramos on 05-08-2022 WBC corrected for nucl RBC Auto (Bld) [#/Vol] 5.5 10*3/uL 3.8-11.6 [facility] Lymphocytes Auto (Bld) [#/Vo l]Ordered By: Colby Ramos on 05-08-2022 Lymphocytes (Bld) [#/Vol] 1.4 10*3/uL 1.00-4.8 [facility] Lymphocytes/100 WBC Auto (Bl d)Ordered By: Colby Ramos on 05-08-2022 Lymphocytes/100 WBC (Bld) 26.3 % . [facility] MCH Auto (RBC) [Entitic mass ]Ordered By: Colby Ramos on 05-08-2022 MCH (RBC) [Entitic mass] 29.7 pg 24.7-34.3 [facility] MCHC Auto (RBC) [Mass/Vol]Or dered By: Colby Ramos on 05-08-2022 MCHC (RBC) [Mass/Vol] 33.7 g/dL 32.0-35.0 [facility] MCV Auto (RBC) [Entitic vol] Ordered By: Colby Ramos on 05-08-2022 MCV (RBC) [Entitic vol] 88.2 fL 80-100 [facility] Monocytes Auto (Bld) [#/Vol] Ordered By: Colby Ramos on 05-08-2022 Monocytes (Bld) [#/Vol] 0.3 10*3/uL 0.0-0.8 [facility] Monocytes/100 WBC Auto (Bld) Ordered By: Colby Ramos on 05-08-2022 Monocytes/100 WBC (Bld) 6.2 % . [facility] Mucus LM Ql (Urine sed)Order ed By: Colby Ramos on 05-08-2022 Mucus Ql (Urine sed) 2+ [LPF] [facility] Neutrophils Auto (Bld) [#/Vo l]Ordered By: Colby Ramos on 05-08-2022 Neutrophils (Bld) [#/Vol] 3.6 10*3/uL 1.8-7.7 [facility] Neutrophils/100 WBC Auto (Bl d)Ordered By: Colby Ramos on 05-08-2022 Neutrophils/100 WBC (Bld) 64.8 % . [facility] Nitrite Test strip Ql (U)Ord ered By: Colby Ramos on 05-08-2022 Nitrite Ql (U) Negative Negative [facility] No Panel InformationOrdered By: Colby Ramos on 05-08-2022 Estimated GFR () > 60 mL/Min [facility] Comment on above: GFR estimated refere nce range: According to KDOQI guidelines, <60 ml/min/1.73m2 is sufficient to diagnose a patient with chronic kidney disease. Pharmacy Creatinine Clearance (Chem 93.59 [facility] Nucleated erythrocytes [Pres ence] in Blood by Automated countOrdered By: Colby Ramos on 05-08-2022 Nucleated RBC Auto Ql (Bld) 0.4 /100{WBC} 0-0.5 [facility] Platelet mean volume Auto (B ld) [Entitic vol]Ordered By: Colby Ramos on 05-08-2022 Platelet mean volume (Bld) [Entitic vol] 10.9 fL 6.3-10.7 [facility] Platelets Auto (Bld) [#/Vol] Ordered By: Colby Ramos on 05-08-2022 Platelets (Bld) [#/Vol] 194 10*3/uL 150-450 [facility] Protein Auto test strip (U) [Mass/Vol]Ordered By: Colby Ramos on 05-08-2022 Protein (U) [Mass/Vol] 30 mg/dL Negative [facility] Protein [Mass/volume] in Ser um or PlasmaOrdered By: Colby Ramos on 05-08-2022 Protein [Mass/Vol] 7.5 g/dL 6.1-7.9 [facility] RBC Auto (Bld) [#/Vol]Ordere d By: Colby Ramos on 05-08-2022 RBC (Bld) [#/Vol] 4.50 10*6/uL 3.60-5.00 [facility] Serum or plasma alanine pope otransferase measurement without P-5'-P (enzymatic activiOrdered By: Colby Ramos on 05-08-2022 ALT No additional P-5'-P [Catalytic activity/Vol] 16 U/L 10-60 [facility] Serum or plasma albumin/glob ulin mass ratioOrdered By: Colby Ramos on 05-08-2022 Albumin/Globulin [Mass ratio] 1.2 {ratio} [facility] Serum or plasma alkaline chau sphatase measurement (enzymatic activity/volume)Ordered By: Colby Ramos on 05-08-2022 ALP [Catalytic activity/Vol] 47 U/L 32-92 [facility] Serum or plasma anion gap de terminationOrdered By: Colby Ramos on 05-08-2022 Anion gap [Moles/Vol] 15.9 mmol/L 6.0-15.0 [facility] Serum or plasma aspartate am inotransferase measurement (enzymatic activity/volume)Ordered By: Colby Ramos on 05-08-2022 AST [Catalytic activity/Vol] 17 U/L 10-42 [facility] Serum or plasma calcium linda urement (mass/volume)Ordered By: Colby Ramos on 05-08-2022 Calcium [Mass/Vol] 9.4 mg/dL 8.2-10.2 [facility] Serum or plasma chloride mamta surement (moles/volume)Ordered By: Colby Ramos on 05-08-2022 Chloride [Moles/Vol] 103 mmol/L 95-114 [facility] Serum or plasma glucose linda urement (mass/volume)Ordered By: Colby Rmaos on 05-08-2022 Glucose [Mass/Vol] 93 mg/dL 70-100 [facility] Comment on above: ADA recommended refe rence rangeRandom Glucose Reference Range is dependent on time and content of last meal. Glucose of more than 200 mg/dL in a nonstressed, ambulatory subject supports the diagnosis of Diabetes Mellitus. Serum or plasma non-glucuron idated bilirubin measurement (mass/volume)Ordered By: Colby Ramos on 05-08-2022 Bilirubin.indirect [Mass/Vol] TNP [facility] Comment on above: Test not performed Serum or plasma potassium me asurement (moles/volume)Ordered By: Colby Ramos on 05-08-2022 Potassium [Moles/Vol] 3.6 mmol/L 3.5-5.1 [facility] Serum or plasma sodium measu rement (moles/volume)Ordered By: Colby Ramos on 05-08-2022 Sodium [Moles/Vol] 136 mmol/L 136-146 [facility] Serum or plasma total biliru bin measurement (mass/volume)Ordered By: Colby Ramos on 05-08-2022 Bilirubin [Mass/Vol] 0.5 mg/dL 0.3-1.2 [facility] Serum or plasma total carbon dioxide measurement (moles/volume)Ordered By: Colby Ramos on 05-08-2022 CO2 [Moles/Vol] 20.7 mmol/L 22.0-30.[address] [facility] Serum or plasma urea nitroge n measurement (mass/volume)Ordered By: Colby Ramos on 05-08-2022 Urea nitrogen [Mass/Vol] 7 mg/dL 9-23 [facility] Specific gravity Auto test s trip (U) [Rel density]Ordered By: Colby Rmaos on 05-08-2022 Specific gravity (U) [Rel density] 1.037 1.001-1.030 [facility] Squamous epithelial cells de tection in urine sediment by light microscopyOrdered By: Colby Ramos on 05-08-2022 Epithelial cells.squamous LM Ql (Urine sed) 5-9 [HPF] 0-2 [facility] Urine bacteria detection by automated methodOrdered By: Colby Ramos on 05-08-2022 Bacteria Auto Ql (U) None seen None Seen [facility] Urine clarity by refractomet ry automatedOrdered By: Colby Ramos on 05-08-2022 Clarity Refractometry automated (U) Cloudy Clear [facility] Urine glucose measurement by automated test strip (mass/volume)Ordered By: Colby Ramos on 05-08-2022 Glucose Auto test strip (U) [Mass/Vol] Normal mg/dL Normal [facility] Urine hemoglobin detection b y automated test stripOrdered By: Colby Ramos on 05-08-2022 Hemoglobin Auto test strip Ql (U) Negative Negative [facility] Urine leukocyte esterase det ection by automated test stripOrdered By: Colby Ramos on 05-08-2022 Leukocyte esterase Auto test strip Ql (U) Negative Negative [facility] Urobilinogen Auto test strip (U) [Mass/Vol]Ordered By: Colby Ramos on 05-08-2022 Urobilinogen (U) [Mass/Vol] Normal mg/dL Normal [facility] WBC Auto (Bld) [#/Vol]Ordere d By: Colby Ramos on 05-08-2022 WBC (Bld) [#/Vol] 5.5 10*3/uL 3.8-11.6 [facility] pH Auto test strip (U)Ordere d By: Colby Ramos on 12-17-2022 pH (U) 5.5 [pH] 5.0-9.0 [facility] CELIAC ANTIBODIES PROFILEon 04-29-2022 Deamidated Gliadin Abs, IgA 3 units Normal 0-[address] [facility] Comment on above: Result Comment: Nega tive 0 - 19 Weak Positive 20 - 30 Moderate to Strong Positive >30 Performed By: #### L IPA, DEVIKA #### [facility] [address] [place] [address] [address] Nai Garcia Deamidated Gliadin Abs, IgG 2 units Normal 0-[address] [facility] Comment on above: Result Comment: Nega tive 0 - 19 Weak Positive 20 - 30 Moderate to Strong Positive >30 Performed By: #### L IPA, DEVIKA #### [facility] [address] [place] [address] [address] Nai Garcia Endomysial Antibody IgA Negative Normal Negative [facility] Comment on above: Performed By: #### L IPA, DEVIKA #### [facility] [address] [place] [address] [address] Nai Garcia Immunoglobulin A, Qn, Serum 123 mg/dL Normal 87-[address] [facility] Comment on above: Performed By: #### L IPA, DEVIKA #### [facility] [address] [place] [address] [address] Nai Garcia t-Transglutaminase (tTG) IgA <2 Normal 0-[address] [facility] Comment on above: Result Comment: Nega tive 0 - 3 Weak Positive 4 - 10 Positive >10 . Tissue Transglutaminase (tTG) has been identified as the endomysial antigen. Studies have demonstr- ated that endomysial IgA antibodies have over 99% specificity for gluten sensitive enteropathy. Performed By: #### L IPA, DEVIKA #### [facility] [address] [place] [address] [address] Nai Garcia H PYLORI ANTIBODY IGGon H. PYLORI IGG ABS 0.33 Index Value Normal 0.00-0.79 [facility] Comment on above: Result Comment: Nega tive <0.80 Equivocal 0.80 - 0.89 Positive >0.89 Performed By: #### H PYLLC #### [facility] [facility] [address] [place] [address] Dr. Nai Garcia IMMUNOGLOBULIN IGA QUANTITIA VEon 04-29-2022 Immunoglobulin A, Qn, Serum 124 mg/dL Normal 87-[address] [facility] Comment on above: Performed By: #### L IPA, DEVIKA #### [facility] [address] [place] [address] Dr. Nai Garcia TISSUE TRANSGLUTAMINASE IGGo n 04-29-2022 t-Transglutaminase (tTG) IgG <2 Normal 0-[address] [facility] Comment on above: Result Comment: Nega tive 0 - 5 Weak Positive 6 - 9 Positive >9 Performed By: #### T RNSIGG #### [facility] [address] [place] [address] Dr. Nia Garcia Performed By: #### L LILIAM, DEVIKA #### [facility] [address] [place] [address] Dr. Nai Garcia FREE T4on 04-28-2022 Free T4 [Mass/Vol] 1.17 ng/dL Normal 0.78-1.34 [facility] Comment on above: Performed By: #### F T4 #### [facility] [address] [place] [address] Dr. Nai Garcia GLYCOHEMOGLOBIN A1Con 2021 ADA RECOMMENDATION SEE BELOW Normal [facility] Comment on above: Result Comment: ADA RECOMMENDED LIMIT 4.0 - 6.0 ADA THERAPEUTIC TARGET < 7.0 ACTION SUGGESTED > 7.0 Performed By: #### A 1C #### [facility] [address] [place] [address] Dr. Nai Garcia Glucose [Mass/Vol] 105 mg/dL Normal [facility] Comment on above: Performed By: #### A 1C #### [facility] [address] [place] [address] Dr. Nai Garcia HbA1c (Bld) [Mass fraction] 5.3 % Normal 4.5-6.[address] [facility] Comment on above: Performed By: #### A 1C #### [facility] [address] [place] [address] Dr. Nai Garcia TSHon 04-28-2022 TSH 0.496 uIU/mL Critically low 0.516-4.130 [facility] Comment on above: Performed By: #### T SH #### [facility] [address] [place] [address] Dr. Nai Garcia CBC AUTO DIFFon 03-23-2022 BASO # 0.1 103/ul Normal 0.0-0.[address] [facility] Comment on above: Performed By: #### C BC #### [facility] [address] [place] [address] Dr. Nai Garcia Basophils/100 WBC (Bld) 0.8 % Normal 0.2-2.0 [facility] Comment on above: Performed By: #### C BC #### [facility] [address] [place] [address] Dr. Nai Garcia EO # 0.1 103/ul Normal 0.0-0.[address] [facility] Comment on above: Performed By: #### C BC #### [facility] [address] [place] [address] Dr. Nai Garcia Eosinophils/100 WBC (Bld) 1.3 % Normal 0.9-7.[address] [facility] Comment on above: Performed By: #### C BC #### [facility] [address] [place] [address] Dr. Nai Garcia Erythrocyte distribution width (RBC) [Ratio] 12.9 % Normal 11.0-15.[address] [facility] Comment on above: Performed By: #### C BC #### [facility] [address] [place] [address] Dr. Nai Garcia Hematocrit (Bld) [Volume fraction] 37.0 % Normal 36.0-48.[address] [facility] Comment on above: Performed By: #### C BC #### [facility] [address] [place] [address] Dr. Nai Garcia Hemoglobin (Bld) [Mass/Vol] 12.5 g/dL Normal 12.0-16.[address] [facility] Comment on above: Performed By: #### C BC #### [facility] [address] [place] [address] Dr. Nai Garcia IG # 0.01 10e3/ul Normal 0.00-0.[address] [facility] Comment on above: Performed By: #### C BC #### [facility] [address] [place] [address] Dr. Nai Garcia IG % 0.2 % Normal 0.0-0.[address] [facility] Comment on above: Performed By: #### C BC #### [facility] [address] [place] [address] Dr. Nai Garcia LYMPH # 1.6 103/ul Normal 1.2-3.[address] [facility] Comment on above: Performed By: #### C BC #### [facility] [address] [place] [address] Dr. Nai Garcia Lymphocytes/100 WBC (Bld) 26.5 % Normal 20.5-60.[address] [facility] Comment on above: Performed By: #### C BC #### [facility] [address] [place] [address] Dr. Nai Garcia MANUAL DIFF REQ NO Normal [facility] Comment on above: Performed By: #### C BC #### [facility] [address] [place] [address] Dr. Nai Garcia MCH (RBC) [Entitic mass] 29.8 pg Normal 26.7-34.[address] [facility] Comment on above: Performed By: #### C BC #### [facility] [address] [place] [address] Dr. Nai Garcia MCHC (RBC) [Mass/Vol] 33.8 g/dL Normal 29.9-35.[address] [facility] Comment on above: Performed By: #### C BC #### [facility] [address] [place] [address] Dr. Nai Garcia MCV (RBC) [Entitic vol] 88.3 fL Normal 81.0-99.0 [facility] Comment on above: Performed By: #### C BC #### [facility] [address] [place] [address] Dr. Nai Garcia MONO # 0.4 103/ul Normal 0.3-0.[address] [facility] Comment on above: Performed By: #### C BC #### [facility] [address] [place] [address] Dr. Nai Garcia Monocytes/100 WBC (Bld) 7.1 % Normal 1.7-12.0 [facility] Comment on above: Performed By: #### C BC #### [facility] [address] [place] [address] Dr. Nai Garcia NEUT # 4.0 103/ul Normal 1.4-6.[address] [facility] Comment on above: Performed By: #### C BC #### [facility] [address] [place] [address] Dr. Nai Garcia Neutrophils/100 WBC (Bld) 64.1 % Normal 43.0-75.[address] [facility] Comment on above: Performed By: #### C BC #### [facility] [address] [place] [address] Dr. Nai Garcia Platelet mean volume (Bld) [Entitic vol] 11.3 fL Normal 9.5-13.[address] [facility] Comment on above: Performed By: #### C BC #### [facility] [address] [place] [address] Dr. Nai Garcia PLT 213 103/ul Normal 150-450 [facility] Comment on above: Performed By: #### C BC #### [facility] [address] [place] [address] Dr. Nai Garcia RBC 4.19 106/ul Critically low 4.20-5.40 [facility] Comment on above: Performed By: #### C BC #### [facility] [address] [place] [address] Dr. Nai Garcia WBC 6.2 103/ul Normal 4.0-11.[address] [facility] Comment on above: Performed By: #### C BC #### [facility] [address] [place] [address] Dr. Nai Garcia PROF CHEM 8 (BAS METB)on Anion gap [Moles/Vol] 12.1 mmol/L Normal Th e [facility] Comment on above: Performed By: #### L IPA, DEVIKA #### [facility] [address] [place] [address] Dr. Nai Garcia Calcium [Mass/Vol] 9.2 mg/dL Normal 8.5-10.1 [facility] Comment on above: Performed By: #### L IPA, DEVIKA #### [facility] [address] [place] [address] Dr. Nai Garcia Chloride [Moles/Vol] 105 mmol/L Normal 98-[address] [facility] Comment on above: Performed By: #### L IPA, DEVIKA #### [facility] [address] [place] [address] Dr. Nai Garcia CO2 [Moles/Vol] 26.3 mmol/L Normal 21.0-32.0 [facility] Comment on above: Performed By: #### L IPA, DEVIKA #### [facility] [address] [place] [address] Dr. Nai Garcia Creatinine [Mass/Vol] 0.95 mg/dL Normal 0.55-1.[address] [facility] Comment on above: Performed By: #### L IPA, DEVIKA #### [facility] [address] [place] [address] Dr. Nai Garcia EGFR-AF AFGHAN >60 Normal >=60 [facility] Comment on above: Performed By: #### L IPA, DEVIKA #### [facility] [address] [place] [address] Dr. Nai Garcia EGFR-NON AF AFGHAN >60 Normal >=60 [facility] Comment on above: Performed By: #### L IPA, DEVIKA #### [facility] [address] [place] [address] Dr. Nai Garcia Glucose [Mass/Vol] 98 mg/dL Normal 74-106 [facility] Comment on above: Performed By: #### L IPA, DEIVKA #### [facility] [address] [place] [address] Dr. Nai Garcia Potassium [Moles/Vol] 3.4 mmol/L Critically low 3.5-5.[address] [facility] Comment on above: Performed By: #### L IPA, DEVIKA #### [facility] [address] [place] [address] Dr. Nai Garcia Sodium [Moles/Vol] 140 mmol/L Normal 136-145 [facility] Comment on above: Performed By: #### L IPA, DEVIKA #### [facility] [address] [place] [address] Dr. Nai Garcia Urea nitrogen [Mass/Vol] 11.0 mg/dL Normal 6.4-19.[address] [facility] Comment on above: Performed By: #### L IPA, DEVIKA #### [facility] [address] [place] [address] Dr. Nai Garcia Urea nitrogen/Creatinine [Mass ratio] 11.6 mg/mg Normal [facility] Comment on above: Performed By: #### L IPA, DEVIKA #### [facility] [address] [place] [address] Dr. Nai Garcia TSHon 03-23-2022 TSH 1.051 uIU/mL Normal 0.516-4.130 [facility] Comment on above: Performed By: #### L IPA, DEVIKA #### [facility] [address] [place] [address] Dr. Nai Garcia CHLAMYDIA/GONOCOCCUS LYDIA (SW AB/URINE/PAPon 12-10-2021 Chlamydia trachomatis, LYDIA Negative Normal Negative [facility] Comment on above: Performed By: #### C T/NGNA #### [facility] [address] [place] [address] Dr. Nai Garcia Neisseria gonorrhoeae, LYDIA Negative Normal Negative [facility] Comment on above: Performed By: #### C T/NGNA #### [facility] [address] [place] [address] Dr. Nai Garcia VAGINITIS/VAGINOSIS DNA PROB Mikie 12-10-2021 Angelita species Negative Normal Negative [facility] Comment on above: Performed By: #### V AGINT #### [facility] [address] [address] [address] Nai Garcia Gardnerella vaginalis Positive Abnormal Negative [facility] Comment on above: Performed By: #### V AGINT #### [facility] [address] [address] [address] Nai Garcia Trichomonas vaginalis Negative Normal Negative [facility] Comment on above: Performed By: #### V AGINT #### [facility] [address] [address] [address] Nai Garcia Initial Visit (Pediatric Ari [...] Oral Tablet; TAKE 1.5 TABLET Daily; Therapy: [id number] to (Evaluate:[id number]) Requested for: 12Nov2019 Recorded 3. Vitamin D (Ergocalciferol) 1.25 MG (24810 UT) Oral Capsule; TAKE 1 CAPSULE WEEKLY for 8 weeks; Therapy: [id number] to (Last Rx:[id number]) Requested for: 23May2018 Ordered *Vitals Vital Signs [...] without Contrast; Status:Hold For - Scheduling; Requested for:[id number]; Radiologist to Determine Optimal Study : Y [...] 2:56PM EST (Author) Reviewed by : Le Irizarry APRN-TUBING MACHINE OPERATOR DOUGHNUT ICER MACHINE-SILVERING DEPARTMENT SUPERVISOR; Nov 21 2019 4:54PM EST Normal [facility] Telephone Note_UHon 10-05-19 Telephone Note_ Message Recorded as Task Date: 10/04/2019 10:41 AM, Created By: Jodi Goldstein Task Name: Callback Medical Advice Assigned To: Inge Briseno Regarding Patient: MANPREET FRAIRE, Status: Active Comment: Jodi Goldstein - 04 Oct 2019 10:41 AM TASK CREATED Caller: Devika, Mother; General Medical Question; (Mobile Phone) Mom stated Manpreet just had a virtual appointment with Le rIizarry. Mom stated Elvira was going to obtain [...] mom to please retrieve the disc from [place], I know that you sent an email [...] ABDIFATAH - Automatic Exporton ABDIFATAH - Automatic [place] SG-Thayluiccj-Tpg hamlet g-Admin RBC [address] [place], [place] MANPREET FRAIRE 2005 Date of Female Sex [id number] Patient Id [id number] [place] [address] AddressEnglish (preferred) Language White Race Not or Ethnicity Summary of Care Clinical Content Allergies and Adverse Reactions <#[id number]> Encounters <#[id number]> Family History <#JR0OOYBB> Functional Status <#[id number]> Immunization <#AE0STBRO> Instructions <#BF3WXQDF> Interventions Provided <#ZY3MGGVD> Medications <#QI6JWBZB> Past Medical History <#[id number]> Plan of Care <#[id number]> Problems <#FD2AHLOP> Procedures <#GJ8VKMCH> Results <#HK3QBTHP> Social History <#BW4ZM3BO> Vital Signs <#XC0SQJCG> Other Document Details Health Care Providers Functional [...] and maintaining sleep (327.00, G47.00) Medicationstop <#top> KelyearnestNidiate Vitamin D (Ergocalciferol) 1.25 MG (00136 UT) Oral Capsule TAKE 1 CAPSULE WEEKLY for 8 weeks Quantity: 8 Refills: 0 Stella Olivares Start : 22-May-2018 Dicyclomine HCl - 10 MG Oral Capsule Take 1-2 capsules up to 4 times a day as needed for abdominal pain Quantity: 90 Refills: 3 Maykel MERINONCharitoJOHNStella Start : 28-May-2018 Allergies and Adverse Reactionstop <#top> NameDEleni No Known Drug Allergies (Allergy) Past Medical Historytop <#top> Jessica No pertinent past medical history (V49.89, Z78.9) Status: Resolved Procedurestop <#top> ProcedureDatesDetails History of Ear pressure equalization tube insertionCompleted Immunizationtop <#top> Jessica Immunizations not documented Family Historytop <#top> Grandmother NameDDuanefranceste Family history of Gallstones (574.20, K80.20) Family history of kidney stones (V18.69, Z84.1) Family history of cerebrovascular accident (CVA) (V17.1, Z82.3) Family history of migraine headaches (V17.2, Z82.0) Family history of Anxiety (300.00, F41.9) aunt NameDearnestNidiate Family history of Graves' disease (V18.19, Z83.49) great grandmother NameDearnestMark Family history of antiphospholipid syndrome (V18.3, Z83.2) Mother NameDatesMark Family history of gastroesophageal reflux disease (V18.59, Z83.79) Family history of kidney stones (V18.69, Z84.1) Family history of depression (V17.0, Z81.8) Family history of migraine headaches (V17.2, Z82.0) Family history of Anxiety (300.00, F41.9) Grandfather NameDearnestMark Family history of hypertension (V17.49, Z82.49) Family history of depression (V17.0, Z81.8) Social Historytop <#top> NameDatesDetails - Smoking Status NameDatesDefrancess Never smoked tobacco (finding) Vital Signstop <#top> [...] progress. My nurse is Marimar Briseno at [phone]. 6. Follow up will be after her films are reviewed. 7. Eye exam should be completed. Instructionstop <#top> NameDatesDetails Instructions not documented Encounterstop <#top> Appointment; Stella Brar APRN-CNP Encounter Diagnosis: Problem not documentedOn: 08-May-2018 9:00 Appointment; Normal [facility] Referral-Consult Letteron Referral-Consult Letter History [...] there all day long and treatment with [id number]-[id number] Tylenol or Motrin did not help. She [...] 30May2018 Ordered Vitamin D (Ergocalciferol) 1.25 MG (09772 UT) Oral Capsule; TAKE 1 CAPSULE WEEKLY for 8 weeks; Therapy: [id number] to (Last Rx:[id number]) Requested for: 23May2018 Ordered Physical Exam Today's [...] progress. My nurse is Marimar Briseno at [phone]. 6. Follow up will be after her films are reviewed. 7. Eye exam should be completed. Thank you again for your re Normal [facility] Telephone Note_[facility]Hon 09-27-19 Telephone Note_ Message Recorded [...] in regards of headaches. She prefer the [place] office if its face to face. Inge Briseno - 27 Sep 2019 11:23 AM TASK EDITED Mom confirmed a virtual appointment with Elvira on Saturday 09/30 at 3pm. Information sent to the secretaries to schedule this. Signatures Electronically signed by : Inge Briseno R.N.; Sep 27 2019 11:23AM EST (Author) Normal [facility] Note - [facility]-Hematology - New Visiton [...] change her pad. She has seen a tobacco sorter and trialed several OCPs with no decrease in amount or length of bleeding. She notes an increase in bleeding on her periods with OCPs. She has not tried any other forms such as IUD or nexplanon. Her tobacco sorter bartolo basic labs and noted lower platelets and referred her to a media services director Dr. Mcdowell. She was tested for [...] Patient seen and discussed with Dr. Felipe Puentes DO PGY-1 Pediatrics Note Recipients: Yokasta Wiggins MD Select Yes when ready to send to Provider(s) Listed Above: Note sent to providers named above Attestation: Note Completion: I personally evaluated the patient [id number] Attending AttestationI saw and evaluated the patient. [...] Document via Auto Fax, Attestation Clare Puentes ( (Resident)) (Signed 24-Oct-2018 17:08) Authored: Patient Visit Information, History of Present Illness, Social History, Problem List and Immunizations, Allergies and Outpatient Medication Profile, Oral Chemo/Oncology Related Therapy, Review of Systems, Performance Status, Physical Exam, Assessment, Plan, and Orders, To Send Document via Auto Fax, Attestation Last Updated: 27-Oct-2018 13:30 by Santo Wang) [facility] Measurementson 10-24-2018 Measurements Growth Chart: Growth Chart Measurements: Growth Chart Length/Height (cm)164.1 Growth Chart Weight (kg)67.7 Growth Chart BMI (kg/m2)25.14 Electronic Signatures: Regina PerdueMS Markie) (Signed 24-Oct-2018 14:25) Authored: Growth Chart Last Updated: 24-Oct-2018 14:25 by Regina Perdue (LISETTE Aden) Normal [facility] Vital Signs Date Time Vital Sign Value Performing Clinician Facility 12-28-2024 09:13-0400 Body mass index (BMI) [Ratio] 26.96 kg/m2 [facility] 12-28-2024 09:13-0400 Body weight 73.48 kg [facility] 12-28-2024 09:13-0400 Diastolic blood pressure 72 mm[Hg] [facility] 12-28-2024 09:13-0400 Systolic blood pressure 120 mm[Hg] [facility] 10-24-2024 13:43-0400 Body mass index (BMI) [Ratio] 27.26 kg/m2 Bubba Cipriano DO Work Phone: [facility] 10-24-2024 13:43-0400 Body weight 74.3 kg Bubba Cipriano DO Work Phone: [facility] 10-24-2024 13:43-0400 Diastolic blood pressure 78 mm[Hg] Bubba Cipriano DO Work Phone: [facility] 10-24-2024 13:43-0400 Systolic blood pressure 118 mm[Hg] Bubba Cipriano DO Work Phone: [facility] 03-08-2024 10:27-0400 Body temperature 98.7 [degF] [facility] 03-08-2024 10:27-0400 Body weight 68.49 kg [facility] 03-08-2024 10:27-0400 Diastolic blood pressure 88 mm[Hg] [facility] 03-08-2024 10:27-0400 Heart rate 88 /min [facility] 03-08-2024 10:27-0400 SaO2% (BldA) [Mass fraction] 98 % [facility] 03-08-2024 10:27-0400 Systolic blood pressure 130 mm[Hg] [facility] 05-26-2023 16:15-0500 Diastolic blood pressure 75 mm[Hg] Charlie Paredes MD Work Phone: [facility] 05-26-2023 16:15-0500 Heart rate 54 /min Charlie Paredes MD Work Phone: [facility] 05-26-2023 16:15-0500 Respiratory rate 18 /min Charlie Paredes MD Work Phone: [facility] 05-26-2023 16:15-0500 SaO2% (BldA) [Mass fraction] 100 % Charlie Paredes MD Work Phone: [facility] 05-26-2023 16:15-0500 Systolic blood pressure 119 mm[Hg] Charlie Paredes MD Work Phone: [facility] 05-26-2023 15:41-0500 Body temperature 97.7 [degF] Charlie Paredes MD Work Phone: [facility] 05-26-2023 13:27-0500 Body mass index (BMI) [Ratio] 20.8 kg/m2 Charlie Paredes MD Work Phone: [facility] 05-26-2023 13:27-0500 Body weight 56.7 kg Charlie Paredes MD Work Phone: [facility] 04-22-2023 12:59-0500 Body height 165.1 cm Albert Zapata MD Work Phone: [facility] 04-22-2023 12:59-0500 Body weight 61.69 kg Albert Zapata MD Work Phone: [facility] 04-22-2023 12:59-0500 Diastolic blood pressure 72 mm[Hg] Albert Zapata MD Work Phone: [facility] 04-22-2023 12:59-0500 Heart rate 68 /min Albert Zapata MD Work Phone: [facility] 04-22-2023 12:59-0500 Systolic blood pressure 118 mm[Hg] Albert Zapata MD Work Phone: [facility] 02-25-2023 13:30-0400 Body weight 60.78 kg Fernando Wilson Other [facility] Other 02-25-2023 13:30-0400 Diastolic blood pressure 77 mm[Hg] Fernando Wilson Other [facility] Other 02-25-2023 13:30-0400 Systolic blood pressure 117 mm[Hg] Fernando Wilson Other [facility] Other 12-01-2022 13:00-0400 Body height 165.1 cm Imad Asaad Other [facility] Other 12-01-2022 13:00-0400 Body mass index (BMI) [Ratio] 20.13 kg/m2 Imad Asaad Other [facility] Other 12-01-2022 13:00-0400 Body weight 54.89 kg Imad Asaad Other [facility] Other 12-01-2022 13:00-0400 Diastolic blood pressure 93 mm[Hg] Imad Asaad Other [facility] Other 12-01-2022 13:00-0400 Systolic blood pressure 144 mm[Hg] Imad Asaad Other [facility] Other 10-19-2022 10:18-0400 Diastolic blood pressure 63 mm[Hg] MD Fernando Wilson Work Phone: [facility] 10-19-2022 10:18-0400 Heart rate 66 /min MD Fernando Wilson Work Phone: [facility] 10-19-2022 10:18-0400 Respiratory rate 16 /min MD Fernando Wilson Work Phone: [facility] 10-19-2022 10:18-0400 SaO2% (BldA) [Mass fraction] 99 % MD Fernando Wilson Work Phone: [facility] 10-19-2022 10:18-0400 Systolic blood pressure 108 mm[Hg] MD Fernando Wilson Work Phone: [facility] 10-19-2022 08:40-0400 Body height 165.1 cm MD Fernando Wilson Work Phone: [facility] 10-19-2022 08:40-0400 Body temperature 98.4 [degF] MD Fernando Wilson Work Phone: [facility] 10-19-2022 08:40-0400 Body weight 56.69 kg MD Fernando Wilson Work Phone: [facility] 09-02-2022 16:00-0400 Body height 162.56 cm Fernando Wilson Other [facility] Other 09-02-2022 16:00-0400 Body mass index (BMI) [Ratio] 21.11 kg/m2 Fernando Wilson Other [facility] Other 09-02-2022 16:00-0400 Body weight 55.79 kg Fernando Wilson Other [facility] Other 09-02-2022 16:00-0400 Diastolic blood pressure 64 mm[Hg] Fernando Wilson Other [facility] Other 09-02-2022 16:00-0400 SaO2% (BldA) [Mass fraction] 99 % Fernando Wilson Other [facility] Other 09-02-2022 16:00-0400 Systolic blood pressure 100 mm[Hg] Fernando Wilson Other [facility] Other 06-02-2022 15:30-0500 Body weight 57.15 kg Imad Asaad Other [facility] Other 06-02-2022 15:30-0500 Diastolic blood pressure 68 mm[Hg] Imad Asaad Other [facility] Other 06-02-2022 15:30-0500 Systolic blood pressure 116 mm[Hg] Imad Asaad Other [facility] Other 05-08-2022 17:18-0500 Body temperature 99 [degF] MD Fernando Wilson Work Phone: [facility] 05-08-2022 17:18-0500 Diastolic blood pressure 57 mm[Hg] MD Fernando Wilson Work Phone: [facility] 05-08-2022 17:18-0500 Heart rate 62 /min MD Fernando Wilson Work Phone: [facility] 05-08-2022 17:18-0500 Respiratory rate 16 /min MD Fernando Wilson Work Phone: [facility] 05-08-2022 17:18-0500 SaO2% (BldA) [Mass fraction] 100 % MD Fernando Wilson Work Phone: [facility] 05-08-2022 17:18-0500 Systolic blood pressure 99 mm[Hg] MD Fernando Wilson Work Phone: [facility] 05-08-2022 15:01-0500 Body height 165.1 cm MD Fernando Wilson Work Phone: [facility] 05-08-2022 15:01-0500 Body weight 58.45 kg MD Fernando Wilson Work Phone: [facility] Encounters Encounter Date Encounter Type Care Provider Facility Start: 01-14-2025 End: 01-14-2025 Bamboo flowsheet Bubba Cipriano DO Work Phone: [facility] Start: 01-14-2025 End: 01-14-2025 Bamboo flowsheet Bubba Cipriano DO Work Phone: [facility] Start: 01-09-2025 End: 01-09-2025 Clinisync Result Encounter Jacqueline Jing PIPING DRAFTER Work Phone: [facility] Unsolicited Start: 01-09-2025 End: 01-09-2025 Clinisync Result Encounter Jacqueline Chapmanerly PIPING DRAFTER Work Phone: [facility] Unsolicited Start: 12-28-2024 End: 12-28-2024 Office outpatient visit 5 minutes Cipriano Nurse [facility] Comment on above: GA: [id number] Start: [...] up visit related to original px Bubba Cipriano DO Work Phone: [facility] Comment on above: Encounter for IUD re moval Start: 10-24-2024 End: 10-24-2024 ambulatory BUBBA CIPRIANO Not Available Start: 07-12-2024 End: 07-12-2024 Office outpatient visit 15 minutes Charlie Paredes MD Work Phone: [facility] Comment on above: Norovirus (Primary D x); Irritable bowel syndrome with diarrhea Start: 03-08-2024 End: 03-08-2024 ambulatory [facility] Work Phone: Start: 03-08-2024 End: 03-08-2024 Patient encounter procedure [facility] Work Phone: Start: 05-26-2023 End: 05-26-2023 Subsequent hospital visit by physician Charlie Paredes MD Work Phone: [facility] Comment on above: Congenital sucrase-i somaltase deficiency Start: 04-26-2023 End: 04-26-2023 Office outpatient visit 15 minutes Charlie Paredes MD Work Phone: [facility] Comment on above: Congenital sucrase-i somaltase deficiency (Primary Dx); Irritable bowel syndrome with diarrhea; Generalized abdominal pain; Weight loss; Bilious vomiting with nausea Start: 04-22-2023 End: 04-22-2023 ambulatory ALBERT ZAPATA Facility:[facility] Start: 04-22-2023 End: 04-22-2023 Office consultation new/estab patient 60 min Albert Zapata MD Work Phone: Endocrinology Comment on above: Menorrhagia with reg ular cycle (Primary Dx) Start: 04-05-2023 End: 04-05-2023 Office outpatient visit 15 minutes Charlie Paredes MD Work Phone: [facility] Comment on above: Irritable bowel synd vu with diarrhea (Primary Dx); Generalized abdominal pain; Weight loss; Bilious vomiting with nausea Start: 03-07-2023 End: 03-07-2023 ambulatory Fernando Wilson Other [facility] Other Start: 03-07-2023 Telephone encounter Fernando Wilson [facility] Start: 02-25-2023 End: 02-25-2023 ambulatory Fernando Wilson Other [facility] Other Start: 02-25-2023 Office outpatient vi sit 15 minutes Fernando Wilson [facility] Start: 02-21-2023 End: 02-21-2023 ambulatory Cody Akhtar - [facility] Facility:[facility] Start: 02-21-2023 End: 02-21-2023 ambulatory MD Fernando Wilson Work Phone: [facility] Work Phone: Start: 02-21-2023 End: 02-21-2023 Patient encounter procedure MD Fernando Wilson Work Phone: [facility]-Flu Vaccine Start: 12-01-2022 End: 12-01-2022 ambulatory Imad Asaad Other [facility] Other Start: 12-01-2022 Office outpatient vi sit 25 minutes Imad Asaad [facility] Start: 10-19-2022 End: 10-19-2022 ambulatory Imad Asaad Facility:[facility] Start: 10-19-2022 End: 10-19-2022 Admission to same day surgery center MD Fernando Wilson Work Phone: [facility] Work Phone: Start: 10-19-2022 End: 10-19-2022 ambulatory MD Fernando Wilson Work Phone: [facility] Work Phone: Start: 09-09-2022 End: 09-09-2022 ambulatory Imad Asaad Other [facility] Other Start: 09-09-2022 Telephone encounter Imad Asaad [facility] Start: 09-06-2022 End: 09-06-2022 ambulatory Fernando Wilson Other [facility] Other Start: 09-06-2022 Telephone encounter Fernando Wilson [facility] Start: 09-04-2022 End: 09-05-[address] FERNANDO WILSON Facility:[facility] Start: 09-03-2022 End: 09-03-2022 ambulatory Fernando Wilson Other [facility] Other Start: 09-03-2022 Telephone encounter Fernando Wilson [facility] Start: 09-02-2022 End: 09-02-2022 ambulatory Fernando Wilson Other [facility] Other Start: 09-02-2022 Office outpatient vi sit 15 minutes Fernando Wilson [facility] Start: 09-02-2022 Telephone encounter Fernando Wilson [facility] Start: 07-21-2022 End: 07-21-2022 ambulatory Imad Asaad Other [facility] Other Start: 07-21-2022 Telephone encounter Imad Asaad [facility] Start: 06-02-2022 End: 06-02-2022 ambulatory Imad Asaad Other [facility] Other Start: 06-02-2022 Office consultation new/estab patient 40 min Imad Asaad [facility] Start: 05-08-2022 End: 05-08-2022 Emergency department patient visit MD Fernando Wilson Work Phone: [facility]-Emergency Room Start: 04-28-2022 End: 04-29-[address] FERNANDO WILSON Facility:[facility] Start: 04-07-[address] BUBBA COTA . Facili ty:[facility] Start: 03-23-2022 End: 03-24-[address] FERNANDO WILSON Facility:[facility] Start: 12-07-2021 End: 12-07-[address] BUBBA COTA . Facility:[facility] Start: 10-01-2019 Patient encounter procedure Stella Brar BW-Lrhohhzvgr-Nipjcitx-Adm in [facility] Work Phone: Start: 05-29-2018 Patient encounter procedure Stella Brar XK-Wufegzqoko-Ccreoexk-Adm in [facility] Work Phone: Start: 05-08-2018 Patient encounter procedure Stella Brar LU-Zhlvutvkln-Vooolbwg-Adm in [facility] Work Phone: Procedures Date Procedure Procedure Detail Performing Clinician Start: 01-09-2025 BOX TEST Jacqueline Ch PIPING DRAFTER Work Phone: Start: 12-28-2024 End: 12-28-2024 Urnls dip stick/tablet [...] 2) Zoste r Vaccines (1 of 2) [facility] Start: 07-24-2033 DTaP/Tdap/Td Vaccine s (8 - Td or Tdap) DTaP/Tdap/Td Vaccines (8 - Td or Tdap) [facility] Start: 01-05-2026 DTaP/Tdap/Td Vaccine s (7 - Td or Tdap) DTaP/Tdap/Td Vaccines (7 - Td or Tdap) [facility] Start: 01-05-2026 Urine microalbumin profile DTaP,Tdap,Td Vaccine (7 - Td or Tdap) [facility] Start: 01-28-2025 End: 01-28-2025 Patient encounter procedure 01/28/2025 9:40 AM EDT Routine [facility] [address] [place] [phone] Bubba Cota DO [address] [place] [address] [facility] Start: 01-21-2025 Influenza vaccination Influenza Vacc ine (#1) [facility] Start: 12-28-2024 End: 12-28-2025 ABO/Rh ABO/Rh Lab Routine Missed menses , unspecified gestational age ([facility]) Expected: 12/28/2024 (Approximate), Expires: 12/28/2025 [facility] Comment on above: Expected: 12/28/2024 (Approximate), Expires: 12/28/2025 Start: 12-28-2024 End: 12-28-2025 Blood type and Indirect antibody screen panel - Blood Type and screen Lab Routine Missed menses , unspecified gestational age ([facility] Expected: 12/28/2024 (Approximate), Expires: 12/28/2025 [facility] Comment on above: Expected: 12/28/2024 (Approximate), Expires: 12/28/2025 Start: 12-28-2024 End: 12-28-2025 Drugs of abuse panel - Urine by Screen method Rapid drug screen, urine Lab Routine , unspecified gestational age ([facility]) Encounter for supervision of normal first in first trimester ([facility]) Expected: 12/28/2024 (Approximate), Expires: 12/28/2025 [facility] Comment on above: Expected: 12/28/2024 (Approximate), Expires: 12/28/2025 Start: 12-28-2024 End: 12-28-2024 ambulatory 12/28/2024 9:00 AM EDT Initial [facility] [address] [place] [phone] [facility] Start: 12-28-2024 End: 12-28-2024 Professional / ancillary services management 12/28/2024 8:00 AM EDT Ancillary Procedure [facility] [address] [place] [phone] [facility] Start: 12-20-2024 End: 03-22-2025 US Pelvis transvaginal US OB transvaginal Imaging Routine Missed menses Positive urine test ([facility]) Expected: 12/20/2024, Expires: 03/22/2025 [facility] Work Phone: Comment on above: Expected: 12/20/2024 , Expires: 03/22/2025 Start: 2024 Screening for malign ant neoplasm of cervix [facility] Start: 01-22-2024 COVID-19 Vaccine ( season) COVID-19 Vaccine () [facility] Start: 05-24-2023 End: 05-24-2023 Telemedicine consultation with patient 05/24/2023 8:00 AM EST Telemedicine [facility] [address] [facility] [address] [phone] Charlie Paredes MD [address] [facility] [address] [place] [address] [facility] Start: 04-22-2023 End: 07-22-2023 Prolactin [Mass/volume] in Serum or Plasma PROLACTIN BLD Lab Routine Menorrhagia with regular cycle Expected: 04/22/2023, Expires: 07/22/2023 [facility] Work Phone: Comment on above: Expected: 04/22/2023 , Expires: 07/22/2023 Start: 04-22-2023 End: 07-22-2023 Thyrotropin [Units/volume] in Serum or Plasma TSH BLD Lab Routine Menorrhagia with regular cycle Expected: 04/22/2023, Expires: 07/22/2023 [facility] Work Phone: Comment on above: Expected: 04/22/2023 , Expires: 07/22/2023 Start: 01-21-2023 Covid-19 Vaccine ( season) Covid-19 Vaccine ( season) [facility] Start: 10-19-2022 [facility] Start: 05-23-2022 Depression Assessment Depression Ass essment [facility] Start: 07-12-2021 Hepatitis A Vaccines (2 of 2 - 2-dose series) Hepatitis A Vaccines (2 of 2 - 2-dose series) [facility] Start: 07-12-2021 HPV Vaccine (3 - 3-d ose series) HPV Vaccine (3 - 3-dose series) [facility] Start: 07-12-2021 HPV Vaccines (3 - 3- dose series) HPV Vaccines (3 - 3-dose series) [facility] Start: 2021 Chlamydia Screening (18-24) Chlamydia Screening (18-24) [facility] Start: 2021 GC (Gonorrhea) Scree lemuel (18-24) GC (Gonorrhea) Screening (18-24) [facility] Start: 2021 Hepatitis C screening Hepatitis C [facility] Start: 2021 Hepatitis C Screening Hepatitis C [facility] Start: 2021 HIV Screening HIV Screening [facility] Start: 08-20-2020 COVID-19 Vaccine (3 - Pfizer series) COVID-19 Vaccine (3 - Pfizer series) [facility] Start: 2017 Peds To Adult Transi tion Annual Assessment Peds To Adult Transition Annual Assessment [facility] Start: 2015 Peds To Adult Transi tion Initial Discussion Peds To Adult Transition Initial Discussion [facility] Start: 2007 Hearing Screening (#1) Hearing Michael hdez (#1) [facility] Start: 2006 Well Child Visit (WC V) - Annual Well Child Visit (WCV) - Annual [facility] Start: 2003 Hearing Screening (#1) Hearing Michael hdez (#1) [facility] Start: 2003 HIV screening HIV Screening [facility] Start: 2003 Lipid panel Lipid Panel [facility] Start: 2003 Yearly Adult Physical Yearly Adult P hysical [facility] Bacteria identified in Urine by Culture Urine culture Microbiology Routine Missed menses Ordered: 12/28/2024 [facility] Comment on above: Ordered: 12/28/2024 CBC W Auto Different ial panel - Blood CBC and differential Lab Routine Missed menses , unspecified gestational age ([facility]) Ordered: 12/28/2024 [facility] Comment on above: Ordered: 12/28/2024 Disaccharidases pane l - Small intestine Tissue [facility] Work Phone: Comment on above: Release Upon Orderin g for 1 Occurrences starting 05/26/2023 Hemoglobin A1c/Hemoglobin.total in Blood Hemoglobin A1c Lab Routine Missed menses , unspecified gestational age ([facility]) Ordered: 12/28/2024 [facility] Comment on above: Ordered: 12/28/2024 Hepatitis B virus ramírez rface Ag [Presence] in Serum or Plasma by Immunoassay Hepatitis B surface antigen Lab Routine Missed menses , unspecified gestational age ([facility]) Ordered: 12/28/2024 [facility] Comment on above: Ordered: 12/28/2024 Hepatitis C virus Ab [Presence] in Serum or Plasma by Immunoassay Hepatitis C antibody Lab Routine Missed menses , unspecified gestational age ([facility]) Ordered: 12/28/2024 [facility] Comment on above: Ordered: 12/28/2024 HIV-1/HIV-2 antigen/antibody combination immunoassay HIV-1 and HIV-2 antibodies Lab Routine Missed menses , unspecified gestational age ([facility]) Ordered: 12/28/2024 [facility] Comment on above: Ordered: 12/28/2024 End: 05-26-2023 Moderate Sedation Moderate Sedation Procedures Routine Once for 1 Occurrences starting 05/26/2023 until 05/26/2023 [facility] Work Phone: Comment on above: Once for 1 Occurrenc es starting 05/26/2023 until 05/26/2023 Patient Education [facility] Work Phone: Patient referral [facility] Work Phone: Reagin Ab [Presence] in Serum by RPR RPR Lab Routine Missed menses , unspecified gestational age ([facility]) Ordered: 12/28/2024 [facility] Comment on above: Ordered: 12/28/2024 Rubella antibody, IgG Rubella an tibody, IgG Lab Routine Missed menses , unspecified gestational age ([facility]) Ordered: 12/28/2024 [facility] Comment on above: Ordered: 12/28/2024 US Pelvis transvaginal US OB tra nsvaginal Imaging Routine Missed menses Positive urine test ([facility]) 12/28/2024 8:43 AM EDT [facility] Immunizations Immunization Date Immunization Notes Care Provider [facility] 02-16-2024 influenza virus vacc ine, unspecified formulation Bubbaedwardo Cota Work Phone: [facility] 02-21-2023 influenza, injectabl e, quadrivalent, preservative free Charlie Paredes MD Work Phone: [facility] Work Phone: 03-11-2021 Human Papillomavirus 9-valent vaccine Charlie Paredes MD Work Phone: [facility] Work Phone: 03-11-2021 meningococcal B vacc ine, recombinant, OMV, adjuvanted Charlie Paredes MD Work Phone: [facility] Work Phone: 03-11-2021 HPV, unspecified formulation Charlie Paredes MD Work Phone: [facility] Work Phone: 01-09-2021 hepatitis A vaccine, pediatric/adolescent dosage, 2 dose schedule Charlie Paredes MD Work Phone: [facility] Work Phone: 01-09-2021 Human Papillomavirus 9-valent vaccine Charlie Paredes MD Work Phone: [facility] Work Phone: 01-09-2021 meningococcal B vacc ine, recombinant, OMV, adjuvanted Charlie Paredes MD Work Phone: [facility] Work Phone: 01-09-2021 meningococcal oligosaccharide (groups A, C, Y and W-135) diphtheria toxoid conjugate vaccine (MCV4O) Charlie Paredes MD Work Phone: [facility] Work Phone: 01-09-2021 hepatitis A and hepa titis B vaccine Charlie Paredes MD Work Phone: [facility] Work Phone: 06-25-2020 Pfizer Purple Cap SARS-CoV-2 Charlie Paredes MD Work Phone: [facility] 06-04-2020 Pfizer Purple Cap SARS-CoV-2 Charlie Paredes MD Work Phone: [facility] Work Phone: 01-06-2016 meningococcal polysaccharide (groups A, C, Y and W-135) diphtheria toxoid conjugate vaccine (MCV4P) Charlie Paredes MD Work Phone: [facility] Work Phone: 01-06-2016 tetanus toxoid, redu abdifatah diphtheria toxoid, and acellular pertussis vaccine, adsorbed Charlie Paredes MD Work Phone: [facility] Work Phone: 08-08-2008 diphtheria, tetanus toxoids and acellular pertussis vaccine, unspecified formulation Charlie Paredes MD Work Phone: [facility] Work Phone: 08-08-2008 measles, mumps and rubella virus vaccine Charlie Paredes MD Work Phone: [facility] Work Phone: 08-08-2008 poliovirus vaccine, inactivated Charlie Paredes MD Work Phone: [facility] Work Phone: 08-08-2008 varicella virus vaccine Charlie Paredes MD Work Phone: [facility] Work Phone: 04-30-2005 diphtheria, tetanus toxoids and acellular pertussis vaccine, unspecified formulation Charlie Paredes MD Work Phone: [facility] Work Phone: 04-30-2005 hepatitis B vaccine, pediatric or pediatric/adolescent dosage Charlie Paredes MD Work Phone: [facility] Work Phone: 04-30-2005 pneumococcal conjuga te vaccine, 7 valent Charlie Paredes MD Work Phone: [facility] Work Phone: 04-30-2005 poliovirus vaccine, inactivated Charlie Paredes MD Work Phone: [facility] Work Phone: 07-03-2004 haemophilus influenz ae type b vaccine, conjugate unspecified formulation Charlie Paredes MD Work Phone: [facility] Work Phone: 07-03-2004 measles, mumps and rubella virus vaccine Charlie Paredes MD Work Phone: [facility] Work Phone: 07-03-2004 pneumococcal conjuga te vaccine, 7 valent Charlie Paredes MD Work Phone: [facility] Work Phone: 07-03-2004 varicella virus vaccine Charlie Paredes MD Work Phone: [facility] Work Phone: 03-12-2004 pneumococcal conjuga te vaccine, 7 valent Charlie Paredes MD Work Phone: [facility] Work Phone: 2003 diphtheria, tetanus toxoids and acellular pertussis vaccine Charlie Paredes MD Work Phone: [facility] Work Phone: 2003 haemophilus influenz ae type b vaccine, PRP-T conjugate Charlie Paredes MD Work Phone: [facility] Work Phone: 2003 poliovirus vaccine, inactivated Charlie Paredes MD Work Phone: [facility] Work Phone: 2003 diphtheria, tetanus toxoids and acellular pertussis vaccine Charlie Paredes MD Work Phone: [facility] Work Phone: 2003 haemophilus influenz ae type b conjugate and Hepatitis B vaccine Charlie Paredes MD Work Phone: [facility] Work Phone: 2003 poliovirus vaccine, inactivated Charlie Paredes MD Work Phone: [facility] Work Phone: 2003 diphtheria, tetanus toxoids and acellular pertussis vaccine, unspecified formulation Charlie Paredes MD Work Phone: [facility] Work Phone: 2003 haemophilus influenz ae type b vaccine, conjugate unspecified formulation Charlie Paredes MD Work Phone: [facility] Work Phone: 2003 hepatitis B vaccine, pediatric or pediatric/adolescent dosage Charlie Paredes MD Work Phone: [facility] Work Phone: 2003 pneumococcal conjuga te vaccine, 7 valent Charlie Paredes MD Work Phone: [facility] Work Phone: 2003 poliovirus vaccine, unspecified formulation Charlie Paredes MD Work Phone: [facility] Work Phone: 2003 hepatitis B vaccine, pediatric or pediatric/adolescent dosage Charlie Paredes MD Work Phone: [facility] Work Phone: Payers Date Payer Category Payer Private Health Insurance [employer] [id number] 2021 Managed Care ([facility]) [facility] [id number] 2020 Blue Cross Blue Shield BCBS [id number] 2020 Blue Cross Blue Shie [facility] [id number] 2020 Unknown [id number] 2003 Unknown [id number] 593 2003 Unknown [id number] 593 2003 Unknown [id number] 593 2003 Unknown [id number] 593 2003 Unknown [id number]. 593 2003 Unknown [id number]. 593 2003 Unknown [id number]. 1259 2003 Unknown [id number]. 1259 2003 Unknown [id number] 1259 1959 Self-pay [id number] 1959 Unknown [id number] 1959 Unknown [id number] Unknown [facility] [id number] Unknown [id number] Unknown [id number] Unknown [id number] Social History Date Type Detail Facility Start: 05-08-2022 End: 11-03-2022 Tobacco smoking status DCIS Never smoked tobacco (finding) [facility] Start: 2003 [facility] At [facility] Start: 04-22-2023 End: 10-24-2024 Sex Assigned At [facility] Other Start: 03-04-2023 Tobacco smoking status DCIS Tobacco smoking consumption unknown [facility] Work Phone: Start: 04-05-2023 Gender identity Identifies as female gender (finding) [facility] Work Phone: Start: 04-05-2023 Sexual orientation Heterosexual (fin ding) [facility] Work Phone: Start: 02-25-2023 End: 05-26-2023 Exposure to SARS-CoV-2 (event) Not sure [facility] Start: 04-22-2023 Tobacco use and exposure Smokeless tobacco non-user [facility] Start: 04-22-2023 End: 12-28-2024 Alcohol intake Lifetime non-drinker (finding) [facility] Start: 04-22-2023 End: 10-24-2024 History of Social function [facility] National Score (1-100), lower number is lower risk 78 [facility] Start: 2003 Sex Assigned At Not on file [facility] Start: 11-18-2024 [facility] NEGATED: Highlighted row - - MK-Xbfdtbljtv-Ktdhvy o g-Admin [facility] Work Phone: Goals Date Patient Goal Desired Activity /State Functional Status Date Assessment Result Facility NEGATED: Highlighted row Functional performance Functional status health issues are not documented Disease WK-Qjqzbsvhrh-Yqoqb log-Admin [facility] Work Phone: Mental Status Date Assessment Result Facility NEGATED: Highlighted row Cognitive function [Interpretation] Cognitive status health issues are not documented Disease DG-Thkuiwcopa-Ghmsm log-Admin [facility] Work Phone: Clinical Notes 06-02-2022 to 12-28-2024 Chantell Pillai MA - 12/28/2024 9:00 AM Jamir Angelo LPN - 10/24/2024 1:30 PM Virgil Paredes MD - 07/12/2024 3:00 PM ESTPerioperative Nursing Note - Le Dias RN - 05/26/2023 4:00 PM EST Note Date & Type Note Facility 12-28-2024 History of Present illness Narrative Reason for Appointment: Patient ID: Manrpeet Fraire is a 19 y.o. female who [...] list which includes the following prescription(s): dicyclomine, jensrvdj-tqb-sl-fa, and ondansetron odt. Medical History: Active Ambulatory Problems Diagnosis Date Noted Positive urine test ([facility]) 11/30/2024 MTHFR gene mutation 08/24/2018 IBS (irritable bowel syndrome) 06/01/2016 MTHFR (methylene THF reductase) deficiency and homocystinuria 12/20/2024 Moderate episode of recurrent major depressive disorder (HCC) 08/11/2021 Encounter for supervision of normal first in first trimester ([facility]) 12/28/2024 Resolved Ambulatory Problems Diagnosis Date Noted [...] all orders for this visit: First trimester ([facility]) 7 weeks gestation of ([facility]) Missed menses - US OB transvaginal; Future - Type and screen; Future - ABO/Rh; Future - CBC and differential - Hemoglobin A1c - RPR - Rubella antibody, IgG - Hepatitis B surface antigen - Hepatitis C antibody - HIV-1 and HIV-2 antibodies - Urine culture - POCT , urine manually resulted - POCT urinalysis dipstick manually resulted Positive urine test ([facility]) - US OB transvaginal; Future Amenorrhea , unspecified gestational age ([facility]) - Type and screen; Future - ABO/Rh; Future - CBC and differential - Hemoglobin A1c - RPR - Rubella antibody, IgG - Hepatitis B surface antigen - Hepatitis C antibody - HIV-1 and HIV-2 antibodies - Rapid drug screen, urine; Future Encounter for supervision of normal first in first trimester ([facility]) - Rapid drug screen, urine; Future MTHFR gene mutation Irritable bowel syndrome, unspecified type Nurse Note: Pt unsure about doing [facility] to one. Pt was advised if she desires [place] to make sure labs are done at [...] or undercooked meat, and stay away from [facility]. Patient has also been advised to not [...] Chantell Pillai MA documented in this encounter [facility] 10-24-2024 History of Present illness Narrative Associated [...] nursing note reviewed. Exam conducted with a mutual fund sales agent present. Vitals: Estimated body mass index is [...] given: yes Instructions and paperwork completed: yes [place] protocol: Patient states understanding of procedure being [...] Bubba Cota DO documented in this encounter [facility] 07-12-2024 History of Present illness Narrative Subjective [...] Charlie Paredes MD documented in this encounter [facility] Work Phone: 05-26-2023 Miscellaneous Notes Home going instructions reviewed and discussed, pt and family verbalize understanding. Educated on anesthesia safety. Tolerated fluids well documented in this encounter [facility] Work Phone: 05-26-2023 Note Formatting of this n ote might be different from the original. Home going instructions reviewed and discussed, pt and family verbalize understanding. Educated on anesthesia safety. Tolerated fluids well [facility] 05-26-2023 Note Formatting of this n ote might be different from the original. Home going instructions reviewed and discussed, pt and family verbalize understanding. Educated on anesthesia safety. Tolerated fluids well [facility] 05-26-2023 Hospital Discharge instructions Charlie Paredes MD [...] having your procedure, call the [facility] to be advised whether a visit to [...] discharge from the GI Lab, please call: [phone] documented in this encounter [facility] Work Phone: 05-26-2023 History and physical note Procedure H&P Patient Profile-Procedures Name Manpreet Fraire Date of 2005 Address [address] [facility] [id number] [facility] [id number] Primary Secondary Phone Number Fernando Hensley Procedure(s): Procedures: EGD Primary contact name and number Extended Emergency Contact Information Primary Emergency Contact: Devika Fraire [place] Relation: Parent Secondary Emergency Contact: Jovan Alvarez Address: [address] [place] [address] of [place] Mobile Relation: [facility] [...] Paredes MD ergocalciferol (Vitamin D-2) 1.25 MG (02739 UT) capsule Take by mouth. 05/22/18 05/26/23 [...] met Charlie Paredes MD 05/26/2023 2:25 PM [facility] Work Phone: 05-26-2023 History and physical note Procedure H&P Patient Profile-Procedures Name Manpreet Fraire Date of 2005 Address [address] [facility] [id number] [facility] [address] Primary Secondary Phone Number Fernando Hensley Procedure(s): Procedures: EGD Primary contact name and number Extended Emergency Contact Information Primary Emergency Contact: Devika Fraire Relation: Parent Secondary Emergency Contact: Jovan Alvarez Address: [address] [place] [address] Mobile Relation: [facility] Weight Vitals: [...] Paredes MD ergocalciferol (Vitamin D-2) 1.25 MG (22770 UT) capsule Take by mouth. 05/22/18 05/26/23 Historical ProviderMD sertraline (Zoloft) 25 mg tablet Take by mouth once daily. 10/19/19 05/26/23 Historical ProviderMD Physical Exam Vitals: 05/26/23 1327 BP: 132/83 [...] 05/26/2023 2:25 PM documented in this encounter [facility] Work Phone: 04-26-2023 History of Present illness [...] capsule oral ergocalciferol (Vitamin D-2) 1.25 MG (29781 UT) capsule oral ondansetron ODT (ZOFRAN-ODT) 4 [...] Charlie Paredes MD documented in this encounter [facility] Work Phone: 04-22-2023 Note HNO ID: [id number] Author: Albert Zapata MD Service: ? Author Type: Physician Type: Progress Notes Filed: 04/25/2023 10:37 AM Note Text: ENDOCRINOLOGY REASON FOR CONSULTATION: Menorrhagia HISTORY The patient is referred by Dr. Bubba Cota from [facility]. . My recommendations will be sent [...] which included preparing to see the patient, [id number] patient care, completing clinical documentation, obtaining and/or reviewing separately obtained history, performing a medically appropriate examination, counseling and educating the patient/family/caregiver, and ordering medications, tests, or procedures. Return to office: GOLDIE Zapata MD c.c. Dr. Bubba Cota [facility] 04-22-2023 History of Present illness Narrative ENDOCRINOLOGY [...] which included preparing to see the patient, [id number] patient care, completing clinical documentation, obtaining and/or reviewing separately obtained history, performing a medically appropriate examination, counseling and educating the patient/family/caregiver, and ordering medications, tests, or procedures. Return to office: MD luis Riojas. Dr. Bubba Cota documented in this encounter [facility] 04-05-2023 History of Present illness Narrative Subjective [...] following up with her GI team in [place], and has undergone extensive GI work-up including [...] past medical history of Compression of brain ([facility]) (11/21/2019) and Other specified health status. Social [...] capsule oral ergocalciferol (Vitamin D-2) 1.25 MG (50436 UT) capsule oral ondansetron ODT (ZOFRAN-ODT) 4 [...] Charlie Paredes MD documented in this encounter [facility] Work Phone: 03-07-2023 Evaluation note Encounter Date Diagnosis Assessment Notes Feb, RUQ abdominal pain (ICD-10 - R10.11) [facility] Other [id number] Evaluation note* Encounter Date Diagnosis Assessment Notes Treatment Notes Treatment Clinical Notes Feb, RUQ pain (ICD-10 - R10.11) Manpreet has had multiple labs, imaging and now GI tests. States she is seeing GI at for second opinion on 03/07. Offered GBUS, but she doesn't exactly fit the profile for gall stones. Will obtain HIDA at [facility] - discussed w pt and her mother. [facility] Other 07-12-2023 Evaluation note* Encounter Date Diagnosis Assessment Notes Treatment Notes Treatment Clinical Notes Nov, Nausea (ICD-10 - R11.0) Nov, Weight loss (ICD-10 - R63.4) Nov, Abdominal pain (ICD-10 - R10.9) Nov, Diarrhea (ICD-10 - R19.7) Patient may use imodium as needed [facility]-30[facility]* Encounter Date Diagnosis Assessment Notes Treatment Notes Treatment Clinical Notes Aug, Situational anxiety (ICD-10 - F41.8) [facility] Other 04-13-2023 Evaluation note* Encounter Date Diagnosis [...] should keep follow-up appointment with Dr. Fernandez. [facility] Other 01-11-2023 Evaluation note* Encounter Date Diagnosis Assessment Notes Treatment Notes Treatment Clinical Notes May, Nausea (ICD-10 - R11.0) May, Abdominal pain (ICD-10 - R10.9) PATIENT TO CONTINUE ON BENTYL 20MG NEEDED May, Weight loss (ICD-10 - R63.4) PATIENT TO CALL IF SYMPTOMS WORSEN. [facility] Other Evaluation noteNo assessment information available [facility] Work Phone: Evaluation noteNo InformationN[place] Other Evaluation note* Diagnosis Irritable bowel syndrome with diarrhea- Primary Irritable bowel syndrome Generalized abdominal pain Abdominal pain, generalized Weight loss Loss of weight Bilious vomiting with nausea documented in this encounter [facility] Work Phone: Evaluation note* Diagnosis Menorrhagia with regular cycle- Primary Excessive or frequent menstruation [facility] 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 Irritable bowel syndrome Generalized abdominal pain Abdominal pain, generalized Weight loss Loss of weight Bilious vomiting with nausea documented in this encounter [facility] Work Phone: Evaluation note* Diagnosis Congenital sucrase-isomaltase deficiency documented in this encounter [facility] Work Phone: Evaluation note* Diagnosis Congenital sucrase-isomaltase deficiency documented in this encounter [facility] Work Phone: Evaluation note* Diagnosis Norovirus- Primary Intestinal infection, 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 Irritable bowel syndrome with diarrhea Irritable bowel syndrome documented in this encounter [facility] Work Phone: Evaluation note* Diagnosis Encounter for IUD removal [facility] First trimester ([facility]) state, incidental 7 weeks gestation of ([facility]) Missed menses Positive urine test ([facility]) Amenorrhea Absence of menstruation , unspecified gestational age ([facility]) Encounter for supervision of normal first in first trimester ([facility]) MTHFR gene mutation Irritable bowel syndrome, unspecified type [facility] Author Lisa Fernandez [facility] October 19, 2022 9:28am Note Date/Time October 19, 2022 9:28a m [facility] [address] [place] [address] Gastroenterology H&P Signed Patient: Manpreet Fraire MR#: [id number] : 2005 Acct:[id number] Age/Sex: 17 / F Adm Date: 3 Loc: Room: Type: [facility] Attending Dr: Lisa Fernandez MD Copies to: [...] <Electronically signed by Lisa Fernandez MD> 10/19/22927 [facility] Work Phone: History general Narrative - Reported* Type Description Date Medical History persistent coughing Medical History wheezing 2004 Surgical History tubes in ears [facility] Other History general Narrative - Reported* Type Description Date Medical History persistent coughing Medical History wheezing 2004 Medical History IBS (irritable bowel syndrome) Medical History MTHFR gene mutation Medical History ROZ (generalized anxiety disorde r) Surgical History tubes in ears Surgical History MYRINGOTOMY WITH TUBE PLACEMENT Hospitalization History SEE SURGICAL HX [place] Other Hospital Discharge instructions Additional Instructions DISCHARGE [...] NOT operate machinery such as power tools, Retail Rocketn mowers, Partigi blowers, sewing machines, etc. for 24 hours. [...] NOT operate machinery such as power tools, Retail Rocketn mowers, snow blowers, sewing machines, etc. for [...] -Follow up with PCP. - Office number [phone]. 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 Procedures EGD NC ESOPHAGOGASTRODUODENOSCOPY TRANSORAL DIAGNOSTIC NC EGD TRANSORAL BIOPSY SINGLE/MULTIPLE Charlie Paredes MD [address] [address] Referral ID Status Reason Start Date Expiration Date V isits Requested Visits Authorized [id number] Authorized 05/02/2023 05/01/2024 1 1 Additional Source Comments INFORMATION SOURCE (unrecogn ized section and content) DATE CREATED AUTHOR 10/06/2019 [facility] DATE CREATED AUTHOR AUTHOR'S ORGANIZ ATION 12/13/2019 [facility] DATE CREATED AUTHOR AUTHOR'S ORGANIZ ATION 09/09/2022 [facility] DATE CREATED AUTHOR AUTHOR'S ORGANIZ ATION 04/25/2023 [facility] DATE CREATED AUTHOR AUTHOR'S ORGANIZ ATION 09/08/2023 [facility] DATE CREATED AUTHOR AUTHOR'S ORGANIZ ATION 12/31/2024 [facility] EPIC Care Teams (unrecognized [...] Primary Care Provider Active Cody Akhtar DO [facility] Attending Provider Active Equipment Service Lead Relationship Specialty Start Date End Date Fernando Wilson MD [address] [place] [address] [place] [address] PCP - General 06/25/19 Equipment Service Lead Relationship Specialty Start Date End Date Bubba Cota CaityDO [address] [place] [address] [place] [address] Referring WRECKER OPERATOR 02/04/23 Equipment Service Lead Relationship Specialty Start Date End Date Fernando Wilson MD PCP - General 06/25/19 Equipment Service Lead Relationship Specialty Start Date End Date Fernando Wilson MD [address] [place] [address] PCP - General 06/25/19 Equipment Service Lead Relationship Specialty Start Date End Date Fernando Wilson MD [address] [place] [address] PCP - General 06/25/19 Team Status: Inactive Member Role Status Dates Fernando Wilson MD Primary Care Provider Active Start: March 08, 2024 End: March 08, 2024 Cristina Lara APRN Attending Provider Active Start: March 08, 2024 End: March 08, 2024 Equipment Service Lead Relationship Specialty Start Date End Date Fernando Wilson MD [address] [place] [address] PCP - General 06/25/19 Equipment Service Lead Relationship Specialty Start Date End Date Fernando Wilson MD [address] [facility] [place] [phone] PCP - General Family Medicine 11/04/22 Equipment Service Lead Relationship Specialty Start Date End Date Fernando Wilson MD [address] [place] [phone] PCP - General Family Medicine 11/04/22 Equipment Service Lead Relationship Specialty Start Date End Date Fernando Wilson MD [address] [place] [phone] PCP - General Family Medicine 11/04/22 Equipment Service Lead Relationship Specialty Start Date End Date Fernando Wilson MD [address] [place] [phone] PCP - General Family Medicine 11/04/22 Goals [...] 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 Procedures EGD NC ESOPHAGOGASTRODUODENOSCOPY TRANSORAL DIAGNOSTIC NC EGD TRANSORAL BIOPSY SINGLE/MULTIPLE Charlie Paredes MD [address] [address] Referral ID Status Reason Start Date Expiration Date V isits Requested Visits Authorized [id number] Authorized 05/02/2023 05/01/2024 1 1 Reason Comments mirena removal Reason Comments Amenorrhea Source Comments (unrecognize d section and content) In the event this informatio n is protected by the Federal Confidentiality of Alcohol and Drug Abuse Patient Records regulations: The Federal rules restrict any use of the information to criminally investigate or prosecute any alcohol or drug abuse patient.[facility] FOR RECORDS PERTAINING TO PATIENTS WHO ARE [...] BE BASED ON THE PRIMARY CLINICAL RECORDS. [facility]. provides no warranty or guarantee of the accuracy or completeness of information in this document.
== END 2025-01-14 11:11 | disposition home or self-care (01) ==
PROVIDERS: PCP Family Medicine; Visit Provider Obstetrics & Gynecology
DX: Z32.01 Encounter for pregnancy test, result positive (principal); Z3A.08 8 weeks gestation of pregnancy; N92.6 Irregular menstruation, unspecified
CPT/HCPCS: 76817

== ENCOUNTER 2025-01-15 12:21 | Outpatient (OUT) | payer OTHER, BC, SELFPAY ==
--- OUTSIDE RECORDS SUMMARY | 2025-01-15 12:27 | XMS_ITS | CCD ---
Author Organization [facility] CliniSyor Care Team Providers Care Principal Archaeologist Name Role Phone Stella Brar Unavailable Unavailable Juan CLe Unavailable Unavailable Yokasta Wiggins Unavailable Unavailable MD Fernando Wilson Primary Care Provider EMMANUELLE Ramos Emergency Provider [phone] Lisa Fernandez Unavailable Fernando Wilson Unavailable CIPRIANO [...] Care Provider MD Lisa Fernandez Attending Provider MD Fernando Wilson Primary Care Provider [phone] DO Cody Akhtar Attending Provider [phone] Fernando Wilson MD Primary Care Provider Bubba Cota DO Unavailable ALBERT ZAPATA Attending Fernando Garza MD Primary Care Provider Fernando Wilson MD Primary Care Provider Asaad, Imad Admitting Unavailable Fernando Wilson Primary Care Unavailable Asaad, Imad Attending Unavailable [facility] Unavailable Giovana Cody LAUGHLIN Admitting Unavailable Fernando Wilson Primary Care Unavailable Fernando Wilson MD Primary Care Provider [phone] Fernando Wilson MD Primary Care Provider [phone] BUBBA COTA Attending Unavailable BUBBA COTA Attending Unavailable Medications Current Medications [...] 12:00am dicyclomine hydrochloride 10 mg oral capsule (20 sources) Anticholinergic Start: 05-17-2024 dicyclomine (Bentyl) 10 [...] mg sublingual tablet (3 sources) Start: 12-02-19 23 take 1 tablet under the tongue three times daily as needed Hyoscyamine Sulfate SL 0.125 MG 1 tablet under the tongue and allow to dissolve as needed Sublingual Three times a day as needed for 30 days Nov, Active levonorgestrel 0.452142 mg/hr intrauterine system (2 sources) Progestin, Progestin-containing [...] FOR NAUSEA OR VOMITING. polyethylene glycol [id number] mg / potassium chloride 2970 mg / sodium bicarbonate 6740 mg / sodium chloride 5860 mg / sodium sulfate 35009 mg powder for oral solution (1 source) Osmotic Laxative PEG-3350/Electr olytes 236 GM as directed Orally ONCE DAILY for 1 days Active Bicueklv-Kkd-Bg-FA ( 1 + IRON PO) (7 sources) Start: Qevxhvwa-Wlk-Wf-FA ( 1 + IRON PO) 09/20/2024 Active [...] 04/21/2023 Active sucralfate 1000 mg oral tablet (5 sources) Aluminum Complex Start: End: take 1 [...] End: 05-26-2023 ergocalciferol (Vitamin D-2) 1.25 MG (30918 UT) capsule Take by mouth. 0 05/22/2018 05/26/2023 Discontinued (Therapy completed) Start: 05-22-2018 take 1 capsule by mo ut every week Vitamin D (Ergocalciferol) 1.25 MG (96524 UT) Oral Capsule TAKE 1 CAPSULE WEEKLY for 8 weeks Quantity: 8 Refills: 0 Setlla Olivares Start : 22-May-2018 Active Multivitamin preparation [...] removal of intrauterine contraceptive device] 10-24-2024 Episodic Immunizations and screening for infectious disease (3 sources) Encounter for screening for infections with a predominantly sexual mode of transmission; Translations: [Exposure to sexually transmissible disorder] Onset: 2 01-14-2025 Episodic Intestinal infection (1 source) Viral gastroenteritis due to Glasgow-like agent; Translations: [Acute gastroenteropathy due to Glasgow agent] 07-12-2024 Episodic Menstrual disorders (5 sources) Menorrhagia; Translations: [Excessive and frequent menstruation with regular cycle] 04-22-2023 Chronic Mood disorders (12 sources) Depressive disorder; Translations: [Depression] Onset: 0 03-04-2023 Chronic Nausea and vomiting (14 sources) Nausea; Translations: [Nausea] Episodic Nutritional deficiencies (7 sources) Vitamin D deficiency; Translations: [Vitamin D deficiency, unspecified] Onset: 3 03-04-2023 Chronic Other female genital disorders (2 sources) Vaginal discharge; Translations: [Other specified noninflammatory disorders of vagina] 01-14-2025 Episodic Other gastrointestinal disorders (20 sources) Irritable bowel [...] nutritional; endocrine; and metabolic disorders (12 sources) Methylene THF reductase deficiency AND homocystinuria; 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] Onset: 3 Resolved: 4 03-04-2023 Chronic Other nutritional; endocrine; and metabolic disorders (12 sources) Weight loss; Translations: [Abnormal weight loss] 04-05-2023 Episodic Other nutritional; endocrine; and metabolic disorders (6 sources) Abnormal weight loss; Translations: [ABNORMAL WEIGHT LOSS] Onset: 2 Episodic Other and delivery including normal (20 sources) Urine test positive; Translations: [Encounter for [...] Headache; Translations: [Headache] Onset: 03-04-2023 03-04-2023 Episodic Other endocrine disorders (4 sources) Endocrine [...] Onset: 03-04-2023 03-04-2023 Episodic Residual codes; unclassified (8 sources) Hereditary disorder of endocrine system; Translations: [Genetic susceptibility to other disease] Onset: 08-24-2018 12-28-2024 Episodic Unclassified (2 sources) History finding; Translations: [No pertinent past medical history] NEGATED: Highlighted row has not occurred!Residual codes; unclassified (6 sources) Disease Episodic Results Test Name Value Interpretation Reference Range Facility RECURRENT VAGINITIS (HTRX)on 01-15-2025 ATOPOBIUM VAGINAE 0 [facility] Healthcare ATOPOBIUM VAGINAE Not detected [facility] BVAB 2,3 (BACTERIAL VAGINOSIS ASSOCIATED BACTERIA 2, 3); MOBILUNCUS SPP 21.998 Abnormal [facility] BVAB 2,3 (BACTERIAL VAGINOSIS ASSOCIATED BACTERIA 2, 3); MOBILUNCUS SPP Detected Abnormal [facility] GUTIERREZ ALBICANS, PARAPSILOSIS, TROPICALIS 0 [facility] GUTIERREZ ALBICANS, PARAPSILOSIS, TROPICALIS Not detected [facility] GUTIERREZ GLABRATA 0 [facility] GUTIERREZ GLABRATA Not detected [facility] GUTIERREZ KRUSEI 0 [facility] GUTIERREZ KRUSEI Not detected [facility] CHLAMYDIA TRACHOMATIS 0 [facility] CHLAMYDIA TRACHOMATIS Not detected [facility] GARDNERELLA VAGINALIS 0 [facility] GARDNERELLA VAGINALIS Not detected [facility] Interpretation and review of laboratory results Abnormal [facility] MEGASPHAERA (TYPES 1, 2) 0 [facility] MEGASPHAERA (TYPES 1, 2) Not detected [facility] MYCOPLASMA GENITALIUM 0 [facility] MYCOPLASMA GENITALIUM Not detected [facility] NEISSERIA GONORRHOEAE 0 [facility] NEISSERIA GONORRHOEAE Not detected [facility] TRICHOMONAS VAGINALIS 0 [facility] TRICHOMONAS VAGINALIS Not detected [facility] US OB TRANSVAGINALon [address] [address] Ultrasound Report Signed Patient: MANPREET FRAIRE MR#: [id number] : 2005 Acct:[id number] Age/Sex: 19 / F ADM Date: 01/14/25 Loc: RAD Attending Dr: Bubba Cota D.O. Ordering Physician: Bubba Cota D.O. Date of Service: 01/14/25 Procedure(s): US OB transvaginal Accession Number(s): [id number] cc: Fernando Wilson M.D.; Bubba Cota D.O. [place] [id number] Patient Name: MANPREET FRAIRE MRN: [id number] date: 2005 Sex: F Assigned Patient Location: [facility] Current Patient Location: RAD Accession/Order Number: [id number] Exam Date: 01/14/2025 11:27 Report Date: 01/14/2025 12:26 At the request of: BUBBA COTA DO Procedure: US OB transvaginal ULTRASOUND OB TRANSVAGINAL CLINICAL DATA: Positive test COMPARISON: None Transvaginal imaging of the pelvis was performed. A gestational sac is present within the uterus. A pole is present. The crown-rump length measurement of 2.0 cm correlates with an ultrasound age of 8 weeks 4 days. The estimated date of delivery is 08/20/2025. cardiac activity was not documented. No yolk sac was seen. The cervix is closed and measures approximately 3.8 cm in length. Both ovaries are seen. The right measures 2.3 x 1.8 x 1.5 cm. The left ovary measures 3.8 x 1.7 x 2.3 cm. There is documentation of ovarian blood flow. Small follicles are present. No dominant adnexal cysts are seen. There is no free fluid. US/US OB transvaginal IMPRESSION: INTRAUTERINE AT 8 WEEKS 4 DAYS. NO DOCUMENTATION OF CARDIAC ACTIVITY. DEMISE IS POSSIBLE. CORRELATION WITH BETA-HCG AND FOLLOW-UP WILL BE NEEDED. Impression dictated by: Enid Tripp M.D. 01/14/2025 12:26 PM Dictation Location: [place] [address] Electronically authenticated by: [id number] Y Date: 01/14/2025 12:26 Dictated By: Enid Tripp M.D. Signed By: 01/14/25 1228 DD/ 1226 TD/TT: [employer] Worker: [facility] Radiology, Radiologist, MD - 01/14/2025 [place] [address] Ultrasound Report Signed Patient: MANPREET FRAIRE MR#: [id number] : 2005 Acct:[id number] Age/Sex: 19 / F ADM Date: 01/14/25 Loc: RAD Attending Dr: Bubba Cota D.O. Ordering Physician: Bubba Cota D.O. Date of Service: 01/14/25 Procedure(s): US OB transvaginal Accession Number(s): [id number] cc: Fernando Wilson M.D.; Bubba Cota D.O. [place] [address] Patient Name: MANPREET FRAIRE MRN: [facility]:[id number] date: 2005 Sex: F Assigned Patient Location: [facility] Current Patient Location: [facility] Accession/Order Number: [id number] Exam Date: 01/14/2025 11:27 Report Date: 01/14/2025 12:26 At the request of: BUBBA COTA DO Procedure: US OB transvaginal ULTRASOUND OB TRANSVAGINAL CLINICAL DATA: Positive test COMPARISON: None Transvaginal imaging of the pelvis was performed. A gestational sac is present within the uterus. A pole is present. The crown-rump length measurement of 2.0 cm correlates with an ultrasound age of 8 weeks 4 days. The estimated date of delivery is 08/20/2025. cardiac activity was not documented. No yolk sac was seen. The cervix is closed and measures approximately 3.8 cm in length. Both ovaries are seen. The right measures 2.3 x 1.8 x 1.5 cm. The left ovary measures 3.8 x 1.7 x 2.3 cm. There is documentation of ovarian blood flow. Small follicles are present. No dominant adnexal cysts are seen. There is no free fluid. US/US OB transvaginal IMPRESSION: INTRAUTERINE AT 8 WEEKS 4 DAYS. NO DOCUMENTATION OF CARDIAC ACTIVITY. DEMISE IS POSSIBLE. CORRELATION WITH BETA-HCG AND FOLLOW-UP WILL BE NEEDED. Impression dictated by: Enid Tripp M.D. 01/14/2025 12:26 PM Dictation [facility] Electronically authenticated by: [id number] Y Date: 01/14/2025 12:26 Dictated By: Enid Tripp M.D. Signed By: 01/14/25 1228 DD/ 1226 TD/TT: [employer] Worker: [facility] Radiology Study observation (narrative) [facility] OB TRANSVAGINALOrdered By : Radiologist Radiology on 01-14-2025 [facility] Work Phone: BOX TESTon 01-09-2025 BOX TEST SENT OUT PEAK-IT [facility] BOX1 [employer] [facility] BOX2 01/09/25 [facility] HCG ( test) Ql (U)o n 12-28-2024 Interpretation and review of laboratory results Abnormal [facility] Preg Test, Ur Positive Negative [facility] OB TRANSVAGINALon 025 US OB TRANSVAGINAL FINDINGS: [...] UA Negative Negative - 4(70) +++ mg/dL [facility] Blood, UA Negative Negative - 50 Adrián/mcL [facility] Clarity, UA Clear [facility] Color, UA Yellow [facility] Glucose, UA Negative Negative - 1999(110) ++++ mg/dL [facility] Interpretation and review of laboratory results Normal [facility] Ketones, UA Negative Negative - 160(16) ++++ mg/dL [facility] Leukocytes, UA Negative Negative - 500+++ Ally/mcL [facility] Nitrite, UA Negative Negative - Positive [facility] pH, UA 6 5 - 9 [facility] Protein, UA Negative Negative - 1999(20) ++++ mg/dL [facility] Spec Grav, UA 1.02 1 - 1.03 [facility] Urobilinogen, UA 1.0 0.2 - 12 mg/dL [facility] PREG QUANT HCGon 025 HCG QUANTITATIVE 171 mIU/mL [facility] Comment on above: 5-50 0.2-1 WEEK 50-500 1-2 WEEKS 100-5,000 2-3 WEEKS 500-10,000 3-4 WEEKS 1,000-50,000 4-5 WEEKS 10,000-100,000 5-6 WEEKS 15,000-200,000 6-8 WEEKS 10,000-100,000 2-3 [facility] 025 HCG QUANTITATIVE 73 mIU/mL [facility] Comment on above: 5-50 0.2-1 WEEK 50-500 1-2 WEEKS 100-5,000 2-3 WEEKS 500-10,000 3-4 WEEKS 1,000-50,000 4-5 WEEKS 10,000-100,000 5-6 WEEKS 15,000-200,000 6-8 WEEKS 10,000-100,000 2-[facility] IUD Removalon 10-24-2024 Enid Angelo LPN 10/24/2024 3:14 PM IUD Removal Date/Time: 10/24/2024 2:09 PM Performed by: Bubba Cota DO Authorized by: Bubba Cota DO Consent: Consent obtained: Written Consent given by: Patient Procedure risks and benefits discussed: yes Patient questions answered: yes Patient agrees, verbalizes understanding, and wants to proceed: yes Educational handouts given: yes Instructions and paperwork completed: yes Twining protocol: Patient states understanding of procedure being [...] annual exam unless needed otherwise [facility] No Panel InformationOrdered By: Cristina Lara on 03-08-2024 Quick Strep (POC) [facility] EGD Study observation Narrat iveon 05-26-2023 Table [...] Lico Zeng MD 05/26/2023 1533 Procedure Location [facility] [address] [facility] [phone] Referring Provider Charlie Paredes Md [address] [facility] [address] [place] [address] Procedure Provider Charlie Paredes MD [facility] Work Phone: [facility] Work Phone: Radiology Study observation (narrative) [facility] Work Phone: HCG ( test) Ql (U)O rdered By: Maria T Farley on 05-26-2023 Interpretation and review of laboratory results Normal [facility] Preg Test, Ur Negative Negative [facility] CNOVon 04-22-2023 CNOV Office Visit (ENDOLN ) MANPREET FRAIRE ([id number]) 1 F Date Time Provider Department 04/22/23 1:00 PM ALBERT ZAPATA ENDOLN During your visit today, we recorded the following information about you: Pulse Blood pressure Weight Height 68/minute 118/72 61.7 kg 1.651 m Albert Zapata MD 04/25/2023 10:37 AM Addendum ENDOCRINOLOGY REASON FOR CONSULTATION: Menorrhagia HISTORY The patient is referred by Dr. Bubba Cota from [facility]. . My recommendations will be sent [...] which included preparing to see the patient, [id number] patient care, completing clinical documentation, obtaining and/or reviewing separately obtained history, performing a medically appropriate examination, counseling and educ (more content not included)... Normal [facility] HCG ( test) IA.rapi d Ql (U)Ordered By: Lisa Fernandez on 10-19-2022 HCG ( test) Ql (U) Negative [facility] HCG,Urineon 10-19-2022 Beta HCG ( test) Ql (U) Negative Normal [facility] Comment on above: Result Comment: PERF ORMED BY: [address] [place] [address] PATHOLOGIST ASSISTED SALES REPRESENTATIVE ALEXIA KENNEDY M.D. Performed By: #### U HCG #### [place] [id number] [facility] Min 10-19-2022 L - -------- Specimen: [id number] Received: 10/19/22 Status: CARLOS Aquinokiran Num: [id number] Spec Type: Surgical Subm Dr: Lisa Fernandez MD Tissues: A Duodenum - Biopsy (DUODENUM BX) Procedures: LUIS/Barby, Macey/Keri L4 -------- Age/ Patient Sex Location Account Attending Physician -------- Manpreet Fraire / [id number] Lisa Fernandez MD -------- SPEC NUM: [id number] RECD: 10/19/22 STATUS: CARLOS RAHMAN NUM: [id number] JASON: 10/19/22 [facility] DR: Lisa Fernandez MD ENTERED: 10/19/22 [facility] DR: JAMES TYPE: Surgical DEPT: S ORDERED: [...] microscopic examination confirms the diagnosis. CPT Codes 16746 -------- -------- Specimen: [id number] Received: 10/19/22 Status: CARLOS Rahman Num: [id number] Spec Type: Surgical Subm Dr: Lisa Fernandez MD Tissues: A Duodenum - Biopsy (DUODENUM BX) Procedures: HE/2, Gross/Micro L4 -------- Patient: Manpreet Fraire [id number] (Continued) -------- Signed (signature on file) Isi Hsieh MD 10/20/22 0958 Normal [facility] AMYLASEon 09-04-2022 Amylase [Catalytic activity/Vol] 41 U/L Normal 25-115 [facility] Comment on above: Performed By: #### L DEVIKA RICKETTS #### [facility] [address] [place] [address] Dr. Nai Garcia LIPASEon 09-04-2022 Lipase [Catalytic activity/Vol] 83.0 U/L Normal 73.0-393.0 [facility] Comment on above: Performed By: #### DEVIKA VENTURA #### [facility] [address] [place] [address] Dr. Nai Garcia Automated erythrocytes count in urine sediment (number/area)Ordered By: Colby Ramos on 05-08-2022 RBC Auto (Urine sed) [#/Area] 0-1 [HPF] 0-4 [facility] Automated leukocytes count i n urine sediment (number/area)Ordered By: Colby Ramos on 05-08-2022 WBC Auto (Urine sed) [#/Area] 5-9 [HPF] 0-4 [facility] Automated urine hyaline cast s count (number/volume)Ordered By: Colby Ramos on 05-08-2022 Hyaline casts Auto (U) [#/Vol] None seen [LPF] 0-1 [facility] Basophils Auto (Bld) [#/Vol] Ordered By: Colby Ramos on 05-08-2022 Basophils (Bld) [#/Vol] 0.0 10*3/uL 0.0-0.2 [facility] Basophils/100 WBC Auto (Bld) Ordered By: Colby Ramos on 05-08-2022 Basophils/100 WBC (Bld) 0.9 % . [facility] Bilirubin Test strip Ql (U)O rdered By: Colby Ramos on 05-08-2022 Bilirubin Ql (U) Negative Negative [facility] Body fluid albumin measureme nt (mass/volume)Ordered By: Colby Ramos on 05-08-2022 Albumin (Body fld) [Mass/Vol] 4.1 g/dL 3.2-5.5 [facility] Casts typing in urine sedime nt by light microscopyOrdered By: Colby Ramos on 05-08-2022 Casts LM Nom (Urine sed) None seen [LPF] None S een [facility] Color Auto (U)Ordered By: Louis Ramos on 05-08-2022 Color (U) Yellow Yellow [facility] Creatinine and Glomerular fi ltration rate.predicted panel (S/P/Bld)Ordered By: Colby Ramos on 05-08-2022 Creatinine [Mass/Vol] 0.87 mg/dL 0.44-1.03 [facility] Direct bilirubin measurement Ordered By: Colby Ramos on 05-08-2022 Bilirubin.direct [Mass/Vol] mg/dL 0.0-0.4 [facility] Eosinophils Auto (Bld) [#/Vo l]Ordered By: Colby Ramos on 05-08-2022 Eosinophils (Bld) [#/Vol] 0.1 10*3/uL 0.0-0.45 [facility] Eosinophils/100 WBC Auto (Bl d)Ordered By: Colby Ramos on 05-08-2022 Eosinophils/100 WBC (Bld) 1.8 % . [facility] Erythrocyte distribution wid th Auto (RBC) [Ratio]Ordered By: Colby Ramos on 05-08-2022 Erythrocyte distribution width (RBC) [Ratio] 12.7 % 11.9-15.3 [facility] Estimated glomerular filtrat ion rate (GFR) non- AmericanOrdered By: Colby Ramos on 05-08-2022 GFR/1.73 sq M.predicted among non-blacks MDRD (S/P/Bld) [Vol rate/Area] > 60 mL/Min [facility] Globulin Calc (S) [Mass/Vol] Ordered By: Colby Ramos on 05-08-2022 Globulin (S) [Mass/Vol] 3.4 g/dL [facility] HCG ( test) IA.rapi d Ql (U)Ordered By: Colby Ramos on 05-08-2022 HCG ( test) Ql (U) Negative [facility] Hematocrit Auto (Bld) [Volum e fraction]Ordered By: Colby Ramos on 05-08-2022 Hematocrit (Bld) [Volume fraction] 39.7 % 34.0-46.4 [facility] Hemoglobin [Mass/volume] in BloodOrdered By: Colby Ramos on 05-08-2022 Hemoglobin (Bld) [Mass/Vol] 13.4 g/dL 11.8-15.4 [facility] Ketones Auto test strip (U) [Mass/Vol]Ordered By: Colby Ramos on 05-08-2022 Ketones (U) [Mass/Vol] 1+ Negative [facility] - Chemistry and C hemistry - challengeOrdered By: Colby Ramos on 05-08-2022 Lipase [Catalytic activity/Vol] 35.0 U/L 22-51 [facility] Leukocytes [#/volume] correc jean claude for nucleated erythrocytes in Blood by Automated counOrdered By: Colby Ramos on 05-08-2022 WBC corrected for nucl RBC Auto (Bld) [#/Vol] 5.5 10*3/uL 3.8-11.6 [facility] Lymphocytes Auto (Bld) [#/Vo l]Ordered By: Colby Ramos on 05-08-2022 Lymphocytes (Bld) [#/Vol] 1.4 10*3/uL 1.00-4.8 [facility] Lymphocytes/100 WBC Auto (Bl d)Ordered By: Colby Ramos on 05-08-2022 Lymphocytes/100 WBC (Bld) 26.3 % . [facility] MCH Auto (RBC) [Entitic mass ]Ordered By: Colby Ramos on 05-08-2022 MCH (RBC) [Entitic mass] 29.7 pg 24.7-34.3 [facility] MCHC Auto (RBC) [Mass/Vol]Or dered By: Colby Ramos on 05-08-2022 MCHC (RBC) [Mass/Vol] 33.7 g/dL 32.0-35.0 [facility] MCV Auto (RBC) [Entitic vol] Ordered By: Colby Ramos on 05-08-2022 MCV (RBC) [Entitic vol] 88.2 fL 80-100 [facility] Monocytes Auto (Bld) [#/Vol] Ordered By: Colby Ramos on 05-08-2022 Monocytes (Bld) [#/Vol] 0.3 10*3/uL 0.0-0.8 [facility] Monocytes/100 WBC Auto (Bld) Ordered By: Colby Ramos on 05-08-2022 Monocytes/100 WBC (Bld) 6.2 % . [facility] Mucus LM Ql (Urine sed)Order ed By: Colby Ramos on 05-08-2022 Mucus Ql (Urine sed) 2+ [LPF] [facility] Neutrophils Auto (Bld) [#/Vo l]Ordered By: Colby Ramos on 05-08-2022 Neutrophils (Bld) [#/Vol] 3.6 10*3/uL 1.8-7.7 [facility] Neutrophils/100 WBC Auto (Bl d)Ordered By: Colby Ramos on 05-08-2022 Neutrophils/100 WBC (Bld) 64.8 % . [facility] Nitrite Test strip Ql (U)Ord ered By: Colby Ramos on 05-08-2022 Nitrite Ql (U) Negative Negative [facility] No Panel InformationOrdered By: Colby Ramos on 05-08-2022 Estimated GFR () > 60 mL/Min [facility] Comment on above: GFR estimated refere nce range: According to KDOQI guidelines, <60 ml/min/1.73m2 is sufficient to diagnose a patient with chronic kidney disease. Pharmacy Creatinine Clearance (Chem 93.59 [facility] Nucleated erythrocytes [Pres ence] in Blood by Automated countOrdered By: Colby Ramos on 05-08-2022 Nucleated RBC Auto Ql (Bld) 0.4 /100{WBC} 0-0.5 [facility] Platelet mean volume Auto (B ld) [Entitic vol]Ordered By: Colby Ramos on 05-08-2022 Platelet mean volume (Bld) [Entitic vol] 10.9 fL 6.3-10.7 [facility] Platelets Auto (Bld) [#/Vol] Ordered By: Colby Ramos on 05-08-2022 Platelets (Bld) [#/Vol] 194 10*3/uL 150-450 [facility] Protein Auto test strip (U) [Mass/Vol]Ordered By: Colby Ramos on 05-08-2022 Protein (U) [Mass/Vol] 30 mg/dL Negative [facility] Protein [Mass/volume] in Ser um or PlasmaOrdered By: Colby Ramos on 05-08-2022 Protein [Mass/Vol] 7.5 g/dL 6.1-7.9 [facility] RBC Auto (Bld) [#/Vol]Ordere d By: Colby Ramos on 05-08-2022 RBC (Bld) [#/Vol] 4.50 10*6/uL 3.60-5.00 [facility] Serum or plasma alanine pope otransferase measurement without P-5'-P (enzymatic activiOrdered By: Colby Ramos on 05-08-2022 ALT No additional P-5'-P [Catalytic activity/Vol] 16 U/L 10-60 [facility] Serum or plasma albumin/glob ulin mass ratioOrdered By: Colby Ramos on 05-08-2022 Albumin/Globulin [Mass ratio] 1.2 {ratio} [facility] Serum or plasma alkaline chau sphatase measurement (enzymatic activity/volume)Ordered By: Colby Ramos on 05-08-2022 ALP [Catalytic activity/Vol] 47 U/L 32-92 [facility] Serum or plasma anion gap de terminationOrdered By: Colby Ramos on 05-08-2022 Anion gap [Moles/Vol] 15.9 mmol/L 6.0-15.0 [facility] Serum or plasma aspartate am inotransferase measurement (enzymatic activity/volume)Ordered By: Colby Ramos on 05-08-2022 AST [Catalytic activity/Vol] 17 U/L 10-42 [facility] Serum or plasma calcium linda urement (mass/volume)Ordered By: Colby Ramos on 05-08-2022 Calcium [Mass/Vol] 9.4 mg/dL 8.2-10.2 [facility] Serum or plasma chloride mamta surement (moles/volume)Ordered By: Colby Ramos on 05-08-2022 Chloride [Moles/Vol] 103 mmol/L 95-114 [facility] Serum or plasma glucose linda urement (mass/volume)Ordered By: Colby Ramos on 05-08-2022 Glucose [Mass/Vol] 93 mg/dL 70-100 [facility] Comment on above: ADA recommended refe rence rangeRandom Glucose Reference Range is dependent on time and content of last meal. Glucose of more than 200 mg/dL in a nonstressed, ambulatory subject supports the diagnosis of Diabetes Mellitus. Serum or plasma non-glucuron idated bilirubin measurement (mass/volume)Ordered By: Colby Ramos on 05-08-2022 Bilirubin.indirect [Mass/Vol] TNP [facility] Comment on above: Test not performed Serum or plasma potassium me asurement (moles/volume)Ordered By: Colby Ramos on 05-08-2022 Potassium [Moles/Vol] 3.6 mmol/L 3.5-5.1 [facility] Serum or plasma sodium measu rement (moles/volume)Ordered By: Colby Ramos on 05-08-2022 Sodium [Moles/Vol] 136 mmol/L 136-146 [facility] Serum or plasma total biliru bin measurement (mass/volume)Ordered By: Colby Ramos on 05-08-2022 Bilirubin [Mass/Vol] 0.5 mg/dL 0.3-1.2 [facility] Serum or plasma total carbon dioxide measurement (moles/volume)Ordered By: Colby Ramos on 05-08-2022 CO2 [Moles/Vol] 20.7 mmol/L 22.0-30.0 [facility] Serum or plasma urea nitroge n measurement (mass/volume)Ordered By: Colby Ramos on 05-08-2022 Urea nitrogen [Mass/Vol] 7 mg/dL 02-12 [facility] Specific gravity Auto test s trip (U) [Rel density]Ordered By: Colby Ramos on 05-08-2022 Specific gravity (U) [Rel density] 1.037 1.001-1.030 [facility] Squamous epithelial cells de tection in urine sediment by light microscopyOrdered By: Colby Ramos on 05-08-2022 Epithelial cells.squamous LM Ql (Urine sed) 5-9 [HPF] 0-2 [facility] Urine bacteria detection by automated methodOrdered By: Colby Ramos on 05-08-2022 Bacteria Auto Ql (U) None seen None Seen [facility] Urine clarity by refractomet ry automatedOrdered By: Colby Ramos on 05-08-2022 Clarity Refractometry automated (U) Cloudy Clear [facility] Urine glucose measurement by automated test strip (mass/volume)Ordered By: Colby Ramos on 05-08-2022 Glucose Auto test strip (U) [Mass/Vol] Normal mg/dL Normal [facility] Urine hemoglobin detection b y automated test stripOrdered By: Colby Ramos on 05-08-2022 Hemoglobin Auto test strip Ql (U) Negative Negative [facility] Urine leukocyte esterase det ection by automated test stripOrdered By: Colby Ramos on 05-08-2022 Leukocyte esterase Auto test strip Ql (U) Negative Negative [facility] Urobilinogen Auto test strip (U) [Mass/Vol]Ordered By: Colby Ramos on 05-08-2022 Urobilinogen (U) [Mass/Vol] Normal mg/dL Normal [facility] WBC Auto (Bld) [#/Vol]Ordere d By: Colby Ramos on 05-08-2022 WBC (Bld) [#/Vol] 5.5 10*3/uL 3.8-11.6 [facility] pH Auto test strip (U)Ordere d By: Colby Ramos on 05-08-2022 pH (U) 5.5 [pH] 5.0-9.0 [facility] CELIAC ANTIBODIES PROFILEon 04-29-2022 Deamidated Gliadin Abs, IgA 3 units Normal 0-19 [facility] Comment on above: Result Comment: Nega tive 0 - 19 Weak Positive 20 - 30 Moderate to Strong Positive >30 Performed By: #### L IPA, DEVIKA #### [facility] [address] [place] [address] Dr. Nai Garcia Deamidated Gliadin Abs, IgG 2 units Normal 0-19 [facility] Comment on above: Result Comment: Nega tive 0 - 19 Weak Positive 20 - 30 Moderate to Strong Positive >30 Performed By: #### L IPA, DEVIKA #### [facility] [address] [place] [address] Dr. Nai Garcia Endomysial Antibody IgA Negative Normal Negative T [facility] Comment on above: Performed By: #### L IPA, DEVIKA #### [facility] [address] [place] [address] Dr. Nai Garcia Immunoglobulin A, Qn, Serum 123 mg/dL Normal 87-352 [facility] Comment on above: Performed By: #### L IPA, DEVIKA #### [facility] [address] [address] [address] Nai Garcia t-Transglutaminase (tTG) IgA <2 Normal 0-3 [facility] Comment on above: Result Comment: Nega tive 0 - 3 Weak Positive 4 - 10 Positive >10 . Tissue Transglutaminase (tTG) has been identified as the endomysial antigen. Studies have demonstr- ated that endomysial IgA antibodies have over 99% specificity for gluten sensitive enteropathy. Performed By: #### L IPA, DEVIKA #### [facility] [address] [place] [address] Dr. Nai Garcia H PYLORI ANTIBODY IGGon 12-0 H. PYLORI IGG ABS 0.33 Index Value Normal 0.00-0.79 [facility] Comment on above: Result Comment: Nega tive <0.80 Equivocal 0.80 - 0.89 Positive >0.89 Performed By: #### H PYLLC #### [facility] [address] [place] [address] Dr. Nai Garcia IMMUNOGLOBULIN IGA QUANTITIA VEon 04-29-2022 Immunoglobulin A, Qn, Serum 124 mg/dL Normal 87-352 [facility] Comment on above: Performed By: #### L IPA, DEVIKA #### [facility] [address] [place] [address] Dr. Nai Garcia TISSUE TRANSGLUTAMINASE IGGo n 04-29-2022 t-Transglutaminase (tTG) IgG <2 Normal 0-5 [facility] Comment on above: Result Comment: Nega tive 0 - 5 Weak Positive 6 - 9 Positive >9 Performed By: #### T RNSIGG #### [facility] [address] [place] [address] Dr. Nai Garcia Performed By: #### L IPA, DEVIKA #### [facility] [address] [place] [address] Dr. Nai Garcia FREE T4on 04-28-2022 Free T4 [Mass/Vol] 1.17 ng/dL Normal 0.78-1.34 [facility] Comment on above: Performed By: #### F T4 #### [facility] [address] [place] [address] Dr. Nai Garcia GLYCOHEMOGLOBIN A1Con 2021 ADA RECOMMENDATION SEE BELOW Normal [facility] Comment on above: Result Comment: ADA RECOMMENDED LIMIT 4.0 - 6.0 ADA THERAPEUTIC TARGET < 7.0 ACTION SUGGESTED > 7.0 Performed By: #### A 1C #### [facility] [address] [place] [address] Dr. Nai Garcia Glucose [Mass/Vol] 105 mg/dL Normal [facility] [place] [facility] Comment on above: Performed By: #### A 1C #### [facility] [address] [place] [address] Dr. Nai Garcia HbA1c (Bld) [Mass fraction] 5.3 % Normal 4.5-6.2 [facility] Comment on above: Performed By: #### A 1C #### [facility] [address] [place] [address] Dr. Nai Garcia TSHon 04-28-2022 TSH 0.496 uIU/mL Critically low 0.516-4.130 [facility] Comment on above: Performed By: #### T SH #### [facility] [address] [place] [address] Dr. Nai Garcia CBC AUTO DIFFon 03-23-2022 BASO # 0.1 103/ul Normal 0.0-0.1 [facility] Comment on above: Performed By: #### C BC #### [facility] [address] [place] [address] Dr. Nai Garcia Basophils/100 WBC (Bld) 0.8 % Normal 0.2-2.0 [facility] Comment on above: Performed By: #### C BC #### [facility] [address] [place] [address] Dr. Nai Garcia EO # 0.1 103/ul Normal 0.0-0.7 [facility] Comment on above: Performed By: #### C BC #### [facility] [address] [place] [address] Dr. Nai Garcia Eosinophils/100 WBC (Bld) 1.3 % Normal 0.9-7.0 [facility] Comment on above: Performed By: #### C BC #### [facility] [address] [place] [address] Dr. Nai Garcia Erythrocyte distribution width (RBC) [Ratio] 12.9 % Normal 11.0-15.0 [facility] Comment on above: Performed By: #### C BC #### [facility] [address] [place] [address] Dr. Nai Garcia Hematocrit (Bld) [Volume fraction] 37.0 % Normal 36.0-48.0 [facility] Comment on above: Performed By: #### C BC #### [facility] [address] [place] [address] Dr. Nai Garcia Hemoglobin (Bld) [Mass/Vol] 12.5 g/dL Normal 12.0-16.0 [facility] Comment on above: Performed By: #### C BC #### [facility] [address] [place] [address] Dr. Nai Garcia IG # 0.01 10e3/ul Normal 0.00-0.03 [facility] Comment on above: Performed By: #### C BC #### [facility] [address] [place] [address] Dr. Nai Garcia IG % 0.2 % Normal 0.0-0.5 [facility] Comment on above: Performed By: #### C BC #### [facility] [address] [place] [address] Dr. Nai Garcia LYMPH # 1.6 103/ul Normal 1.2-3.8 [facility] Comment on above: Performed By: #### C BC #### [facility] [address] [place] [address] Dr. Nai Garcia Lymphocytes/100 WBC (Bld) 26.5 % Normal 20.5-60.0 [facility] Comment on above: Performed By: #### C BC #### [facility] [address] [place] [address] Dr. Nai Garcia MANUAL DIFF REQ NO Normal [facility] Comment on above: Performed By: #### C BC #### [facility] [address] [place] [address] Dr. Nai Garcia MCH (RBC) [Entitic mass] 29.8 pg Normal 26.7-34.0 [facility] Comment on above: Performed By: #### C BC #### [facility] [address] [place] [address] Dr. Nai Garcia MCHC (RBC) [Mass/Vol] 33.8 g/dL Normal 29.9-35.2 [facility] Comment on above: Performed By: #### C BC #### [facility] [address] [address] [address] Nai Garcia MCV (RBC) [Entitic vol] 88.3 fL Normal 81.0-99.0 [facility] Comment on above: Performed By: #### C BC #### [facility] [address] [address] [address] Nai Garcia MONO # 0.4 103/ul Normal 0.3-0.8 [facility] Comment on above: Performed By: #### C BC #### [facility] [address] [place] [address] Dr. Nai Garcia Monocytes/100 WBC (Bld) 7.1 % Normal 1.7-12.0 [facility] Comment on above: Performed By: #### C BC #### [facility] [address] [place] [address] Dr. Nai Garcia NEUT # 4.0 103/ul Normal 1.4-6.5 [facility] Comment on above: Performed By: #### C BC #### [facility] [address] [place] [address] Dr. Nai Garcia Neutrophils/100 WBC (Bld) 64.1 % Normal 43.0-75.0 [facility] Comment on above: Performed By: #### C BC #### [facility] [address] [place] [address] Dr. Nai Garcia Platelet mean volume (Bld) [Entitic vol] 11.3 fL Normal 9.5-13.5 [facility] Comment on above: Performed By: #### C BC #### [facility] [address] [place] [address] Dr. Nai Garcia PLT 213 103/ul Normal 150-450 [facility] Comment on above: Performed By: #### C BC #### [facility] [address] [place] [address] Dr. Nai Garcia RBC 4.19 106/ul Critically low 4.20-5.40 [facility] Comment on above: Performed By: #### C BC #### [facility] [address] [place] [address] Dr. Nai Garcia WBC 6.2 103/ul Normal 4.0-11.0 [facility] Comment on above: Performed By: #### C BC #### [facility] [address] [place] [address] Dr. Nai Garcia PROF CHEM 8 (BAS METB)on Anion gap [Moles/Vol] 12.1 mmol/L Normal [facility] Comment on above: Performed By: #### L IPA, DEVIKA #### [facility] [address] [place] [address] Dr. Nai Garcia Calcium [Mass/Vol] 9.2 mg/dL Normal 8.5-10.1 [facility] Comment on above: Performed By: #### L IPA, DEVIKA #### [facility] [address] [place] [address] Dr. Nai Garcia Chloride [Moles/Vol] 105 mmol/L Normal 98-107 [facility] Comment on above: Performed By: #### L IPA, DEVIKA #### [facility] [address] [place] [address] Dr. Nai Garcia CO2 [Moles/Vol] 26.3 mmol/L Normal 21.0-32.0 [facility] Comment on above: Performed By: #### L IPA, EDVIKA #### [facility] [address] [place] [address] Dr. Nai Garcia Creatinine [Mass/Vol] 0.95 mg/dL Normal 0.55-1.02 [facility] Comment on above: Performed By: #### L IPA, DEVIKA #### [facility] [address] [place] [address] Dr. Nai Garcia EGFR-AF SCOTTISH >60 Normal >=60 [facility] Comment on above: Performed By: #### L IPA, DEVIKA #### [facility] [address] [place] [address] Dr. Nai Garcia EGFR-NON AF SCOTTISH >60 Normal >=60 [facility] Comment on above: Performed By: #### L IPA, DEVIKA #### [facility] [address] [place] [address] Dr. Nai Garcia Glucose [Mass/Vol] 98 mg/dL Normal 74-106 [facility] Comment on above: Performed By: #### L IPA, DEVIKA #### [facility] [address] [place] [address] Dr. Nai Garcia Potassium [Moles/Vol] 3.4 mmol/L Critically low 3.5-5.1 [facility] Comment on above: Performed By: #### L IPA, DEVIKA #### [facility] [address] [place] [address] Dr. Nai Garcia Sodium [Moles/Vol] 140 mmol/L Normal 136-145 [facility] Comment on above: Performed By: #### L IPA, DEVIKA #### [facility] [address] [place] [address] Dr. Nai Garcia Urea nitrogen [Mass/Vol] 11.0 mg/dL Normal 6.4-19.3 [facility] Comment on above: Performed By: #### L IPA, DEVIKA #### [facility] [address] [place] [address] Dr. Nai Garcia Urea nitrogen/Creatinine [Mass ratio] 11.6 mg/mg Normal [facility] Comment on above: Performed By: #### L IPA, DEVIKA #### [facility] [address] [place] [address] Dr. Nai Garcia TSHon 03-23-2022 TSH 1.051 uIU/mL Normal 0.516-4.130 [facility] Comment on above: Performed By: #### L IPA, DEVIKA #### [facility] [address] [place] [address] Dr. Nai Garcia CHLAMYDIA/GONOCOCCUS LYDIA (SW AB/URINE/PAPon 12-10-2021 Chlamydia trachomatis, LYDIA Negative Normal Negative [facility] Comment on above: Performed By: #### C T/NGNA #### [facility] [address] [place] [address] Dr. Nai Garcia Neisseria gonorrhoeae, LYDIA Negative Normal Negative [facility] Comment on above: Performed By: #### C T/NGNA #### [facility] [address] [place], [place] [address] Dr. Nai Garcia VAGINITIS/VAGINOSIS DNA PROB Mikie 12-10-2021 Gutierrez species Negative Normal Negative [facility] Comment on above: Performed By: #### V AGINT #### [facility] [address] [address] [address] Nai Garcia Gardnerella vaginalis Positive Abnormal Negative [facility] Comment on above: Performed By: #### V AGINT #### [facility] [address] [address] [address] Nai Garcia Trichomonas vaginalis Negative Normal Negative [facility] Comment on above: Performed By: #### V AGINT #### [facility] [address] [address] [address] Nai Garcia Initial Visit (Pediatric Ari [...] Oral Tablet; TAKE 1.5 TABLET Daily; Therapy: [id number] to (Evaluate:[id number]) Requested for: 12Nov2019 Recorded 3. Vitamin D (Ergocalciferol) 1.25 MG (60324 UT) Oral Capsule; TAKE 1 CAPSULE WEEKLY for 8 weeks; Therapy: [id number] to (Last Rx:[id number]) Requested for: 23May2018 Ordered *Vitals Vital Signs [...] without Contrast; Status:Hold For - Scheduling; Requested for:[id number]; Radiologist to Determine Optimal Study : Y [...] EST (Author) Reviewed by : Le Irizarry, INDUSTRIAL GREEN SYSTEMS DESIGNER-MECHANICS HANDYMAN INDUST[employer]EN SYSTEMS DESIGNER-ESTHETICIAN SPA; Nov 21 2019 4:54PM EST Normal [facility] Telephone Note_UHon 10-05-19 Telephone Note_ Message Recorded [...] other things are now going on with Tylie Inge Briseno - 04 Oct 2019 11:14 [...] mom to please retrieve the disc from [place], I know that you sent an email [...] ABDIFATAH - Automatic Exporton ABDIFATAH - Automatic [place] LS-Udznldpsvs-Odh ham[place] g-Admin RBC [address] [place], [place] MANPREET FRAIRE 2005 Date of Female Sex [id number] Patient Id [id number] [facility] [place] [address] AddressEnglish (preferred) Language White Race Not or Ethnicity Summary of Care Clinical Content Allergies and Adverse Reactions <#[id number]> Encounters <#[id number]> Family History <#OY1QHLGH> Functional Status <#PY0CSBCC> Immunization <#IO5MPPJJ> Instructions <#FE8YTEAE> Interventions Provided <#FA9OYGNP> Medications <#JT6MSRIY> Past Medical History <#[id number]> Plan of Care <#TY1I0VNE> Problems <#TS6OJAQA> Procedures <#SL5BDRPE> Results <#TQ0FNQIC> Social History <#GF7PV1LB> Vital Signs <#UH3CHTTU> Other Document Details Health Care Providers Functional Statustop <#top> Functional Status Health Issues NameDatesDetails Functional status health issues are not documented Cognitive Status Health Issues NameDatesDetails Cognitive status health issues are not documented Problemstop <#top> NameDearnestDefrancess Diarrhea in pediatric patient (787.91, R19.7) Vitamin D deficiency (268.9, E55.9) Abdominal pain, generalized (789.07, R10.84) Headache (784.0, R51) Anxiety (300.00, F41.9) 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, 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) Medicationstop <#top> NameDearnestDefrancess Vitamin D (Ergocalciferol) 1.25 MG (28704 UT) Oral Capsule TAKE 1 CAPSULE WEEKLY [...] Drug Allergies (Allergy) Past Medical Historytop <#top> Brads No pertinent past medical history (V49.89, Z78.9) Status: Resolved Procedurestop <#top> ProcedureDatesDetails History of Ear pressure equalization tube insertionCompleted Immunizationtop <#top> NameDatesDefrancess Immunizations not documented Family Historytop <#top> Grandmother NameDatesMark Family history of Gallstones (574.20, K80.20) Family history of kidney stones (V18.69, Z84.1) Family history of cerebrovascular accident (CVA) (V17.1, Z82.3) Family history of migraine headaches (V17.2, Z82.0) Family history of Anxiety (300.00, F41.9) aunt NameDatesNidias Family history of Graves' disease (V18.19, Z83.49) great grandmother NameDatesNidias Family history of antiphospholipid syndrome (V18.3, Z83.2) Mother NameDatesNidias Family history of gastroesophageal reflux disease (V18.59, Z83.79) Family history of kidney stones (V18.69, Z84.1) Family history of depression (V17.0, Z81.8) Family history of migraine headaches (V17.2, Z82.0) Family history of Anxiety (300.00, F41.9) Grandfather NameDearnestDefrancess Family history of hypertension (V17.49, Z82.49) Family history of depression (V17.0, Z81.8) Social Historytop <#top> NameDatesDetails - Smoking Status NameDatesDetails Never smoked tobacco (finding) Vital Signstop <#top> [...] progress. My nurse is Marimar Briseno at [phone]. 6. Follow up will be after her films are reviewed. 7. Eye exam should be completed. Instructionstop <#top> NameDatesDefrancess Instructions not documented Encounterstop <#top> Appointment; Stella Brar, BRIGITTE-JOHN Encounter Diagnosis: Problem not documentedOn: 08-May-2018 9:00 Appointment; Normal [facility] Referral-Consult Letteron Referral-Consult Letter History of [...] there all day long and treatment with [id number] Tylenol or Motrin did not help. She [...] 30May2018 Ordered Vitamin D (Ergocalciferol) 1.25 MG (13861 UT) Oral Capsule; TAKE 1 CAPSULE WEEKLY for 8 weeks; Therapy: [id number] to (Last Rx:[id number]) Requested for: 23May2018 Ordered Physical Exam Today's [...] progress. My nurse is Marimar Briseno at [phone]. 6. Follow up will be after her films are reviewed. 7. Eye exam should be completed. Thank you again for your re Normal [facility] Telephone Note_UHon 09-27-19 Telephone Note_ Message Recorded [...] in regards of headaches. She prefer the [place] office if its face to face. Inge Briseno - 27 Sep 2019 11:23 AM TASK EDITED Mom confirmed a virtual appointment with Elvira on Saturday 09/30 at 3pm. Information sent to the secretaries to schedule this. Signatures Electronically signed by : Inge Briseno R.N.; Sep 27 2019 11:23AM EST (Author) Normal [facility] Clinic Note - [facility]-Hematology - New Visiton [...] change her pad. She has seen a administration physician and trialed several OCPs with no decrease in amount or length of bleeding. She notes an increase in bleeding on her periods with OCPs. She has not tried any other forms such as IUD or nexplanon. Her administration physician bartolo basic labs and noted lower platelets and referred her to a carcass washer Dr. Mcdowell. She was tested for vWF, [...] Note Completion: I personally evaluated the patient [id number] Attending AttestationI saw and evaluated the patient. [...] Updated: 27-Oct-2018 13:30 by Santo Wang) Normal [facility] Measurementson 10-24-2018 Measurements Growth Chart: Growth Chart Measurements: Growth Chart Length/Height (cm)164.1 Growth Chart Weight (kg)67.7 Growth Chart BMI (kg/m2)25.14 Electronic Signatures: Regina Perdue (LISETTE Aden) (Signed 24-Oct-2018 14:25) Authored: Growth Chart Last Updated: 24-Oct-2018 14:25 by Regina Perdue (LISETTE Aden) Normal [facility] Vital Signs Date Time Vital Sign Value Performing Clinician Facility 12-28-2024 09:13-0400 Body mass index (BMI) [Ratio] 26.96 kg/m2 [facility] 12-28-2024 09:13-0400 Body weight 73.48 kg [facility] 12-28-2024 09:13-0400 Diastolic blood pressure 72 mm[Hg] [facility] 12-28-2024 09:13-0400 Systolic blood pressure 120 mm[Hg] [facility] 10-24-2024 13:43-0400 Body mass index (BMI) [Ratio] 27.26 kg/m2 Bubba Cipriano DO Work Phone: [facility] 10-24-2024 13:43-0400 Body weight 74.3 kg Bubba Cipriano DO Work Phone: [facility] 10-24-2024 13:43-0400 Diastolic blood pressure 78 mm[Hg] Bubba Cipriano DO Work Phone: [facility] 10-24-2024 13:43-0400 Systolic blood pressure 118 mm[Hg] Bubba Cipriano DO Work Phone: [facility] 03-08-2024 10:27-0400 Body temperature 98.7 [degF] [facility] 03-08-2024 10:27-0400 Body weight 68.49 kg [facility] 03-08-2024 10:27-0400 Diastolic blood pressure 88 mm[Hg] [facility] 03-08-2024 10:27-0400 Heart rate 88 /min [facility] 03-08-2024 10:27-0400 SaO2% (BldA) [Mass fraction] 98 % [facility] 03-08-2024 10:27-0400 Systolic blood pressure 130 mm[Hg] [facility] 05-26-2023 16:15-0500 Diastolic blood pressure 75 mm[Hg] Charlie Paredes MD Work Phone: [facility] 05-26-2023 16:15-0500 Heart rate 54 /min Charlie Paredes MD Work Phone: [facility] 05-26-2023 16:15-0500 Respiratory rate 18 /min Charlie Paredes MD Work Phone: [facility] 05-26-2023 16:15-0500 SaO2% (BldA) [Mass fraction] 100 % Charlie Paredes MD Work Phone: [facility] 05-26-2023 16:15-0500 Systolic blood pressure 119 mm[Hg] Charlie Paredes MD Work Phone: [facility] 05-26-2023 15:41-0500 Body temperature 97.7 [degF] Charlie Paredes MD Work Phone: [facility] 05-26-2023 13:27-0500 Body mass index (BMI) [Ratio] 20.8 kg/m2 Charlie Paredes MD Work Phone: [facility] 05-26-2023 13:27-0500 Body weight 56.7 kg Charlie Paredes MD Work Phone: [facility] 04-22-2023 12:59-0500 Body height 165.1 cm Albert Zapata MD Work Phone: [facility] 04-22-2023 12:59-0500 Body weight 61.69 kg Albert Zapata MD [facility] [facility] 04-22-2023 12:59-0500 Diastolic blood pressure 72 mm[Hg] Albert Zapata MD Work Phone: [facility] 04-22-2023 12:59-0500 Heart rate 68 /min Albert Zapata MD Work Phone: [facility] 04-22-2023 12:59-0500 Systolic blood pressure 118 mm[Hg] Albert Zapata MD Work Phone: [facility] 02-25-2023 13:30-0400 Body weight 60.78 kg Fernando Wilson Other [facility] Other 02-25-2023 13:30-0400 Diastolic blood pressure 77 mm[Hg] Fernando Wilson Other [facility] Other 02-25-2023 13:30-0400 Systolic blood pressure 117 mm[Hg] Fernando Wilson Other [facility] Other 12-01-2022 13:00-0400 Body height 165.1 cm Imad Asaad Other [facility] Other 12-01-2022 13:00-0400 Body mass index (BMI) [Ratio] 20.13 kg/m2 Imad Asaad Other [facility] Other 12-01-2022 13:00-0400 Body weight 54.89 kg Imad Asaad Other [facility] Other 12-01-2022 13:00-0400 Diastolic blood pressure 93 mm[Hg] Imad Asaad Other [facility] Other 12-01-2022 13:00-0400 Systolic blood pressure 144 mm[Hg] Imad Asaad Other [facility] Other 10-19-2022 10:18-0400 Diastolic blood pressure 63 mm[Hg] MD Fernando Wilson Work Phone: [facility] 10-19-2022 10:18-0400 Heart rate 66 /min MD Fernando Wilson Work Phone: [facility] 10-19-2022 10:18-0400 Respiratory rate 16 /min MD Fernando Wilson Work Phone: [facility] 10-19-2022 10:18-0400 SaO2% (BldA) [Mass fraction] 99 % MD Fernando iWlson Work Phone: [facility] 10-19-2022 10:18-0400 Systolic blood pressure 108 mm[Hg] MD Fernando Wilson Work Phone: [facility] 10-19-2022 08:40-0400 Body height 165.1 cm MD Fernando Wilson Work Phone: [facility] 10-19-2022 08:40-0400 Body temperature 98.4 [degF] MD Fernando Wilson Work Phone: [facility] 10-19-2022 08:40-0400 Body weight 56.69 kg MD Fernando Wilson Work Phone: [facility] 09-02-2022 16:00-0400 Body height 162.56 cm Fernando Wilson Other [facility] [email or web address] Other 09-02-2022 16:00-0400 Body mass index (BMI) [Ratio] 21.11 kg/m2 Fernando Wilson Other [facility] [email or web address] Other 09-02-2022 16:00-0400 Body weight 55.79 kg Fernando Wilson Other [facility] [email or web address] Other 09-02-2022 16:00-0400 Diastolic blood pressure 64 mm[Hg] Fernando Wilson Other [facility] [email or web address] Other 09-02-2022 16:00-0400 SaO2% (BldA) [Mass fraction] 99 % Fernando Wilson Other [facility] [email or web address] Other 09-02-2022 16:00-0400 Systolic blood pressure 100 mm[Hg] Fernando Wilson Other [facility] [email or web address] Other 06-02-2022 15:30-0500 Body weight 57.15 kg Imad Asaad Other [facility] [email or web address] Other 06-02-2022 15:30-0500 Diastolic blood pressure 68 mm[Hg] Imad Asaad Other [facility] [email or web address] Other 06-02-2022 15:30-0500 Systolic blood pressure 116 mm[Hg] Imad Asaad Other [facility] [email or web address] Other 05-08-2022 17:18-0500 Body temperature 99 [degF] MD Fernando Wilson Work Phone: [facility] 05-08-2022 17:18-0500 Diastolic blood pressure 57 mm[Hg] MD Fernando Wilson Work Phone: [facility] 05-08-2022 17:18-0500 Heart rate 62 /min MD Fernando Wilson Work Phone: [facility] 05-08-2022 17:18-0500 Respiratory rate 16 /min MD Fernando Wilson Work Phone: [facility] 05-08-2022 17:18-0500 SaO2% (BldA) [Mass fraction] 100 % MD Fernando Wilson Work Phone: [facility] 05-08-2022 17:18-0500 Systolic blood pressure 99 mm[Hg] MD Fernando Wilson Work Phone: [facility] 05-08-2022 15:01-0500 Body height 165.1 cm MD Fernando Wislon Work Phone: [facility] 05-08-2022 15:01-0500 Body weight 58.45 kg MD Fernando Wilson Work Phone: [facility] Encounters Encounter Date Encounter Type Care Provider Facility Start: 01-14-2025 End: 01-14-2025 Bamboo flowsheet Bubba Cipriano DO Work Phone: [facility] Start: 01-14-2025 End: 01-15-2025 Bamboo flowsheet Bubba Cipriano DO Work Phone: [facility] Start: 01-14-2025 End: 01-14-2025 Clinisync Result Encounter Bubba Cipriano DO Work Phone: [facility] Unsolicited Start: 01-14-2025 End: 01-15-2025 External Result Encounter Bubba Cipriano DO Work Phone: [facility] Unsolicited Start: 01-14-2025 End: 01-14-2025 ambulatory BUBBA CIPRIANO Not Available Start: 01-14-2025 End: 01-14-2025 Office outpatient visit 15 minutes Bubba Cipriano DO Work Phone: [facility] Comment on above: Missed menses (Prima ry Dx); Vaginal discharge; STD exposure; Positive urine test ([facility]) Start: 01-09-2025 End: 01-09-2025 Clinisync Result Encounter Jacqueline Ch NP Work Phone: [facility] Unsolicited Start: 01-09-2025 End: 01-09-2025 Clinisync Result Encounter Jacqueline Ch NP Work Phone: [facility] Unsolicited Start: [...] 15 minutes Charlie Paredes MD Work Phone: [facility] 2 Comment on above: Norovirus (Primary D x); Irritable bowel syndrome with diarrhea Start: 03-08-2024 End: 03-08-2024 ambulatory [facility] Work Phone: Start: 03-08-2024 End: 03-08-2024 Patient encounter procedure [facility] Work Phone: Start: 05-26-2023 End: 05-26-2023 Subsequent hospital visit by physician Charlie Paredes MD Work Phone: [facility] Comment on above: Congenital sucrase-i somaltase deficiency Start: 04-26-2023 End: 04-26-2023 Office outpatient visit 15 minutes Charlie Paredes MD Work Phone: [facility] 2 Comment on above: Congenital sucrase-i somaltase deficiency (Primary Dx); Irritable bowel syndrome with diarrhea; Generalized abdominal pain; Weight loss; Bilious vomiting with nausea Start: 04-22-2023 End: 04-22-2023 ambulatory ALBERT ZAPATA Facility:[facility] Start: 04-22-2023 End: 04-22-2023 Office consultation new/estab patient 60 min Albert Zapata MD Work Phone: Endocrinology Comment on above: Menorrhagia with reg ular cycle (Primary Dx) Start: 04-05-2023 End: 04-05-2023 Office outpatient visit 15 minutes Charlie Paredes MD Work Phone: [facility] [employer] [facility] 2 Comment on above: Irritable bowel synd vu with diarrhea (Primary Dx); Generalized abdominal pain; Weight loss; Bilious vomiting with nausea Start: 03-07-2023 End: 03-07-2023 ambulatory Fernando Wilson Other [facility] Other Start: 03-07-2023 Telephone encounter Fernando Wilson [facility] Start: 02-25-2023 End: 02-25-2023 ambulatory Fernando Wilson Other [facility] Other Start: 02-25-2023 Office outpatient vi sit 15 minutes Fernando Wilson [facility] Start: 02-21-2023 End: 02-21-2023 ambulatory Cody Akhtar - [facility] Facility:[facility] Start: 02-21-2023 End: 02-21-2023 ambulatory MD Fernando Wilson Work Phone: [facility] Work Phone: Start: 02-21-2023 End: 02-21-2023 Patient encounter procedure MD Fernando Wilson Work Phone: [facility] Start: 12-01-2022 End: 12-01-2022 ambulatory Imad Asaad Other [facility] Other Start: 12-01-2022 Office outpatient vi sit 25 minutes Imad Asaad [facility] Start: 10-19-2022 End: 10-19-2022 ambulatory Imad Asaad Facility:[facility] Start: 10-19-2022 End: 10-19-2022 Admission to same day surgery center MD Fernando Wilson Work Phone: [facility] Work Phone: Start: 10-19-2022 End: 10-19-2022 ambulatory MD Fernando Wilson Work Phone: [facility] Work Phone: Start: 09-09-2022 End: 09-09-2022 ambulatory Imad Asaad Other [facility] Other Start: 09-09-2022 Telephone encounter Imad Asaad [facility] Start: 09-06-2022 End: 09-06-2022 ambulatory Fernando Wilson Other [facility] Other Start: 09-06-2022 Telephone encounter Fernando Wilson [facility] Start: 09-04-2022 End: 09-05-[address] FERNANDO WILSON Facility: Start: 09-03-2022 End: 09-03-2022 ambulatory Fernando Wilson Other [facility] Other Start: 09-03-2022 Telephone encounter Fernando Wilson [facility] Start: 09-02-2022 End: 09-02-2022 ambulatory Fernando Wilson Other [facility] Other Start: 09-02-2022 Office outpatient vi sit 15 minutes Fernando Wilson [facility] Start: 09-02-2022 Telephone encounter Fernando Wilson [facility] Start: 07-21-2022 End: 07-21-2022 ambulatory Imad Asaad Other [facility] Other Start: 07-21-2022 Telephone encounter Imad Asaad [facility] Start: 06-02-2022 End: 06-02-2022 ambulatory Imad Asaad Other [employer] Other Start: 06-02-2022 Office consultation new/estab patient 40 min Imad Asaad [facility] Start: 05-08-2022 End: 05-08-2022 Emergency department patient visit MD Fernando Wilson Work Phone: [facility] Start: 04-28-2022 End: 04-29-[address] FERNANDO WILSON Facility:[facility] Start: 04-07-[address] BUBBA COTA . Facili ty:[facility] Start: 03-23-2022 End: 03-24-[address] FERNANDO WILSON Facility:[facility] Start: 12-07-2021 End: 12-07-[address] BUBBA COTA . Facility:[facility] Start: 10-01-2019 Patient encounter procedure Stella Maykel AF-Hmfmssvtaf-Ymojnpdi-Adm in RBC 585 Work Phone: Start: 05-29-2018 Patient encounter procedure Stella Maykel RL-Lljsryatzc-Hcxtdugr-Adm in RBC 585 Work Phone: Start: 05-08-2018 Patient encounter procedure Stella Maykel FQ-Iorstjirzn-Pngodlad-Adm in RBC 585 Work Phone: Procedures Date Procedure Procedure Detail Performing Clinician Start: 01-14-2025 RECURRENT VAGINITIS (HTRX) Bubba Cipriano D O Work Phone: Start: 01-14-2025 US OB TRANSVAGINAL Bubba Cipriano DO Work Phone: Start: 01-09-2025 BOX TEST Jacqueline Ch PROVIDER EDUCATION SPECIALIST Work Phone: Start: 12-28-2024 End: 12-28-2024 Urnls [...] 2) Zoste r Vaccines (1 of 2) [facility] Start: 07-24-2033 DTaP/Tdap/Td Vaccine s (8 - Td or Tdap) DTaP/Tdap/Td Vaccines (8 - Td or Tdap) [facility] Start: 01-05-2026 DTaP/Tdap/Td Vaccine s (7 - Td or Tdap) DTaP/Tdap/Td Vaccines (7 - Td or Tdap) [facility] Start: 01-05-2026 Urine microalbumin profile DTaP,Tdap,Td Vaccine (7 - Td or Tdap) [facility] Start: 01-28-2025 End: 01-28-2025 Patient encounter procedure 01/28/2025 9:40 AM EDT Routine [facility] [address] [place] [id number] Bubba Cota DO [address] [place] [address] TAY Prasad [facility] Start: 01-21-2025 Influenza vaccination Influenza Vacc ine (#1) [facility] Start: 01-14-2025 End: 04-16-2025 US Pelvis transvaginal US OB transvaginal Imaging Routine Missed menses Positive urine test ([facility]) Expected: 01/14/2025, Expires: 04/16/2025 [facility] Work Phone: Comment on above: Expected: 01/14/2025 , Expires: 04/16/2025 Start: 12-28-2024 End: 12-28-2025 ABO/Rh ABO/Rh Lab Routine Missed menses , unspecified gestational age ([facility]) Expected: 12/28/2024 (Approximate), Expires: 12/28/2025 [facility] Comment on above: Expected: 12/28/2024 (Approximate), Expires: 12/28/2025 Start: 12-28-2024 End: 12-28-2025 Blood type and Indirect antibody screen panel - Blood Type and screen Lab Routine Missed menses , unspecified gestational age ([facility]) Expected: 12/28/2024 (Approximate), Expires: 12/28/2025 [facility] Comment on above: Expected: 12/28/2024 (Approximate), Expires: 12/28/2025 Start: 12-28-2024 End: 12-28-2025 Drugs of abuse panel - Urine by Screen method Rapid drug screen, urine Lab Routine , unspecified gestational age ([facility]) Encounter for supervision of normal first in first trimester ([facility]) Expected: 12/28/2024 (Approximate), Expires: 12/28/2025 [facility] Comment on above: Expected: 12/28/2024 (Approximate), Expires: 12/28/2025 Start: 12-28-2024 End: 12-28-2024 ambulatory 12/28/2024 9:00 AM EDT Initial [facility] [address] [place] [phone] [facility] Start: 12-28-2024 End: 12-28-2024 Professional / ancillary services management 12/28/2024 8:00 AM EDT Ancillary Procedure [facility] [address] [id number] [facility] Start: 12-20-2024 End: 03-22-2025 US Pelvis transvaginal US OB transvaginal Imaging Routine Missed menses Positive urine test ([facility]) Expected: 12/20/2024, Expires: 03/22/2025 [facility] Work Phone: Comment on above: Expected: 12/20/2024 , Expires: 03/22/2025 Start: 2024 Screening for malign ant neoplasm of cervix [facility] Start: 01-22-2024 COVID-19 Vaccine () COVID-19 Vaccine () [facility] Start: 05-24-2023 End: 05-24-2023 Telemedicine consultation with patient 05/24/2023 8:00 AM EST Telemedicine [facility] [employer] [facility] 2 [id number] [facility] [address] [phone] Charlie Paredes MD [address] [id number] [facility] 2 Start: 04-22-2023 End: 07-22-2023 Prolactin [Mass/volume] in Serum or Plasma PROLACTIN BLD Lab Routine Menorrhagia with regular cycle Expected: 04/22/2023, Expires: 07/22/2023 [facility] Work Phone: Comment on above: Expected: 04/22/2023 , Expires: 07/22/2023 Start: 04-22-2023 End: 07-22-2023 Thyrotropin [Units/volume] in Serum or Plasma TSH BLD Lab Routine Menorrhagia with regular cycle Expected: 04/22/2023, Expires: 07/22/2023 [facility] Work Phone: Comment on above: Expected: 04/22/2023 , Expires: 07/22/2023 Start: 01-21-2023 Covid-19 Vaccine ( season) Covid-19 Vaccine ( season) [facility] Start: 10-19-2022 [facility] Start: 05-23-2022 Depression Assessment Depression Ass essment [facility] Start: 07-12-2021 Hepatitis A Vaccines (2 of 2 - 2-dose series) Hepatitis A Vaccines (2 of 2 - 2-dose series) [facility] Start: 07-12-2021 HPV Vaccine (3 - 3-d ose series) HPV Vaccine (3 - 3-dose series) [facility] Start: 07-12-2021 HPV Vaccines (3 - 3- dose series) HPV Vaccines (3 - 3-dose series) [facility] Start: 2021 Chlamydia Screening (18-24) Chlamydia Screening (18-24) [facility] Start: 2021 GC (Gonorrhea) Scree lemuel (18-24) GC (Gonorrhea) Screening (18-24) [facility] Start: 2021 Hepatitis C screening Hepatitis C [facility] Start: 2021 Hepatitis C Screening Hepatitis C [facility] Start: 2021 HIV Screening HIV Screening [facility] Start: 08-20-2020 COVID-19 Vaccine (3 - Pfizer series) COVID-19 Vaccine (3 - Pfizer series) [facility] Start: 2017 Peds To Adult Transi tion Annual Assessment Peds To Adult Transition Annual Assessment [facility] Start: 2015 Peds To Adult Transi tion Initial Discussion Peds To Adult Transition Initial Discussion [facility] Start: 2007 Hearing Screening (#1) Hearing Scree lemuel (#1) [facility] Start: 2006 Well Child Visit (WC V) - Annual Well Child Visit (WCV) - Annual [facility] Start: 2003 Hearing Screening (#1) Hearing Scree lemuel (#1) [facility] Start: 2003 HIV screening HIV Screening [facility] Start: 2003 Lipid panel Lipid Panel [facility] Start: 2003 Yearly Adult Physical Yearly Adult P [facility] Bacteria identified in Urine by Culture Urine culture Microbiology Routine Missed menses Ordered: 12/28/2024 [facility] Comment on above: Ordered: 12/28/2024 CBC W Auto Different ial panel - Blood CBC and differential Lab Routine Missed menses , unspecified gestational age ([facility]) Ordered: 12/28/2024 [facility] Comment on above: Ordered: 12/28/2024 CHLAMYDIA TRACHOMATI S (GENITO/STI) CHLAMYDIA TRACHOMATIS (GENITO/STI) Lab Routine STD exposure Ordered: 01/14/2025 [facility] Comment on above: Ordered: 01/14/2025 Disaccharidases pane l - Small intestine Tissue [facility] Work Phone: Comment on above: Release Upon Orderin g for 1 Occurrences starting 05/26/2023 Hemoglobin A1c/Hemoglobin.total in Blood Hemoglobin A1c Lab Routine Missed menses , unspecified gestational age ([facility]) Ordered: 12/28/2024 [facility] Comment on above: Ordered: 12/28/2024 Hepatitis B virus ramírez rface Ag [Presence] in Serum or Plasma by Immunoassay Hepatitis B surface antigen Lab Routine Missed menses , unspecified gestational age ([facility]) Ordered: 12/28/2024 [facility] Comment on above: Ordered: 12/28/2024 Hepatitis C virus Ab [Presence] in Serum or Plasma by Immunoassay Hepatitis C antibody Lab Routine Missed menses , unspecified gestational age ([facility]) Ordered: 12/28/2024 [facility] Comment on above: Ordered: 12/28/2024 HIV-1/HIV-2 antigen/antibody combination immunoassay HIV-1 and HIV-2 antibodies Lab Routine Missed menses , unspecified gestational age ([facility]) Ordered: 12/28/2024 [facility] Comment on above: Ordered: 12/28/2024 End: 05-26-2023 Moderate Sedation Moderate Sedation Procedures Routine Once for 1 Occurrences starting 05/26/2023 until 05/26/2023 [facility] Service Area Work Phone: Comment on above: Once for 1 Occurrenc es starting 05/26/2023 until 05/26/2023 Neisseria gonorrhoea e DNA [Presence] in Unspecified specimen by LYDIA with probe detection Neisseria gonorrhea DNA probe, direct Lab Routine STD exposure Ordered: 01/14/2025 [facility] Comment on above: Ordered: 01/14/2025 Patient Education [facility] Work Phone: Patient referral [facility] Work Phone: Reagin Ab [Presence] in Serum by RPR RPR Lab Routine Missed menses , unspecified gestational age ([facility]) Ordered: 12/28/2024 [facility] Comment on above: Ordered: 12/28/2024 Rubella antibody, IgG Rubella an tibody, IgG Lab Routine Missed menses , unspecified gestational age ([facility]) Ordered: 12/28/2024 [facility] Comment on above: Ordered: 12/28/2024 SURESWAB(R) ADVANCED VAGINITIS PLUS, TMA SURESWAB(R) ADVANCED VAGINITIS PLUS, TMA Pathology and Cytology Routine Vaginal discharge Ordered: 01/14/2025 [facility] Work Phone: Comment on above: Ordered: 01/14/2025 US Pelvis transvaginal US OB tra nsvaginal Imaging Routine Missed menses Positive urine test ([facility]) 12/28/2024 8:43 AM EDT [facility] Immunizations Immunization Date Immunization Notes Care Provider Fa evelin 02-16-2024 influenza virus vacc ine, unspecified formulation Bubba Cota DO Work Phone: [facility] 02-21-2023 influenza, injectabl e, quadrivalent, preservative free Charlie Paredes MD Work Phone: [facility] Work Phone: 03-11-2021 Human Papillomavirus 9-valent vaccine Charlie Paredes MD Work Phone: [facility] Work Phone: 03-11-2021 meningococcal B vacc ine, recombinant, OMV, adjuvanted Charlie Paredes MD Work Phone: [facility] Work Phone: 03-11-2021 HPV, unspecified formulation Charlie Paredes MD Work Phone: [facility] Work Phone: 01-09-2021 hepatitis A vaccine, pediatric/adolescent dosage, 2 dose schedule Charlie Paredes MD Work Phone: [facility] Work Phone: 01-09-2021 Human Papillomavirus 9-valent vaccine Charlie Paredes MD Work Phone: [facility] Work Phone: 01-09-2021 meningococcal B vacc ine, recombinant, OMV, adjuvanted Charlie Paredes MD Work Phone: [facility] Work Phone: 01-09-2021 meningococcal oligosaccharide (groups A, C, Y and W-135) diphtheria toxoid conjugate vaccine (MCV4O) Charlie Paredes MD Work Phone: [facility] Work Phone: 01-09-2021 hepatitis A and hepa titis B vaccine Charlie Paredes MD Work Phone: [facility] Work Phone: 06-25-2020 Pfizer Purple Cap SARS-CoV-2 Charlie Paredes MD Work Phone: [facility] 06-04-2020 Pfizer Purple Cap SARS-CoV-2 Charlie Paredes MD Work Phone: [facility] Work Phone: 01-06-2016 meningococcal polysaccharide (groups A, C, Y and W-135) diphtheria toxoid conjugate vaccine (MCV4P) Charlie Paredes MD Work Phone: [facility] Work Phone: 01-06-2016 tetanus toxoid, redu abdifatah diphtheria toxoid, and acellular pertussis vaccine, adsorbed Charlie Paredes MD Work Phone: [facility] Work Phone: 08-08-2008 diphtheria, tetanus toxoids and acellular pertussis vaccine, unspecified formulation Charlie Paredes MD Work Phone: [facility] Work Phone: 08-08-2008 measles, mumps and rubella virus vaccine Charlie Paredes MD Work Phone: [facility] Work Phone: 08-08-2008 poliovirus vaccine, inactivated Charlie Paredes MD Work Phone: [facility] Work Phone: 08-08-2008 varicella virus vaccine Charlie Paredes MD Work Phone: [facility] Work Phone: 04-30-2005 diphtheria, tetanus toxoids and acellular pertussis vaccine, unspecified formulation Charlie Paredes MD Work Phone: [facility] Work Phone: 04-30-2005 hepatitis B vaccine, pediatric or pediatric/adolescent dosage Charlie Paredes MD Work Phone: [facility] Work Phone: 04-30-2005 pneumococcal conjuga te vaccine, 7 valent Charlie Paredes MD Work Phone: [facility] Work Phone: 04-30-2005 poliovirus vaccine, inactivated Charlie Paredes MD Work Phone: [facility] Work Phone: 07-03-2004 haemophilus influenz ae type b vaccine, conjugate unspecified formulation Charlie Paredes MD Work Phone: [facility] Work Phone: 07-03-2004 measles, mumps and rubella virus vaccine Charlie Paredes MD Work Phone: [facility] Work Phone: 07-03-2004 pneumococcal conjuga te vaccine, 7 valent Charlie Paredes MD Work Phone: [facility] Work Phone: 07-03-2004 varicella virus vaccine Charlie Paredes MD Work Phone: [facility] Work Phone: 03-12-2004 pneumococcal conjuga te vaccine, 7 valent Charlie Paredes MD Work Phone: [facility] Work Phone: 2003 diphtheria, tetanus toxoids and acellular pertussis vaccine Charlie Paredes MD Work Phone: [facility] Work Phone: 2003 haemophilus influenz ae type b vaccine, PRP-T conjugate Charlie Paredes MD Work Phone: [facility] Work Phone: 2003 poliovirus vaccine, inactivated Charlie Paredes MD Work Phone: [facility] Work Phone: 2003 diphtheria, tetanus toxoids and acellular pertussis vaccine Charlie Paredes MD Work Phone: [facility] Work Phone: 2003 haemophilus influenz ae type b conjugate and Hepatitis B vaccine Charlie Paredes MD Work Phone: [facility] Work Phone: 2003 poliovirus vaccine, inactivated Charlie Paredes MD Work Phone: [facility] Work Phone: 2003 diphtheria, tetanus toxoids and acellular pertussis vaccine, unspecified formulation Charlie Paredes MD Work Phone: [facility] Work Phone: 2005 haemophilus influenz ae type b vaccine, conjugate unspecified formulation Charlie Paredes MD Work Phone: [facility] Work Phone: 2003 hepatitis B vaccine, pediatric or pediatric/adolescent dosage Charlie Paredes MD Work Phone: [facility] Work Phone: 2003 pneumococcal conjuga te vaccine, 7 valent Charlie Paredes MD Work Phone: [facility] Work Phone: 2003 poliovirus vaccine, unspecified formulation Charlie Paredes MD Work Phone: [facility] Work Phone: 2003 hepatitis B vaccine, pediatric or pediatric/adolescent dosage Charlie Paredes MD Work Phone: [facility] Work Phone: Payers Date Payer Category Payer Private Health Insurance [employer] [id number] 2021 Managed Care (Private) [facility] [id number] 2020 Blue Cross Blue Shield BCBS [id number] 2020 Blue Cross Blue [facility] [place] [facility] [id number] 2020 Unknown [id number] 1.13.647.2. [id number] 2003 Unknown [id number] 2.16.840.1.600006.3.579.2. 593 2003 Unknown [id number] 2.16.840.1.206555.3.579.2. 593 2003 Unknown [id number] 2.16.840.1.838058.3.579.2. 593 2003 Unknown [id number] 2.16.840.1.134882.3.579.2. 593 2003 Unknown [id number] 2.16840.1.387166.3.579.2. 593 2003 Unknown [id number] 2.840.1.361754.3.579.2. 593 2003 Unknown [id number] 2.840.1.225848.3.579.2. 1259 2003 Unknown [id number] 2.840.1.947311.3.579.2. 1259 2003 Unknown [id number] 2.840.1.452617.3.579.2. 1259 2003 Unknown [id number] .840.1.489352.3.579.2. 1259 1959 Self-pay [id number] 1959 Unknown [id number] 1959 Unknown [id number] Unknown [facility] [id number] Unknown [id number] Unknown [id number] 2.840.1.298384.3.579.2. 531 Unknown [id number] 2.0.1.027804.3.579.2. 531 Social History Date Type Detail Facility Start: 05-08-2022 End: 11-03-2022 Tobacco smoking status NHIS Never smoked tobacco (finding) [facility] Start: 2003 Sex Assigned At Female [facility] Start: 04-22-2023 End: 10-24-2024 Sex Assigned At [facility] Other Start: 03-04-2023 Tobacco smoking status NHIS Tobacco smoking consumption unknown [facility] Work Phone: Start: 04-05-2023 Gender identity Identifies as female gender (finding) [facility] Work Phone: Start: 04-05-2023 Sexual orientation Heterosexual (fin ding) [facility] Work Phone: Start: 02-25-2023 End: 05-26-2023 Exposure to SARS-CoV-2 (event) Not sure [facility] Start: 04-22-2023 Tobacco use and exposure Smokeless tobacco non-user [facility] Start: 04-22-2023 End: 01-14-2025 Alcohol intake Lifetime non-drinker (finding) [facility] Start: 04-22-2023 End: 10-24-2024 History of Social function [facility] National Score (1-100), lower number is lower risk 78 [facility] Start: 2003 Sex Assigned At Not on file [facility] Start: 11-18-2024 [facility] NEGATED: Highlighted row - - IH-Ireymxmdym-Zyddms o g-Admin [facility] 585 Work Phone: Goals Date Patient Goal Desired Activity /State Functional Status Date Assessment Result Facility NEGATED: Highlighted row Functional performance Functional status health issues are not documented Disease DJ-Ookdmqutmr-Gqaor log-Admin [facility] 585 Work Phone: Mental Status Date Assessment Result Facility NEGATED: Highlighted row Cognitive function [Interpretation] Cognitive status health issues are not documented Disease DR-Ntldhxdpfi-Axyzt log-Admin [facility] 585 Work Phone: Clinical Notes 06-02-2022 to 01-14-2025 Jacqueline Ch NP - 01/14/2025 10:10 AM Juan Pillai MA - 12/28/2024 9:00 AM Jamir Angelo LPN - 10/24/2024 1:30 PM Virgil Paredes MD - 07/12/2024 3:00 PM ESTDischarge Instructions Note Date & Type Note Facility 01-14-2025 History of Present illness Narrative Reason for Appointment: Patient ID: Manpreet Fraire is a 19 y.o. female who presents for STI Screening Patient presents today for Return OB appointment. MEDICATIONS Current Outpatient Medications Medication Instructions dicyclomine (BENTYL) 10 mg, 4 times daily ondansetron ODT (ZOFRAN-ODT) 4 mg, Oral, Every 8 hours PRN Evipfpii-Nwz-Qw-FA ( 1 + IRON PO) sucralfate (CARAFATE) 1 g, Oral, 4 times daily before meals and nightly ALLERGIES No Known Allergies PROBLEMS Active Ambulatory Problems Diagnosis Date Noted Positive urine test ([facility]) 11/30/2024 MTHFR gene mutation 08/24/2018 IBS (irritable bowel syndrome) 06/01/2016 MTHFR (methylene THF reductase) deficiency and homocystinuria 12/20/2024 Moderate episode of recurrent major depressive disorder (HCC) 08/11/2021 Encounter for supervision of normal first in first trimester ([facility]) 12/28/2024 Resolved Ambulatory Problems Diagnosis Date Noted [...] nursing note reviewed. Exam conducted with a retail management keyholder present. Vitals: Estimated body mass index is [...] Bubba Cota DO documented in this encounter [facility] 12-28-2024 History of Present illness Narrative Reason [...] list which includes the following prescription(s): dicyclomine, ammrkerm-fpj-ym-fa, and ondansetron odt. Medical History: Active Ambulatory Problems Diagnosis Date Noted Positive urine test ([facility]) 11/30/2024 MTHFR gene mutation 08/24/2018 IBS (irritable bowel syndrome) 06/01/2016 MTHFR (methylene THF reductase) deficiency and homocystinuria 12/20/2024 Moderate episode of recurrent major depressive disorder (HCC) 08/11/2021 Encounter for supervision of normal first in first trimester ([facility]) 12/28/2024 Resolved Ambulatory Problems Diagnosis Date Noted [...] all orders for this visit: First trimester ([facility]) 7 weeks gestation of ([facility]) Missed menses - US OB transvaginal; Future - Type and screen; Future - ABO/Rh; Future - CBC and differential - Hemoglobin A1c - RPR - Rubella antibody, IgG - Hepatitis B surface antigen - Hepatitis C antibody - HIV-1 and HIV-2 antibodies - Urine culture - POCT , urine manually resulted - POCT urinalysis dipstick manually resulted Positive urine test ([facility]) - US OB transvaginal; Future Amenorrhea , unspecified gestational age ([facility]) - Type and screen; Future - ABO/Rh; Future - CBC and differential - Hemoglobin A1c - RPR - Rubella antibody, IgG - Hepatitis B surface antigen - Hepatitis C antibody - HIV-1 and HIV-2 antibodies - Rapid drug screen, urine; Future Encounter for supervision of normal first in first trimester ([facility]) - Rapid drug screen, urine; Future MTHFR gene mutation Irritable bowel syndrome, unspecified type Nurse Note: Pt unsure about doing [place] [facility]. Pt was advised if she desires [place] to make sure labs are done at [...] or undercooked meat, and stay away from [facility]. Patient has also been advised to [...] Chantell Pillai MA documented in this encounter [facility] 10-24-2024 History of Present illness Narrative Associated [...] nursing note reviewed. Exam conducted with a retail management keyholder present. Vitals: Estimated body mass index is [...] given: yes Instructions and paperwork completed: yes Twining protocol: Patient states understanding of procedure being [...] Bubba Cota DO documented in this encounter [facility] 07-12-2024 History of Present illness Narrative Subjective [...] Charlie Paredes MD documented in this encounter [facility] Work Phone: 05-26-2023 Miscellaneous Notes Home going instructions reviewed and discussed, pt and family verbalize understanding. Educated on anesthesia safety. Tolerated fluids well documented in this encounter [facility] Work Phone: 05-26-2023 Note Formatting of this n ote might be different from the original. Home going instructions reviewed and discussed, pt and family verbalize understanding. Educated on anesthesia safety. Tolerated fluids well [facility] 05-26-2023 Note Formatting of this n ote might be different from the original. Home going instructions reviewed and discussed, pt and family verbalize understanding. Educated on anesthesia safety. Tolerated fluids well [facility] 05-26-2023 Hospital Discharge instructions Charlie Paredes [...] having your procedure, call the [facility] to be advised whether a visit to [...] discharge from the GI Lab, please call: [phone] documented in this encounter [facility] Work Phone: 05-26-2023 History and physical note Procedure H&P Patient Profile-Procedures Name Manpreet Fraire Date of 2005 [address] [place], [place] [id number] [place] [address] Primary Secondary Phone Number Fernando Hensley Procedure(s): Procedures: EGD Primary contact name and number Extended Emergency Contact Information Primary Emergency Contact: Devika Fraire [place] Relation: Parent Secondary Emergency Contact: Jovan Alvarez Address: [address] [place] [address] of [employer] Relation: Partner General Health [...] Paredes MD ergocalciferol (Vitamin D-2) 1.25 MG (46149 UT) capsule Take by mouth. 05/22/18 05/26/23 [...] met Charlie Paredes MD 05/26/2023 2:25 PM [facility] Work Phone: 05-26-2023 History and physical note Procedure H&P Patient Profile-Procedures Name Manpreet Fraire Date of 2005 Address [address] [facility] [id number] [place] [id number] Primary Secondary Phone Number Fernando Hensley Procedure(s): Procedures: EGD Primary contact name and number Extended Emergency Contact Information Primary Emergency Contact: Devika Fraire Relation: Parent Secondary Emergency Contact: Jovan Alvarez Address: [address] [place] [address] of [employer] Relation: Partner General Health [...] Paredes MD ergocalciferol (Vitamin D-2) 1.25 MG (78002 UT) capsule Take by mouth. 05/22/18 05/26/23 [...] 05/26/2023 2:25 PM documented in this encounter [facility] Work Phone: 04-26-2023 History of Present [...] capsule oral ergocalciferol (Vitamin D-2) 1.25 MG (69422 UT) capsule oral ondansetron ODT (ZOFRAN-ODT) 4 [...] Charlie Paredes MD documented in this encounter [facility] Work Phone: 04-22-2023 Note HNO ID: [id number] Author: Albert Zapata MD Service: ? Author Type: Physician Type: Progress Notes Filed: 04/25/2023 10:37 AM Note Text: ENDOCRINOLOGY REASON FOR CONSULTATION: Menorrhagia HISTORY The patient is referred by Dr. Bubba Cota from [facility]. . My recommendations will be sent [...] which included preparing to see the patient, znak-wq-urne patient care, completing clinical documentation, obtaining and/or reviewing separately obtained history, performing a medically appropriate examination, counseling and educating the patient/family/caregiver, and ordering medications, tests, or procedures. Return to office: GOLDIE Zapata MD c.c. Dr. Bubba Cota [facility] 04-22-2023 History of Present illness [...] which included preparing to see the patient, dtpd-zq-gnht patient care, completing clinical documentation, obtaining and/or reviewing separately obtained history, performing a medically appropriate examination, counseling and educating the patient/family/caregiver, and ordering medications, tests, or procedures. Return to office: GOLDIE Zapata MD c.c. Dr. Bubba Cota documented in this encounter [facility] 04-05-2023 History of Present illness Narrative [...] following up with her GI team in [place], and has undergone extensive GI work-up including [...] capsule oral ergocalciferol (Vitamin D-2) 1.25 MG (02075 UT) capsule oral ondansetron ODT (ZOFRAN-ODT) 4 [...] Charlie Paredes MD documented in this encounter [facility] Work Phone: 03-07-2023 Evaluation note Encounter Date Diagnosis Assessment Notes Feb, RUQ abdominal pain (ICD-10 - R10.11) [facility] Other 10-06-2023 Evaluation note* Encounter Date Diagnosis Assessment Notes Treatment Notes Treatment Clinical Notes Feb, RUQ pain (ICD-10 - R10.11) Manpreet has had multiple labs, imaging and now GI tests. States she is seeing GI at for second opinion on 03/07. Offered GBUS, but she doesn't exactly fit the profile for gall stones. Will obtain H[facility] at [facility] - discussed w pt and her mother. [facility] Other 07-12-2023 Evaluation note* Encounter Date Diagnosis Assessment Notes Treatment Notes Treatment Clinical Notes Nov, Nausea (ICD-10 - R11.0) Nov, Weight loss (ICD-10 - R63.4) Nov, Abdominal pain (ICD-10 - R10.9) Nov, Diarrhea (ICD-10 - R19.7) Patient may use imodium as needed [facility] Other [facility]* Encounter Date Diagnosis Assessment Notes Treatment Notes Treatment Clinical Notes Aug, Situational anxiety (ICD-10 - F41.8) [facility] Other 04-13-2023 Evaluation note* Encounter Date Diagnosis [...] should keep follow-up appointment with Dr. Fernandez. [facility] Other 01-11-2023 Evaluation note* Encounter Date Diagnosis Assessment Notes Treatment Notes Treatment Clinical Notes May, Nausea (ICD-10 - R11.0) May, Abdominal pain (ICD-10 - R10.9) PATIENT TO CONTINUE ON BENTYL 20MG NEEDED May, Weight loss (ICD-10 - R63.4) PATIENT TO CALL IF SYMPTOMS WORSEN. [facility] Other Evaluation noteNo assessment information available [facility] Work Phone: Evaluation noteNo InformationNort [facility] Other Evaluation note* Diagnosis Irritable bowel syndrome with diarrhea- Primary Irritable bowel syndrome Generalized abdominal pain Abdominal pain, generalized Weight loss Loss of weight Bilious vomiting with nausea documented in this encounter [facility] Work Phone: Evaluation note* Diagnosis Menorrhagia with regular cycle- Primary Excessive or frequent menstruation [facility] 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 Irritable bowel syndrome Generalized abdominal pain Abdominal pain, generalized Weight loss Loss of weight Bilious vomiting with nausea documented in this encounter [facility] Work Phone: Evaluation note* Diagnosis Congenital sucrase-isomaltase deficiency documented in this encounter [facility] Work Phone: Evaluation note* Diagnosis Congenital sucrase-isomaltase deficiency documented in this encounter [facility] Work Phone: Evaluation note* Diagnosis Norovirus- Primary Intestinal infection, enteritis due to [place] virus Irritable bowel syndrome with diarrhea Irritable bowel syndrome documented in this encounter [facility] Work Phone: Evaluation note* Diagnosis Encounter for IUD removal [facility] Diagnosis First trimester ([facility]) state, incidental 7 weeks gestation of ([facility]) Missed menses Positive urine test ([facility]) Amenorrhea Absence of menstruation , unspecified gestational age ([facility]) Encounter for supervision of normal first in first trimester ([facility]) MTHFR gene mutation Irritable bowel syndrome, unspecified type [facility] Diagnosis Missed menses- Primary Vaginal discharge Leukorrhea, not specified as infective STD exposure Positive urine test ([facility]) documented in this encounter [facility] Author Lisa Fernandez [facility] October 19, 2022 9:28am Note Date/Time October 19, 2022 9:28a m [facility] EN[facility] [address] [place] [address] Gastroenterology H&P Signed Patient: Manpreet Fraire MR#: [id number] : 2005 Acct:[id number] Age/Sex: 17 / F Adm Date: 3 Loc: Room: Type: [facility] Attending Dr: Lisa Fernandez MD Copies to: [...] <Electronically signed by Lisa Fernandez MD> 10/19/22927 [facility] Work Phone: History general Narrative - Reported* Type Description Date Medical History persistent coughing Medical History wheezing 2004 Surgical History tubes in ears [facility] Other History general Narrative - Reported* Type Description Date Medical History persistent coughing Medical History wheezing 2004 Medical History IBS (irritable bowel syndrome) Medical History MTHFR gene mutation Medical History ROZ (generalized anxiety disorde r) Surgical History tubes in ears Surgical History MYRINGOTOMY WITH TUBE PLACEMENT Hospitalization History SEE SURGICAL HX [facility] Other Hospital Discharge instructions Additional Instructions DISCHARGE [...] NOT operate machinery such as power tools, [employer] mowers, snow blowers, sewing machines, etc. for [...] -Follow up with PCP. - Office number [phone]. [facility] Work Phone: Family History No Family History [...] 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 Procedures EGD DE ESOPHAGOGASTRODUODENOSCOPY TRANSORAL DIAGNOSTIC DE EGD TRANSORAL BIOPSY SINGLE/MULTIPLE Charlie Paredes MD [address] [facility] [address] [address] Referral ID Status Reason Start Date Expiration Date V isits Requested Visits Authorized [id number] Authorized 05/02/2023 05/01/2024 1 1 Additional Source Comments INFORMATION SOURCE (unrecogn ized section and content) DATE CREATED AUTHOR 10/06/2019 [facility] ical Center DATE CREATED AUTHOR AUTHOR'S ORGANIZ ATION 12/13/2019 [facility] DATE CREATED AUTHOR AUTHOR'S ORGANIZ ATION 09/09/2022 [facility] DATE CREATED AUTHOR AUTHOR'S ORGANIZ ATION 04/25/2023 [facility] DATE CREATED AUTHOR AUTHOR'S ORGANIZ ATION 09/08/2023 [facility] DATE CREATED AUTHOR AUTHOR'S ORGANIZ ATION 01/15/2025 [facility] dical Specialists EPIC Care Teams [...] Primary Care Provider Active Cody Akhtar DO [facility] Attending Provider Active Principal Archaeologist Relationship Specialty Start Date End Date Fernando Wilson MD [facility] [place] [address] PCP - General 06/25/19 Principal Archaeologist Relationship Specialty Start Date End Date Bubba Cota DO [address] [place] [address] [place] [address] Referring SOUND PRINTER 02/04/23 Principal Archaeologist Relationship Specialty Start Date End Date Fernando Wilson MD PCP - General 06/25/19 Principal Archaeologist Relationship Specialty Start Date End Date Fernando Wilson MD [address] [place] [address] PCP - General 06/25/19 Principal Archaeologist Relationship Specialty Start Date End Date Fernando Wilson MD [address] [place] [address] PCP - General 06/25/19 Team Status: Inactive Member Role Status Dates Fernando Wilson MD Primary Care Provider Active Start: March 08, 2024 End: March 08, 2024 Cristina Lara APRN Attending Provider Active Start: March 08, 2024 End: March 08, 2024 Principal Archaeologist Relationship Specialty Start Date End Date Fernando Wilson MD [address] [place] [address] PCP - General 06/25/19 Principal Archaeologist Relationship Specialty Start Date End Date Fernando Wilson MD [address] [place] [address] PCP - General Family Medicine 11/04/22 Principal Archaeologist Relationship Specialty Start Date End Date Fernando Wilson MD [address] [place] [address] PCP - General Family Medicine 11/04/22 Principal Archaeologist Relationship Specialty Start Date End Date Fernando Wilson MD [address] [place] [address] PCP - General Family Medicine 11/04/22 Principal Archaeologist Relationship Specialty Start Date End Date Fernando Wilson MD [address] [place] [address] PCP - General [facility] Medicine 11/04/22 Principal Archaeologist Relationship Specialty Start Date End Date Fernando Wilson MD [address] [place] [address] PCP - General [facility] Medicine 11/04/22 Principal Archaeologist Relationship Specialty Start Date End Date Fernando Wilson MD [address] [place] [address] PCP - General [facility] Medicine 11/04/22 Goals (unrecognized section and content) [...] 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 Procedures EGD DE ESOPHAGOGASTRODUODENOSCOPY TRANSORAL DIAGNOSTIC DE EGD TRANSORAL BIOPSY SINGLE/MULTIPLE Charlie Paredes MD [address] [address] Referral ID Status Reason Start Date Expiration Date V isits Requested Visits Authorized [id number] Authorized 05/02/2023 05/01/2024 1 1 Reason Comments mirena removal Reason Comments Amenorrhea Reason Comments STI Screening Source Comments (unrecognize d section and content) In the event this informatio n is protected by the Federal Confidentiality of Alcohol and Drug Abuse Patient Records regulations: The Federal rules restrict any use of the information to criminally investigate or prosecute any alcohol or drug abuse patient.[facility] FOR RECORDS PERTAINING TO PATIENTS WHO [...] BE BASED ON THE PRIMARY CLINICAL RECORDS. [facility] [employer] [facility]. provides no warranty or guarantee of the accuracy or completeness of information in this document.
== END 2025-01-15 12:22 | disposition home or self-care (01) ==
LOC: PST 12:22
PROVIDERS: PCP Family Medicine; Visit Provider Obstetrics & Gynecology
DX: Z01.812 Encounter for preprocedural laboratory examination (principal); O02.1 Missed abortion
CPT/HCPCS: 86850; 86900; 86901

== ENCOUNTER 2025-01-16 08:56 | Day surgery (SDC) | payer OTHER, BC, SELFPAY ==
--- OUTSIDE RECORDS SUMMARY | 2025-01-14 10:10 | XMS_ITS | Encounter Summary ---
Author Organization [facility] Address [address] [place] [address] Care Team Providers Care Uniformer Name Role Phone Madelyn Meraz MD Primary Care Provider [phone] Reason for Visit * Reason Comments STI Screening Encounter Details Date Type Department Care Team (Late st Contact Info) Description 01/14/2025 10:10 AM EDT Routine [facility] [address] [place] [id number] Bubba Cota DO [address] [facility] [address] [place], [facility]11 Missed menses (Primary Dx); Vaginal discharge; STD exposure; Positive urine test ([facility]) Social History Tobacco Use Types Packs/Day Years [...] on file documented as of this encounter Progress Notes * Jacqueline Ch NP - 01/14/2025 10:10 AM EDT Reason for Appointment: Patient ID: Manpreet Fraire is a 19 y.o. female who presents for STI Screening Patient presents today for Return OB appointment. MEDICATIONS Current Outpatient Medications Medication Instructions dicyclomine (BENTYL) 10 mg, 4 times daily ondansetron ODT (ZOFRAN-ODT) 4 mg, Oral, Every 8 hours PRN Ssjycdig-Pir-Of-FA ( 1 + IRON PO) sucralfate (CARAFATE) 1 g, Oral, 4 times daily before meals and nightly ALLERGIES No Known Allergies PROBLEMS Active Ambulatory Problems Diagnosis Date Noted Positive urine test ([facility]) 11/30/2024 MTHFR gene mutation 08/24/2018 IBS (irritable bowel syndrome) 06/01/2016 MTHFR (methylene THF reductase) deficiency and homocystinuria 12/20/2024 Moderate episode of recurrent major depressive disorder ([facility]) 08/11/2021 Encounter for supervision of normal first in first trimester ([facility]) 12/28/2024 Resolved Ambulatory Problems Diagnosis Date Noted No Resolved Ambulatory Problems Past Medical History: Diagnosis Date Menorrhagia HISTORY PAST MEDICAL HISTORY SOCIAL HISTORY Past Medical History: Diagnosis Date IBS (irritable bowel syndrome) Menorrhagia MTHFR (methylene THF reductase) deficiency and homocystinuria Social History Tobacco Use Smoking status: Never [...] Respiratory: Negative. Cardiovascular: Negative. Gastrointestinal: Negative. Genitourinary: Positive for vaginal discharge. Musculoskeletal: Negative. Skin: Negative. Neurological: Negative. All other systems reviewed and are negative. Hematological: Negative. Endocrine: Negative. Allergic/Immunologic: Negative. OBJECTIVE Objective: Physical Exam Constitutional: Appearance: Normal appearance. She is well-developed. Cardiovascular: Rate and Rhythm: Normal rate and [...] nursing note reviewed. Exam conducted with a recruiting intern present. Vitals: Estimated body mass index is 26.96 kg/m?? as calculated from the following: Height as of 06/13/23: 5' 5 . Weight as of 12/28/24: 162 lb. BP: No LMP recorded. Patient is . ASSESSMENT & PLAN ICD-10-CM 1. Vaginal discharge N89.8 SURESWAB(R) ADVANCED VAGINITIS PLUS, TMA 2. STD exposure Z20.2 CHLAMYDIA TRACHOMATIS (GENITO/STI) Neisseria gonorrhea DNA probe, direct Patient approximately 10 weeks gestation with complaints of vaginal discharge. Cultures are obtain today and ultrasound ordered. Documented by Jacqueline Ch NP on behalf of: Bubba Cota DO documented in this encounter Plan of Treatment Upcoming Encounters Date Type Department Care Team (Late st Contact Info) Description 01/28/2025 9:40 AM EDT Routine [facility] [address] [place] [address] Bubba Cota DO [address] [facility] [place] [address] Scheduled Orders Name Type Priority Associated Diagnoses Order Schedule SURESWAB(R) ADVANCED VAGINITIS PLUS, TMA Pathology and Cytology Routine Vaginal discharge Ordered: 01/14/2025 CHLAMYDIA TRACHOMATIS (GENITO/STI) Lab Routine STD exposure Ordered: 01/14/2025 Neisseria gonorrhea DNA probe, direct Lab Routine STD exposure Ordered: 01/14/2025 OB transvaginal Imaging Routine Missed menses Positive urine test ([facility]) Expected: 01/14/2025, Expires: 04/16/2025 documented as of this encounter Visit Diagnoses Diagnosis Missed menses- Primary Vaginal discharge Leukorrhea, not specified as infective STD exposure Positive urine test ([facility]) documented in this encounter Care Teams Uniformer Relationship Specialty Start Date End Date Madelyn Meraz MD [address] [place] [id number] PCP - General Family Medicine 11/04/22 documented as of this encounter
[2025-01-15 12:47] VITALS: BP 134/85; PULSE 77; TEMP 36.6; O2SAT 98; BMI 27.2
--- OUTSIDE RECORDS SUMMARY | 2025-01-16 08:58 | XMS_ITS | Clinical Summary ---
[facility] Organization [facility] Address [address] [place] [address] Phone Care Team Providers Care Dance Hall Host/Hostess Name Role Phone Madelyn Meraz MD Primary Care Provider [phone] Allergies No known active allergies Medications ondansetron [...] Lico Zeng MD 05/26/2023 1533 Procedure Location [facility] [address] [facility] [address] Referring Provider Charlie Paredes Md [address] [address] Procedure Provider Charlie Paredes MD Charlie Paredes MD ENDOSCOPY PROCEDURE ORDERABLES F inal Result from Last 3 Months or Most Recently Relevant to Health Maintenance Insurance [facility] [employer] SU[employer] MED Member Subscriber Plan / Payer (Ef fective 2021-Present) Name:Manpreet Massey Relation to Subscriber:Child Name:CARYN ESTRADA Date of :1967 Address: [address] [place], [place] [address] Payer ID:Not on file Type:Not on file Address: [address] [place] [phone] [facility] MED Member Subscriber Plan / Payer (Ef fective 2021-Present) Name:Manpreet Massey Relation to Subscriber:Child Name:CARYN ESTRADA Date of :1967 Address: [address] [place] [address] Payer ID:Not on file Type:Not on file Address: [address] [place] [phone] Care Teams Dance Hall Host/Hostess Relationship Specialty Start Date End Date Madelyn Meraz MD [address] [place], [place] [address] [address] PCP - General 06/25/19
--- OUTSIDE RECORDS SUMMARY | 2025-01-16 08:58 | XMS_ITS | Encounter Summary ---
Author Organization [facility] Address [address] [place] [address] Care Team Providers Care Assistant Professor Of Physics Name Role Phone Madelyn Meraz MD Primary Care Provider [phone] Encounter Details Date Type Department Care Team (Late st Contact Info) Description 01/14/2025 Clinisync Result Encounter NOMS External Department Unsolicited Radha Cota DO [address], [facility]11 Social History Tobacco Use Types Packs/Day [...] 01/28/2025 9:40 AM EDT Routine [facility] Shanice GREER [address] [place] [phone] Radha Cota DO [address] [place] [address] documented as of this encounter Procedures Procedure Name Priority Date/Time Associated Diagnosis Comments US OB TRANSVAGINAL 01/14/2025 12 :26 PM EDT documented in this encounter Results * US OB TRANSVAGINAL (01/14/2025 12:26 PM EDT) Anatomical Region Laterality Modality Other 01/14/2025 12:2 6 PM EDT Narrative 01/14/2025 12:28 [place] [address] Ultrasound Report Signed Patient: MANPREET MASSEY MR#: [id number] : 2005 Acct:[id number] Age/Sex: 19 / F ADM Date: 01/14/25 Loc: [place] Attending Dr: Radha Cota D.O. Ordering Physician: Radha Cota D.O. Date of Service: 01/14/25 Procedure(s): US OB transvaginal Accession Number(s): [id number] cc: Madelyn Meraz M.D.; Radha Cota D.O. [place] [address] Patient Name: MANPREET MASSEY MRN: [id number] date: 2005 Sex: F Assigned Patient Location: [facility] Current Patient Location: [facility] Accession/Order Number: [id number] Exam Date: 01/14/2025 11:27 Report Date: 01/14/2025 12:26 At the request of: RADHA COTA DO Procedure: US OB transvaginal ULTRASOUND [...] Tripp M.D. 01/14/2025 12:26 PM Dictation Location: [place] [address] Electronically authenticated by: [id number] Y Date: 01/14/2025 12:26 Dictated By: Enid Tripp M.D. Signed By: 01/14/25 1228 DD/ 1226 TD/TT: Criminal Justice Social Worker: Procedure Note Radiology, Radiologist, - 01/14/2025 [place] [address] Ultrasound Report Signed Patient: MANPREET MASSEY R#: [id number] : 2005Acct:[id number] Age/Sex: 19 / FADM Date: 01/14/25 Loc: [place] Attending Dr: Radha Cota D.O. Ordering Physician: Radha Cota D.O. Date of Service: 01/14/25 Procedure(s): US OB transvaginal Accession Number(s): [id number] cc: Madelyn Meraz M.D.; Radha Cota D.O. The [place] [address] Patient Name: MANPREET MASSEY MRN: [id number] date: 2005 Sex: F Assigned Patient Location: [facility] Current Patient Location: [facility] Accession/Order Number: [id number] Exam Date: 01/14/2025 11:27 Report Date: 01/14/2025 12:26 At the request of: RADHA COTA DO Procedure: US OB transvaginal ULTRASOUND OB TRANSVAGINAL CLINICAL DATA: Positive test COMPARISON: None Transvaginal imaging of the pelvis was performed. A gestational sac is present within the uterus. A pole is present. The crown-rumplength measurement of 2.0 cm correlates with an ultrasound age of 8 weeks 4 days. The estimated date of delivery is 08/20/2025. cardiac activity wasnot documented. No yolk sac was seen. The cervix is closed and measures approximately 3.8 cm in length. Both ovaries are seen. The right measures 2.3 x 1.8 x 1.5 cm. The leftovary measures 3.8 x 1.7 x 2.3 cm. There is documentation of ovarian bloodflow. Small follicles are present. No dominant adnexal cysts are seen. Thereis no free fluid. US/US OB transvaginal IMPRESSION: INTRAUTERINE AT 8 WEEKS 4 DAYS. NO DOCUMENTATION OF CARDIAC ACTIVITY. DEMISE IS POSSIBLE. CORRELATION WITH BETA-HCG AND FOLLOW-UP WILL BE NEEDED. Impression dictated by: Enid Tripp M.D. 01/14/2025 12:26 PM Dictation Location: [place] Electronically authenticated by: [id number] Y Date: 2:26 Dictated By: Enid Tripp M.D. Signed By:01/14/25 1228 DD/ 1226 TD/TT: Criminal Justice Social Worker: us Radha Cipriano DO [facility] Final Result documented in this encounter Visit Diagnoses Not on filedocumented in this encounter Care Teams Assistant Professor Of Physics Relationship Specialty Start Date End Date Madelyn Meraz MD [address] [place] [address] PCP - General Family Medicine 11/04/22 documented as of this encounter
--- OUTSIDE RECORDS SUMMARY | 2025-01-16 08:58 | XMS_ITS | Encounter Summary ---
Author Organization [facility] Address [address] [place] [address] Care Team Providers Care Commercial Lawn Specialist Name Role Phone Madelyn Meraz MD Primary Care Provider [phone] Encounter Details Date Type Department Care Team (Late st Contact Info) Description 01/15/2025 Clinisync Result Encounter NOMS External Department Unsolicited Bubba Cota DO [address], [facility]11 Social History Tobacco Use Types Packs/Day Years [...] AM EDT Routine [facility] Shanice GREER [address] [facility] [place] [place] [phone] Bubba Cota DO [address] [place] [address] documented as of this encounter Procedures Procedure Name Priority Date/Time Associated Diagnosis Comments ALL TYPE AND SCREEN Routine 01/15/2025 1 2:48 PM EDT documented in this encounter Results * ALL TYPE AND SCREEN (01/15/2025 12:48 PM EDT) BLOOD TYPE A Positive [facility] ANTIBODY SCREEN NEGATIVE [facility] 01/15/2025 12:4 8 PM EDT 01/15/2025 12:49 PM EDT Narrative [facility] - 01/15/2025 1:52 PM EDT [facility] , [place] Bubba Cipriano DO [facility] Final Result [facility] documented in this encounter Visit Diagnoses Not on filedocumented in this encounter Care Teams Commercial Lawn Specialist Relationship Specialty Start Date End Date Madelyn Meraz MD [address] [place] [address] PCP - General Family Medicine 11/04/22 documented as of this encounter
--- OUTSIDE RECORDS SUMMARY | 2025-01-16 08:58 | XMS_ITS | Encounter Summary ---
Author Organization [facility] Address [address] [place] [address] Care Team Providers Care Site Engineer Name Role Phone Madelyn Meraz MD Primary Care Provider [phone] Encounter Details Date Type Department Care Team (Late Contact Info) Description 01/04/2025 Telephone [facility] Shaniec GREER [email or web address] [place] [phone] Kathleen Arcos LPN [address] [place] [address] Social History Tobacco Use Types [...] AM EDT Routine NOMS Shanice OBGYN [address] [facility] [place] [address] Bubba Cota DO [address] [facility] [address] [place], [place] [phone] documented as of this encounter Visit Diagnoses Diagnosis Gastroesophageal reflux disease, unspecified whether esophagitis present documented in this encounter Care Teams Site Engineer Relationship Specialty Start Date End Date Madelyn Meraz MD [address] [facility] [place] [address] PCP - General Family Medicine 11/04/22 documented as of this encounter
--- OUTSIDE RECORDS SUMMARY | 2025-01-16 08:58 | XMS_ITS | Encounter Summary ---
Author Organization [facility] Address [address] [place] [address] Care Team Providers Care Curriculum Supervisor Name Role Phone Madelyn Meraz MD Primary Care Provider [phone] Encounter Details Date Type Department Care Team (Late Contact Info) Description 01/14/2025 External Result Encounter NOMS External Department Unsolicited Bubba Cota DO [address] [place] [address] Social History Tobacco Use Types Packs/Day Years [...] AM EDT Routine [facility] Shanice GREER [address] [place] [phone] Bubba Cota DO [facility] [place] [address] documented as of this encounter Procedures Procedure Name Priority Date/Time Associated Diagnosis Comments RECURRENT VAGINITIS (HTRX) Routine 01/14/2025 12:34 PM EDT documented in this encounter Results * (ABNORMAL) RECURRENT VAGINITIS (HTRX) (01/14/2025 12:34 PM EDT) [facility] ATOPOBIUM VAGINAE 0 19.961 - 24.689 ppm 01/15/2025 7:10 AM EDT [facility] ATOPOBIUM VAGINAE Not Detected 19.961 - 24.689 ppm 01/15/2025 7:10 AM EDT [facility] BVAB 2,3 (BACTERIAL VAGINOSIS ASSOCIATED BACTERIA 2, 3); MOBILUNCUS SPP 21.998(A) 19.961 - 24.689 ppm 01/15/2025 7:10 AM EDT [facility] BVAB 2,3 (BACTERIAL VAGINOSIS ASSOCIATED BACTERIA 2, 3); MOBILUNCUS SPP Detected(A) 19.961 - 24.689 ppm 01/15/2025 7:10 AM EDT [facility] GUTIERREZ ALBICANS, PARAPSILOSIS, TROPICALIS 0 23.000 - 30.347 ppm 01/15/2025 7:10 AM EDT [facility] GUTIERREZ ALBICANS, PARAPSILOSIS, TROPICALIS Not Detected 23.000 - 30.347 ppm 01/15/2025 7:10 AM EDT [facility] GUTIERREZ GLABRATA 0 23.000 - 31.618 ppm 01/15/2025 7:10 AM EDT [facility] GUTIERREZ GLABRATA Not Detected 23.000 - 31.618 ppm 01/15/2025 7:10 AM EDT [facility] GUTIERREZ KRUSEI 0 23.000 - 30.873 ppm 01/15/2025 7:10 AM EDT [facility] GUTIERREZ KRUSEI Not Detected 23.000 - 30.873 ppm 01/15/2025 7:10 AM EDT [facility] CHLAMYDIA TRACHOMATIS 0 23.000 - 31.586 ppm 01/15/2025 7:10 AM EDT [facility] CHLAMYDIA TRACHOMATIS Not Detected 23.000 - 31.586 ppm 01/15/2025 7:10 AM EDT [facility] GARDNERELLA VAGINALIS 0 19.961 - 24.689 ppm 01/15/2025 7:10 AM EDT [facility] GARDNERELLA VAGINALIS Not Detected 19.961 - 24.689 ppm 01/15/2025 7:10 AM EDT [facility] MEGASPHAERA (TYPES 1, 2) 0 19.961 - 24.689 ppm 01/15/2025 7:10 AM EDT [facility] MEGASPHAERA (TYPES 1, 2) Not Detected 19.961 - 24.689 ppm 01/15/2025 7:10 AM EDT [facility] NEISSERIA GONORRHOEAE 0 23.000 - 32.587 ppm 01/15/2025 7:10 AM EDT [facility] NEISSERIA GONORRHOEAE Not Detected 23.000 - 32.587 ppm 01/15/2025 7:10 AM EDT [facility] TRICHOMONAS VAGINALIS 0 23.000 - 31.995 ppm 01/15/2025 7:10 AM EDT [facility] TRICHOMONAS VAGINALIS Not Detected 23.000 - 31.995 ppm 01/15/2025 7:10 AM EDT [facility] MYCOPLASMA GENITALIUM 0 19.961 - 24.689 ppm 01/15/2025 7:10 AM EDT [facility] MYCOPLASMA GENITALIUM Not Detected 19.961 - 24.689 ppm 01/15/2025 7:10 AM EDT [facility] Tissue 01/14/2025 12:3 4 PM EDT 01/15/2025 1:13 AM EDT us Bubba Cipriano DO LAB BLOOD ORDERABLES Final Resul t [facility] [address] [place], [place] [address] documented in this encounter Visit Diagnoses Not on filedocumented in this encounter Care Teams Curriculum Supervisor Relationship Specialty Start Date End Date Madelyn Meraz MD [facility] [place] [address] PCP - General Family Medicine 11/04/22 documented as of this encounter
--- OUTSIDE RECORDS SUMMARY | 2025-01-16 08:59 | XMS_ITS | Encounter Summary ---
Author Organization [facility] Address [address] [place] [address] Phone Care Team Providers Care Wood Preparation Supervisor Name Role Phone Madelyn Meraz MD Primary Care Provider [phone] Encounter Details Date Type Department Care Team (Late st Contact Info) Description 06/03/2018 Orders Only [facility] [address] [place] [address] Conversion, Onbase Social History Tobacco Use Types [...] on filedocumented in this encounter Care Teams Wood Preparation Supervisor Relationship Specialty Start Date End Date Madelyn Meraz MD [address] [place] [address] PCP - General 06/25/19 documented as of this encounter
--- OUTSIDE RECORDS SUMMARY | 2025-01-16 08:59 | XMS_ITS | Encounter Summary ---
Author Organization [employer] [facility] Address [id number] [address] [place] [address] Care Team Providers Care Marine Designer Name Role Phone Pcp, Not In System Primary Care Provider Unavail able Encounter Details Date Type Department Care Team (Late st Contact Info) Description 04/29/2022 Orders Only [facility] [address] [address] External, Scanning Provider Social History [...] on filedocumented in this encounter Care Teams Marine Designer Relationship Specialty Start Date End Date Pcp, [place] [address] PCP - General Family Medicine 04/26/22 documented as of this encounter
--- OUTSIDE RECORDS SUMMARY | 2025-01-16 08:59 | XMS_ITS | Encounter Summary ---
Author Organization [facility] Address [address] [place] [address] Care Team Providers Care Adobe Layer Helper Name Role Phone Madelyn Meraz MD Primary Care Provider [phone] Encounter Details Date Type Department Care Team (Late Contact Info) Description 01/26/2023 Abstract [facility] Shanice GREER [address] [facility] [place] [phone] Christina Hatfield LPN Social History Tobacco Use [...] 9:40 AM EDT Routine NOMChavez GREER [address] [facility] [place] [address] Bubba Cota DO [address] [place] [place], [place] [address] documented as of this encounter Visit Diagnoses Not on filedocumented in this encounter Care Teams Adobe Layer Helper Relationship Specialty Start Date End Date Madelyn Meraz MD [address] [place] [address] PCP - General Family Medicine 11/04/22 documented as of this encounter
--- OUTSIDE RECORDS SUMMARY | 2025-01-16 08:59 | XMS_ITS | Encounter Summary ---
Author Organization [facility] Address [address] [place] [address] Care Team Providers Care Gear Repair Supervisor Name Role Phone Madelyn Meraz MD Primary Care Provider [phone] Encounter Details Date Type Department Care Team (Late Contact Info) Description 11/25/2022 Abstract TAY GREER [facility] [place] [phone] Bubba Cota DO [address], [place] [address] Social History Tobacco Use Types Packs/Day Years [...] 01/28/2025 9:40 AM EDT Routine TAY GREER [facility] [place] [address] Bubba Cota, DO [address], [place] [phone] documented as of this encounter Visit Diagnoses Not on filedocumented in this encounter Care Teams Gear Repair Supervisor Relationship Specialty Start Date End Date Madelyn Meraz MD [address] [place] [address] PCP - General Family Medicine 11/04/22 documented as of this encounter
--- OUTSIDE RECORDS SUMMARY | 2025-01-16 08:59 | XMS_ITS | Clinical Summary ---
Author Organization [employer] Address [id number] [address] [place] [address] Care Team Providers Care Eap Clinician Name Role Phone Pcp, Not In System [...] 20 doses. 20 tablet 04/26/20 22 Active ojftum-pjoqxjts-ll ylase (ZENPEP) 10,000-32,000 -42,000 unit capsule,delayed release(DR/EC) [...] MEDICAL MUTUAL MEDICAL MUTUAL ANTHEM Care Teams Eap Clinician Relationship Specialty Start Date End Date Pcp, [place] [address] PCP - General Family Medicine 04/26/22
--- OUTSIDE RECORDS SUMMARY | 2025-01-16 08:59 | XMS_ITS | Clinical Summary ---
Author Organization [facility] Address [address] [place] [address] Care Team Providers Care Supervisor Engine Repair Name Role Phone Bubba Cota DO Unavailable [phone] Medications dicyclomine (BENTYL) 20 mg tablet [...] is lower risk 6 04/22/2023 Data from: https://www.neighborhoodatlas.medicine.[facility].edu/. Last address used for calculation [address] [place] [address] 04/22/2023 Comments Unknown Sex and Gender Information [...] Meningococcal B Vaccine Completed 03/11/2021, 01/09 Insurance [employer] PPO MMO [employer] PPO Care Teams Supervisor Engine Repair Relationship Specialty Start Date End Date Bubba Cota DO [address] [place] [address] Referring Shoer 02/04/23
--- OUTSIDE RECORDS SUMMARY | 2025-01-16 08:59 | XMS_ITS | Encounter Summary ---
Author Organization [facility] Address [address] [place] [address] Care Team Providers Care Coach Cleaner Name Role Phone Madelyn Meraz MD Primary Care Provider Encounter Details Date Type Department Care Team (Late Contact Info) Description 01/15/2025 Telephone [facility] Shanice OBGYN [address] [place] [phone] Bubba Cota DO [address] [place], [facility]11 Social History Tobacco Use Types Packs/Day [...] encounter Miscellaneous Notes * Telephone Encounter - Mira Akers LPN - 01/15/2025 11:46 AM EDT Patient was called and made aware of results and that we will treat with medication and pharmacy verified and script sent. documented in this encounter Plan of Treatment Upcoming Encounters Date Type Department Care Team (Late st Contact Info) Description 01/28/2025 9:40 AM EDT Routine [facility] Shanice OBGYN [address] [facility] [place] [phone] Bubba Cota DO [address] [place], [place] [address] documented as of this encounter Visit Diagnoses Diagnosis BV (bacterial vaginosis) Unspecified vaginitis and vulvovaginitis documented in this encounter Care Teams Coach Cleaner Relationship Specialty Start Date End Date Madelyn Meraz MD [address] [facility] [place] [address] PCP - General Family Medicine 11/04/22 documented as of this encounter
--- OUTSIDE RECORDS SUMMARY | 2025-01-16 08:59 | XMS_ITS | Encounter Summary ---
Author Organization [facility] Address [address] [place] [address] Care Team Providers Care Electromechanical Inspector Name Role Phone Madelyn Meraz MD Primary Care Provider [phone] Encounter Details Date Type Department Care Team (Late Contact Info) Description 07/15/2023 Clinisync Result Encounter NOMS External Department Unsolicited Radha Cota DO [address], [place] [address] Social History Tobacco Use Types Packs/Day Years [...] Routine [facility]OMS Shanice OBGYMarv [address] [place] [phone] Radha Cota DO [address] [place] [address] documented as of this encounter Procedures Procedure Name Priority Date/Time Associated Diagnosis Comments US PELVIS W/ TRANSVAGINAL 07/15/2023 7:39 AM EST documented in this encounter Results * US PELVIS W/ TRANSVAGINAL (07/15/2023 7:39 AM EST) Anatomical Region Laterality Modality Other 07/15/2023 7:39 AM EST Narrative 07/15/2023 7:41 [place] [address] Ultrasound Report Signed Patient: MANPREET MASSEY MR#: [id number] : 2005 Acct:[id number] Age/Sex: 18 / F ADM Date: 07/14/23 Loc: US Attending Dr: Radha Cota D.O. Ordering Physician: Radha Cota D.O. Date of Service: 07/14/23 Procedure(s): US pelvis w/ transvaginal Accession Number(s): [id number] cc: Madelyn Meraz M.D.; Radha Cota D.O. [place] [id number] Patient Name: MANPREET MASSEY MRN: [id number] date: 2005 Sex: F Assigned Patient Location: US Current Patient Location: Accession/Order Number: [id number] Exam Date: 07/14/2023 16:00 Report Date: 07/15/2023 [...] Signed By: 07/15/23 0741 DD/ 0739 TD/TT: Agile Tester: Procedure Note Radiology, Radiologist, MD - 07/15/2023 [place] [address] Ultrasound Report Signed Patient: MANPREET MASSEY R#: [id number] : 2005Acct:[id number] Age/Sex: 18 / FADM Date: 07/14/23 Loc: US Attending Dr: Radha Cota D.O. Ordering Physician: Radha Cota D.O. Date of Service: 07/14/23 Procedure(s): US pelvis w/ transvaginal Accession Number(s): [id number] cc: Madelyn Meraz M.D.; Radha Cota D.O. The [place] [id number] Patient Name: MANPREET MASSEY MRN: [facility]:[id number] date: 2005 Sex: F Assigned Patient Location: Current Patient Location: Accession/Order Number: [id number] Exam Date: 07/14/2023 16:00 Report Date: 07/15/2023 [...] M.D. Signed By:07/15/23 0741 DD/ 0739 TD/TT: Agile Tester: us Radha Cipriano DO [facility] Final Result documented in this encounter Visit Diagnoses Not on filedocumented in this encounter Care Teams Electromechanical Inspector Relationship Specialty Start Date End Date Madelyn Meraz MD [address] [place] [address] PCP - General Family Medicine 11/04/22 documented as of this encounter
--- OUTSIDE RECORDS SUMMARY | 2025-01-16 08:59 | XMS_ITS | Encounter Summary ---
Author Organization [facility] Address [address] [place] [address] Care Team Providers Care Legal Word Processor Name Role Phone Madelyn Meraz MD Primary Care Provider [phone] Encounter Details Date Type Department Care Team (Late Contact Info) Description 01/14/2025 Bamboo flowsheet TAY GREER [facility] [place] [address] Bubba Cota, DO [address], [place] [address] Social History Tobacco Use Types Packs/Day Years [...] 01/28/2025 9:40 AM EDT Routine NOMChavez GREER [facility] [place] [address] Bubba Cota, DO [address], [facility]11 documented as of this encounter Visit Diagnoses Not on filedocumented in this encounter Care Teams Legal Word Processor Relationship Specialty Start Date End Date Madelyn Meraz MD [address] [place] [address] PCP - General Family Medicine 11/04/22 documented as of this encounter
--- OUTSIDE RECORDS SUMMARY | 2025-01-16 08:59 | XMS_ITS | Encounter Summary ---
Author Organization [facility] Address [address] [place] [address] Care Team Providers Care Batchmaker Name Role Phone Madelyn Meraz MD Primary Care Provider [phone] Encounter Details Date Type Department Care Team (Late st Contact Info) Description 01/09/2025 Clinisync Result Encounter [facility] External Department Unsolicited Jacqeuline Ch, WEAPONS ENGINEER [address] [place] [address] Social History Tobacco Use Types Packs/Day Years [...] AM EDT Routine [facility] Shanice GREER [address] [place] [address] Bubba Cota DO [address] [place], [place] [id number] documented as of this encounter Procedures Procedure Name Priority Date/Time Associated Diagnosis Comments BOX TEST Routine 01/09/2025 9:02 AM EDT HBSAG SCREEN Routine 01/09/2025 9:02 AM EDT RAPID PLASMA REAGIN, QUANT Routine 01/09/2025 9:02 AM EDT HIV AB/P24 AG WITH REFLEX Routine 01/09/2025 9:02 AM EDT HCV ANTIBODY RFX TO QUANT PCR Routine 01/09/2025 9:02 AM EDT MLR HEMOGLOBIN A1C Routine 01/09/2025 9: 02 AM EDT ALL TYPE AND SCREEN Routine 01/09/2025 9 :02 AM EDT ALL RUBELLA IGG AB Routine 01/09/2025 9: 02 AM EDT ALL CBC WITH AUTO DIFF Routine 01/09/2025 9:02 AM EDT [facility] DRUG SCREEN RAPID (URINE) Routine 01/09/2025 8:45 AM EDT documented in this encounter Results * HBSAG SCREEN (01/09/2025 9:02 AM EDT) HBSAG SCREEN Negative Negative [facility] Comment: Performed at: - Lab[address] [id number] Records Administrator: Jack Rubio PhD, Phone: [phone] 01/09/2025 9:02 AM EDT 01/09/2025 9:08 AM EDT Narrative GEOVANNY - 01/10/2025 12:09 PM EDT us Bubba Cipriano DO LAB BLOOD ORDERABLES Final Resul t [facility] * RAPID PLASMA REAGIN, QUANT (01/09/2025 9:02 AM EDT) Pathologist [facility] RAPID PLASMA REAGIN, QUANT Non Reactive NonRea<1: 1 titer [facility] Comment: Please Note: This test does not meet current guidelines for screening and diagnosis of syphilis. This test is intended for following treatment response in patients being treated for syphilis infection. To screen for syphilis infection, a reflex cascade that includes both RPR and a treponema-specific assay should be utilized, such as Treponema pallidum (Syphilis) Screening [place] (826790) or Rapid Plasma Reagin (RPR) Test With Reflex to Quantitative RPR and Confirmatory Treponema pallidum Antibodies ([id number]). Performed at: [address] [id number] Records Administrator: Jack Rubio PhD, Phone: [phone] 01/09/2025 9:02 AM EDT 01/09/2025 9:08 AM EDT Narrative CLINISYPA - 01/10/2025 12:09 PM EDT Skully Helmetso DO LAB BLOOD ORDERABLES Final Resul t Performing Organization Address [place] Co de Phone Number [facility] TB * HCV ANTIBODY RFX TO QUANT PCR (01/09/2025 9:02 AM EDT) Pathologist [facility] HCV AB Non Reactive Non Reactive TB INTERPRETATION: Comment . [facility] Comment: Not infected with HCV unless early or acute infection is suspected (which may be delayed in an immunocompromised individual), or other evidence exists to indicate HCV infection. Performed at: [address] [id number] Records Administrator: Jack Rubio PhD, Phone: [phone] 01/09/2025 9:02 AM EDT 01/09/2025 9:08 AM EDT Narrative CLINISYNC - 01/10/2025 8:09 AM EDT Bubba Cipriano DO LAB BLOOD ORDERABLES Final Resul t Performing Organization Address [place] de [facility] * ALL RUBELLA IGG AB (01/09/2025 9:02 AM EDT) RUBELLA ANTIBODIES, IGG 2.92 Immune >0.99 index [facility] Comment: Non-immune <0.90 Equivocal 0.90 - 0.99 Immune >0.99 Performed at: [address] [id number] Records Administrator: Jack Rubio PhD, Phone: [phone] 01/09/2025 9:02 AM EDT 01/09/2025 9:08 AM EDT Narrative CLINISYNC - 01/10/2025 8:09 AM EDT us Bubba Cipriano DO CLINISYNC Final Result Performing Organization Address [facility]/ZIP Co de Phone Number [facility] * HIV AB/P24 AG WITH REFLEX (01/09/2025 9:02 AM EDT) Pathologist [facility] HIV AB/P24 AG SCREEN Non Reactive Non Reactive [facility] Comment: HIV-1/HIV-2 antibodies and HIV-1 p24 antigen were NOT detected. There is no laboratory evidence of HIV infection. HIV Negative Performed at: [address] [id number] Records Administrator: Jack Rubio PhD, Phone: [phone] 01/09/2025 9:02 AM EDT 01/09/2025 9:08 AM EDT Narrative CLINISYNC - 01/10/2025 7:08 AM EDT us Bubba Cipriano DO LAB BLOOD ORDERABLES Final Resul t [facility] * ALL TYPE AND SCREEN (01/09/2025 9:02 AM EDT) Pathologist [facility] BLOOD TYPE A Positive [facility] ANTIBODY SCREEN NEGATIVE [facility] 01/09/2025 9:02 AM EDT 01/09/2025 9:08 AM EDT Narrative CLINISYNC - 01/09/2025 12:[address] [facility] , [place] Bubba Cipriano DO CLINISYNC Final Result [facility] * MLR HEMOGLOBIN A1C (01/09/2025 9:02 AM EDT) Pathologist [facility] GLYCOHEMOGLOBIN A1C 4.7 4.5 - 6.2 % [facility] Comment: ADA RECOMMENDED LIMIT 4.0 - 6.0 ADA THERAPEUTIC TARGET < 7.0 ACTION SUGGESTED > 7.0 ESTIMATED AVERAGE GLUCOSE 88 mg/dL TB 01/09/2025 9:02 AM EDT 01/09/2025 9:08 AM EDT Narrative CLINISYNC - 01/09/2025 10:50 AM EDT [facility] Final Result Performing Organization Address [place] Co de Phone Number [facility] * (ABNORMAL) ALL CBC WITH AUTO DIFF (01/09/2025 9:02 AM EDT) [facility] TB WBC 6.4 4.0 - 11.0 10 3/uL [facility] TB RBC 4.46 4.20 - 5.40 10 6/uL [facility] TB HGB 13.6 12.0 - 16.0 g/dL TB TB HCT 39.9 36.0 - 48.0 % TB TB MCV 89.5 81.0 - 99.0 fL TB TB MCH 30.5 26.7 - 34.0 pg TBH TB MCHC 34.1 29.9 - 35.2 g/dL TB TB RDW 12.8 11.0 - 15.0 % TB TB PLT 200 150 - 450 10 3/uL TB TB MPV 12.1 9.5 - 13.5 fL TB NEUTROPHILS PERCENT AUTO 74.2 43.0 - 75.0 % [facility] LYMPHOCYTES PERCENT AUTO 17.0(L) 20.5 - 60.0 % [facility] MONOCYTES PERCENT AUTO 5.3 1.7 - 12.0 % TB TBH EO % 2.8 0.9 - 7.0 % [facility] BASOPHILS PERCENT AUTO 0.5 0.2 - 2.0 % [facility] IMMATURE GRANULOCYTES PCT AUTO 0.2 0.0 - 0.5 % [facility]H NEUTROPHILS ABSOLUTE AUTO 4.8 1.4 - 6.5 10 3/uL TBH LYMPHOCYTES ABSOLUTE AUTO 1.1(L) 1.2 - 3.8 10 3/uL TB[facility] MONOCYTES ABSOLUTE AUTO 0.3 0.3 - 0.8 10 3/uL TBH TBH EO # 0.2 0.0 - 0.7 10 3/uL TBH BASOPHILS ABSOLUTE AUTO 0.0 0.0 - 0.1 10 3/uL [facility]H IMMATURE GRANULOCYTES ABS AUTO 0.01 0.00 - 0.03 10 3/uL [facility] 01/09/2025 9:02 AM EDT 01/09/2025 9:08 AM EDT Narrative CLINISYNC - 01/09/2025 10:13 AM EDT us Bubba Cota DO CLINISYNC Final Result [facility] * BOX TEST (01/09/2025 9:02 AM EDT) BOX TEST SENT OUT UNITY BOX TBH BOX1 UNITY TBH BOX2 01/09/25 TB 01/09/2025 9:02 AM EDT 01/09/2025 9:08 AM EDT Narrative CLINISYNC - 01/09/2025 9:32 AM EDT Jacqueline Ch WEAPONS ENGINEER LAB BLOOD ORDERABLES Edited R esult - Final [facility] TB * [facility] DRUG SCREEN RAPID (URINE) (01/09/2025 8:45 AM EDT) CANNABINOID SCREEN URINE NEGATIVE NEGATIVE TBH PHENCYCLIDINE SCREEN URINE NEGATIVE NEGATIVE TBH COCAINE SCREEN URINE NEGATIVE NEGATIVE TBH METHAMPHETAMINES SCREEN URINE NEGATIVE NEGATIVE TBH OPIATE SCREEN URINE NEGATIVE NEGATIVE TBH AMPHETAMINE SCREEN URINE NEGATIVE NEGATIVE TBH BENZODIAZEPINES SCREEN URINE NEGATIVE NEGATIVE TBH TRICYCLIC ANTIDEPRESSANT URINE NEGATIVE NEGATIVE TBH METHADONE SCREEN URINE NEGATIVE NEGATIVE TBH BARBITURATES SCREEN URINE NEGATIVE NEGATIVE TBH OXYCODONE SCREEN URINE NEGATIVE NEGATIVE TBH BUPRENORPHINE SCREEN URINE NEGATIVE NEGATIVE TBH Comment: DRUG CLASS TEST SYSTEM CUT-OFF CONCENTRATIONS ARE FOLLOWS: AMP (Amphetamine): 500 ng/mL BAR (Barbiturates): 200 ng/mL BZO (Benzodiazepines): 150 ng/mL BUP (Buprenorphine): 10 ng/mL MARIBEL (Cocaine): 150 ng/mL mAMP (Methamphetamine): 500 ng/mL MTD (Methadone): 200 ng/mL OPI (Opiates): 100 ng/mL OXY (Oxycodone): 100 ng/mL PCP (Phencyclidine): 25 ng/mL THC (Cannabinoids): 50 ng/mL TCA (Trycyclic Antidepressants): 300 ng/mL 01/09/2025 8:45 AM EDT 01/09/2025 9:09 AM EDT Narrative CLINISYNC - 01/09/2025 11:47 AM EDT Bubba Cipriano DO CLINIS[facility]NC Final Result [facility] documented in this encounter Visit Diagnoses Not on filedocumented in this encounter Care Teams Batchmaker Relationship Specialty Start Date End Date Madelyn Meraz MD [address] [place] [address] PCP - General Family Medicine 11/04/22 documented as of this encounter
--- OUTSIDE RECORDS SUMMARY | 2025-01-16 08:59 | XMS_ITS | Encounter Summary ---
Author Organization [facility] Address [address] [place] [address] Care Team Providers Care Portable Sawyer Name Role Phone Madleyn Meraz MD Primary Care Provider [phone] Encounter Details Date Type Department Care Team (Late Contact Info) Description 01/26/2023 Abstract [facility] Shanice GREER [address] [place] [id number] Christina Hatfield LPN Social History Tobacco Use [...] 9:40 AM EDT Routine NOM[facility]avez GREER [address] [facility] [place] [phone] Bubba Cota DO [address] [place], [place] [id number] documented as of this encounter Visit Diagnoses Not on filedocumented in this encounter Care Teams Portable Sawyer Relationship Specialty Start Date End Date Madelyn Meraz MD [address] [place] [address] PCP - General Family Medicine 11/04/22 documented as of this encounter
--- OUTSIDE RECORDS SUMMARY | 2025-01-16 08:59 | XMS_ITS | Encounter Summary ---
Author Organization [employer] Address [id number] [address] [place] [address] Care Team Providers Care Carroter Name Role Phone Pcp, Not In System Primary Care Provider Unavail able Encounter Details Date Type Department Care Team (Late st Contact Info) Description 05/04/2022 Orders Only [facility] [address] [address] External, Scanning Provider Social History [...] Multiple labs (04/28/2022) us Scanning Provider External [facility] Final Result Performing Organization Address City/State/[facility] Co de Phone Number MANUALLY TRANSCRIBED RESULTS documented in this encounter Visit Diagnoses Not on filedocumented in this encounter Care Teams Carroter Relationship Specialty Start Date End Date Pcp, [place] [address] PCP - General Family Medicine 04/26/22 documented as of this encounter
--- OUTSIDE RECORDS SUMMARY | 2025-01-16 08:59 | XMS_ITS | Clinical Summary ---
Author Organization [facility] Address [address] [place] [address] Care Team Providers Care Travel Assistant Name Role Phone Madelyn Meraz MD Primary Care Provider [phone] Allergies No known active allergies Medications ondansetron ODT (Zofran-ODT) 4 MG disintegrating tablet Take 4 mg by mouth every 8 (eight) hours if needed. 2 Active dicyclomine (Bentyl) 10 MG capsule Take 10 mg by mouth in the morning and 10 mg at noon and 10 mg in the evening and 10 mg before bedtime. 4 Active Ydrbzpkw-Uhm-Zt-FA ( 1 + IRON PO) 5 Active metroNIDAZOLE (Flagyl) 500 MG tabletIndications:B V (bacterial vaginosis) Take 1 tablet (500 mg) by mouth in the morning and 1 tablet (500 mg) before bedtime. Do all this for 7 days. Do not drink alcohol while taking this medication. 14 tablet 5 01/23/20 25 Active sucralfate (Carafate) 1 g tabletIndications:G astroesophageal reflux disease, unspecified whether esophagitis present Take 1 tablet (1 g) by mouth in the morning and 1 tablet (1 g) at noon and 1 tablet (1 g) in the evening and 1 tablet (1 g) before bedtime. Take before meals. Do all this for 40 doses. 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 12/20/2024 Positive urine test ([facility]) 12/01/19 Moderate episode of recurrent major depressive d isorder 08/11/2021 MTHFR gene mutation 08/24/2018 IBS (irritable bowel syndrome) 06/01/2016 Estimated Date of Delivery Comme nts Yes 08/11/2025 Based on Ultraso und Encounters Date Type Department Care Team Description 01/15/2025 Clinisync Result Encounter [facility] External Department Unsolicited Radha Cota, DO 01/15/2025 Telephone [facility] [address] [address] [place] [phone] Radha Cota, DO 01/14/2025 10:10 AM EDT Routine [facility] [address] [place] [phone] Radha Cota, DO Missed menses (Primary Dx); Vaginal discharge; STD exposure; Positive urine test ([facility]) 01/14/2025 External Result Encounter [facility] External Department Unsolicited Radha Cota, DO 01/14/2025 Clinisync Result Encounter [facility] External Department Unsolicited Radha Cota, DO 01/14/2025 Bamboo flowsheet [facility] [address] [address] [place] [phone] Radha Cota, DO 01/09/2025 Clinisync Result Encounter [facility] External Department Unsolicited Jacqueline Ch NP 01/04/2025 Telephone [facility] [address] [address] [place] [address] Kathleen Arcos LPN 12/28/2024 9:00 AM EDT Initial [facility] [address] [place] [phone] GA: 7w5d 12/28/2024 8:30 AM EDT Ancillary Procedure [facility] [address] [place] [address] Missed menses; Positive urine test ([facility]) 12/21/2024 Travel 12/03/2024 Results Follow-Up [facility] [address] [place] [address] Kathleen Arcos, [place] [facility] PREG QUANT HCG 12/02/2024 Clinisync Result Encounter [facility] External Department Unsolicited Radha Cota, 11/30/2024 Clinisync Result Encounter [facility] External Department Unsolicited Radha Cota, 11/30/2024 Telephone [facility] [address] [place] [phone] Radha Cota DO 10/24/2024 1:30 PM EDT Procedure Visit [facility] [address] [place] [phone] Radha Cota, Encounter for IUD removal 10/17/2024 Travel from [...] AM EDT Routine [facility] [address] [place] [phone] Radha Cota, [address] [place] [address] Health Maintenance Due Date Last Done Comments Influenza Vaccine (#1) 2025 02/16/2024, 2022 Procedures Procedure Name Priority Date/Time Associated Diagnosis Comments ALL TYPE AND SCREEN Routine 01/15/2025 1 2:48 PM EDT RECURRENT VAGINITIS (HTRX) Routine 01/14/2025 12:34 PM EDT US OB TRANSVAGINAL 01/14/2025 12 :26 PM EDT HBSAG SCREEN Routine 01/09/2025 9:02 AM EDT RAPID PLASMA REAGIN, QUANT Routine 01/09/2025 9:02 AM EDT HCV ANTIBODY RFX TO QUANT PCR Routine 01/09/2025 9:02 AM EDT ALL RUBELLA IGG AB Routine 01/09/2025 9: 02 AM EDT HIV AB/P24 AG WITH REFLEX Routine 01/09/2025 9:02 AM EDT ALL TYPE AND SCREEN Routine 01/09/2025 9 :02 AM EDT MLR HEMOGLOBIN A1C Routine 01/09/2025 9: 02 AM EDT ALL CBC WITH AUTO DIFF Routine 01/09/2025 9:02 AM EDT BOX TEST Routine 01/09/2025 9:02 AM EDT [facility] DRUG SCREEN RAPID (URINE) Routine 01/09/2025 8:45 AM EDT POCT , URINE Routine 12/28/2024 9:02 AM EDT Missed menses POCT URINALYSIS DIPSTICK Routine 12/28/2024 9:01 AM EDT Missed menses US OB TRANSVAGINAL Routine 12/28/2024 8: 43 AM EDT Missed menses Positive urine test ([facility]) [facility] PREG QUANT HCG Routine 12/02/2024 9: 50 AM EDT [facility] PREG QUANT HCG Routine 11/30/2024 12 :05 PM EDT IUD REMOVAL Routine 10/24/2024 2:09 PM EDT Encounter for IUD removal from Last 3 Months Results * ALL TYPE AND SCREEN (01/15/2025 12:48 PM EDT) Only the most recent of2 resultswithin the time period is included. BLOOD TYPE A Positive [facility] ANTIBODY SCREEN NEGATIVE [facility] 01/15/2025 12:4 8 PM EDT 01/15/2025 12:49 PM EDT Narrative CLINISYNC - 01/15/2025 1:52 PM EDT [facility] , us Radha Cipriano DO CLINISYNC Final Result CLINISYNC [facility] * (ABNORMAL) RECURRENT VAGINITIS (HTRX) (01/14/2025 12:34 PM EDT) ATOPOBIUM VAGINAE 0 19.961 - 24.689 ppm 01/15/2025 7:10 AM EDT [facility] ATOPOBIUM VAGINAE Not Detected 19.961 - 24.689 ppm 01/15/2025 7:10 AM EDT [facility] BVAB 2,3 (BACTERIAL VAGINOSIS ASSOCIATED BACTERIA 2, 3); MOBILUNCUS SPP 21.998(A) 19.961 - 24.689 ppm 01/15/2025 7:10 AM EDT [facility] BVAB 2,3 (BACTERIAL VAGINOSIS ASSOCIATED BACTERIA 2, 3); MOBILUNCUS SPP Detected(A) 19.961 - 24.689 ppm 01/15/2025 7:10 AM EDT [facility] GUTIERREZ ALBICANS, PARAPSILOSIS, TROPICALIS 0 23.000 - 30.347 ppm 01/15/2025 7:10 AM EDT [facility] GUTIERREZ ALBICANS, PARAPSILOSIS, TROPICALIS Not Detected 23.000 - 30.347 ppm 01/15/2025 7:10 AM EDT [facility] GUTIERREZ GLABRATA 0 23.000 - 31.618 ppm 01/15/2025 7:10 AM EDT [facility] GUTIERREZ GLABRATA Not Detected 23.000 - 31.618 ppm 01/15/2025 7:10 AM EDT [facility] GUTIERREZ KRUSEI 0 23.000 - 30.873 ppm 01/15/2025 7:10 AM EDT [facility] GUTIERREZ KRUSEI Not Detected 23.000 - 30.873 ppm 01/15/2025 7:10 AM EDT [facility] CHLAMYDIA TRACHOMATIS 0 23.000 - 31.586 ppm 01/15/2025 7:10 AM EDT [facility] CHLAMYDIA TRACHOMATIS Not Detected 23.000 - 31.586 ppm 01/15/2025 7:10 AM EDT [facility] GARDNERELLA VAGINALIS 0 19.961 - 24.689 ppm 01/15/2025 7:10 AM EDT [facility] GARDNERELLA VAGINALIS Not Detected 19.961 - 24.689 ppm 01/15/2025 7:10 AM EDT [facility] MEGASPHAERA (TYPES 1, 2) 0 19.961 - 24.689 ppm 01/15/2025 7:10 AM EDT [facility] MEGASPHAERA (TYPES 1, 2) Not Detected 19.961 - 24.689 ppm 01/15/2025 7:10 AM EDT [facility] NEISSERIA GONORRHOEAE 0 23.000 - 32.587 ppm 01/15/2025 7:10 AM EDT [facility] NEISSERIA GONORRHOEAE Not Detected 23.000 - 32.587 ppm 01/15/2025 7:10 AM EDT [facility] TRICHOMONAS VAGINALIS 0 23.000 - 31.995 ppm 01/15/2025 7:10 AM EDT [facility] TRICHOMONAS VAGINALIS Not Detected 23.000 - 31.995 ppm 01/15/2025 7:10 AM EDT [facility] MYCOPLASMA GENITALIUM 0 19.961 - 24.689 ppm 01/15/2025 7:10 AM EDT [facility] MYCOPLASMA GENITALIUM Not Detected 19.961 - 24.689 ppm 01/15/2025 7:10 AM EDT [facility] Tissue 01/14/2025 12:3 4 PM EDT 01/15/2025 1:13 AM EDT us Radha Cipriano DO LAB BLOOD ORDERABLES Final Resul t [facility] [address] [id number] * US OB TRANSVAGINAL (01/14/2025 12:26 PM EDT) Anatomical Region Laterality Modality Other 01/14/2025 12:2 6 PM EDT Narrative 01/14/2025 12:28 PM EDT The [address] [address] Ultrasound Report Signed Patient: MANPREET FRAIRE MR#: [id number] : 2005 Acct:[id number] Age/Sex: 19 / F ADM Date: 01/14/25 Loc: RAD Attending Dr: Radha Cota D.O. Ordering Physician: Radha Cota D.O. Date of Service: 01/14/25 Procedure(s): US OB transvaginal Accession Number(s): [id number] cc: Madelyn Meraz M.D.; Radha Cota D.O. [place] [address] Patient Name: MANPREET FRAIRE MRN: [id number] date: 2005 Sex: F Assigned Patient Location: [facility] Current Patient Location: [facility] Accession/Order Number: [id number] Exam Date: 01/14/2025 11:27 Report Date: 01/14/2025 [...] Tripp M.D. 01/14/2025 12:26 PM Dictation Location: [facility] Electronically authenticated by: [id number] Y Date: 01/14/2025 12:26 Dictated By: Enid Tripp M.D. Signed By: 01/14/25 1228 DD/ 1226 TD/TT: Electronic Pagination System Operator: Procedure Note Radiology, Radiologist, - 01/14/2025 [place] [address] Ultrasound Report Signed Patient: MANPREET FRAIRE R#: [id number] : 2005Acct:[id number] Age/Sex: 19 / FADM Date: 01/14/25 Loc: RAD Attending Dr: Radha Cota D.O. Ordering Physician: Radha Cota D.O. Date of Service: 01/14/25 Procedure(s): US OB transvaginal Accession Number(s): [id number] cc: Madelyn Meraz M.D.; Radha Cota D.O. The [place] [address] Patient Name: MANPREET FRAIRE MRN: [id number] date: 2005 Sex: F Assigned Patient Location: [facility] Current Patient Location: [facility] Accession/Order Number: [id number] Exam Date: 01/14/2025 11:27 Report Date: 01/14/2025 [...] Tripp M.D. 01/14/2025 12:26 PM Dictation Location: [place] [address] Electronically authenticated by: [id number] Y Date: 2:26 Dictated By: Enid Tripp M.D. Signed By:01/14/25 1228 DD/ 1226 TD/TT: Electronic Pagination System Operator: us Radha Cipriano DO CLINISYNC IMAGING Final Result * BOX TEST (01/09/2025 9:02 AM EDT) BOX TEST SENT OUT [facility] BOX TB BOX1 [facility] BOX2 01/09/25 TB 01/09/2025 9:02 AM EDT 01/09/2025 9:08 AM EDT Narrative CLINISYNC - 01/09/2025 9:32 AM EDT Jacqueline Ch LAB BLOOD ORDERABLES Edited R esult - Final Performing Organization Address [facility] Co de Phone Number CLINISYNC [facility] * HBSAG SCREEN (01/09/2025 9:02 AM EDT) HBSAG SCREEN Negative Negative [facility] Comment: Performed at: - Lab[address] [id number] Implement Mechanic: Jack Rubio PhD, Phone: [phone] 01/09/2025 9:02 AM EDT 01/09/2025 9:08 AM EDT Narrative CLINISYNC - 01/10/2025 12:09 PM EDT us Radha Mao DO LAB BLOOD ORDERABLES Final Resul t Performing Organization Address City/State/[facility] Co de Phone Number CLINISYNC TB * RAPID PLASMA REAGIN, QUANT (01/09/2025 9:02 AM EDT) RAPID PLASMA REAGIN, QUANT Non Reactive NonRea<1: 1 titer [facility] Comment: Please Note: This test does not meet current guidelines for screening and diagnosis of syphilis. This test is intended for following treatment response in patients being treated for syphilis infection. To screen for syphilis infection, a reflex cascade that includes both RPR and a treponema-specific assay should be utilized, such as Treponema pallidum (Syphilis) Screening [place] (583445) or Rapid Plasma Reagin (RPR) Test With Reflex to Quantitative RPR and Confirmatory Treponema pallidum Antibodies (590595). Performed at: [facility] [id number] Implement Mechanic: Jack Rubio PhD, Phone: [phone] 01/09/2025 9:02 AM EDT 01/09/2025 9:08 AM EDT Narrative CLINISYNC - 01/10/2025 12:09 PM EDT Radha Cipriano DO LAB BLOOD ORDERABLES Final Resul t Performing Organization Address [facility] de Phone Number CLINISYNC TB * HIV AB/P24 AG WITH REFLEX (01/09/2025 9:02 AM EDT) Pathologist [facility] HIV AB/P24 AG SCREEN Non Reactive Non Reactive [facility] Comment: HIV-1/HIV-2 antibodies and HIV-1 p24 antigen were NOT detected. There is no laboratory evidence of HIV infection. HIV Negative Performed at: [facility] [employer] [id number] Implement Mechanic: Jack Rubio PhD, Phone: [phone] 01/09/2025 9:02 AM EDT 01/09/2025 9:08 AM EDT Narrative CLINISYNC - 01/10/2025 7:08 AM EDT Radha Cipriano DO LAB BLOOD ORDERABLES Final Resul t Performing Organization Address [facility] Co de Phone Number [facility] * HCV ANTIBODY RFX TO QUANT PCR (01/09/2025 9:02 AM EDT) [facility] HCV AB Non Reactive Non Reactive [facility] INTERPRETATION: Comment . [facility] Comment: Not infected with HCV unless early or acute infection is suspected (which may be delayed in an immunocompromised individual), or other evidence exists to indicate HCV infection. Performed at: [address] [id number] Implement Mechanic: Jack Rubio PhD, Phone: [phone] 01/09/2025 9:02 AM EDT 01/09/2025 9:08 AM EDT Narrative CLINISYNC - 01/10/2025 8:09 AM EDT Radha Cipriano DO LAB BLOOD ORDERABLES Final Resul t Performing Organization Address [facility] de Phone Number [facility] * MLR HEMOGLOBIN A1C (01/09/2025 9:02 AM EDT) [facility] GLYCOHEMOGLOBIN A1C 4.7 4.5 - 6.2 % [facility] Comment: ADA RECOMMENDED LIMIT 4.0 - 6.0 ADA THERAPEUTIC TARGET < 7.0 ACTION SUGGESTED > 7.0 ESTIMATED AVERAGE GLUCOSE 88 mg/dL TB 01/09/2025 9:02 AM EDT 01/09/2025 9:08 AM EDT Narrative CLINISYNC - 01/09/2025 10:50 AM EDT Radha Cipriano DO CLINISYNC Final Result Performing Organization Address [facility] Co de Phone Number [facility] * ALL RUBELLA IGG AB (01/09/2025 9:02 AM EDT) [facility] RUBELLA ANTIBODIES, IGG 2.92 Immune >0.99 index TB Comment: Non-immune <0.90 Equivocal 0.90 - 0.99 Immune >0.99 Performed at: [address] [id number] Implement Mechanic: Jack Rubio PhD, Phone: [phone] 01/09/2025 9:02 AM EDT 01/09/2025 9:08 AM EDT Narrative CLINISYNC - 01/10/2025 8:09 AM EDT us Radha Cipriano DO CLINISYNC Final Result CLINISYNC TB * (ABNORMAL) ALL CBC WITH AUTO DIFF (01/09/2025 9:02 AM EDT) TB WBC 6.4 4.0 - 11.0 10 3/uL TBH TBH RBC 4.46 4.20 - 5.40 10 6/uL TBH TBH HGB 13.6 12.0 - 16.0 g/dL TBH TBH HCT 39.9 36.0 - 48.0 % [facility] TBH MCV 89.5 81.0 - 99.0 fL TBH TBH MCH 30.5 26.7 - 34.0 pg TBH TBH MCHC 34.1 29.9 - 35.2 g/dL TBH TBH RDW 12.8 11.0 - 15.0 % TBH TBH PLT 200 150 - 450 10 3/uL TBH TBH MPV 12.1 9.5 - 13.5 fL TBH NEUTROPHILS PERCENT AUTO 74.2 43.0 - 75.0 % TBH LYMPHOCYTES PERCENT AUTO 17.0(L) 20.5 - 60.0 % TBH MONOCYTES PERCENT AUTO 5.3 1.7 - 12.0 % TBH TBH EO % 2.8 0.9 - 7.0 [...] Narrative CLINISYNC - 01/09/2025 10:13 AM EDT Radha Cipriano DO CLINISYNC Final Result Performing Organization Address [facility]/ZIP Co de Phone Number CLINISYNC TB * TBH DRUG SCREEN RAPID [...] Narrative CLINISYNC - 01/09/2025 11:47 AM EDT Radha Cipriano DO [facility] Final [facility] * (ABNORMAL) POCT , urine manually resulted (12/28/2024 9:02 AM EDT) Preg Test, Ur Positive Negative Urine 12/28/2024 9:02 AM EDT [facility] DO POINT OF CARE TEST ENTER/EDIT [...] - Positive Urine 12/28/2024 9:01 AM EDT [facility] POINT OF CARE TEST ENTER/EDIT OR DERABLES [...] ELECTRONICALLY SIGNED BY: Nikita Rowe MD us Radha Cipriano DO IMG OB US PROCEDURES Final Resul t * [...] Narrative CLINISYNC - 12/02/2024 10:15 AM EDT us Radha Cipriano DO CLINISYNC Final Result CLINISYNC [facility] * IUD Removal (10/24/2024 2:09 PM EDT) Enid BritoBRUCE - 10/24/2024 2:09 PM EDT Enid AngeloBRUCE 10/24/2024 3:14 PM IUD Removal Date/Time: 10/24/2024 2:09 PM Performed by: Radha Cota DO Authorized by: Radha Cota DO Consent: Consent obtained: Written Consent given by: Patient Procedure risks and benefits discussed: yes Patient questions answered: yes Patient agrees, verbalizes understanding, and wants to proceed: yes Educational handouts given: yes Instructions and paperwork completed: yes [place] protocol: Patient states understanding of procedure being [...] office for annual exam unless needed otherwise Radha Cota DO IN CLINIC/BEDSIDE ORDERABLES Fin al Result from Last 3 Months Insurance [facility] [employer] Care Teams Travel Assistant Relationship Specialty Start Date End Date Madelyn Meraz MD [address] [place] [phone] PCP - General Family Medicine 11/04/22
--- NOTE | 2025-01-16 09:00 | US_ITS ---
The [address] [address] Patient Name: BRADLEY MASSEY MRN: [id number] date: 2005 Sex: F Assigned Patient Location: [facility] Current Patient Location: [facility] Accession/Order Number: [id number] Exam Date: 01/16/2025 09:01 Report Date: 01/16/2025 09:57 At the request of: RADHA YAN DO Procedure: US OB <= 14 weeks fetus US OB <= 14 weeks fetus 01/16/2025 9:43 AM SIGNS AND SYMPTOMS: verification of demise COMPARISON: None. TECHNIQUE: Limited pelvic ultrasound using transvesical sonography. FINDINGS: An early intrauterine is identified. The visualized pole has an estimated gestational age of 8 weeks and 4 days by crown-rump length. This is discordant with expected gestational age based on last menstrual period (10 weeks 3 days). Normal cardiac activity is identified. A subjectively normal amount of amniotic fluid is present. There is no evidence for placenta previa or subchorionic hemorrhage. Pelvic survey reveals no gross abnormalities. US/US OB <= 14 weeks fetus IMPRESSION: An early intrauterine gestational is noted with discordant gestational age based on measurements and last menstrual period as above. No cardiac activity is identified. This is consistent with the history of suspected demise. Impression dictated by: Dorian Garcia M.D. 01/16/2025 9:57 AM Dictation Location: [facility] Electronically authenticated by: [id number] Y Date: 01/16/2025 09:57
[2025-01-16 09:03] LABS: Hematocrit 39.4 % (36.0-48.0); Hemoglobin 13.2 g/dL (12.0-16.0); Immature Granulocytes Abs Auto 0.01 10^3/uL (0.00-0.03); Immature Granulocytes Pct Auto 0.2 % (0.0-0.5); Lymphocytes Absolute Auto 1.1 10^3/uL (1.2-3.8); Mean Corpuscular HGB Conc 33.5 g/dL (29.9-35.2); Mean Corpuscular Hemoglobin 30.1 pg (26.7-34.0); Mean Corpuscular Volume 90.0 fL (81.0-99.0); Platelet Count 182 10^3/uL (150-450); Red Blood Count 4.38 10^6/uL (4.20-5.40); White Blood Count 6.1 10^3/uL (4.0-11.0)
--- OUTSIDE RECORDS SUMMARY | 2025-01-16 09:07 | XMS_ITS | CCD ---
Author Organization [facility] CliniSymi Care Team Providers Care Fiber Picker Name Role Phone Stella Brar Unavailable Unavailable [...] Unavailable MD Fernando Wilson Primary Care Provider [phone] MD Lisa Fernandez Attending Provider [phone] MD Fernando Wilson Primary Care Provider [phone] DO Cody Akhtar Attending Provider [phone] Fernando Wilson MD Primary Care Provider Bubba Cota DO Unavailable ALBERT ZAPATA Attending Fernando Garza MD Primary Care Provider Fernando Wilson MD Primary Care Provider Asaad, Imad Admitting Unavailable Fernando Wilson Primary Care Unavailable Asaad, Imad Attending Unavailable [facility] Attending Unavailable Giovana Cody LAUGHLIN Admitting Unavailable Fernando Wilson Primary Care Unavailable Fernando Wilson MD Primary Care Provider Fernando Wilson MD Primary Care Provider [phone] BUBBA COTA Attending Unavailable BUBBA COTA Attending [...] needed for 30 days Nov, Active levonorgestrel 0.610399 mg/hr intrauterine system (2 sources) Progestin, Progestin-containing [...] PO Q6H 28 May 08, 2022 12:00am metroNIDAZOLE 500 mg oral tablet (1 source) Nitroimidazole Antimicrobial Start: End: take 1 tablet by mouth in the morning metroNIDAZOLE (Flagyl) 500 MG tablet Indications: BV (bacterial vaginosis) Take 1 tablet (500 mg) by mouth in the morning and 1 tablet (500 mg) before bedtime. Do all this for 7 days. Do not drink alcohol while taking this medication. 14 tablet 01/15/2025 01/22/2025 Active ondansetron 4 mg disintegrating oral tablet (20 sources) Serotonin-3 Receptor Antagonist Start: take 4 mg by mouth once daily [...] FOR NAUSEA OR VOMITING. polyethylene glycol 3350 821726 mg / potassium chloride 2970 mg / sodium bicarbonate 6740 mg / sodium chloride 5860 mg / sodium sulfate 81251 mg powder for oral solution (1 source) Osmotic Laxative PEG-3350/Electr olytes 236 GM as directed Orally ONCE DAILY for 1 days Active Zdwkdieg-Oct-Za-FA ( 1 + IRON PO) (8 sources) Start: 025 Xxnunjgx-Abu-Uk-FA ( 1 + IRON PO) 09/20/2024 Active rifAXIMin 550 mg oral tablet (1 source) Rifamycin Antibacterial Start: 023 End: 023 take 1 tablet by mouth three times daily rifAXIMin (Xifaxan) 550 mg tablet Indications: diarrhea predominant irritable bowel syndrome Take 1 tablet (550 mg) by mouth 3 times a day for 14 days. 42 tablet 0 03/23/2023 04/06/2023 Active sacrosidase 8500 unt/ml oral solution (3 sources) Sucrose-specific Enzyme Start: 023 sacrosidase 8,500 unit/mL solution Indications: Sucrose intolerance [...] End: 05-26-2023 ergocalciferol (Vitamin D-2) 1.25 MG (64240 UT) capsule Take by mouth. 0 05/22/2018 05/26/2023 Discontinued (Therapy completed) Start: 05-22-2018 take 1 capsule by mo uth every week Vitamin D (Ergocalciferol) 1.25 MG (56655 UT) Oral Capsule TAKE 1 CAPSULE WEEKLY for 8 weeks Quantity: 8 Refills: 0 Maykel MERINONCharitoJOHNStella Start : 22-May-2018 Active Multivitamin preparation (7 [...] infection (1 source) Viral gastroenteritis due to [place]-like agent; Translations: [Acute gastroenteropathy due to [place] agent] 07-12-2024 Episodic Menstrual disorders (5 sources) Menorrhagia; Translations: [Excessive and frequent menstruation with regular cycle] 04-22-2023 Chronic Mood disorders (13 sources) Depressive disorder; Translations: [Depression] Onset: 0 [...] Chronic Other nutritional; endocrine; and metabolic disorders (13 sources) Methylene THF reductase deficiency AND homocystinuria; [...] Onset: 03-04-2023 03-04-2023 Episodic Residual codes; unclassified (9 sources) Hereditary disorder of endocrine system; Translations: [Genetic susceptibility to other disease] Onset: 08-24-2018 12-28-2024 Episodic Unclassified (2 sources) History finding; Translations: [No pertinent past medical history] NEGATED: Highlighted row has not occurred!Residual codes; unclassified (6 sources) Disease Episodic Results Test Name Value Interpretation Reference Range Facility ALL TYPE AND SCREENon 2024 ABO and Rh group Nom (Bld) Blood group A Rh(D) positive [facility] RECURRENT VAGINITIS (HTRX)on 01-15-2025 ATOPOBIUM VAGINAE 0 [facility] ATOPOBIUM VAGINAE Not detected [facility] BVAB 2,3 (BACTERIAL VAGINOSIS ASSOCIATED BACTERIA 2, 3); MOBILUNCUS SPP 21.998 Abnormal [facility] BVAB 2,3 (BACTERIAL VAGINOSIS ASSOCIATED BACTERIA 2, 3); MOBILUNCUS SPP Detected Abnormal [facility] GUTIERREZ ALBICANS, PARAPSILOSIS, TROPICALIS 0 [facility] GUTIERREZ ALBICANS, PARAPSILOSIS, TROPICALIS Not detected [facility] GUTIERREZ GLABRATA 0 [facility] GUTIERREZ GLABRATA Not detected [facility] GUTIERREZ KRUSEI 0 [facility] GUTIERREZ KRUSEI Not detected [facility] CHLAMYDIA TRACHOMATIS 0 [facility] CHLAMYDIA TRACHOMATIS Not detected [facility] GARDNERELLA VAGINALIS 0 [facility] GARDNERELLA VAGINALIS Not detected [facility] Interpretation and review of laboratory results Abnormal [facility] MEGASPHAERA (TYPES 1, 2) 0 [facility] MEGASPHAERA (TYPES 1, 2) Not detected [facility] MYCOPLASMA GENITALIUM 0 [facility] MYCOPLASMA GENITALIUM Not detected [facility] NEISSERIA GONORRHOEAE 0 [facility] NEISSERIA GONORRHOEAE Not detected [facility] TRICHOMONAS VAGINALIS 0 [facility] TRICHOMONAS VAGINALIS Not detected [facility] US OB TRANSVAGINALon 025 [place] [address] Ultrasound Report Signed Patient: MANPREET FRAIRE MR#: [id number] : 2005 Acct:[id number] Age/Sex: 19 / F ADM Date: 01/14/25 Loc: RAD Attending Dr: Bubba Cota D.O. Ordering Physician: Bubba Cota D.O. Date of Service: 01/14/25 Procedure(s): US OB transvaginal Accession Number(s): [id number] cc: Fernando Wilson M.D.; Bubba Cota D.O. [place] [address] Patient Name: MANPREET FRAIRE MRN: [id number] date: 2005 Sex: F Assigned Patient Location: [facility] Current Patient Location: [facility] Accession/Order Number: [id number] Exam Date: 01/14/2025 11:27 Report Date: 01/14/2025 [...] Tripp M.D. 01/14/2025 12:26 PM Dictation Location: [place] [address] Electronically authenticated by: [id number] Y Date: 01/14/2025 12:26 Dictated By: Enid Tripp M.D. Signed By: 01/14/25 1228 DD/ 1226 TD/TT: Foam Rubber Molder: [facility] Radiology, Radiologist, MD - 01/14/2025 [place] [address] Ultrasound Report Signed Patient: MANPREET FRAIRE MR#: [id number] : 2005 Acct:[id number] Age/Sex: 19 / F ADM Date: 01/14/25 Loc: RAD Attending Dr: Bubba Cota D.O. Ordering Physician: Bubba Cota D.O. Date of Service: 01/14/25 Procedure(s): US OB transvaginal Accession Number(s): [id number] cc: Fernando Wilson M.D.; Bubba Cota D.O. The [place] [id number] Patient Name: MANPREET FRAIRE MRN: [facility]:[id number] date: 2005 Sex: F Assigned Patient Location: [facility] Current Patient Location: RAD Accession/Order Number: [id number] Exam Date: 01/14/2025 11:27 Report Date: 01/14/2025 [...] Tripp M.D. 01/14/2025 12:26 PM Dictation Location: [place] Electronically authenticated by: [id number] Y Date: 01/14/2025 12:26 Dictated By: Enid Tripp M.D. Signed By: 01/14/25 1228 DD/ 1226 TD/TT: Foam Rubber Molder: [facility] Radiology Study observation (narrative) [facility] OB TRANSVAGINALOrdered By : Radiologist Radiology on 01-14-2025 [facility] Work Phone: BOX TESTon 01-09-2025 BOX TEST SENT OUT QVPN [facility] BOX1 [facility] BOX2 01/09/25 [facility] HCG ( test) Ql (U)o n 12-28-2024 Interpretation and review of laboratory results Abnormal [facility] Preg Test, Ur Positive Negative [facility] OB TRANSVAGINALon 025 US OB TRANSVAGINAL FINDINGS: [...] Negative Negative - 4(70) +++ mg/dL [facility] Blood, UA Negative Negative - 50 Adrián/mcL [facility] Clarity, UA Clear [facility] Color, UA Yellow [facility] Glucose, UA Negative Negative - 2000(110) ++++ mg/dL [facility] Interpretation and review of laboratory results Normal [facility] Ketones, UA Negative Negative - 160(16) ++++ mg/dL [facility] Leukocytes, UA Negative Negative - 500+++ Ally/mcL [facility] Nitrite, UA Negative Negative - Positive [facility] pH, UA 6 5 - 9 [facility] Protein, UA Negative Negative - 1999(20) ++++ mg/dL [facility] Spec Grav, UA 1.02 1 - 1.03 [facility] Urobilinogen, UA 1.0 0.2 - 12 mg/dL [facility] PREG QUANT HCGon 025 HCG QUANTITATIVE 171 mIU/mL [facility] Comment on above: 5-50 0.2-1 WEEK 50-500 1-2 WEEKS 100-5,000 2-3 WEEKS 500-10,000 3-4 WEEKS 1,000-50,000 4-5 WEEKS 10,000-100,000 5-6 WEEKS 15,000-200,000 6-8 WEEKS 10,000-100,000 2-3 MONTHS [facility] PREG QUANT HCGon 025 HCG QUANTITATIVE 73 mIU/mL [facility] Comment on above: 5-50 0.2-1 WEEK 50-500 1-2 WEEKS 100-5,000 2-3 WEEKS 500-10,000 3-4 WEEKS 1,000-50,000 4-5 WEEKS 10,000-100,000 5-6 WEEKS 15,000-200,000 6-8 WEEKS 10,000-100,000 2-3 MONTHS [facility] IUD Removalon 10-24-2024 Enid AngeloBRUCE 10/24/2024 3:14 PM IUD Removal Date/Time: 10/24/2024 2:09 PM Performed by: Bubba Cota DO Authorized by: Bubba Cota DO Consent: Consent obtained: Written Consent given by: Patient Procedure risks and benefits discussed: yes Patient questions answered: yes Patient agrees, verbalizes understanding, and wants to proceed: yes Educational handouts given: yes Instructions and paperwork completed: yes [place] protocol: Patient states understanding of procedure being [...] office for annual exam unless needed otherwise [facility] No Panel InformationOrdered By: Cristina Lara on 03-08-2024 Quick Strep (POC) [facility] EGD Study observation Narrat iveon 05-26-2023 [...] Lico Zeng MD 05/26/2023 1533 Procedure Location [facility] [address] Res[address] [facility] [phone] Referring Provider Charlie Paredes Md [address] [address] Procedure Provider Charlie Paredes MD [facility] Work Phone: [facility] Work Phone: Radiology Study observation (narrative) [facility] Work Phone: HCG ( test) Ql (U)O rdered By: Maria T Farley on 05-26-2023 Interpretation and review of laboratory results Normal [facility] Preg Test, Ur Negative Negative [facility] CNOVon 04-22-2023 CNOV Office Visit (ENDOLN ) MANPREET FRAIRE ([id number]) 1 F Date Time Provider Department 04/22/23 1:00 PM ALBERT ZAPATA During your visit today, we recorded the [...] which included preparing to see the patient, [id number] patient care, completing clinical documentation, obtaining and/or reviewing separately obtained history, performing a medically appropriate examination, counseling and educ (more content not included)... Normal [facility] HCG ( test) IA.rapi d Ql (U)Ordered By: Lisa Fernandez on 10-19-2022 HCG ( test) Ql (U) Negative [facility] HCG,Urineon 10-19-2022 Beta HCG ( test) Ql (U) Negative Normal [facility] Comment on above: Result Comment: PERF ORMED BY: [facility] [address] [place] [address] PATHOLOGIST OBSTETRICS NURSE PRACTITIONER ALEXIA KENNEDY M.D. Performed By: #### U HCG #### [address] 10-19-2022 L - -------- Specimen: [id number] Received: 10/19/22 Status: CARLOS Josiah Num: [id number] Spec Type: Surgical Subm Dr: Lisa Fernandez MD Tissues: A Duodenum - Biopsy (DUODENUM BX) Procedures: HE/2, Gross/Micro L4 -------- Age/ Patient Sex Location Account Attending Physician -------- Manpreet Fraire 17/F [id number] Lisa Fernandez MD -------- SPEC NUM: [id number] RECD: 10/19/22 STATUS: CARLOS MCKEON NUM: [id number] JASON: 10/19/22 [facility] DR: Lisa Fernandez MD ENTERED: 10/19/[address] [facility] [address]: JAMES TYPE: Surgical DEPT: S ORDERED: [...] microscopic examination confirms the diagnosis. CPT Codes 09067 -------- -------- Specimen: [id number] Received: 10/19/22 Status: CARLOS Aquinokiran Num: [id number] Spec Type: Surgical Subm Dr: Lisa Fernandez MD Tissues: A Duodenum - Biopsy (DUODENUM BX) Procedures: HE/Barby, Gross/Micro L4 -------- Patient: Manpreet Fraire [id number] (Continued) -------- Signed (signature on file) Isi Hsieh MD 10/20/22 0958 Normal [facility] AMYLASEon 09-04-2022 Amylase [Catalytic activity/Vol] 41 U/L Normal 25-115 [facility] Comment on above: Performed By: #### L DEVIKA RICKETTS #### [facility] [address] [place], [place] [address] Dr. Nai Garcia LIPASEon 09-04-2022 Lipase [Catalytic activity/Vol] 83.0 U/L Normal 73.0-393.0 [facility] Comment on above: Performed By: #### L IPA, DEVIKA #### [facility] [address] [place], [place] [address] Dr. Nai Garcia Automated erythrocytes count in urine sediment (number/area)Ordered By: Colby Ramos on 05-08-2022 RBC Auto (Urine sed) [#/Area] 0-1 [HPF] 0-4 [facility] Automated leukocytes count i n urine sediment (number/area)Ordered By: Colby Ramos on 05-08-2022 WBC Auto (Urine sed) [#/Area] 5-9 [HPF] 0-4 [facility] Automated urine hyaline cast s count (number/volume)Ordered By: Colby Ramos on 05-08-2022 Hyaline casts Auto (U) [#/Vol] None seen [LPF] 0-1 [facility] Basophils Auto (Bld) [#/Vol] Ordered By: Colby Ramos on 05-08-2022 Basophils (Bld) [#/Vol] 0.0 10*3/uL 0.0-0.2 [facility] Basophils/100 WBC Auto (Bld) Ordered By: Colby Ramos on 05-08-2022 Basophils/100 WBC (Bld) 0.9 % . [facility] Bilirubin Test strip Ql (U)O rdered By: Colby Ramos on 05-08-2022 Bilirubin Ql (U) Negative Negative [facility] Body fluid albumin measureme nt (mass/volume)Ordered By: Colby Ramos on 05-08-2022 Albumin (Body fld) [Mass/Vol] 4.1 g/dL 3.2-5.5 [facility] Casts typing in urine sedime nt by light microscopyOrdered By: Colby Ramos on 05-08-2022 Casts LM Nom (Urine sed) None seen [LPF] None S een [facility] Color Auto (U)Ordered By: Louis Ramos on 05-08-2022 Color (U) Yellow Yellow [facility] Creatinine and Glomerular fi ltration rate.predicted panel (S/P/Bld)Ordered By: Colby Ramos on 05-08-2022 Creatinine [Mass/Vol] 0.87 mg/dL 0.44-1.03 [facility] Direct bilirubin measurement Ordered By: Colby Ramos on 05-08-2022 Bilirubin.direct [Mass/Vol] mg/dL 0.0-0.4 [facility] Eosinophils Auto (Bld) [#/Vo l]Ordered By: Colby Ramos on 05-08-2022 Eosinophils (Bld) [#/Vol] 0.1 10*3/uL 0.0-0.45 [facility] Eosinophils/100 WBC Auto (Bl d)Ordered By: Colby Ramos on 05-08-2022 Eosinophils/100 WBC (Bld) 1.8 % . [facility] Erythrocyte distribution wid th Auto (RBC) [Ratio]Ordered By: Colby Ramos on 05-08-2022 Erythrocyte distribution width (RBC) [Ratio] 12.7 % 11.9-15.3 [facility] Estimated glomerular filtrat ion rate (GFR) non- AmericanOrdered By: Colby Ramos on 05-08-2022 GFR/1.73 sq M.predicted among non-blacks MDRD (S/P/Bld) [Vol rate/Area] > 60 mL/Min [facility] Globulin Calc (S) [Mass/Vol] Ordered By: Colby Ramos on 05-08-2022 Globulin (S) [Mass/Vol] 3.4 g/dL [facility] HCG ( test) IA.rapi d Ql (U)Ordered By: Colby Ramos on 05-08-2022 HCG ( test) Ql (U) Negative [facility] Hematocrit Auto (Bld) [Volum e fraction]Ordered By: Colby Ramos on 05-08-2022 Hematocrit (Bld) [Volume fraction] 39.7 % 34.0-46.4 [facility] Hemoglobin [Mass/volume] in BloodOrdered By: Colby Ramos on 05-08-2022 Hemoglobin (Bld) [Mass/Vol] 13.4 g/dL 11.8-15.4 [facility] Ketones Auto test strip (U) [Mass/Vol]Ordered By: Colby Ramos on 05-08-2022 Ketones (U) [Mass/Vol] 1+ Negative [facility] - Chemistry and C hemistry - challengeOrdered By: Colby Ramos on 05-08-2022 Lipase [Catalytic activity/Vol] 35.0 U/L 22-51 [facility] Leukocytes [#/volume] correc jean claude for nucleated erythrocytes in Blood by Automated counOrdered By: Colby Ramos on 05-08-2022 WBC corrected for nucl RBC Auto (Bld) [#/Vol] 5.5 10*3/uL 3.8-11.6 [facility] Lymphocytes Auto (Bld) [#/Vo l]Ordered By: Colby Ramos on 05-08-2022 Lymphocytes (Bld) [#/Vol] 1.4 10*3/uL 1.00-4.8 [facility] Lymphocytes/100 WBC Auto (Bl d)Ordered By: Colby Ramos on 05-08-2022 Lymphocytes/100 WBC (Bld) 26.3 % . [facility] MCH Auto (RBC) [Entitic mass ]Ordered By: Colby Ramos on 05-08-2022 MCH (RBC) [Entitic mass] 29.7 pg 24.7-34.3 [facility] MCHC Auto (RBC) [Mass/Vol]Or dered By: Colby Ramos on 05-08-2022 MCHC (RBC) [Mass/Vol] 33.7 g/dL 32.0-35.0 [facility] MCV Auto (RBC) [Entitic vol] Ordered By: Colby Ramos on 05-08-2022 MCV (RBC) [Entitic vol] 88.2 fL 80-100 [facility] Monocytes Auto (Bld) [#/Vol] Ordered By: Colby Ramos on 05-08-2022 Monocytes (Bld) [#/Vol] 0.3 10*3/uL 0.0-0.8 [facility] Monocytes/100 WBC Auto (Bld) Ordered By: Colby Ramos on 05-08-2022 Monocytes/100 WBC (Bld) 6.2 % . [facility] Mucus LM Ql (Urine sed)Order ed By: Colby Ramos on 05-08-2022 Mucus Ql (Urine sed) 2+ [LPF] [facility] Neutrophils Auto (Bld) [#/Vo l]Ordered By: Colby Ramos on 05-08-2022 Neutrophils (Bld) [#/Vol] 3.6 10*3/uL 1.8-7.7 [facility] Neutrophils/100 WBC Auto (Bl d)Ordered By: Colby Ramos on 05-08-2022 Neutrophils/100 WBC (Bld) 64.8 % . [facility] Nitrite Test strip Ql (U)Ord ered By: Colby Ramos on 05-08-2022 Nitrite Ql (U) Negative Negative [facility] No Panel InformationOrdered By: Colby Ramos on 05-08-2022 Estimated GFR () > 60 mL/Min [facility] Comment on above: GFR estimated refere nce range: According to KDOQI guidelines, <60 ml/min/1.73m2 is sufficient to diagnose a patient with chronic kidney disease. Pharmacy Creatinine Clearance (Chem 93.59 [facility] Nucleated erythrocytes [Pres ence] in Blood by Automated countOrdered By: Colby Ramos on 05-08-2022 Nucleated RBC Auto Ql (Bld) 0.4 /100{WBC} 0-0.5 [facility] Platelet mean volume Auto (B ld) [Entitic vol]Ordered By: Colby Ramos on 05-08-2022 Platelet mean volume (Bld) [Entitic vol] 10.9 fL 6.3-10.7 [facility] Platelets Auto (Bld) [#/Vol] Ordered By: Colby Ramos on 05-08-2022 Platelets (Bld) [#/Vol] 194 10*3/uL 150-450 [facility] Protein Auto test strip (U) [Mass/Vol]Ordered By: Colby Ramos on 05-08-2022 Protein (U) [Mass/Vol] 30 mg/dL Negative [facility] Protein [Mass/volume] in Ser um or PlasmaOrdered By: Colby Ramos on 05-08-2022 Protein [Mass/Vol] 7.5 g/dL 6.1-7.9 [facility] RBC Auto (Bld) [#/Vol]Ordere d By: Colby Ramos on 05-08-2022 RBC (Bld) [#/Vol] 4.50 10*6/uL 3.60-5.00 [facility] Serum or plasma alanine pope otransferase measurement without P-5'-P (enzymatic activiOrdered By: Colby Ramos on 05-08-2022 ALT No additional P-5'-P [Catalytic activity/Vol] 16 U/L 10-60 [facility] Serum or plasma albumin/glob ulin mass ratioOrdered By: Colby Ramos on 05-08-2022 Albumin/Globulin [Mass ratio] 1.2 {ratio} [facility] Serum or plasma alkaline chau sphatase measurement (enzymatic activity/volume)Ordered By: Colby Ramos on 05-08-2022 ALP [Catalytic activity/Vol] 47 U/L 32-92 [facility] Serum or plasma anion gap de terminationOrdered By: Colby Ramos on 05-08-2022 Anion gap [Moles/Vol] 15.9 mmol/L 6.0-15.0 [facility] [place] [facility] Serum or plasma aspartate am inotransferase measurement (enzymatic activity/volume)Ordered By: Colby Ramos on 05-08-2022 AST [Catalytic activity/Vol] 17 U/L 10-42 [facility] Serum or plasma calcium linda urement (mass/volume)Ordered By: Colby Ramos on 05-08-2022 Calcium [Mass/Vol] 9.4 mg/dL 8.2-10.2 [facility] Serum or plasma chloride mamta surement (moles/volume)Ordered By: Colby Ramos on 05-08-2022 Chloride [Moles/Vol] 103 mmol/L 95-114 [facility] Serum or plasma glucose linda urement (mass/volume)Ordered By: Colby Ramos on 05-08-2022 Glucose [Mass/Vol] 93 mg/dL 70-100 [facility] Comment on above: ADA recommended refe rence rangeRandom Glucose Reference Range is dependent on time and content of last meal. Glucose of more than 200 mg/dL in a nonstressed, ambulatory subject supports the diagnosis of Diabetes Mellitus. Serum or plasma non-glucuron idated bilirubin measurement (mass/volume)Ordered By: Colby Ramos on 05-08-2022 Bilirubin.indirect [Mass/Vol] TNP [facility] Comment on above: Test not performed Serum or plasma potassium me asurement (moles/volume)Ordered By: Colby Ramos on 05-08-2022 Potassium [Moles/Vol] 3.6 mmol/L 3.5-5.1 [facility] Serum or plasma sodium measu rement (moles/volume)Ordered By: Colby Ramos on 05-08-2022 Sodium [Moles/Vol] 136 mmol/L 136-146 [facility] Serum or plasma total biliru bin measurement (mass/volume)Ordered By: Colby Ramos on 05-08-2022 Bilirubin [Mass/Vol] 0.5 mg/dL 0.3-1.2 [facility] Serum or plasma total carbon dioxide measurement (moles/volume)Ordered By: Colby Ramos on 05-08-2022 CO2 [Moles/Vol] 20.7 mmol/L 22.0-30.0 [facility] Serum or plasma urea nitroge n measurement (mass/volume)Ordered By: Colby Ramos on 05-08-2022 Urea nitrogen [Mass/Vol] 7 mg/dL 9-23 [facility] Specific gravity Auto test s trip (U) [Rel density]Ordered By: Colby Ramos on 05-08-2022 Specific gravity (U) [Rel density] 1.037 1.001-1.030 [facility] Squamous epithelial cells de tection in urine sediment by light microscopyOrdered By: Colby Ramos on 05-08-2022 Epithelial cells.squamous LM Ql (Urine sed) 5-9 [HPF] 0-2 [facility] Urine bacteria detection by automated methodOrdered By: Colby Ramos on 05-08-2022 Bacteria Auto Ql (U) None seen None Seen [facility] Urine clarity by refractomet ry automatedOrdered By: Colby Ramos on 05-08-2022 Clarity Refractometry automated (U) Cloudy Clear [facility] Urine glucose measurement by automated test strip (mass/volume)Ordered By: Colby Ramos on 05-08-2022 Glucose Auto test strip (U) [Mass/Vol] Normal mg/dL Normal [facility] Urine hemoglobin detection b y automated test stripOrdered By: Colby Ramos on 05-08-2022 Hemoglobin Auto test strip Ql (U) Negative Negative [facility] Urine leukocyte esterase det ection by automated test stripOrdered By: Colby Ramos on 05-08-2022 Leukocyte esterase Auto test strip Ql (U) Negative Negative [facility] Urobilinogen Auto test strip (U) [Mass/Vol]Ordered By: Colby Ramos on 05-08-2022 Urobilinogen (U) [Mass/Vol] Normal mg/dL Normal [facility] WBC Auto (Bld) [#/Vol]Ordere d By: Colby Ramos on 05-08-2022 WBC (Bld) [#/Vol] 5.5 10*3/uL 3.8-11.6 [facility] pH Auto test strip (U)Ordere d By: Colby Ramos on 05-08-2022 pH (U) 5.5 [pH] 5.0-9.0 [facility] CELIAC ANTIBODIES PROFILEon 04-29-2022 Deamidated Gliadin Abs, IgA 3 units Normal 0-19 [facility] Comment on above: Result Comment: Nega tive 0 - 19 Weak Positive 20 - 30 Moderate to Strong Positive >30 Performed By: #### L IPA, DEVIKA #### [facility] [address] [place] [address] Dr. Nai Garcia Deamidated Gliadin Abs, IgG 2 units Normal 0-19 [facility] Comment on above: Result Comment: Nega tive 0 - 19 Weak Positive 20 - 30 Moderate to Strong Positive >30 Performed By: #### L IPA, DEVIKA #### [facility] [address] [place] [address] [address] Nai Garcia Endomysial Antibody IgA Negative Normal Negative [facility] Comment on above: Performed By: #### L IPA, DEVIKA #### [facility] [address] [place] [address] [address] Nai Garcia Immunoglobulin A, Qn, Serum 123 mg/dL Normal 87-352 [facility] Comment on above: Performed By: #### L IPA, EDVIKA #### [facility] [address] [place] [address] Dr. Nai Garcia t-Transglutaminase (tTG) IgA <2 Normal 0-3 [facility] Comment on above: Result Comment: Nega tive 0 - 3 Weak Positive 4 - 10 Positive >10 . Tissue Transglutaminase (tTG) has been identified as the endomysial antigen. Studies have demonstr- ated that endomysial IgA antibodies have over 99% specificity for gluten sensitive enteropathy. Performed By: #### L IPA, DEVIKA #### [facility] [address] [place] [address] Dr. Nai Garcia H PYLORI ANTIBODY IGGon H. PYLORI IGG ABS 0.33 Index Value Normal 0.00-0.79 [facility] Comment on above: Result Comment: Nega tive <0.80 Equivocal 0.80 - 0.89 Positive >0.89 Performed By: #### H PYLLC #### [facility] [address] [place] [address] Dr. Nai Garcia IMMUNOGLOBULIN IGA QUANTITIA VEon 04-29-2022 Immunoglobulin A, Qn, Serum 124 mg/dL Normal 87-352 [facility] Comment on above: Performed By: #### L IPA, DEVIKA #### [facility] [address] [place] [address] Dr. Nai Garcia TISSUE TRANSGLUTAMINASE IGGo n 04-29-2022 t-Transglutaminase (tTG) IgG <2 Normal 0-5 [facility] Comment on above: Result Comment: Nega tive 0 - 5 Weak Positive 6 - 9 Positive >9 Performed By: #### T RNSIGG #### [facility] [address] [place] [address] Dr. Nai Garcia Performed By: #### L IPA, DEVIKA #### [facility] [address] [place] [address] Dr. Nai Garcia FREE T4on 04-28-2022 Free T4 [Mass/Vol] 1.17 ng/dL Normal 0.78-1.34 [facility] Comment on above: Performed By: #### F T4 #### [facility] [address] [place] [address] Dr. Nai Garcia GLYCOHEMOGLOBIN A1Con 2021 ADA RECOMMENDATION SEE BELOW Normal [facility] Comment on above: Result Comment: ADA RECOMMENDED LIMIT 4.0 - 6.0 ADA THERAPEUTIC TARGET < 7.0 ACTION SUGGESTED > 7.0 Performed By: #### A 1C #### [facility] [address] [place] [address] Dr. Nai Garcia Glucose [Mass/Vol] 105 mg/dL Normal [facility] Comment on above: Performed By: #### A 1C #### [facility] [address] [place] [address] Dr. Nai Garcia HbA1c (Bld) [Mass fraction] 5.3 % Normal 4.5-6.2 [facility] Comment on above: Performed By: #### A 1C #### [facility] [address] [place] [address] Dr. Nai Garcia TSHon 04-28-2022 TSH 0.496 uIU/mL Critically low 0.516-4.130 [facility] Comment on above: Performed By: #### T SH #### [facility] [address] [place] [address] Dr. Nai Garcia CBC AUTO DIFFon 03-23-2022 BASO # 0.1 103/ul Normal 0.0-0.1 [facility] Comment on above: Performed By: #### C BC #### [facility] [address] [place] [address] Dr. Nai Garcia Basophils/100 WBC (Bld) 0.8 % Normal 0.2-2.0 [facility] Comment on above: Performed By: #### C BC #### [facility] [address] [place] [address] Dr. Nai Garcia EO # 0.1 103/ul Normal 0.0-0.7 [facility] Comment on above: Performed By: #### C BC #### [facility] [address] [place] [address] Dr. Nai Garcia Eosinophils/100 WBC (Bld) 1.3 % Normal 0.9-7.0 [facility] Comment on above: Performed By: #### C BC #### [facility] [address] [place] [address] Dr. Nai Garcia Erythrocyte distribution width (RBC) [Ratio] 12.9 % Normal 11.0-15.0 [facility] Comment on above: Performed By: #### C BC #### [facility] [address] [place] [address] Dr. Nai Garcia Hematocrit (Bld) [Volume fraction] 37.0 % Normal 36.0-48.0 [facility] Comment on above: Performed By: #### C BC #### [facility] [address] [place] [address] Dr. Nai Garcia Hemoglobin (Bld) [Mass/Vol] 12.5 g/dL Normal 12.0-16.0 [facility] Comment on above: Performed By: #### C BC #### [facility] [address] [place] [address] Dr. Nai Garcia IG # 0.01 10e3/ul Normal 0.00-0.03 [facility] Comment on above: Performed By: #### C BC #### [facility] [address] [place] [address] Dr. Nai Garcia IG % 0.2 % Normal 0.0-0.5 [facility] Comment on above: Performed By: #### C BC #### [facility] [address] [place] [address] Dr. Nai Garcia LYMPH # 1.6 103/ul Normal 1.2-3.8 [facility] Comment on above: Performed By: #### C BC #### [facility] [address] [place] [address] Dr. Nai Garcia Lymphocytes/100 WBC (Bld) 26.5 % Normal 20.5-60.0 [facility] Comment on above: Performed By: #### C BC #### [facility] [address] [place] [address] Dr. Nai Garcia MANUAL DIFF REQ NO Normal [facility] Comment on above: Performed By: #### C BC #### [facility] [address] [address] [address] Nai Garcia MCH (RBC) [Entitic mass] 29.8 pg Normal 26.7-34.0 [facility] Comment on above: Performed By: #### C BC #### [facility] [address] [place] [address] Dr. Nai Garcia MCHC (RBC) [Mass/Vol] 33.8 g/dL Normal 29.9-35.2 [facility] Comment on above: Performed By: #### C BC #### [facility] [address] [place] [address] Dr. Nai Garcia MCV (RBC) [Entitic vol] 88.3 fL Normal 81.0-99.0 [facility] Comment on above: Performed By: #### C BC #### [facility] [address] [place] [address] Dr. Nai Garcia MONO # 0.4 103/ul Normal 0.3-0.8 [facility] Comment on above: Performed By: #### C BC #### [facility] [address] [place] [address] Dr. Nai Garcia Monocytes/100 WBC (Bld) 7.1 % Normal 1.7-12.0 [facility] Comment on above: Performed By: #### C BC #### [facility] [address] [place] [address] Dr. Nai Garcia NEUT # 4.0 103/ul Normal 1.4-6.5 [facility] Comment on above: Performed By: #### C BC #### [facility] [address] [place] [address] Dr. Nai Garcia Neutrophils/100 WBC (Bld) 64.1 % Normal 43.0-75.0 [facility] Comment on above: Performed By: #### C BC #### [facility] [address] [place] [address] Dr. Nai Garcia Platelet mean volume (Bld) [Entitic vol] 11.3 fL Normal 9.5-13.5 [facility] Comment on above: Performed By: #### C BC #### [facility] [address] [address] [address] Nai Garcia PLT 213 103/ul Normal 150-450 [facility] Comment on above: Performed By: #### C BC #### [facility] [address] [address] [address] Nai Garcia RBC 4.19 106/ul Critically low 4.20-5.40 [facility] Comment on above: Performed By: #### C BC #### [facility] [address] [address] [address] Nai Garcia WBC 6.2 103/ul Normal 4.0-11.0 [facility] Comment on above: Performed By: #### C BC #### [facility] [address] [place] [address] Dr. Nai Garcia PROF CHEM 8 (BAS METB)on Anion gap [Moles/Vol] 12.1 mmol/L Normal [facility] Comment on above: Performed By: #### L IPA, DEVIKA #### [facility] [address] [place] [address] Dr. Nai Garcia Calcium [Mass/Vol] 9.2 mg/dL Normal 8.5-10.1 [facility] Comment on above: Performed By: #### L IPA, DEVIKA #### [facility] [address] [place] [address] Dr. Nai Garcia Chloride [Moles/Vol] 105 mmol/L Normal 98-107 [facility] Comment on above: Performed By: #### L IPA, DEVIKA #### [facility] [address] [place] [address] Dr. Nai Garcia CO2 [Moles/Vol] 26.3 mmol/L Normal 21.0-32.0 [facility] Comment on above: Performed By: #### L IPA, DEVIKA #### [facility] [address] [place] [address] Dr. Nai Garcia Creatinine [Mass/Vol] 0.95 mg/dL Normal 0.55-1.02 [facility] Comment on above: Performed By: #### L IPA, DEVIKA #### [facility] [address] [address] [address] Nai Garcia EGFR-AF CAMBODIAN >60 Normal >=60 [facility] Comment on above: Performed By: #### L IPA, DEVIKA #### [facility] [address] [address] [address] Nai Garcia EGFR-NON AF CAMBODIAN >60 Normal >=60 [facility] Comment on above: Performed By: #### L IPA, DEVIKA #### [facility] [address] [address] [address] Nai Garcia Glucose [Mass/Vol] 98 mg/dL Normal 74-106 [facility] Comment on above: Performed By: #### L IPA, DEVIKA #### [facility] [address] [address] [address] Nai Garcia Potassium [Moles/Vol] 3.4 mmol/L Critically low 3.5-5.1 [facility] Comment on above: Performed By: #### L IPA, DEVIKA #### [facility] [address] [address] [address] Nai Garcia Sodium [Moles/Vol] 140 mmol/L Normal 136-145 [facility] Comment on above: Performed By: #### L IPA, DEVIKA #### [facility] [address] [address] [address] Nai Garcia Urea nitrogen [Mass/Vol] 11.0 mg/dL Normal 6.4-19.3 [facility] Comment on above: Performed By: #### L IPA, DEVIKA #### [facility] [address] [address] [address] Nai Garcia Urea nitrogen/Creatinine [Mass ratio] 11.6 mg/mg Normal [facility] Comment on above: Performed By: #### L IPA, DEVIKA #### [facility] [address] [address] [address] Nai Garcia TSHon 03-23-2022 TSH 1.051 uIU/mL Normal 0.516-4.130 [facility] Comment on above: Performed By: #### L IPA, DEVIKA #### [facility] [address] [address] [address] Nai Garcia CHLAMYDIA/GONOCOCCUS LYDIA (SW AB/URINE/PAPon 12-10-2021 Chlamydia trachomatis, LYDIA Negative Normal Negative [facility] Comment on above: Performed By: #### C T/NGNA #### [facility] [address] [address] [address] Nai Garcia Neisseria gonorrhoeae, LYDIA Negative Normal Negative [facility] Comment on above: Performed By: #### C T/NGNA #### [facility] [address] [address] [address] Nai Garcia VAGINITIS/VAGINOSIS DNA PROB Mikie 12-10-2021 Gutierrez species Negative Normal Negative [facility] Comment on above: Performed By: #### V AGINT #### [facility] [address] [address] [address] Nai Garcia Gardnerella vaginalis Positive Abnormal Negative [facility] Comment on above: Performed By: #### V AGINT #### [facility] [address] [address] [address] Nai Garcia Trichomonas vaginalis Negative Normal Negative [facility] Comment on above: Performed By: #### V AGINT #### [facility] [address] [place] [address] Dr. Nai Garcia Initial Visit (Pediatric Ari [...] Oral Tablet; TAKE 1.5 TABLET Daily; Therapy: 19Oct2019 to (Evaluate:10Feb2020) Requested for: 12Nov2019 Recorded 3. Vitamin D (Ergocalciferol) 1.25 MG (12944 UT) Oral Capsule; TAKE 1 CAPSULE WEEKLY for 8 weeks; Therapy: [id number] to (Last Rx:[id number]) Requested for: 23May2018 Ordered *Vitals Vital Signs [...] without Contrast; Status:Hold For - Scheduling; Requested for:[id number]; Radiologist to Determine Optimal Study : Y What are the patient's signs and symptoms? : headaches, tonsillar ectopia and arm weakness, evaluate for syrinx or tethered cord, please do CINE flow study of C_spine 2. MRI L Spine without Contrast; Status:Hold For - Scheduling; Requested for:[id number]; Radiologist to Determine Optimal Study : Y What are the patient's signs and symptoms? : headaches, tonsillar ectopia and arm weakness, evaluate for syrinx or tethered cord, please do CINE flow study of C_spine 3. MRI T Spine without Contrast; Status:Hold For - Scheduling; Requested for:[id number]; Radiologist to Determine Optimal Study : Y [...] EST (Author) Reviewed by : Le Irizarry, BRIGITTE-MERCHANT TAILOR PRODUCTION OPERATIONS INSPECTOR-WORK OVER RIG OPERATOR; Nov 21 2019 4:54PM EST Normal [facility] Telephone Note_UHon 10-05-19 20 Telephone Note_ Message Recorded as Task Date: [...] mom to please retrieve the disc from [facility], I know that you sent an email [...] Oct 05 2019 1:00PM EST (Author) Normal [facility] ABDIFATAH - Automatic [employer] ABDIFATAH - Automatic [place] QJ-Zvqatncjfz-Hvv hamlet g-Admin RBC [address] [place], [place] MANPREET FRAIRE 2005 Date of Female Sex [id number] Patient Id [id number] [place] [address] AddressEnglish (preferred) Language White Race Not or Ethnicity Summary of Care Clinical Content Allergies and Adverse Reactions <#[id number]> Encounters <#[id number]> Family History <#RZ4MTCLG> Functional Status <#YX2BMEWC> Immunization <#HT5ROSVY> Instructions <#NI0HIGZP> Interventions Provided <#ZU2SQIJK> Medications <#ZW6OWRPP> Past Medical History <#VW2O8NCQ> Plan of Care <#JP9W2WIC> Problems <#IG5MUJED> Procedures <#[id number]> Results <#UZ7NYNAH> Social History <#YQ5PM3AO> Vital Signs <#HT8VHYYK> Other Document Details Health Care Providers Functional Statustop <#top> Functional Status Health Issues NameDatesDetails Functional status health issues are not documented Cognitive Status Health Issues NameDatesDetails Cognitive status health issues are not documented Problemstop <#top> NameDatesDefrancess Diarrhea in pediatric patient (787.91, R19.7) Vitamin D deficiency (268.9, E55.9) Abdominal pain, generalized (789.07, R10.84) Headache (784.0, R51) Anxiety (300.00, F41.9) 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, 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) Medicationstop <#top> Brads Vitamin D (Ergocalciferol) 1.25 MG (87564 UT) Oral Capsule TAKE 1 CAPSULE WEEKLY for 8 weeks Quantity: 8 Refills: 0 Stella Olivares Start : 22-May-2018 Dicyclomine HCl - 10 MG Oral Capsule Take 1-2 capsules up to 4 times a day as needed for abdominal pain Quantity: 90 Refills: 3 Stella Olivares Start : 28-May-2018 Allergies and Adverse Reactionstop <#top> KelyatesDefrancess No Known Drug Allergies (Allergy) Past Medical Historytop <#top> KelyatesDefrancess No pertinent past medical history (V49.89, Z78.9) Status: Resolved Procedurestop <#top> ProcedureDatesDetails History of Ear pressure equalization tube insertionCompleted Immunizationtop <#top> NameDatesDefrancess Immunizations not documented Family Historytop <#top> Grandmother NameDatesDefrancess Family history of Gallstones (574.20, K80.20) Family history of kidney stones (V18.69, Z84.1) Family history of cerebrovascular accident (CVA) (V17.1, Z82.3) Family history of migraine headaches (V17.2, Z82.0) Family history of Anxiety (300.00, F41.9) aunt NameDMaria Del Carmens Family history of Graves' disease (V18.19, Z83.49) great grandmother NameDatesDefrancess Family history of antiphospholipid syndrome (V18.3, Z83.2) [...] progress. My nurse is Marimar Briseno at [phone]. 6. Follow up will be after her films are reviewed. 7. Eye exam should be completed. Instructionstop <#top> NameDatesDetails Instructions not documented Encounterstop <#top> Appointment; Stella Brar APRN-CNP Encounter Diagnosis: Problem not documentedOn: 08-May-2018 9:00 Appointment; Normal Mary Referral-Consult Letteron Referral-Consult Letter History of Prese [...] there all day long and treatment with [id number]-[id number] Tylenol or Motrin did not help. She [...] 30May2018 Ordered Vitamin D (Ergocalciferol) 1.25 MG (64656 UT) Oral Capsule; TAKE 1 CAPSULE WEEKLY for 8 weeks; Therapy: [id number] to (Last Rx:[id number]) Requested for: 23May2018 Ordered Physical Exam Today's [...] progress. My nurse is Marimar Briseno at [phone]. 6. Follow up will be after her films are reviewed. 7. Eye exam should be completed. Thank you again for your re Normal [facility] Telephone Note_on 09-27-19 Telephone Note_ Message Recorded [...] in regards of headaches. She prefer the [facility] office if its face to face. Inge Briseno - 27 Sep 2019 11:23 AM TASK EDITED Mom confirmed a virtual appointment with Elvira on Saturday 09/30 at 3pm. Information sent to the secretaries to schedule this. Signatures Electronically signed by : Inge Briseno R.N.; Sep 27 2019 11:23AM EST (Author) Normal [facility] Clinic Note - [facility]-Hematology - New Visiton [...] change her pad. She has seen a addiction treatment counselor and trialed several OCPs with no decrease in amount or length of bleeding. She notes an increase in bleeding on her periods with OCPs. She has not tried any other forms such as IUD or nexplanon. Her addiction treatment counselor bartolo basic labs and noted lower platelets and referred her to a energy professional Dr. Mcdowell. She was tested for vWF, [...] Note Completion: I personally evaluated the patient [id number] Attending AttestationI saw and evaluated the patient. [...] Updated: 27-Oct-2018 13:30 by Santo Wang) Normal [facility] Measurementson 10-24-2018 Measurements Growth Chart: Growth Chart Measurements: Growth Chart Length/Height (cm)164.1 Growth Chart Weight (kg)67.7 Growth Chart BMI (kg/m2)25.14 Electronic Signatures: Regina Perdue I) (Signed 24-Oct-2018 14:25) Authored: Growth Chart Last Updated: 24-Oct-2018 14:25 by Regina Perdue (LISETTE Aden) Normal [facility] Vital Signs Date Time Vital Sign Value Performing Clinician Facility 12-28-2024 09:13-0400 Body mass index (BMI) [Ratio] 26.96 kg/m2 [facility] 12-28-2024 09:13-0400 Body weight 73.48 kg [facility] 12-28-2024 09:13-0400 Diastolic blood pressure 72 mm[Hg] [facility] 12-28-2024 09:13-0400 Systolic blood pressure 120 mm[Hg] [facility] 10-24-2024 13:43-0400 Body mass index (BMI) [Ratio] 27.26 kg/m2 Bubba Cipriano DO Work Phone: [facility] 10-24-2024 13:43-0400 Body weight 74.3 kg Bubba Cipriano DO Work Phone: [facility] 10-24-2024 13:43-0400 Diastolic blood pressure 78 mm[Hg] Bubba Cipriano DO Work Phone: [facility] 10-24-2024 13:43-0400 Systolic blood pressure 118 mm[Hg] Bubba Cota DO Work Phone: [facility] 03-08-2024 10:27-0400 Body temperature 98.7 [degF] [facility] 03-08-2024 10:27-0400 Body weight 68.[address] [facility] 03-08-2024 10:27-0400 Diastolic blood pressure 88 mm[Hg] [facility] 03-08-2024 10:27-0400 Heart rate 88 /min [facility] 03-08-2024 10:27-0400 SaO2% (BldA) [Mass fraction] 98 % [facility] 03-08-2024 10:27-0400 Systolic blood pressure 130 mm[Hg] [facility] 05-26-2023 16:15-0500 Diastolic blood pressure 75 mm[Hg] Charlie Paerdes MD Work Phone: [facility] 05-26-2023 16:15-0500 Heart rate 54 /min Charlie Paredes MD Work Phone: [facility] 05-26-2023 16:15-0500 Respiratory rate 18 /min Charlie Paredes MD Work Phone: [facility] 05-26-2023 16:15-0500 SaO2% (BldA) [Mass fraction] 100 % Charlie Paredes MD Work Phone: [facility] 05-26-2023 16:15-0500 Systolic blood pressure 119 mm[Hg] Charlie Paredes MD Work Phone: [facility] 05-26-2023 15:41-0500 Body temperature 97.7 [degF] Charlie Paredes MD Work Phone: [facility] 05-26-2023 13:27-0500 Body mass index (BMI) [Ratio] 20.8 kg/m2 Charlie Paredes MD Work Phone: [facility] 05-26-2023 13:27-0500 Body weight 56.7 kg Charlie Paredes MD Work Phone: [facility] 04-22-2023 12:59-0500 Body height 165.1 cm Albert Zapata MD Work Phone: [facility] 04-22-2023 12:59-0500 Body weight 61.69 kg Albert Zapata MD Work Phone: [facility] 04-22-2023 12:59-0500 Diastolic blood pressure 72 mm[Hg] Albert Zapata MD Work Phone: [facility] 04-22-2023 12:59-0500 Heart rate 68 /min Albert Zapata MD Work Phone: [facility] 04-22-2023 12:59-0500 Systolic blood pressure 118 mm[Hg] Albert Zapata MD Work Phone: [facility] 02-25-2023 13:30-0400 Body weight 60.78 kg Fernando Wilson Other [employer] Other 02-25-2023 13:30-0400 Diastolic blood pressure 77 mm[Hg] Fernando Wilson Other [employer] Other 02-25-2023 13:30-0400 Systolic blood pressure 117 mm[Hg] Fernando Wilson Other [employer] Other 12-01-2022 13:00-0400 Body height 165.1 cm Imad Asaad Other [employer] Other 12-01-2022 13:00-0400 Body mass index (BMI) [Ratio] 20.13 kg/m2 Imad Asaad Other [employer] Other 12-01-2022 13:00-0400 Body weight 54.89 kg Imad Asaad Other [facility] [employer] Other 12-01-2022 13:00-0400 Diastolic blood pressure 93 mm[Hg] Imad Asaad Other [facility] [employer] Other 12-01-2022 13:00-0400 Systolic blood pressure 144 mm[Hg] Imad Asaad Other [facility] [employer] Other 10-19-2022 10:18-0400 Diastolic blood pressure 63 mm[Hg] MD Fernando Wilson Work Phone: [facility] 10-19-2022 10:18-0400 Heart rate 66 /min MD Fernando Wilson Work Phone: [facility] 10-19-2022 10:18-0400 Respiratory rate 16 /min MD Fernando Wilson Work Phone: [facility] 10-19-2022 10:18-0400 SaO2% (BldA) [Mass fraction] 99 % MD Fernando Wilson Work Phone: [facility] 10-19-2022 10:18-0400 Systolic blood pressure 108 mm[Hg] MD Fenrando Wilson Work Phone: [facility] 10-19-2022 08:40-0400 Body height 165.1 cm MD Fernando Wilson Work Phone: [facility] 10-19-2022 08:40-0400 Body temperature 98.4 [degF] MD Fernando Wilson Work Phone: [facility] 10-19-2022 08:40-0400 Body weight 56.69 kg MD Fernando Wilson Work Phone: [facility] 09-02-2022 16:00-0400 Body height 162.56 cm Fernando Wilson Other [facility] [employer] Other 09-02-2022 16:00-0400 Body mass index (BMI) [Ratio] 21.11 kg/m2 Fernando Wilson Other [employer] Other 09-02-2022 16:00-0400 Body weight 55.79 kg Fernando Wilson Other [employer] Other 09-02-2022 16:00-0400 Diastolic blood pressure 64 mm[Hg] Fernando Wilson Other [employer] Other 09-02-2022 16:00-0400 SaO2% (BldA) [Mass fraction] 99 % Fernando Wilson Other [employer] Other 09-02-2022 16:00-0400 Systolic blood pressure 100 mm[Hg] Fernando Wilson Other [employer] Other 06-02-2022 15:30-0500 Body weight 57.15 kg Imad Asaad Other [employer] Other 06-02-2022 15:30-0500 Diastolic blood pressure 68 mm[Hg] Imad Asaad Other [employer] Other 06-02-2022 15:30-0500 Systolic blood pressure 116 mm[Hg] Imad Asaad Other [employer] Other 05-08-2022 17:18-0500 Body temperature 99 [degF] MD Fernando Wilson Work Phone: [facility] 05-08-2022 17:18-0500 Diastolic blood pressure 57 mm[Hg] MD Fernando Wilson Work Phone: [facility] 05-08-2022 17:18-0500 Heart rate 62 /min MD Fernando Wilson Work Phone: [facility] 05-08-2022 17:18-0500 Respiratory rate 16 /min MD Fernando Wilson Work Phone: [facility] 05-08-2022 17:18-0500 SaO2% (BldA) [Mass fraction] 100 % MD Fernando Wilson Work Phone: [facility] 05-08-2022 17:18-0500 Systolic blood pressure 99 mm[Hg] MD Fernando Wilson Work Phone: [facility] 05-08-2022 15:01-0500 Body height 165.1 cm MD Fernando Wilson Work Phone: [facility] 05-08-2022 15:01-0500 Body weight 58.45 kg MD Fernando Wilson Work Phone: [facility] Encounters Encounter Date Encounter Type Care Provider Facility Start: 01-15-2025 End: 01-15-2025 Clinisync Result Encounter Bubba Cipriano DO Work Phone: [facility] External Department Unsolicited Start: 01-15-2025 End: 01-15-2025 Clinisync Result Encounter Bubba Cipriano DO Work Phone: [facility] External Department Unsolicited Start: 01-14-2025 End: 01-14-2025 Bamboo flowsheet Bubba Cipriano DO Work Phone: [facility] Start: 01-14-2025 End: 01-15-2025 Bamboo flowsheet [...] Bubba Cipriano DO Work Phone: [facility] Comment on above: Missed menses (Prima ry Dx); Vaginal discharge; STD exposure; Positive urine test ([facility]) Start: 01-09-2025 End: 01-09-2025 Clinisync Result Encounter Jacqueline Chapmanerly [employer] Work Phone: [facility] External Department Unsolicited Start: 01-09-2025 End: 01-09-2025 Clinisync Result Encounter Jacqueline Nashly [employer] Work Phone: [facility] External Department Unsolicited Start: 12-28-2024 End: 12-28-2024 Office outpatient visit 5 minutes Cipriano Nurse Noms Carly Ob [facility] Comment on above: GA: [id number] Start: 12-28-2024 [...] 15 minutes Charlie Paredes MD Work Phone: [facility] 2 Comment on above: Norovirus (Primary D x); Irritable bowel syndrome with diarrhea Start: 03-08-2024 End: 03-08-[address] [facility] Work Phone: Start: 03-08-2024 End: 03-08-2024 Patient encounter procedure [facility] Brian Work Phone: Start: 05-26-2023 End: 05-26-2023 Subsequent hospital visit by physician Charlie Paredes MD Work Phone: [facility] Comment on above: Congenital sucrase-i somaltase deficiency Start: 04-26-2023 End: 04-26-2023 Office outpatient visit 15 minutes Charlie Paredes MD Work Phone: [facility] 2 Comment on above: Congenital sucrase-i somaltase deficiency (Primary Dx); Irritable bowel syndrome with diarrhea; Generalized abdominal pain; Weight loss; Bilious vomiting with nausea Start: 04-22-2023 End: 04-22-2023 ambulatory ALBERT ZAPATA Facility:[facility] Start: 04-22-2023 End: 04-22-2023 Office consultation new/estab patient 60 min Albert Zapata MD Work Phone: Endocrinology Comment on above: Menorrhagia with reg ular cycle (Primary Dx) Start: 04-05-2023 End: 04-05-2023 Office outpatient visit 15 minutes Charlie Paredes MD Work Phone: [facility] 2 Comment on above: Irritable bowel synd vu with diarrhea (Primary Dx); Generalized abdominal pain; Weight loss; Bilious vomiting with nausea Start: 03-07-2023 End: 03-07-2023 ambulatory Fernando Wilson Other [employer] Other Start: 03-07-2023 Telephone encounter Fernando Wilson [facility] Start: 02-25-2023 End: 02-25-2023 ambulatory Fernando Wilson [facility] [employer] Other Start: 02-25-2023 Office outpatient vi sit 15 minutes Fernando Wilson [facility] Start: 02-21-2023 End: 02-21-2023 ambulatory Cody Akhtar - [facility] Facility:[facility] Start: 02-21-2023 End: 02-21-2023 ambulatory MD Fernando Wilson Work Phone: [facility] Work Phone: Start: 02-21-2023 End: 02-21-2023 Patient encounter procedure MD Fernando Wilson Work Phone: [facility]-Flu Vaccine Start: 12-01-2022 End: 12-01-2022 ambulatory Imad Asaad Other [employer] Other Start: 12-01-2022 Office outpatient vi sit 25 minutes Imad Asaad [facility] Start: 10-19-2022 End: 10-19-2022 ambulatory Imad Asaad Facility:[facility] Start: 10-19-2022 End: 10-19-2022 Admission to same day surgery center MD Fernando Wilson Work Phone: [facility] Work Phone: Start: 10-19-2022 End: 10-19-2022 ambulatory MD Fernando Wilson Work Phone: [facility] Work Phone: Start: 09-09-2022 End: 09-09-2022 ambulatory Imad Asaad [facility] [employer] Other Start: 09-09-2022 Telephone encounter Imad Asaad [facility] Start: 09-06-2022 End: 09-06-2022 ambulatory Fernando Wilson [facility] [employer] Other Start: 09-06-2022 Telephone encounter Fernando Wilson [facility] Start: 09-04-2022 End: 09-05-[address] FERNANDO WILSON Facility:[facility] Start: 09-03-2022 End: 09-03-2022 ambulatory Fernando Wilson [facility] [employer] Other Start: 09-03-2022 Telephone encounter Fernando Wilson [facility] Start: 09-02-2022 End: 09-02-2022 ambulatory Fernando Wilson [facility] [employer] Other Start: 09-02-2022 Office outpatient vi sit 15 minutes Fernando Wilson [facility] Start: 09-02-2022 Telephone encounter Fernando Wilson [facility] Start: 07-21-2022 End: 07-21-2022 ambulatory Imad Asaad Other [employer] Other Start: 07-21-2022 Telephone encounter Imad Asaad [facility] Start: 06-02-2022 End: 06-02-2022 ambulatory Imad Asaad [facility] [employer] Other Start: 06-02-2022 Office consultation new/estab patient 40 min Imad Asaad [facility] Start: 05-08-2022 End: 05-08-2022 Emergency department patient visit MD Fernando Wilson Work Phone: [facility]Emergency Room Start: 04-28-2022 End: 04-29-[address] FERNANDO WILSON Facility:[facility] Start: 04-07-[address] BUBBA COTA . Facili ty:[facility] Start: 03-23-2022 End: 03-24-[address] FERNANDO WILSON Facility:[facility] Start: 12-07-2021 End: 12-07-[address] BUBBA COTA . Facility:[facility] Start: 10-01-2019 Patient encounter procedure Stella Brar MY-Fihngomoyd-Stzsaxqz-Adm in [facility] Work Phone: Start: 05-29-2018 Patient encounter procedure Stella Brar CH-Ygtuqqwggy-Hopozedp-Adm in [facility] Work Phone: Start: 05-08-2018 Patient encounter procedure Stella Brar WQ-Kywqelmzfk-Fwazuybs-Adm in [facility] Work Phone: Procedures Date Procedure Procedure Detail Performing Clinician Start: 01-15-2025 Antibody screen Bubba Cipriano DO Work Phone: Start: 01-15-2025 ALL TYPE AND SCREEN Bubba Cipriano DO Work Phone: Start: 01-14-2025 RECURRENT VAGINITIS (HTRX) Bubba Cipriano D O Work Phone: Start: 01-14-2025 US OB TRANSVAGINAL Bubba Cipriano DO Work Phone: Start: 01-09-2025 BOX TEST Jacqueline Ch NP Work Phone: Start: 12-28-2024 End: 12-28-2024 Urnls [...] 2) Zoste r Vaccines (1 of 2) [facility] Start: 07-24-2033 DTaP/Tdap/Td Vaccine s (8 - Td or Tdap) DTaP/Tdap/Td Vaccines (8 - Td or Tdap) [facility] Start: 01-05-2026 DTaP/Tdap/Td Vaccine s (7 - Td or Tdap) DTaP/Tdap/Td Vaccines (7 - Td or Tdap) [facility] Start: 01-05-2026 Urine microalbumin profile DTaP,Tdap,Td Vaccine (7 - Td or Tdap) [facility] Start: 01-28-2025 End: 01-28-2025 Patient encounter procedure 01/28/2025 9:40 AM EDT [facility] [address] [place] [address] Bubba Cota DO [address] [place] [address] [facility] Start: 01-21-2025 Influenza vaccination Influenza Vacc ine (#1) [facility] Start: 01-14-2025 End: 04-16-2025 US Pelvis transvaginal US OB transvaginal Imaging Routine Missed menses Positive urine test ([facility]) Expected: 01/14/2025, Expires: 04/16/2025 [facility] Work Phone: Comment on above: Expected: 01/14/2025 , Expires: 04/16/2025 Start: 12-28-2024 End: 12-28-2025 ABO/Rh ABO/Rh Lab Routine Missed menses , unspecified gestational age ([facility]) Expected: 12/28/2024 (Approximate), Expires: 12/28/2025 [facility] Healthcare Comment on above: Expected: 12/28/2024 (Approximate), Expires: 12/28/2025 Start: 12-28-2024 End: 12-28-2025 Blood type and Indirect antibody screen panel - Blood Type and screen Lab Routine Missed menses , unspecified gestational age ([facility]) Expected: 12/28/2024 (Approximate), Expires: 12/28/2025 [facility] Comment on above: Expected: 12/28/2024 (Approximate), Expires: 12/28/2025 Start: 12-28-2024 End: 12-28-2025 Drugs of abuse panel - Urine by Screen method Rapid drug screen, urine Lab Routine , unspecified gestational age ([facility]) Encounter for supervision of normal first in first trimester ([facility]) Expected: 12/28/2024 (Approximate), Expires: 12/28/2025 [facility] Healthcare Comment on above: Expected: 12/28/2024 (Approximate), Expires: 12/28/2025 Start: 12-28-2024 End: 12-28-2024 ambulatory 12/28/2024 9:00 AM EDT Initial [facility] [address] [place] [id number] [facility] Start: 12-28-2024 End: 12-28-2024 Professional / ancillary services management 12/28/2024 8:00 AM EDT Ancillary Procedure [facility] [address] [place] [id number] [facility] Start: 12-20-2024 End: 03-22-2025 US Pelvis transvaginal US OB transvaginal Imaging Routine Missed menses Positive urine test ([facility]) Expected: 12/20/2024, Expires: 03/22/2025 [facility] Healthcare Work Phone: Comment on above: Expected: 12/20/2024 , Expires: 03/22/2025 Start: 2024 Screening for malign ant neoplasm of cervix [facility] Start: 01-22-2024 COVID-19 Vaccine ( season) COVID-19 Vaccine ( season) [facility] Start: 05-24-2023 End: 05-24-2023 Telemedicine consultation with patient 05/24/2023 8:00 AM EST Telemedicine [facility] 2 [phone] [facility] [address] [place] [address] Charlie Paredes MD [phone] [facility] [address] [place] [address] [facility] 2 Start: 04-22-2023 End: 07-22-2023 Prolactin [Mass/volume] in Serum or Plasma PROLACTIN BLD Lab Routine Menorrhagia with regular cycle Expected: 04/22/2023, Expires: 07/22/2023 [facility] Work Phone: Comment on above: Expected: 04/22/2023 , Expires: 07/22/2023 Start: 04-22-2023 End: 07-22-2023 Thyrotropin [Units/volume] in Serum or Plasma TSH BLD Lab Routine Menorrhagia with regular cycle Expected: 04/22/2023, Expires: 07/22/2023 [facility] Work Phone: Comment on above: Expected: 04/22/2023 , Expires: 07/22/2023 Start: 01-21-2023 Covid-19 Vaccine ( season) Covid-19 Vaccine () [facility] Start: 10-19-2022 [facility] Start: 05-23-2022 Depression Assessment Depression Ass essment [facility] Start: 07-12-2021 Hepatitis A Vaccines (2 of 2 - 2-dose series) Hepatitis A Vaccines (2 of 2 - 2-dose series) [facility] Start: 07-12-2021 HPV Vaccine (3 - 3-d ose series) HPV Vaccine (3 - 3-dose series) [facility] Start: 07-12-2021 HPV Vaccines (3 - 3- dose series) HPV Vaccines (3 - 3-dose series) [facility] Start: 2021 Chlamydia Screening (18-24) Chlamydia Screening (18-24) [facility] Start: 2021 GC (Gonorrhea) Scree lemuel (18-24) GC (Gonorrhea) Screening (18-24) [facility] Start: 2021 Hepatitis C screening Hepatitis C [facility] Start: 2021 [facility]atitis C Scre[facility] Start: 2021 HIV Screening HIV Screening [facility] Start: 08-20-2020 COVID-19 Vaccine (3 - Pfizer series) COVID-19 Vaccine (3 - Pfizer series) [facility] Start: 2017 Peds To Adult Transi tion Annual Assessment Peds To Adult Transition Annual Assessment [facility] Start: 2015 Peds To Adult Transi tion Initial Discussion Peds To Adult Transition Initial Discussion [facility] Start: 2007 Hearing Screening (#1) Hearing Michael hdez (#1) [facility] Start: 2006 Well Child Visit (WC V) - Annual Well Child Visit (WCV) - Annual [facility] Start: 2003 Hearing Screening (#1) Hearing Michael hdez (#1) [facility] Start: 2003 HIV screening HIV Screening [facility] Start: 2003 Lipid panel Lipid Panel [facility] Start: 2003 Yearly Adult Physical Yearly Adult P hysical [facility] Bacteria identified in Urine by Culture Urine culture Microbiology Routine Missed menses Ordered: 12/28/2024 [facility] Healthcare Comment on above: Ordered: 12/28/2024 CBC W Auto Different ial panel - Blood CBC and differential Lab Routine Missed menses , unspecified gestational age ([facility]) Ordered: 12/28/2024 [facility] Comment on above: Ordered: 12/28/2024 CHLAMYDIA TRACHOMATI S (GENITO/STI) CHLAMYDIA TRACHOMATIS (GENITO/STI) Lab Routine STD exposure Ordered: 01/14/2025 [facility] Healthcare Comment on above: Ordered: 01/14/2025 Disaccharidases pane l - Small intestine Tissue [facility] Work Phone: Comment on above: Release Upon Orderin g for 1 Occurrences starting 05/26/2023 Hemoglobin A1c/Hemoglobin.total in Blood Hemoglobin A1c Lab Routine Missed menses , unspecified gestational age ([facility]) Ordered: 12/28/2024 [facility] Comment on above: Ordered: 12/28/2024 Hepatitis B virus ramírez rface Ag [Presence] in Serum or Plasma by Immunoassay Hepatitis B surface antigen Lab Routine Missed menses , unspecified gestational age ([facility]) Ordered: 12/28/2024 [facility] Comment on above: Ordered: 12/28/2024 Hepatitis C virus Ab [Presence] in Serum or Plasma by Immunoassay Hepatitis C antibody Lab Routine Missed menses , unspecified gestational age ([facility]) Ordered: 12/28/2024 [facility] Comment on above: Ordered: 12/28/2024 HIV-1/HIV-2 antigen/antibody combination immunoassay HIV-1 and HIV-2 antibodies Lab Routine Missed menses , unspecified gestational age ([facility]) Ordered: 12/28/2024 [facility] Comment on above: Ordered: 12/28/2024 End: 05-26-2023 Moderate Sedation Moderate Sedation Procedures Routine Once for 1 Occurrences starting 05/26/2023 until 05/26/2023 [facility] Service Area Work Phone: Comment on above: Once for 1 Occurrenc es starting 05/26/2023 until 05/26/2023 Neisseria gonorrhoea e DNA [Presence] in Unspecified specimen by LYDIA with probe detection Neisseria gonorrhea DNA probe, direct Lab Routine STD exposure Ordered: 01/14/2025 [facility] Comment on above: Ordered: 01/14/2025 Patient Education [facility] Work Phone: Patient referral [facility] Work Phone: Reagin Ab [Presence] in Serum by RPR RPR Lab Routine Missed menses , unspecified gestational age ([facility]) Ordered: 12/28/2024 [facility] Comment on above: Ordered: 12/28/2024 Rubella antibody, IgG Rubella an tibody, IgG Lab Routine Missed menses , unspecified gestational age ([facility]) Ordered: 12/28/2024 [facility] Comment on above: Ordered: 12/28/2024 SURESWAB(R) ADVANCED VAGINITIS PLUS, TMA SURESWAB(R) ADVANCED VAGINITIS PLUS, TMA Pathology and Cytology Routine Vaginal discharge Ordered: 01/14/2025 [facility] Work Phone: Comment on above: Ordered: 01/14/2025 US Pelvis transvaginal US OB tra nsvaginal Imaging Routine Missed menses Positive urine test ([facility]) 12/28/2024 8:43 AM EDT [facility] Immunizations Immunization Date Immunization Notes Care Provider Fa cility 02-16-2024 influenza virus vacc ine, unspecified formulation Bubbaedwardo Cota DO Work Phone: [facility] 02-21-2023 influenza, injectabl e, quadrivalent, preservative free Charlie Paredes MD Work Phone: [facility] Work Phone: 03-11-2021 Human Papillomavirus 9-valent vaccine Charlie Paredes MD Work Phone: [facility] Work Phone: 03-11-2021 meningococcal B vacc ine, recombinant, OMV, adjuvanted Charlie Paredes MD Work Phone: [facility] Work Phone: 03-11-2021 HPV, unspecified formulation Charlie Paredes MD Work Phone: [facility] Work Phone: 01-09-2021 hepatitis A vaccine, pediatric/adolescent dosage, 2 dose schedule Charlie Paredes MD Work Phone: [facility] Work Phone: 01-09-2021 Human Papillomavirus 9-valent vaccine Charlie Paredes MD Work Phone: [facility] Work Phone: 01-09-2021 meningococcal B vacc ine, recombinant, OMV, adjuvanted Charlie Paredes MD Work Phone: [facility] Work Phone: 01-09-2021 meningococcal oligosaccharide (groups A, C, Y and W-135) diphtheria toxoid conjugate vaccine (MCV4O) Charlie Paredes MD Work Phone: [facility] Work Phone: 01-09-2021 hepatitis A and hepa titis B vaccine Charlie Paredes MD Work Phone: [facility] Work Phone: 06-25-2020 Pfizer Purple Cap SARS-CoV-2 Charlie Paredes MD Work Phone: [facility] 06-04-2020 Pfizer Purple Cap SARS-CoV-2 Charlie Paredes MD Work Phone: [facility] Work Phone: 01-06-2016 meningococcal polysaccharide (groups A, C, Y and W-135) diphtheria toxoid conjugate vaccine (MCV4P) Charlie Paredes MD Work Phone: [facility] Work Phone: 01-06-2016 tetanus toxoid, redu abdifatah diphtheria toxoid, and acellular pertussis vaccine, adsorbed Charlie Paredes MD Work Phone: [facility] Work Phone: 08-08-2008 diphtheria, tetanus toxoids and acellular pertussis vaccine, unspecified formulation Charlie Paredes MD Work Phone: [facility] Work Phone: 08-08-2008 measles, mumps and rubella virus vaccine Charlie Paredes MD Work Phone: [facility] Work Phone: 08-08-2008 poliovirus vaccine, inactivated Charlie Paredes MD Work Phone: [facility] Work Phone: 08-08-2008 varicella virus vaccine Charlie Paredes MD Work Phone: [facility] Work Phone: 04-30-2005 diphtheria, tetanus toxoids and acellular pertussis vaccine, unspecified formulation Charlie Paredes MD Work Phone: [facility] Work Phone: 04-30-2005 hepatitis B vaccine, pediatric or pediatric/adolescent dosage Charlie Paredes MD Work Phone: [facility] Work Phone: 04-30-2005 pneumococcal conjuga te vaccine, 7 valent Charlie Paredes MD Work Phone: [facility] Work Phone: 04-30-2005 poliovirus vaccine, inactivated Charlie Paredes MD Work Phone: [facility] Work Phone: 07-03-2004 haemophilus influenz ae type b vaccine, conjugate unspecified formulation Charlie Praedes MD Work Phone: [facility] Work Phone: 07-03-2004 measles, mumps and rubella virus vaccine Charlie Paredes MD Work Phone: [facility] Work Phone: 07-03-2004 pneumococcal conjuga te vaccine, 7 valent Charlie Paredes MD Work Phone: [facility] Work Phone: 07-03-2004 varicella virus vaccine Charlie Paredes MD Work Phone: [facility] Work Phone: 03-12-2004 pneumococcal conjuga te vaccine, 7 valent Charlie Paredes MD Work Phone: [facility] Work Phone: 2003 diphtheria, tetanus toxoids and acellular pertussis vaccine Charlie Paredes MD Work Phone: [facility] Work Phone: 2003 haemophilus influenz ae type b vaccine, PRP-T conjugate Charlie Paredes MD Work Phone: [facility] Work Phone: 2003 poliovirus vaccine, inactivated Charlie Paredes MD Work Phone: [facility] Work Phone: 2003 diphtheria, tetanus toxoids and acellular pertussis vaccine Charlie Paredes MD Work Phone: [facility] Work Phone: 2003 haemophilus influenz ae type b conjugate and Hepatitis B vaccine Charlie Paredes MD Work Phone: [facility] Work Phone: 2003 poliovirus vaccine, inactivated Charlie Paredes MD Work Phone: [facility] Work Phone: 2003 diphtheria, tetanus toxoids and acellular pertussis vaccine, unspecified formulation Charlie Paredes MD Work Phone: [facility] Work Phone: 2003 haemophilus influenz ae type b vaccine, conjugate unspecified formulation Charlie Paredes MD Work Phone: [facility] Work Phone: 2003 hepatitis B vaccine, pediatric or pediatric/adolescent dosage Charlie Paredes MD Work Phone: [facility] Work Phone: 2003 pneumococcal conjuga te vaccine, 7 valent Charlie Paredes MD Work Phone: [facility] Work Phone: 2003 poliovirus vaccine, unspecified formulation Charlie Paredes MD Work Phone: [facility] Work Phone: 2003 hepatitis B vaccine, pediatric or pediatric/adolescent dosage Charlie Paredes MD Work Phone: [facility] Work Phone: Payers Date Payer Category Payer Private Health Insurance [employer] Member Subscriber Plan / Payer (Effective 2022-Present) Name: Manpreet Fraire Relation to Subscriber: Child Name: RULAEMERSONSHIKHACARYN Date of : 1969 Address: [address] [place] [address] Payer ID: Not on file Type: Not on file Address: [place] [id number] 2021 Managed Care ([facility]) [facility] Member Subscriber Plan / Payer (Effective 2021-Present) Name: Manpreet Fraire Relation to Subscriber: Child Name: CARYN ESTRADA Date of : 1969 Address: [address] [place] [address] Payer ID: Not on file Type: Not on file Address: [place] [phone] 2020 [facility] [id number] 2020 [employer] Blue [place]ila[place] ld Managed Care [facility] [id number] 2020 Unknown [id number] 2003 Unknown [id number]. 593 2003 Unknown [id number]. 593 2003 Unknown [id number] [id number]. 593 2003 Unknown [id number] [id number]. 593 2003 Unknown [id number] [id number]. 593 2003 Unknown [id number] 2.16.840.1.271518.3.579.2. 593 2003 Unknown [id number] [id number]. 1259 2003 Unknown [id number] 2.16.840.1.500060.3.579.2. 1259 2003 Unknown [id number] 2.16.840.1.415578.3.579.2. 1259 2003 Unknown [id number] [id number]. 1259 1959 Self-pay [id number] 1961 Unknown [id number] 1959 Unknown [id number] Unknown O [id number] Unknown [id number] Unknown [id number]. 531 Unknown [id number]. 531 Social History Date Type Detail Facility Start: 05-08-2022 End: 11-03-2022 Tobacco smoking status NHIS Never smoked tobacco (finding) [facility] Start: 2003 Sex Assigned At Female F [facility] Start: 04-22-2023 End: 10-24-2024 Sex Assigned At [facility] [employer] Other Start: 03-04-2023 Tobacco smoking status NHIS Tobacco smoking consumption unknown [facility] Work Phone: Start: 04-05-2023 Gender identity Identifies as female gender (finding) [facility] Work Phone: Start: 04-05-2023 Sexual orientation Heterosexual (fin ding) [facility] Work Phone: Start: 02-25-2023 End: 05-26-2023 Exposure to SARS-CoV-2 (event) Not sure [facility] Start: 04-22-2023 Tobacco use and exposure Smokeless tobacco non-user [facility] Start: 04-22-2023 End: 01-14-2025 Alcohol intake Lifetime non-drinker (finding) [facility] Start: 04-22-2023 End: 10-24-2024 History of Social function [facility] National Score (1-100), lower number is lower risk 78 [facility] Start: 2003 Sex Assigned At Not on file [facility] Start: 11-18-2024 [facility] NEGATED: Highlighted row - - DB-Lievjpetdn-Uoxkci o g-Admin [facility] Work Phone: Goals Date Patient Goal Desired Activity /State Functional Status Date Assessment Result Facility NEGATED: Highlighted row Functional performance Functional status health issues are not documented Disease HZ-Zdroyavspv-Ugxve log-Admin RBC 585 Work Phone: Mental Status Date Assessment Result Facility NEGATED: Highlighted row Cognitive function [Interpretation] Cognitive status health issues are not documented Disease BO-Jtotfhxepn-Ycjaq log-Admin [facility] 585 Work Phone: Clinical Notes [...] 4 mg, Oral, Every 8 hours PRN Mqxkgofh-Zds-Vn-FA ( 1 + IRON PO) sucralfate (CARAFATE) 1 g, Oral, 4 times daily before meals and nightly ALLERGIES No Known Allergies PROBLEMS Active Ambulatory Problems Diagnosis Date Noted Positive urine test ([facility]) 11/30/2024 MTHFR gene mutation 08/24/2018 IBS (irritable bowel syndrome) 06/01/2016 MTHFR (methylene THF reductase) deficiency and homocystinuria 12/20/2024 Moderate episode of recurrent major depressive disorder (HCC) 08/11/2021 Encounter for supervision of normal first in first trimester ([facility]) 12/28/2024 Resolved Ambulatory Problems Diagnosis Date [...] nursing note reviewed. Exam conducted with a copier operator present. Vitals: Estimated body mass index is [...] Cota DO documented in this encounter [facility] 12-28-2024 History of Present illness Narrative Reason [...] list which includes the following prescription(s): dicyclomine, nqqqwhjz-azo-vv-fa, and ondansetron odt. Medical History: Active Ambulatory Problems Diagnosis Date Noted Positive urine test ([facility]) 11/30/2024 MTHFR gene mutation 08/24/2018 IBS (irritable bowel syndrome) 06/01/2016 MTHFR (methylene THF reductase) deficiency and homocystinuria 12/20/2024 Moderate episode of recurrent major depressive disorder (HCC) 08/11/2021 Encounter for supervision of normal first in first trimester ([facility]) 12/28/2024 Resolved Ambulatory Problems Diagnosis Date [...] all orders for this visit: First trimester ([facility]) 7 weeks gestation of ([facility]) Missed menses - US OB transvaginal; Future - Type and screen; Future - ABO/Rh; Future - CBC and differential - Hemoglobin A1c - RPR - Rubella antibody, IgG - Hepatitis B surface antigen - Hepatitis C antibody - HIV-1 and HIV-2 antibodies - Urine culture - POCT , urine manually resulted - POCT urinalysis dipstick manually resulted Positive urine test ([facility]) - US OB transvaginal; Future Amenorrhea , unspecified gestational age ([facility]) - Type and screen; Future - ABO/Rh; Future - CBC and differential - Hemoglobin A1c - RPR - Rubella antibody, IgG - Hepatitis B surface antigen - Hepatitis C antibody - HIV-1 and HIV-2 antibodies - Rapid drug screen, urine; Future Encounter for supervision of normal first in first trimester ([facility]) - Rapid drug screen, urine; Future MTHFR gene mutation Irritable bowel syndrome, unspecified type Nurse Note: Pt unsure about doing [employer] to one. Pt was advised if she desires [place] to make sure labs are done at [...] or undercooked meat, and stay away from [facility] system. Patient has also been advised to not [...] concerns or questions. Nurse Visit Completed by: LISETTE Mullenally signed by Chantell Pillai MA at 12/28/2024 9:24 AM EDT documented in this encounter [facility] 10-24-2024 History of Present illness Narrative Associated [...] nursing note reviewed. Exam conducted with a copier operator present. Vitals: Estimated body mass index is [...] given: yes Instructions and paperwork completed: yes [place] protocol: Patient states understanding of procedure being [...] Cota DO documented in this encounter [facility] 07-12-2024 History of Present illness Narrative Subjective [...] Charlie Paredes MD documented in this encounter [facility] Work Phone: 05-26-2023 Miscellaneous Notes Home going instructions reviewed and discussed, pt and family verbalize understanding. Educated on anesthesia safety. Tolerated fluids well documented in this encounter [facility] Work Phone: 05-26-2023 Note Formatting of this n ote might be different from the original. Home going instructions reviewed and discussed, pt and family verbalize understanding. Educated on anesthesia safety. Tolerated fluids well [facility] 05-26-2023 Note Formatting of this n ote might be different from the original. Home going instructions reviewed and discussed, pt and family verbalize understanding. Educated on anesthesia safety. Tolerated fluids well [facility] 05-26-2023 Hospital Discharge instructions Charlie Paredes [...] having your procedure, call the [facility] to be advised whether a visit to [...] discharge from the GI Lab, please call: [phone] documented in this encounter [facility] Work Phone: 05-26-2023 History and physical note Procedure H&P Patient Profile-Procedures Name Manpreet Fraire Date of 2005 Address [address] [id number] [facility] [address] Primary Secondary Phone Number Fernando Hensley Procedure(s): Procedures: EGD Primary contact name and number Extended Emergency Contact Information Primary Emergency Contact: Devika Fraire Relation: Parent Secondary Emergency Contact: Jovan Alvarez Address: [address] [place] [address] Mobile Relation: [facility] Weight Vitals: [...] Paredes MD ergocalciferol (Vitamin D-2) 1.25 MG (47479 UT) capsule Take by mouth. 05/22/18 05/26/23 [...] met Charlie Paredes MD 05/26/2023 2:25 PM [facility] Work Phone: 05-26-2023 History and physical note Procedure H&P Patient Profile-Procedures Name Manpreet Fraire Date of 2005 [address] [place], [place] [id number] [place] [address] Primary Secondary Phone Number Fernando Hensley Procedure(s): Procedures: EGD Primary contact name and number Extended Emergency Contact Information Primary Emergency Contact: Devika Fraire Relation: Parent Secondary Emergency Contact: Jovan Alvarez Address: [address] [place] [address] Mobile Relation: [facility] Weight Vitals: [...] Paredes MD ergocalciferol (Vitamin D-2) 1.25 MG (75728 UT) capsule Take by mouth. 05/22/18 05/26/23 [...] 05/26/2023 2:25 PM documented in this encounter [facility] Work Phone: 04-26-2023 History of Present [...] capsule oral ergocalciferol (Vitamin D-2) 1.25 MG (03021 UT) capsule oral ondansetron ODT (ZOFRAN-ODT) 4 [...] Charlie Paredes MD documented in this encounter [facility] Work Phone: 04-22-2023 Note HNO ID: [id number] Author: Albert Zapata MD Service: ? Author Type: Physician Type: Progress Notes Filed: 04/25/2023 10:37 AM Note Text: ENDOCRINOLOGY REASON FOR CONSULTATION: Menorrhagia HISTORY The patient is referred by Dr. Bubba Cota from [facility]. . My recommendations will be sent [...] which included preparing to see the patient, fptr-ju-tujs patient care, completing clinical documentation, obtaining and/or reviewing separately obtained history, performing a medically appropriate examination, counseling and educating the patient/family/caregiver, and ordering medications, tests, or procedures. Return to office: GOLDIE Zapata MD c.c. Dr. Bubba Cota [facility] 04-22-2023 History of Present illness Narrative ENDOCRINOLOGY REASON FOR CONSULTATION: Menorrhagia HISTORY The patient is referred by Dr. Bubba Cota from [facility]. . My recommendations will be sent [...] which included preparing to see the patient, pqlc-cj-[id number] patient care, completing clinical documentation, obtaining and/or reviewing separately obtained history, performing a medically appropriate examination, counseling and educating the patient/family/caregiver, and ordering medications, tests, or procedures. Return to office: GOLDIE Zapata MD c.c. Dr. Bubba Cota documented in this encounter [facility] 04-05-2023 History of Present illness Narrative [...] following up with her GI team in [place], and has undergone extensive GI work-up including [...] capsule oral ergocalciferol (Vitamin D-2) 1.25 MG (38281 UT) capsule oral ondansetron ODT (ZOFRAN-ODT) 4 [...] Charlie Paredes MD documented in this encounter [facility] Work Phone: 03-07-2023 Evaluation note Encounter Date Diagnosis Assessment Notes Feb, RUQ abdominal pain (ICD-10 - R10.11) [facility] Other 10-06-2023 Evaluation note* Encounter Date Diagnosis Assessment Notes Treatment Notes Treatment Clinical Notes Feb, RUQ pain (ICD-10 - R10.11) Manpreet has had multiple labs, imaging and now GI tests. States she is seeing GI at for second opinion on 03/07. Offered GBUS, but she doesn't exactly fit the profile for gall stones. Will obtain HIDA at [facility] - discussed w pt and her mother. [facility] Other 07-12-2023 Evaluation note* Encounter Date Diagnosis Assessment Notes Treatment Notes Treatment Clinical Notes Nov, Nausea (ICD-10 - R11.0) Nov, Weight loss (ICD-10 - R63.4) Nov, Abdominal pain (ICD-10 - R10.9) Nov, Diarrhea (ICD-10 - R19.7) Patient may use imodium as needed [facility] Encounter Date Diagnosis Assessment Notes Treatment Notes Treatment Clinical Notes Aug, Situational anxiety (ICD-10 - F41.8) [facility] Other 04-13-2023 Evaluation note* Encounter Date Diagnosis [...] should keep follow-up appointment with Dr. Fernandez. [facility] Other 01-11-2023 Evaluation note* Encounter Date Diagnosis Assessment Notes Treatment Notes Treatment Clinical Notes May, Nausea (ICD-10 - R11.0) May, Abdominal pain (ICD-10 - R10.9) PATIENT TO CONTINUE ON BENTYL 20MG NEEDED May, Weight loss (ICD-10 - R63.4) PATIENT TO CALL IF SYMPTOMS WORSEN. [facility] Other Evaluation noteNo assessment information available [facility] Work Phone: Evaluation noteNo [facility] Other Evaluation note* Diagnosis Irritable bowel syndrome with diarrhea- Primary Irritable bowel syndrome Generalized abdominal pain Abdominal pain, generalized Weight loss Loss of weight Bilious vomiting with nausea documented in this encounter [facility] Work Phone: Evaluation note* Diagnosis Menorrhagia with regular cycle- Primary Excessive or frequent menstruation [facility] 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 Irritable bowel syndrome Generalized abdominal pain Abdominal pain, generalized Weight loss Loss of weight Bilious vomiting with nausea documented in this encounter [facility] Work Phone: Evaluation note* Diagnosis Congenital sucrase-isomaltase deficiency documented in this encounter [facility] Work Phone: Evaluation note* Diagnosis Congenital sucrase-isomaltase deficiency documented in this encounter [facility] Work Phone: Evaluation note* Diagnosis Norovirus- Primary Intestinal infection, enteritis due to [place] virus Irritable bowel syndrome with diarrhea Irritable bowel syndrome documented in this encounter [facility] Work Phone: Evaluation note* Diagnosis Encounter for [facility]UD removal [facility] First trimester ([facility]) state, incidental 7 weeks gestation of ([facility]) Missed menses Positive urine test ([facility]) Amenorrhea Absence of menstruation , unspecified gestational age ([facility]) Encounter for supervision of normal first in first trimester ([facility]) MTHFR gene mutation Irritable bowel syndrome, unspecified type [facility] Missed menses- Primary Vaginal discharge Leukorrhea, not specified as infective STD exposure Positive urine test ([facility]) [facility] Author Lisa Fernandez [facility] October 19, 2022 9:28am Note Date/Time October 19, 2022 9:28a m [facility] [address] [place] [address] Gastroenterology H&P Signed Patient: Manpreet Fraire MR#: [id number] : 2005 Acct:[id number] Age/Sex: 17 / F Adm Date: 3 Loc: Room: Type: [facility] Attending Dr: Lisa Fernandez MD Copies [...] <Electronically signed by Lisa Fernandez MD> 10/19/22927 [facility] Work Phone: [facility] general Narrative - Reported* Type Description Date Medical History persistent coughing Medical History wheezing 2004 Surgical History tubes in ears [facility] Other [facility] general Narrative - Reported* Type Description Date Medical History persistent coughing Medical History wheezing 2004 Medical History IBS (irritable bowel syndrome) Medical History MTHFR gene mutation Medical History ROZ (generalized anxiety disorde r) Surgical History tubes in ears Surgical History MYRINGOTOMY WITH TUBE PLACEMENT Hospitalization History SEE SURGICAL HX [facility] Other Hospital Discharge instructions Additional Instructions DISCHARGE [...] NOT operate machinery such as power tools, [employer] mowers, snow blowers, sewing machines, etc. for [...] -Follow up with PCP. - Office number [phone]. [facility] Work Phone: Family History Grandmother Name Dates [...] 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 Procedures EGD WY ESOPHAGOGASTRODUODENOSCOPY TRANSORAL DIAGNOSTIC WY EGD TRANSORAL BIOPSY SINGLE/MULTIPLE Charlie Paredes MD [address] [address] Referral ID Status Reason Start Date Expiration Date V isits Requested Visits Authorized [id number] Authorized 05/02/2023 05/01/2024 1 1 Additional Source Comments INFORMATION SOURCE (unrecogn ized section and content) DATE CREATED AUTHOR 10/06/2019 [facility] DATE CREATED AUTHOR AUTHOR'S ORGANIZ ATION 12/13/2019 [employer] DATE CREATED AUTHOR AUTHOR'S ORGANIZ ATION 09/09/2022 [facility] DATE CREATED AUTHOR AUTHOR'S ORGANIZ ATION 04/25/2023 [facility] DATE CREATED AUTHOR AUTHOR'S ORGANIZ ATION 09/08/2023 [facility] DATE CREATED AUTHOR AUTHOR'S ORGANIZ ATION 01/15/2025 [facility] Specialists EPIC Care Teams (unrecognized sec [...] Primary Care Provider Active Cody Akhtar DO [facility] Attending Provider Active Fiber Picker Relationship Specialty Start Date End Date Fernando Wilson MD [address] [place] [address] [place] [address] PCP - General 06/25/19 [employer] Relationship Specialty Start Date End Date Bubba Cota DO [address] [place] [address] [place] [address] Referring CENTRIFUGAL SEPARATOR 02/04/23 [employer] Relationship Specialty Start Date End Date Fernando Wilson MD PCP - General 06/25/19 [employer] Relationship Specialty Start Date End Date Fernando Wilson MD [address] [place] [address] PCP - General /08/09 Fiber Picker Relationship Specialty Start Date End Date Fernando Wilson MD [address] [place] [address] PCP - General 06/25/19 Team Status: Inactive Member Role Status Dates Fernando Wilson MD Primary Care Provider Active Start: March 08, 2024 End: March 08, 2024 Cristina Lara APRN Attending Provider Active Start: March 08, 2024 End: March 08, 2024 Fiber Picker Relationship Specialty Start Date End Date Fernando Wilson MD [address] [place] [address] PCP - General 06/25/19 Fiber Picker Relationship Specialty Start Date End Date Fernando Wilson MD [address] [facility] [place] [address] PCP - General Family Medicine 11/04/22 Fiber Picker Relationship Specialty Start Date End Date Fernando Wilson MD [address] [facility] [place] [address] PCP - General Family Medicine 11/04/22 Fiber Picker Relationship Specialty Start Date End Date Fernando Wilson MD [address] [facility] [place] [address] PCP - General Family Medicine 11/04/22 Fiber Picker Relationship Specialty Start Date End Date Fernando Wilson MD [address] [facility] [place] [address] PCP - General Family Medicine 11/04/22 Fiber Picker Relationship Specialty Start Date End Date Fernando Wilson MD [address] [facility] [place] [address] PCP - General Family Medicine 11/04/22 Fiber Picker Relationship Specialty Start Date End Date Fernando Wilson MD [address] [facility] [place] [id number] PCP - General Family Medicine 11/04/22 Goals [...] 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 Procedures EGD WY ESOPHAGOGASTRODUODENOSCOPY TRANSORAL DIAGNOSTIC WY EGD TRANSORAL BIOPSY SINGLE/MULTIPLE Charlie Paredes MD [address] [address] Referral ID Status Reason Start Date Expiration Date V isits Requested Visits Authorized [id number] Authorized 05/02/2023 05/01/2024 1 1 Reason Comments mirena removal Reason Comments Amenorrhea Reason Comments STI Screening Source Comments (unrecognize d section and content) In the event this informatio n is protected by the Federal Confidentiality of Alcohol and Drug Abuse Patient Records regulations: The Federal rules restrict any use of the information to criminally investigate or prosecute any alcohol or drug abuse patient.[facility] FOR RECORDS PERTAINING TO PATIENTS WHO [...] BE BASED ON THE PRIMARY CLINICAL RECORDS. [facility]. provides no warranty or guarantee of the accuracy or completeness of information in this document.
[2025-01-16 09:20] VITALS: BP 132/78; PULSE 89; TEMP 36.6; O2SAT 99; BMI 27.3
--- NOTE | 2025-01-16 11:22 | PM.ONB ---
Brief Operative Note Date of procedure: 01/16/25 Pre-op diagnosis general: first trimester missed Post-op diagnosis: same as pre-op Procedure: NAME OF PROCEDURE: [D&C suction ] PROCEDURE: The patient was taken back to the OR where she was given general anesthesia without difficulty. She was then placed in dorsal lithotomy position, prepped and draped in the normal sterile fashion. A weighted speculum was placed in the patient's vagina and the anterior lip of the cervix was identified and grasped with a single-tooth tenaculum. The patient was then gently dilated using Hegar dilators after we had sounded roughly to 9 cm. The suction curette was then tested. The suction curette was then placed in the patient's uterus and products of conception were removed using an 8-Chinese suction curette. ?Excellent hemostasis was noted. The patient tolerated the procedure well. Sponge, lap, and needle counts were correct x 2. All instruments were then removed from the patient's vagina. The patient was taken to the Recovery Room in stable condition. ?? Anesthesia: MAC Surgeon: Bubba Cota Estimated blood loss (mL): 5 Pathology: other (products of conception) Condition: stable Disposition: PACU Urinary Catheter Management Urinary Catheter Management Straight: Cath placed during this visit: no
[2025-01-16 11:26] VITALS: BP 86/39; PULSE 67; TEMP 36.1; O2SAT 98
[2025-01-16 11:40] VITALS: BP 108/68; PULSE 70; O2SAT 99
[2025-01-16 11:55] VITALS: BP 110/78; PULSE 84; O2SAT 99
[2025-01-16 12:26] VITALS: BP 121/64; PULSE 61; O2SAT 100
--- NOTE | 2025-01-16 12:37 | PC.NURSE ---
1238:pt ambulates to bathroom,voids without difficulty.
[2025-01-16 12:45] VITALS: BP 124/68; PULSE 78; O2SAT 100
== END 2025-01-16 12:50 | disposition home or self-care (01) ==
LOC: SURGOUT 08:56
PROVIDERS: PCP Family Medicine; Visit Provider Obstetrics & Gynecology
PROC: (CPT 1965; principal; 2025-01-16 10:10)
DX: O02.1 Missed abortion (principal)
CPT/HCPCS: 59820; 36415; 76801; 84702; 85025; 88305; J1100; J1885; J2250; J2405; J2590; J2704; J3010